=== PATIENT | female | born 1955 | race Caucasian/White ===

== ENCOUNTER → 2017-11-16 | Outpatient (CLI) | payer OTHER ==
[~2017-11-16] MED LIST: BNC/4025 PO; RIZA10TA21 PO; SUMA100T15 PO; TPRSR100 PO
--- NOTE | 2017-11-16 11:10 | DIAGNOSTIC IMAGING REPORT ---
EXAMINATION: RENAL ULTRASOUND CLINICAL HISTORY: N18.9 Chronic renal [id number] COMPARISON STUDY: 06/05/2014 FINDINGS: The right kidney measures 10.7 cm. There is upper pole atrophy/scarring.. The left kidney measures 7.9 cm.. There is minimal fullness of each renal pelvis. Significant obstruction is not felt to be present as bilateral ureteral jets were delineated There are no renal masses. The bladder wall is the upper limits of normal thickness. Bilateral ureteral jets were visualized. IMPRESSION : 1. Diffuse left renal atrophy 2. Upper pole right renal atrophy 3. No evidence of obstruction Electronically signed by: Fernie Burrows M.D. 11/16/2017 11:09 AM Dictated Date/Time: 11/16/2017 11:07 AM
--- NOTE | 2017-11-16 11:11 | DIAGNOSTIC IMAGING REPORT ---
DOPPLER ULTRASOUND OF THE RENAL ARTERIES CLINICAL HISTORY: Chronic renal insufficiency. COMPARISON STUDY: Abdominal CT dated 04/13/2016. TECHNIQUE: Doppler sonography of the renal arteries was performed to assess renal artery stenosis. Images are reviewed in the transverse and longitudinal planes. FINDINGS: On the right, intrarenal arterial resistive indices range from 0.55 to 0.58. Intrarenal arterial waveforms are normal with brisk upstrokes. The right renal arterial waveform is normal, and velocities within the right renal artery measure up to 73 cm/sec. The right renal vein is patent. On the left, intrarenal arterial resistive indices range from 0.54 to 0.57. Intrarenal arterial waveforms are normal with brisk upstrokes. The left renal artery is not well visualized. The arterial waveform is normal, and velocities within the mid to distal left renal artery measure up to 26 cm/sec. The left renal vein was not visualized. The abdominal aorta is normal in caliber and patent. Velocities within the abdominal aorta measure up to 78 cm/s. Upper abdomen: Survey images of the liver show evidence of hepatomegaly and severe hepatic steatosis. IMPRESSION: 1. There is no sonographic evidence of renal artery stenosis. 2. Severe hepatic steatosis. Electronically signed by: Denis Arteaga M.D. 11/16/2017 11:09 AM Dictated Date/Time: 11/16/2017 11:07 AM
== END | disposition home or self-care (01) ==
LOC: C.ULTR 09:04
PROVIDERS: ATTEND Internal Medicine
DX: N18.9 Chronic kidney disease, unspecified (principal); K76.0 Fatty (change of) liver, not elsewhere classified; N26.1 Atrophy of kidney (terminal)

== ENCOUNTER 2020-12-24 08:40 | Observation (INO) ==
--- NOTE | 2020-12-15 10:24 | Anesthesiology Consultation ---
Date of Service December 15, 2020 Assessment & Plan (1) Encounter for pre-operative examination: Chart Review Chart Review: Acceptable Risk for Surgery (pending preop Covid testing ) and Patient NOT seen in Pre Admission Testing - Check BSG AM DOS PCP records show that patient has hx of hypothyroidism- pt's PCP note from 09/2020 showed patient on levothyroxine 12.5mcg but not in current med list. Attempted to call patient but no answer and was unable to leave a message- will need confirmed DOS if patient is taking levothyroxine DOS. 12/10/20 thyroid levels WNL Per nursing assessment 12/01/2020, patient denies any recent travel. No known Covid infection in the past 90 days. No known Covid positive contacts or Covid related symptoms. Preop Covid testing scheduled 12/20/20= will await results. Last seen by PCP 09/24/2020 = patient seen for follow-up. Hypertensionimproved BP on examcontinue current meds. Diabetespatient reports blood sugars under 200encouraged careful diet. Migraine headachesfluctuating in intensitywe will try verapamil. Right knee DJDsurgery is pendingno change in plan of care at this time. Patient seen by cardiology 08/24/2020 = seen for preoperative cardiovascular evaluation prior to right total knee replacement. Patient does have cardiac risk factors and limited functional status secondary to right knee pain. No symptoms of chest discomfort but does report ORTIZ when ambulating up 1 flight of stairs. Patient also admits to heart racing at night when lying in bed. History of A. fib with prior ablation in . DSE and event monitor were ordered. Per addendum 09/14/2020 = "The dobutamine stress echo on 08/31/20 was negative for ischemia at 87% MPHR. Resting echo demonstrated normal LV size and systolic function with no significant valvular abnormality. Patient is therefore at an acceptable risk to proceed with upcoming surgery from a cardiovascular standpoint." History Surgery Operation Date: 12/24/20 07:15 Proposed Procedures p Right Total Knee Arthroplasty - Adrian Sims MD Height/Weight Height: 5 ft 4.5 in Weight: 92.986 kg Allergies Allergy/AdvReac Type Severity Reaction Status Date / Time latex Allergy Mild Hives Verified 12/01/20 15:41 Cipro Allergy Unknown UNKNOWN Verified 06/12/16 15:33 ciprofloxacin Allergy Unknown unknown Verified 12/01/20 15:41 reaction clarithromycin Allergy Unknown hives, Verified 12/01/20 15:41 itching insulin aspart Allergy Unknown Hives,Migra Verified 12/01/20 15:41 [From Novolog U-100 Insulin flakito aspart] Sulfa (Sulfonamide Allergy Unknown unknown Verified 12/01/20 15:41 Antibiotics) reaction codeine AdvReac Mild vomiting Verified 12/01/20 15:41 (with remote use) aspartame AdvReac Unknown severe Verified 12/01/20 15:41 migraines chocolate flavor AdvReac Unknown migraines Verified 12/01/20 15:41 glipizide AdvReac Unknown nausea, Verified 12/01/20 15:41 migraines liraglutide [From Victoza] AdvReac Unknown migraines Verified 12/01/20 15:41 monosodium glutamate AdvReac Unknown migraines Verified 12/01/20 15:41 nickel AdvReac Unknown swelling, Verified 12/01/20 15:41 itching Medications Home Medications Medication Instructions Recorded Confirmed Last Taken amoxicillin 500 mg capsule 2,000 mg PO ONCE PRN #8 cap 06/26/19 12/01/20 Unknown miscellaneous medical supply #1 ea 07/17/19 10/18/20 Unknown rizatriptan 10 mg tablet 10 mg PO .COMPLEX PRN #120 tab 01/28/20 12/01/20 Unknown albuterol sulfate 1 inh INHALATION QID PRN 08/10/20 12/01/20 Unknown BD Arlin 2nd Gen Pen Needle 32 #400 ea NS 09/23/20 10/18/20 Unknown gauge x 5/32" flash glucose sensor #6 ea 09/23/20 10/18/20 Unknown multivitamin 1 tab PO QAM 09/24/20 12/01/20 Unknown Accu-Chek Barbara Plus test strp #800 ea NS 10/18/20 10/18/20 Unknown insulin degludec 100 unit/mL (3 22 unit SUBCUT QAM #15 ml 10/18/20 12/01/20 Unknown mL) subcutaneous pen insulin regular human 100 unit/mL 15 unit SUBCUT .COMPLEX 90 Days 10/20/20 12/01/20 Unknown (3 mL) subcutaneous pen #15 ml sumatriptan succinate 100 mg tablet 100 mg PO Q2H PRN #10 tab 10/22/20 12/01/20 Unknown verapamil 120 mg 24 hr 120 mg PO QAM #30 cap 10/28/20 12/01/20 Unknown capsule,extended release losartan 100 1 tab PO QAM #90 tab 11/09/20 12/01/20 Unknown mg-hydrochlorothiazide 25 mg tablet furosemide 40 mg tablet 40 mg PO DAILY PRN #90 tab 11/11/20 12/01/20 Unknown Past Medical History Medical History (Updated 12/15/20 @ 10:51 by Neda Billy PA-C) Asthma rare use PRN inh Atrial fibrillation remote hx prior to ablation (1997), no known recurrence Chronic renal insufficiency Cyst of pancreas DM type 2 (diabetes mellitus, type 2) IDDM Fatty liver disease, nonalcoholic History of migraine Hypertension Hypothyroidism Per PCP records Kidney stones h/0 Lupus no recent issues, following with PCP Obstructive sleep apnea syndrome CPAP Slow to wake up after anesthesia Transient ischemic attack (TIA) remote hx Past Family History Family History Sister Family history of reaction to anesthesia difficulty waking Father Family history of diabetes mellitus Family hx colonic polyps Mother Family history of diabetes mellitus Past Surgical History Surgical History History of arthroscopy of left knee x2 History of arthroscopy of right knee History of bilateral breast implants History of bilateral cataract extraction History of bilateral tubal ligation History of bladder surgery bladder tac History of cardiac cath 2007 ([facility] no stent (no evidence of coronary artery disease) [place] of cardiac [place]frequency [place] [facility] [place] of colonoscopy History of dilatation and curettage History of esophageal dilatation History of esophagogastroduodenoscopy (EGD) History of hysterectomy History of right breast biopsy x2--benign History of tooth extraction wisdom teeth History of total left knee replacement (TKR) Social History Smoking Status: Never smoker Do You Dip or Chew Tobacco: No Hx Alcohol Use: Yes Alcohol type: wine alcohol intake frequency: holidays/special occasions only Hx Substance Use: No substance use type: does not use Testing Laboratory Results Laboratory Tests 12/10/20 12/10/20 12/10/20 13:25 13:27 13:27 WBC Hgb Hct Plt Count PT 10.2 INR 1.0 APTT 28 Sodium 142 Potassium 4.3 Chloride 105 Carbon Dioxide 26 BUN 28 H Creatinine 1.54 H Glucose 104 H Hemoglobin A1c TSH 1.57 Free T4 1.0 12/10/20 12/10/20 13:27 13:27 WBC 6.8 Hgb 15.5 Hct 45.6 H Plt Count 174 PT INR APTT Sodium Potassium Chloride Carbon Dioxide BUN Creatinine Glucose Hemoglobin A1c 7.3 H TSH Free T4 *Elevated BUN and creat- chronic and stable from previous Electrocardiogram Date: 04/21/20 SR at 76bpm. Possible LAE. Borderline LAD. Chest X-Ray Date: 04/21/20 Mild LVE. Minimal subsegmental atelectasis or scarring in the mid anterior CHAZ. Right lung clear. No acute cardiopulmonary disease. Stress Test Date: 08/31/20 Type: DSE Resting RWMA: + none Valvular Disease: no significant valvular disease Normal dobutamine echocardiogram without evidence of inducible ischemia. Normal baseline EKG. Left ventricle is normal in size and systolic function. Moderate concentric LVH. EF =60% at rest. Other Testing Event monitor 08/31/2022 09/20/2020 = sinus rhythm. Borderline first-degree AV block (WV 210 msec). Occasional PAC, PVC. During complaint of lightheadednessnormal sinus rhythm rate 85 bpm. During complaints of chest painnormal sinus rhythm rate [address] or T abnormalities.
--- NOTE | 2020-12-18 12:06 | History and Physical Report ---
DATE OF ADMISSION: 12/24/2020 CHIEF COMPLAINT: Bilateral knee pain and discomfort. HISTORY OF PRESENT ILLNESS: The patient is a 65-year-old female who presents for treatment of her knees. She has got a long history of knee problems and had her left knee replacement by Dr. Huffman back in 2012. Never really did great from this. She had persistent pain and discomfort. There have been no signs of infection or problems with wound healing. With respect to the right knee, it has been bothering her for a long time. She had a scope in 2010. She has medial and anteromedial pain. It is increased with activities. She feels like she has gained a lot of weight as a result of her limited activity, which is limited by her knee pain. She has been through extensive conservative treatment in past including the knee arthroscopy as well as steroid shots and viscosupplementation, which provided minimal relief anymore. She would like to have her right knee fixed. She has been scheduled for knee replacement in the past, but her hemoglobin A1c was too high and we have worked hard on getting that down. She is now to a reasonable level with A1c of 7.3. PAST MEDICAL HISTORY: Significant for: 1. Diabetes, poorly controlled in the past. 2. Hypertension. 3. History of heart arrhythmia, status post ablation without recurrence. 4. Sleep apnea, CPAP machine. 5. Hypothyroidism. 6. Obesity, BMI of 35. 7. Kidney stones with a single kidney. PAST SURGICAL HISTORY: Include: 1. Bilateral knee scopes. 2. Left knee replacement done in 2012. 3. Hysterectomy. ALLERGIES: NICKEL. ALSO DESCRIBES ALLERGT TO UNSPECIFIED ANTIBIOTIC. CURRENT MEDICINES: Include: 1. Losartan. 2. Imitrex. 3. Maxalt. 4. Albuterol. 5. Tresiba. 6. NovoLog insulin. SOCIAL HISTORY: A 65-year-old female. She lives in [place]. Works at [employer] in [employer]. She is single and . Rare alcohol intake. Does not smoke. FAMILY HISTORY: Significant for heart disease, diabetes, lung cancer, liver cancer. REVIEW OF SYSTEMS: Significant for poorly controlled diabetes. She has made significant improvements and is controlled with the past month. No chest pain or shortness of breath. No history of DVT or PE. PHYSICAL EXAMINATION: GENERAL: Shows a pleasant, middle-aged female. Looks to be in pretty good health. HEENT: Benign. NECK: Supple, no lymphadenopathy. LUNGS: Clear to auscultation. HEART: Has a regular rate and rhythm. ABDOMEN: Soft, nontender, nondistended. EXTREMITIES: Grossly neurovascularly intact except as follows. Examination of both knees reveals the patient ambulates independently. Minimal limp. Examination of the right knee reveals well-healed portal sites from the knee arthroscopy. She has got small to moderate sized effusion. Range of motion is about 5 degrees, show full extension to 125 degrees of flexion. There is no instability. She does have some patellofemoral crepitance. Examination of the left knee reveals well-healed incision. Knee alignment looks good. Range of motion 0-120. Good straight leg raise. No pain with hip motion. X-RAYS: X-rays of the right knee reveal advanced right knee medial compartment DJD. She has got complete loss of medial joint space. She has got osteophytes primarily medially. Some osteophytes laterally. X-rays of the left knee showed the knee replacement in good position. No obvious signs of problems. No poly wear. ASSESSMENT: A 65-year-old female with: 1. Advanced right knee degenerative joint disease. 2. Left knee pain after previous knee replacement without obvious problems. PLAN: We talked about treatment. Certainly we have been slowly considered a knee surgery when she is not super pleased with the other side. Despite this, she is markedly limited by her knee pain and feels she has got no option. She would like to proceed with right knee replacement. We will take her to the operating room and do a right total knee replacement. Due to her NICKEL ALLERGY, we will use a Mckoy and Nephew Journey II Zirconium total knee arthroplasty. The risks and benefits of this procedure were explained to the patient including but not limited to DVT, PE, , infection, neurological injury, vascular injury, bleeding problem, pain, limited range of motion, stiffness, failure to relieve symptoms, incomplete relief of symptoms, need for further surgery in future, fracture, leg length inequality, etc. The patient understands and desires to proceed. Informed consent was obtained. We did work hard on getting her hemoglobin A1c to a reasonable level and it is now down to 7.3 and I think we can proceed. The patient only has a single kidney, so we will have to be careful with NSAIDs use postoperatively. We will follow her creatinine. As far as discharge plans, she is planning to be discharged to home using [facility] home health program. There is a possibility that she may want to go to rehab for a short period.
[~2020-12-24 08:40] MED LIST changes: +ACETAMINOPHEN 500 MG TAB PO SCH; -BNC/4025 PO; +BUPIVACAINE 0.5 % 5 MG/1 ML PF 10ML VIAL ONE; +BUPIVACAINE LIPOSOME/PF 266 MG, BUPIVACAINE/EPINEPHRINE 50 ML, SODIUM CHLORIDE 0.9% 30 ... INFIL SCH; +FAMOTIDINE 20 MG TAB PO SCH; +GABAPENTIN 300 MG CAP PO SCH; +LR 500ML BOLUS, THEN 15ML/HR IV SCH; +LR 60ML/HR IV SCH; +METOCLOPRAMIDE HCL 10 MG TABLET PO SCH; +MIDAZOLAM HCL 1 MG/ML 2ML VIAL ONE; -RIZA10TA21 PO; +ROPIVACAINE 0.5% 5 MG/ML 30 ML VIAL ONE; -SUMA100T15 PO; +Scopolamine 1 MG TDSY TD SCH; -TPRSR100 PO; +TRANEXAMIC ACID 1,000 MG **IV Intra-op IV SCH; +ceFAZolin 2000MG 2,000 MG/15 ML SYR IV SCH; +fentaNYL citrate 100 MCG/2 ML VIAL ONE
--- NOTE | 2020-12-24 08:55 | History & Physical Bridge Note ---
Date of Service December 24, 2020 History & Physical Bridge Note I have examined the patient, reviewed the History & Physical and in the interval since the performance of the History & Physical I have noted the following changes of clinical significance: no changes noted
[2020-12-24] MEDS ORDERED: KETOROLAC 30 MG/ML VIAL IV PRN (10:35)
[2020-12-24] MEDS ORDERED: HYDROmorphone INJ 2 MG/ML SYR/VIAL IV PRN (10:35)
[2020-12-24] MEDS ORDERED: ePHEDrine sulfate 50 MG/ML AMP IV PRN (10:35)
[2020-12-24] MEDS ORDERED: ATROPINE SULFATE 0.1 MG/ML 10ML SYR IV PRN (10:35)
[2020-12-24] MEDS ORDERED: fentaNYL citrate 100 MCG/2 ML VIAL IV PRN (10:35)
[2020-12-24] MEDS ORDERED: BUPIVACAINE LIPOSOME 1.3% 266 MG/20 ML VIAL ONE (10:40)
[2020-12-24] MEDS ORDERED: BACITRACIN INJ 50,000 UNIT VIAL ONE (10:40)
[2020-12-24] MEDS ORDERED: SODIUM CHLORIDE 0.9% PF 50 ML VIAL ONE (10:40)
[2020-12-24] MEDS ORDERED: EPINEPHrine INJ 1 MG/ML AMP ONE (10:41)
[2020-12-24] MEDS ORDERED: BUPIVACAINE 0.25% 30 ML VIAL ONE (10:41)
[2020-12-24] MEDS ORDERED: ePHEDrine sulfate 50 MG/ML SYR ONE (11:53)
[2020-12-24] MEDS ORDERED: ONDANSETRON INJ 2 MG/ML 2 ML VIAL ONE (11:53)
[2020-12-24] MEDS ORDERED: PROPOFOL IV EMULSION 10 MG/ML 20 ML VIAL IV ONE (11:53)
[2020-12-24] MEDS ORDERED: LIDOCAINE HCL 2% 2 ML VIAL/AMP(20MG/ML) INFIL ONE (11:53)
--- NOTE | 2020-12-24 13:17 | Operative Report ---
Post Operative Report Pre & Post Diagnosis Operation Date: 12/24/20 10:40 Pre-Op Diagnosis: Right Knee DJD Post-Op Diagnosis: Right Knee DJD I identified the patient and participated in the time-out.: Yes Procedure Operation Date: 12/24/20 10:40 Actual Procedures p Right Total Knee Arthroplasty(Right) - Adrian Sims MD Surgeon Adrian Sims MD [employer] Learning Consultant FRANK Solares Estimated Blood Loss 50 Findings Consistent with Post-Op Diagnosis Operative findings revealed advanced right knee DJD. She had extensive grade 4 [id number] disease the medial compartment as well as patellofemoral compar tments. Fairly mild the lateral compartment disease. Fluids 1000 cc. Specimens Right knee sent for pathology. Drains None. Anesthesia Type Spinal MAC Complications none Disposition Accompanied Patient To Recovery: No Disposition: Recovery Room Indications Patient is a 65-year-old female is had a long history of bilateral knee pain is discomfort. She been through extensive conservative treatment. She underwent a left knee replacement done elsewhere with equivocal results. She is really try to maximize conservative care but continued be limited by her pain and discomfort. She failed all conservative measures and elected proceed with right total knee arthroplasty. The patient does have an apparent nickel allergy so we used the Mckoy & Nephew journey to zirconium a total knee arthroplasty. Description of Procedure Operative implants consist of: 1 Mckoy & Nephew journey 2 size 4 right posterior stabilized femoral component. 2. Mckoy & Nephew journey 2 size 2 right tibial tray. 3. 9 mm posterior stabilized polyethylene insert. 4. 32 x 9 all polypatella. The patient was taken to the operating identified and placed on the operating table supine position but all contact areas were properly padded. IV antibiotic s tried by anesthesia team. A spinal anesthetic and abductor canal block had provided in the holding area. Piper catheter was placed in sterile fashion. Right thigh turn was then placed in the right lower extremities and prepped and draped in usual sterile fashion. Right leg was elevated exsanguinated with use of an Esmarch and tourniquet placed at 300 mmHg. An anterior approach to the right knee was then performed to longitudinal incision centered over the patella. Sharp dissection was got through subcutaneous tissue down to the level extensor mechanism. A medial parapatellar arthrotomy incision was made. Some subperiosteal dissection was carried out medially. The fat pad was resected beneath patella tendon. Lateral patellofemoral ligament was released. The patella subluxated laterally and the knee was flexed. The osteophytes were taken off distal femur. The ACL and PCL were then released from the distal femur and the tibia subluxated anteriorly. The external tibial alignment jig was then placed in the interface the tibia and adjusted 8 mm medially. Proximal tibial cut was made remove about 2 to 3 mm of bone from the most deficient aspect medial tibial plateau. The tibia sized to a size 2. Attention drawn the femur. The distal femur then with a sharp drill bit intramedullary canal was suction. A right 5 degree valgus cutting guide was placed for the distal femoral cutting block was pinned in place. The distal femoral cut was made to take an additional 2 mm of bone off distal femur. The femur was then sized and sized to a size 4. The AP cutting block was pinned and then pinned in place in parallel to the epicondylar axis which was 3 degrees of external rotation. The anterior cord, anterior chamfer, posterior cut, posterior chamfer, anterior chamfer cuts were made. The trochlear reaming device was placed in the intercondylar notch was created. The trochlea was then placed. Trial femoral component was placed. I did remove the osteophytes from the posterior aspect of femur as well as the medial lateral menisci. The tibia was then subluxated anteriorly. The tibial tray was then pinned and the drill and stem punch for the tibial tray were then used to create the defect for the proximal tibia. We tried to maximize rotation, specifically external rotation of the tibial tray. We then trialed the knee in a 9 mm insert fit most appropriately. Attention drawn the patella. Nipride the patella was cleaned of all soft tissues. Patella thickness measured 21 mm in thickness was cut down 13. Was sized to a size 32 patella. The lug holes were drilled from 30 patella. The lateral osteophyte is moved. Patella button was placed. Knee was taken through range of motion patella tracked nicely with no thumbs test. Attention drawn to placing the permanent components. All trial components removed. A bone plug was placed in the distal femur limit blood loss. A double batch [place]os G cement was mixed. A Mckoy & Nephew size 4 right journey 2 posterior stabilized femoral component, size 2 tibial tray, a 9 mm posterior stabilized polyethylene insert, and a 32 x 9 all polypatella were then cemented in place. All extraneous cement was removed. The knee was brought out in full extension total cement hardened final cement check was then performed. The pericapsular tissues were injected with 100 cc of combination of 20 cc of Exparel, 30 cc normal saline, 50 cc of quarter percent Marcaine with epinephrine. Patient did receive 1 g tranexamic acid. The tourniquet was then let down for final turn time 62 minutes. Hemostasis reduced electrocautery. Extensor mechanism closed with combination 1 PDS suture #1 Vicryl suture in [id number] fashion. Extensor mechanism checked found to be intact with subcutaneous tissue then closed with 2 Dexon suture in a buried interrupted fashion skin was closed skin km. Leg was then cleaned dried a sterile dressing both Xeroform, 4 x 4's, sterile cast padding, Sin bandage were applied. Patient then transferred to the recovery room in stable condition. Patient tolerated procedure well and there were no complications. Will Sloares, my physician instruction assistant principal, was present for the entire procedure. His assistance was essential and required for appropriate patient positioning, prepping and draping, surgical exposure, performing the technical details of the operation, placement the implants, closure of the wound, and placement of the sterile bandage. I attest to the content of the Intraoperative Record and any orders documented therein. Any exceptions are noted below.
--- NOTE | 2020-12-24 13:19 | XRay Report ---
RIGHT KNEE 2 VIEWS History: Right total knee arthroplasty. Degenerative arthritis. Postop. FINDINGS: The patient is status post a right total knee arthroplasty. The hardware is intact. No frac ture or dislocation. Skin km are in place. IMPRESSION: Right total knee arthroplasty. No evidence for hardware complication. ACT 112: Negative or not required by law. Electronically signed by: Paul Burotn M.D. 12/24/2020 1:17 PM
--- NOTE | 2020-12-24 14:54 | Anesthesiology Progress Note ---
Date of Service December 24, 2020 Anesthesia Post Procedure Vital Signs Vital Signs: Temp Pulse Pulse Resp BP Pulse Ox 12/24/20 14:40 36.4 C L 66 16 146/90 H 94 12/24/20 14:30 68 16 151/99 H 93 12/24/20 14:11 36.1 C L 65 16 144/88 H 95 12/24/20 14:00 67 12 129/82 93 12/24/20 13:50 78 18 138/75 93 12/24/20 13:40 71 12 139/66 92 12/24/20 13:30 77 15 125/67 95 12/24/20 13:20 82 73 15 114/60 95 12/24/20 13:10 36.6 C 82 73 15 120/67 95 12/24/20 09:18 36.7 C 73 18 174/117 H 97 Pain Intensity Right Leg: Pain Intensity: 6 Transfer of Care Handoff Completed per policy Notes Mental Status: alert / awake / arousable and participated in evaluation Patient Amnestic to Procedure: Yes Nausea / Vomiting: adequately controlled Pain: adequately controlled Airway Patency, RR, SpO2: stable & adequate BP & HR: stable & adequate Hydration State: stable & adequate Neuraxial Anesthesia: was administered and sensory block is resolving Anesthetic Complications: no major complications apparent
[2020-12-24] MEDS ORDERED: METOCLOPRAMIDE HCL INJ 5 MG/ML 2 ML VIAL IV PRN (15:05)
[2020-12-24] MEDS ORDERED: SUMAtriptan succinate 100 MG TAB PO PRN (15:05)
[2020-12-24] MEDS ORDERED: GLUCOSE 10 TABS/TUBE PO PRN (15:05)
[2020-12-24] MEDS ORDERED: INSULIN SQ SCH (15:05)
[2020-12-24] MEDS ORDERED: RIZATRIPTAN BENZOATE 10 MG TAB PO PRN (15:05)
[2020-12-24] MEDS ORDERED: GLUCOSE 40% GEL 15 GM TUBE PO PRN (15:05)
[2020-12-24] MEDS ORDERED: NO NSAIDS SCH (15:05)
[2020-12-24] MEDS ORDERED: bisacodyL 10 MG SUPP PR PRN (15:05)
[2020-12-24] MEDS ORDERED: ALBUTEROL HFA 8 GM INHALER INH PRN (15:05)
[2020-12-24] MEDS ORDERED: diphenhydrAMINE Capsule 25 MG CAP PO PRN (15:05)
[2020-12-24] MEDS ORDERED: MAGNESIUM HYDROXIDE SUSP 30 ML UDC PO PRN (15:05)
[2020-12-24] MEDS ORDERED: DEXTROSE 50% 50 ML SYRINGE IV PRN (15:05)
[2020-12-24] MEDS ORDERED: FUROSEMIDE 40 MG TAB PO PRN (15:05)
[2020-12-24] MEDS ORDERED: NALOXONE HCL 0.4 MG/1 ML VIAL/CARP IV PRN (15:05)
[2020-12-24] MEDS ORDERED: CARBOHYDRATES FOR HYPOGLYCEMIA PO PRN (15:05)
[2020-12-24] MEDS ORDERED: GLUCAGON FOR INJ 1 MG VIAL SQ PRN (15:05)
[2020-12-24] MEDS ORDERED: INSULIN REGULAR HUMAN 100 UNIT/ML SQ SCH (15:05)
[2020-12-24] MEDS ORDERED: PHARMACY GLYCEMIC MGMT CONSULT PRN (15:29)
[2020-12-24] MEDS ORDERED: INSULIN GLARGINE SOLOSTAR 100 UNITS/ML 3 ML PEN SC SCH (16:00)
--- NOTE | 2020-12-24 16:15 | Pharmacy Report ---
Pharmacy Glycemic Short Note 2 - Date of Service December 24, 2020 - Glycemic Short BSG Results (Last 24 hours): 12/24/20 12/24/20 09:05 13:12 POC Glucose 132 H 116 H OUTPATIENT ANTIDIABETIC REGIMEN: * Tresiba 22 units Daily/Humulin R sliding scale ASSESSMENT: * Right knee DJD post op patient. * Using Humulin R for coverage because of allergy to both Novolog and Humalog. * A1C was 7.3 from 12/10/20 preop labs. * Patient ordered Dexamethasone 8mg x1 dose postop day #1. PLAN FOR INPATIENT GLYCEMIC CONTROL: * Hold outpatient oral diabetes medications * Basal insulin * Lantus 22 units SQ Daily * Bolus insulin * Humulin R per scale ACHS or Q6hrs while NPO * Goal Range: Low 110 mg/dL - High 140 mg/dL * Correction Factor: 25 mg/dL/unit * Nutritional / Prandial insulin per carb ratio of 1 unit per 8 grams CHO consumed PLAN FOR DISCHARGE: *
[2020-12-24] MEDS: ONDANSETRON INJ 2 MG/ML 2 ML VIAL IV PRN ×2 (16:29→22:40)
[2020-12-24] MEDS: SODIUM CHLORIDE 0.9% 1000ML 1,000 ML IV SCH (16:32)
[2020-12-24] MEDS: Scopolamine CHECK PATCH PLACEMENT SCH (16:34)
[2020-12-24] MEDS: ACETAMINOPHEN 500 MG TAB PO SCH ×2 (17:35→22:35)
[2020-12-24] MEDS: ASCORBIC ACID 500 MG TAB PO SCH (17:36)
[2020-12-24] MEDS: FERROUS GLUCONATE 324 MG TAB PO SCH (17:36)
[2020-12-24] MEDS: INSULIN HUMAN REGULAR SC SCH ×2 (17:40→20:49)
[2020-12-24] MEDS: ceFAZolin 2000MG 2,000 MG/15 ML SYR IV SCH (18:29)
[2020-12-24] MEDS: oxyCODONE HCL IR 5 MG TAB (IMMEDIATE RELEASE) PO PRN (18:29)
[2020-12-24] MEDS: INSULIN GLARGINE SOLOSTAR 100 UNITS/ML 3 ML PEN SC SCH (18:34)
[2020-12-24] MEDS ORDERED: TRANEXAMIC ACID / 0.7% NACL 1,000 MG/100 ML BAG IV SCH (19:07)
[2020-12-24] MEDS: HYDROmorphone INJ 0.5 MG/0.5 ML SYR IV PRN (19:21)
[2020-12-24] MEDS: ASPIRIN 81 MG ECTAB PO SCH (20:47)
[2020-12-24] MEDS: DOCUSATE SODIUM 100 MG CAP PO SCH (20:47)
[2020-12-24] MEDS: SENNA 8.6 MG TAB PO SCH (20:49)
[2020-12-24] MEDS: TAPENTADOL HCL ER 50 MG TABCR PO SCH (20:55)
[2020-12-25] MEDS: SODIUM CHLORIDE 0.9% 1000ML 1,000 ML IV SCH (00:19)
[2020-12-25] MEDS: Scopolamine CHECK PATCH PLACEMENT SCH ×4 (00:44→23:31)
[2020-12-25] MEDS: ceFAZolin 2000MG 2,000 MG/15 ML SYR IV SCH (03:26)
[2020-12-25] MEDS: ACETAMINOPHEN 500 MG TAB PO SCH ×3 (05:46→20:56)
[2020-12-25] MEDS: HYDROmorphone INJ 0.5 MG/0.5 ML SYR IV PRN ×3 (05:53→19:12)
[2020-12-25] MEDS: ONDANSETRON INJ 2 MG/ML 2 ML VIAL IV PRN ×2 (06:03→17:16)
[2020-12-25 06:39] LABS: Hematocrit (blood only) 40.9 % (37-47); Hemoglobin 13.5 g/dL (12.0-16.0); Mean Corpuscular Hemoglobin 30.1 pg (25-34); Mean Corpuscular Volume 91.3 fL (80-100); Mean Platelet Volume 11.7 fL (7.4-10.4); Platelet Count 158 K/uL (130-400); RDW Coefficient of Variation 13.4 % (11.5-14.5); RDW Standard Deviation 44.7 fL (36.4-46.3); Red Blood Count 4.48 M/uL (4.2-5.4); White Blood Count 11.36 K/uL (4.8-10.8)
[2020-12-25 07:08] LABS: BUN Creatinine Ratio 12.9 (10-20); Calcium 8.9 mg/dl (8.5-10.1); Creatinine Clr Calc Pharmacy 41.8 ml/min; Est GFR (Non-African American) 34.5
[2020-12-25] MEDS: FERROUS GLUCONATE 324 MG TAB PO SCH ×2 (07:38→17:15)
[2020-12-25] MEDS: ASCORBIC ACID 500 MG TAB PO SCH ×2 (07:38→17:15)
[2020-12-25] MEDS ORDERED: dexAMETHasone 4 MG TAB PO SCH (08:00)
[2020-12-25] MEDS ORDERED: NovoLIN-N (NPH) PER UNIT CHARGE SQ ONE (08:15)
[2020-12-25] MEDS: TAPENTADOL HCL ER 50 MG TABCR PO SCH ×2 (08:43→20:54)
[2020-12-25] MEDS: VERAPAMIL HCL 120 MG TABCR PO SCH (08:43)
[2020-12-25] MEDS: MULTIVITAMIN TAB PO SCH (08:43)
[2020-12-25] MEDS: ASPIRIN 81 MG ECTAB PO SCH ×2 (08:43→20:55)
[2020-12-25] MEDS: LOSARTAN/HCTZ 50/12.5MG TAB PO SCH (08:43)
[2020-12-25] MEDS: DOCUSATE SODIUM 100 MG CAP PO SCH ×2 (08:43→20:56)
[2020-12-25] MEDS: INSULIN HUMAN REGULAR SC SCH ×4 (08:48→21:01)
[2020-12-25] MEDS: INSULIN GLARGINE SOLOSTAR 100 UNITS/ML 3 ML PEN SC SCH (08:48)
[2020-12-25] MEDS ORDERED: NON-FORMULARY MEDICATION (Insulin Degludec [Tresiba Flextouch U-100] 100 unit/mL (3 mL) in SQ SCH (09:00)
[2020-12-25] MEDS ORDERED: MULTIVITAMIN TAB PO SCH (09:00)
--- NOTE | 2020-12-25 09:26 | Pharmacy Report ---
Pharmacy Glycemic Short Note 2 - Date of Service December 25, 2020 - Glycemic Short BSG Results (Last 24 hours): 12/24/20 12/24/20 12/24/20 13:12 17:11 20:41 Glucose POC Glucose 116 H 120 H 200 H 12/25/20 12/25/20 06:17 08:00 Glucose 160 H POC Glucose 150 H OUTPATIENT ANTIDIABETIC REGIMEN: * Tresiba 22 units Daily/Humulin R sliding scale ASSESSMENT: 12/25/20 * POD1, Fasting blood sugar 160mg/dl, continue Lantus * Blood sugar theron from 120 to 200mg/dl from dinner to HS last night, tighten CF/CR * Dexamethasone 8mg PO today, give NPH to cover effects, 0.2mg/kg x 1 day * Patient did not want NPH initially d/t thinking it was generic Humalog, counseled patient and explained it is NPH insulin and is used to help cover hyperglycemic effects of steroid, patient has never had NPH but is willing to try it, will monitor for adverse effects and document appropriately, RN Humble aware. 12/24/20 * Right knee DJD post op patient. * Using Humulin R for coverage because of allergy to both Novolog and Humalog. * A1C was 7.3 from 12/10/20 preop labs. * Patient ordered Dexamethasone 8mg x1 dose postop day #1. PLAN FOR INPATIENT GLYCEMIC CONTROL: * Hold outpatient oral diabetes medications * Basal insulin * NPH 20 units SQ x 1 dose now with PO Dexamethasone * Lantus 22 units SQ Daily * Bolus insulin * Humulin R per scale ACHS or Q6hrs while NPO * Goal Range: Low 110 mg/dL - High 140 mg/dL * tighten: Correction Factor: 20 mg/dL/unit * tighten:Nutritional / Prandial insulin per carb ratio of 1 unit per 7 grams CHO consumed
--- NOTE | 2020-12-25 10:38 | Progress Notes ---
DATE: 12/25/2020 SUBJECTIVE: A 65-year-old white female postop day 1 from right knee replacement. She has had a quite painful night. Complains of her entire right leg pain. Denies any chest pain or shortness of breath. Not feeling dizzy or lightheaded. OBJECTIVE: VITAL SIGNS: Temperature 36.6. Vital signs stable. A bit hypertensive. GENERAL: Shows a pleasant, middle-aged female. She is lying in bed. Does not look particularly uncomfortable. LUNGS: Clear to auscultation. HEART: Has a regular rate and rhythm. ABDOMEN: Soft, nontender, nondistended. EXTREMITIES: Grossly neurovascularly intact except as follows. Examination of the right leg reveals the leg to be well aligned. Dressing is clean, dry and intact. She can dorsiflex and plantarflex her toes appropriately. She is neurologically intact. LABORATORY DATA: Hemoglobin 13.5. Hematocrit is 40.9. Electrolytes are stable. Creatinine is stable at 1.56. ASSESSMENT: A 65-year-old female postop day 1 from a right knee replacement, doing okay. Having quite a bit of pain. Unfortunately, with her kidneys, we cannot really give her much in the way of NSAIDS. PLAN: 1. DVT prophylaxis including thigh-high TEDs, SCDs, and aspirin twice a day. 2. PT/OT. Weight bear as tolerated. Right total knee protocol. 3. Pain control, doing okay with current pain regimen. We may need to adjust things and change her from oxycodone to Dilaudid depending on how she is doing. Unfortunately, with her kidneys, we cannot give her NSAIDs. 4. Disposition: She is planning to be discharged to home. She is not ready for discharge at this point as her pain is not adequately controlled. We will see how therapy goes today as well.
[2020-12-25] MEDS: oxyCODONE HCL IR 5 MG TAB (IMMEDIATE RELEASE) PO PRN (12:14)
[2020-12-25] MEDS ORDERED: Nursing to Pharmacy Communication SCH (15:45)
[2020-12-25] MEDS: HYDROmorphone HCL 2 MG TAB PO PRN ×2 (15:59→22:30)
[2020-12-25] MEDS: SENNA 8.6 MG TAB PO SCH (20:55)
[2020-12-26] MEDS: HYDROmorphone INJ 0.5 MG/0.5 ML SYR IV PRN ×2 (00:29→16:24)
[2020-12-26] MEDS: ACETAMINOPHEN 500 MG TAB PO SCH ×3 (05:14→20:54)
[2020-12-26] MEDS: HYDROmorphone HCL 2 MG TAB PO PRN ×3 (06:25→23:31)
[2020-12-26] MEDS: ASCORBIC ACID 500 MG TAB PO SCH ×2 (07:19→17:48)
[2020-12-26] MEDS: Scopolamine CHECK PATCH PLACEMENT SCH ×3 (07:19→23:32)
[2020-12-26] MEDS: FERROUS GLUCONATE 324 MG TAB PO SCH ×2 (07:19→17:48)
[2020-12-26] MEDS: DOCUSATE SODIUM 100 MG CAP PO SCH ×2 (09:02→20:55)
[2020-12-26] MEDS: LOSARTAN/HCTZ 50/12.5MG TAB PO SCH (09:03)
[2020-12-26] MEDS: VERAPAMIL HCL 120 MG TABCR PO SCH (09:03)
[2020-12-26] MEDS: ASPIRIN 81 MG ECTAB PO SCH ×2 (09:03→20:54)
[2020-12-26] MEDS: MULTIVITAMIN TAB PO SCH (09:04)
[2020-12-26] MEDS: INSULIN GLARGINE SOLOSTAR 100 UNITS/ML 3 ML PEN SC SCH (09:05)
[2020-12-26] MEDS: INSULIN HUMAN REGULAR SC SCH ×4 (09:06→21:14)
[2020-12-26] MEDS: TAPENTADOL HCL ER 50 MG TABCR PO SCH ×2 (09:14→20:54)
--- NOTE | 2020-12-26 10:42 | Progress Notes ---
DATE: 12/26/2020 SUBJECTIVE: A 65-year-old white female postop day 2 from a right knee replacement. Pretty painful yesterday. Doing a little bit better this morning. We changed her pain medicines around. She thinks the Dilaudid works a little bit better than the oxycodone. No chest pain or shortness of breath, just knee pain. OBJECTIVE: VITAL SIGNS: Temperature 36.3. Vital signs stable. GENERAL: Physical examination shows a pleasant, middle-aged female. She is sitting up in bed and eating breakfast. Looks pretty comfortable. EXTREMITIES: Examination of the right leg reveals the leg to be well aligned. Dressing is clean, dry and intact. No significant drainage. She has difficulty doing a straight leg raise. She can dorsiflex and plantarflex her foot appropriately. Calf is soft and supple. ASSESSMENT: A 65-year-old white female, postoperative day 2 from a right knee replacement, doing better. Still pretty painful, but improving and seems to be doing better on the Dilaudid. PLAN: 1. DVT prophylaxis including thigh-high TEDs, SCDs, and aspirin twice a day. 2. PT/OT. Weight bear as tolerated. Right total knee protocol. 3. Pain control, doing okay with current pain regimen. Seems to be doing better on the Dilaudid. 4. Disposition: Plan to discharge to home with some home health if she does okay in therapy today and pain is reasonably well controlled.
[2020-12-26] MEDS: SENNA 8.6 MG TAB PO SCH (20:55)
[2020-12-27] MEDS: HYDROmorphone INJ 0.5 MG/0.5 ML SYR IV PRN (02:29)
[2020-12-27] MEDS: ACETAMINOPHEN 500 MG TAB PO SCH ×2 (05:07→12:34)
[2020-12-27] MEDS: ALUMINUM/MAGNESIUM SUSP 30 ML UDC PO PRN ×2 (07:09→12:20)
[2020-12-27] MEDS: HYDROmorphone HCL 2 MG TAB PO PRN ×2 (07:38→13:40)
[2020-12-27] MEDS: MULTIVITAMIN TAB PO SCH (08:32)
[2020-12-27] MEDS: DOCUSATE SODIUM 100 MG CAP PO SCH (08:32)
[2020-12-27] MEDS: FERROUS GLUCONATE 324 MG TAB PO SCH (08:32)
[2020-12-27] MEDS: TAPENTADOL HCL ER 50 MG TABCR PO SCH (08:32)
[2020-12-27] MEDS: ASPIRIN 81 MG ECTAB PO SCH (08:33)
[2020-12-27] MEDS: LOSARTAN/HCTZ 50/12.5MG TAB PO SCH (08:33)
[2020-12-27] MEDS: ASCORBIC ACID 500 MG TAB PO SCH (08:33)
[2020-12-27] MEDS: VERAPAMIL HCL 120 MG TABCR PO SCH (08:33)
[2020-12-27] MEDS: INSULIN HUMAN REGULAR SC SCH ×2 (08:36→12:34)
[2020-12-27] MEDS: INSULIN GLARGINE SOLOSTAR 100 UNITS/ML 3 ML PEN SC SCH (08:37)
--- NOTE | 2020-12-27 09:15 | Progress Notes ---
DATE: 12/27/2020 SUBJECTIVE: A 65-year-old white female postop day 3 from right knee replacement. She continues to make some gradual improvements pain vargas. Still having trouble lifting her leg, which is not unusual. No new complaints of chest pain or shortness of breath. OBJECTIVE: VITAL SIGNS: Temperature 36.5. Vital signs stable. GENERAL: Shows a pleasant, middle-aged female. She is lying in bed this morning and looks reasonably comfortable. EXTREMITIES: Examination of the right leg reveals the leg to be well aligned. Just a little bit of bloody drainage on the dressing. No active drainage. Calf is soft and supple. Some mild swelling. She can dorsiflex and plantarflex her foot appropriately. ASSESSMENT: A 65-year-old white female postop day 3 from right knee replacement, doing reasonably well. She has had a pretty painful recovery, but seems to be getting a little bit better daily. Blood pressure is a little bit elevated, likely related to pain. Seems to respond to the pain medicines. PLAN: 1. DVT prophylaxis including thigh-high TEDs, SCDs, and aspirin twice a day. 2. PT/OT. She can weightbear as tolerated. Right total knee protocol. 3. Pain control, doing okay with current pain regimen. Unfortunately, we cannot give her NSAIDs due to her kidney disease. We will stick with the Dilaudid and Tylenol. 4. Disposition: Plan to discharge to home with some home health once pain is adequately controlled.
--- NOTE | 2020-12-31 07:48 | Discharge Summary ---
Date of Service December 31, 2020 Discharge Data Procedures Performed Operation Date: 12/24/20 10:40 Actual Procedures p Right Total Knee Arthroplasty(Right) - Adrian Sims MD Hospital Course (1) Status post total right knee replacement: This patient is a 65 year old female admitted on 12/24/20 and underwent total knee arthroplasty. She tolerated the procedure well and there were no complications. Transferred to the PACU post op and later to the orthopedic floor for further care. She was given ancef for antibiotic prophylaxis. She was also given ANDREA stockings, SCDs, and aspirin for DVT prophylaxis. Hemoglobin, hematocrit, and vital signs were monitored during her hospital stay and remained stable. Did not require any blood transfusions. There were no complications during her hospital stay. By post op day #2 the patient was tolerating a diabetic diet, pain was reasonably controlled with oral pain medicine, and she was participating in physical therapy. On post op day #2 the patient was discharged home and set up with home health care. She was given printed discharge instructions including prescriptions for extra strength tylenol, aspirin, and dilaudid. Continue physical therapy, weight bearing as tolerated. Continue ANDREA stockings. Follow up approximately 2 weeks post op or sooner if there are problems or concerns. Coding Level of Care Code None Diagnoses Status post total right knee replacement Z96.651
== END 2020-12-27 14:28 | disposition home health service (06) ==
LOC: ASU 08:40 → 3E 08:40

== ENCOUNTER 2021-03-14 10:20 | Inpatient (IN) ==
[2021-03-14] MEDS ORDERED: ACETAMINOPHEN 1000 MG/100 ML IV IV STA (10:52)
--- NOTE | 2021-03-14 10:56 | Emergency Department Note ---
History of Present Illness General Chief Complaint: Flank Pain Stated Complaint: KIDNEY/BLADDER PAIN, NAUSEA, FEVER, HEADACHE Time Seen by Provider: 03/14/21 10:42 History of Present Illness Provider Complaint: abdominal pain and flank pain Onset (ago): 2 day(s) Location: L flank Radiation: LLQ Severity: moderate Maximum Pain Intensity: 8 Current Pain Intensity: 8 Quality: + stabbing, + aching, + sharp and + dull Relieved By: + nothing Exacerbated By: + other (Urinating) Context: + history of similar episodes (Feels like previous kidney infections); no foreign travel, no possible food poisoning, no sick contacts, no recent antibiotic use and no recent injury Associated Symptoms: + nausea, + fever, + chills, + dysuria and + back pain; no diarrhea, no constipation, no hematemesis, no hematochezia, no melena, no hematuria, no anorexia, no syncope, no headache, no neck pain, no chest pain, no weakness, no breathing difficulty and no numbness Polyuria. Patient states she has not been vaccinated against COVID-19. Home Medications Medication Instructions Recorded Confirmed Type rizatriptan 10 mg tablet 10 mg PO .COMPLEX PRN #120 tab 01/28/20 03/14/21 Rx albuterol sulfate 1 inh INHALATION QID PRN 08/10/20 03/14/21 History multivitamin 1 tab PO QAM 09/24/20 03/14/21 History verapamil 120 mg 24 hr 120 mg PO QAM #30 cap 10/28/20 03/14/21 Rx capsule,extended release losartan 100 1 tab PO QAM #90 tab 11/09/20 03/14/21 Rx mg-hydrochlorothiazide 25 mg tablet insulin regular human 100 unit/mL 30 unit SUBCUT .COMPLEX 90 Days 12/16/20 03/14/21 Rx (3 mL) subcutaneous pen #30 ml colchicine 0.6 mg tablet 0.6 mg PO .COMPLEX #3 tab 01/18/21 03/14/21 Rx furosemide 40 mg tablet 40 mg PO DAILY PRN #90 tab 02/04/21 03/14/21 Rx sumatriptan succinate 100 mg tablet 100 mg PO Q2H PRN #10 tab 03/03/21 03/14/21 Rx indomethacin 75 mg 75 mg PO DAILY #30 cap 03/04/21 03/14/21 Rx capsule,extended release Tresiba FlexTouch U-100 15 unit SUBCUT QAM 03/14/21 03/14/21 History allopurinol 300 mg PO PM 03/14/21 03/14/21 History Allergies Allergy/AdvReac Type Severity Reaction Status Date / Time latex Allergy Mild Hives Verified 03/14/21 13:09 Cipro Allergy Unknown UNKNOWN Verified 06/12/16 15:33 ciprofloxacin Allergy Unknown unknown Verified 03/14/21 13:09 reaction clarithromycin Allergy Unknown hives, Verified 03/14/21 13:09 itching insulin aspart Allergy Unknown Hives,Migra Verified 03/14/21 13:09 [From Novolog U-100 Insulin flakito aspart] Sulfa (Sulfonamide Allergy Unknown unknown Verified 03/14/21 13:09 Antibiotics) reaction codeine AdvReac Mild vomiting Verified 03/14/21 13:09 (with remote use) insulin lispro AdvReac Mild headache Verified 03/14/21 13:09 [From Humalog U-100 Insulin] aspartame AdvReac Unknown severe Verified 03/14/21 13:09 migraines chocolate flavor AdvReac Unknown migraines Verified 03/14/21 13:09 glipizide AdvReac Unknown nausea, Verified 03/14/21 13:09 migraines liraglutide [From Victoza] AdvReac Unknown migraines Verified 03/14/21 13:09 monosodium glutamate AdvReac Unknown migraines Verified 03/14/21 13:09 nickel AdvReac Unknown swelling, Verified 03/14/21 13:09 itching Past Med/Surg History Medical History Asthma rare use PRN inh Atrial fibrillation remote hx prior to ablation (1997), no known recurrence Chronic renal insufficiency Cyst of pancreas DM type 2 (diabetes mellitus, type 2) IDDM Fatty liver disease, nonalcoholic History of migraine Hypertension Hypothyroidism Per PCP records Kidney stones h/0 Lupus no recent issues, following with PCP Obstructive sleep apnea syndrome CPAP Slow to wake up after anesthesia Transient ischemic attack (TIA) remote hx Urinary incontinence Urinary incontinence, urge Surgical History History of arthroscopy of left knee x2 History of arthroscopy of right knee History of bilateral breast implants History of bilateral cataract extraction History of bilateral tubal ligation History of bladder surgery bladder tac History of cardiac cath 2007 ([facility])- no stent (no evidence of coronary artery disease) [place] of cardiac radiofrequency [place] [facility] [place]oscopy History of dilatation and curettage History of esophageal dilatation History of esophagogastroduodenoscopy (EGD) History of hysterectomy History of right breast biopsy x2--benign History of tooth extraction wisdom teeth History of total left knee replacement (TKR) Family History Sister Family history of reaction to anesthesia difficulty waking Father Family history of diabetes mellitus Family hx colonic polyps Mother Family history of diabetes mellitus Social History Smoking Status: Never smoker Second Hand Exposure: Yes (PARENTS SMOKED); Hx Alcohol Use: Yes Alcohol type: wine Hx Substance Use: No Preferred Language: Micronesian Communication Ability: Effective Cylinder Handler Required: No Beliefs That Will Affect Care: None Current Living Situation: Alone Feels Safe at Home: Yes Assistive Devices: Walker Review of Systems A total of 10 systems reviewed and were otherwise negative Physical Exam Vital Signs: Vital Signs - 24 hr 03/14/21 10:32 03/14/21 11:19 03/14/21 11:20 Temperature 38.0 C H Temperature Source Temporal Artery Sc an Pulse Rate 101 H 110 H 110 H Pulse Rate [Apical ] Pulse Rate from Sp O2 Sensor 110 H 110 H Respiratory Rate 24 22 19 Respiratory Effort / Characteristics Non-Labored Respiratory Depth Normal Respiratory Patter n Regular Blood Pressure 148/79 H Blood Pressure [Ri ght Arm] Blood Pressure Tanja n 102 Blood Pressure Tanja n [Right Arm] Blood Pressure Pos ition Sitting Blood Pressure Pos ition [Right Arm] Pulse Oximetry 96 95 95 Oxygen Delivery Me thod Room Air Sepsis Recent Feve r Within 48 Hours Yes Sepsis New/Unexpla ined Change in Men jayleen Status No Sepsis Action Take n by Nursing Physician Notified 03/14/21 11:30 03/14/21 11:40 03/14/21 11:47 Temperature Temperature Source Pulse Rate 110 H 110 H Pulse Rate [Apical ] Pulse Rate from Sp O2 Sensor 104 H 110 H 106 H Respiratory Rate 22 20 Respiratory Effort / Characteristics Respiratory Depth Respiratory Patter n Blood Pressure 160/123 H Blood Pressure [Ri ght Arm] Blood Pressure Tanja n 135 Blood Pressure Tanja n [Right Arm] Blood Pressure Pos ition Blood Pressure Pos ition [Right Arm] Pulse Oximetry 95 95 95 Oxygen Delivery Me thod Sepsis Recent Feve r Within 48 Hours Sepsis New/Unexpla ined Change in Men jayleen Status Sepsis Action Take n by Nursing 03/14/21 11:48 03/14/21 11:50 03/14/21 12:00 Temperature Temperature Source Pulse Rate 102 H 102 H Pulse Rate [Apical ] 102 H Pulse Rate from Sp O2 Sensor 104 H 102 H Respiratory Rate 20 18 Respiratory Effort / Characteristics Non-Labored Respiratory Depth Respiratory Patter n Blood Pressure Blood Pressure [Ri ght Arm] 160/123 H Blood Pressure Tanja n Blood Pressure Tanja n [Right Arm] 135 Blood Pressure Pos ition Blood Pressure Pos ition [Right Arm] Sitting Pulse Oximetry 94 94 94 Oxygen Delivery Me thod Room Air Sepsis Recent Feve r Within 48 Hours Sepsis New/Unexpla ined Change in Men jayleen Status Sepsis Action Take n by Nursing 03/14/21 12:10 03/14/21 12:12 03/14/21 12:20 Temperature Temperature Source Pulse Rate 111 H 103 H Pulse Rate [Apical ] Pulse Rate from Sp O2 Sensor 110 H 103 H Respiratory Rate 20 20 16 Respiratory Effort / Characteristics Non-Labored Respiratory Depth Respiratory Patter n Blood Pressure Blood Pressure [Ri ght Arm] Blood Pressure Tanja n Blood Pressure Tanja n [Right Arm] Blood Pressure Pos ition Blood Pressure Pos ition [Right Arm] Pulse Oximetry 96 94 95 Oxygen Delivery Me thod Room Air Sepsis Recent Feve r Within 48 Hours Sepsis New/Unexpla ined Change in Men jayleen Status Sepsis Action Take n by Nursing 03/14/21 12:33 03/14/21 12:40 03/14/21 12:50 Temperature Temperature Source Pulse Rate 105 H 96 H 94 H Pulse Rate [Apical ] Pulse Rate from Sp O2 Sensor 104 H 97 H 94 H Respiratory Rate 18 15 17 Respiratory Effort / Characteristics Respiratory Depth Respiratory Patter n Blood Pressure Blood Pressure [Ri ght Arm] Blood Pressure Tanja n Blood Pressure Tanja n [Right Arm] Blood Pressure Pos ition Blood Pressure Pos ition [Right Arm] Pulse Oximetry 94 93 94 Oxygen Delivery Me thod Sepsis Recent Feve r Within 48 Hours Sepsis New/Unexpla ined Change in Men jayleen Status Sepsis Action Take n by Nursing 03/14/21 12:53 03/14/21 13:00 03/14/21 13:10 Temperature Temperature Source Pulse Rate 103 H 98 H 101 H Pulse Rate [Apical ] Pulse Rate from Sp O2 Sensor 97 H 99 H 92 H Respiratory Rate 17 12 16 Respiratory Effort / Characteristics Respiratory Depth Respiratory Patter n Blood Pressure 123/103 H Blood Pressure [Ri ght Arm] Blood Pressure Tanja n 109 Blood Pressure Tanja n [Right Arm] Blood Pressure Pos ition Blood Pressure Pos ition [Right Arm] Pulse Oximetry 97 95 95 Oxygen Delivery Me thod Sepsis Recent Feve r Within 48 Hours Sepsis New/Unexpla ined Change in Men jayleen Status Sepsis Action Take n by Nursing 03/14/21 13:20 03/14/21 13:30 03/14/21 13:40 Temperature Temperature Source Pulse Rate 94 H 95 H 96 H Pulse Rate [Apical ] Pulse Rate from Sp O2 Sensor 93 H 86 96 H Respiratory Rate 15 18 13 Respiratory Effort / Characteristics Respiratory Depth Respiratory Patter n Blood Pressure Blood Pressure [Ri ght Arm] Blood Pressure Tanja n Blood Pressure Tanja n [Right Arm] Blood Pressure Pos ition Blood Pressure Pos ition [Right Arm] Pulse Oximetry 96 96 97 Oxygen Delivery Me thod Sepsis Recent Feve r Within 48 Hours Sepsis New/Unexpla ined Change in Men jayleen Status Sepsis Action Take n by Nursing 03/14/21 14:04 Temperature Temperature Source Pulse Rate Pulse Rate [Apical ] Pulse Rate from Sp O2 Sensor Respiratory Rate 20 Respiratory Effort / Characteristics Non-Labored Respiratory Depth Respiratory Patter n Blood Pressure Blood Pressure [Ri ght Arm] Blood Pressure Tanja n Blood Pressure Tanja n [Right Arm] Blood Pressure Pos ition Blood Pressure Pos ition [Right Arm] Pulse Oximetry 94 Oxygen Delivery Me thod Room Air Sepsis Recent Feve r Within 48 Hours Sepsis New/Unexpla ined Change in Men jayleen Status Sepsis Action Take n by Nursing Physical Exam: Physical Exam GENERAL: She is oriented to person, place, and time. She appears well-developed and well-nourished. She does not appear distressed. HENT: Exam performed. -Head: Normocephalic and atraumatic. -Right Ear: External ear normal. No mastoid tenderness. -Left Ear: External ear normal. No mastoid tenderness. -Mouth/Throat: The oropharynx is clear and moist. No trismus in the jaw. No dental abscesses or uvula swelling. No oropharyngeal exudate or tonsillar abscesses. EYES: Conjunctivae and EOM are normal. Pupils are equal, round, and reactive to light. Right eye exhibits no discharge. Left eye exhibits no discharge. No scleral icterus. NECK: Normal range of motion. Neck supple. No JVD present. No spinous process tenderness present. No carotid bruit present. No rigidity. No tracheal deviation and normal range of motion present. No Brudzinski's sign and no Kernig's sign n oted. CV: Tachycardic rate, regular rhythm, normal heart sounds and intact distal pulses. There is no peripheral edema. Palpable radial pulses bue. PULM/CHEST: Effort normal and breath sounds normal. No respiratory distress. No stridor. She has no wheezes. She has no rales. -Chest Wall: She exhibits no tenderness. ABD: The abdomen is soft. Bowel sounds are normal. She has no distension. No ma ss is present. There is tenderness to palpation of the left lower quadrant. There is no rebound, no guarding, no Bhanadri's sign and no tenderness at McBurney's point. Rovsig negative. Left-sided CVA tenderness. MUSC/SKEL: Normal range of motion. There is no peripheral edema, tenderness or deformity. LYMPH: No cervical adenopathy. NEURO: She is alert and oriented to person, place, and time. She has normal strength. No cranial nerve deficit or sensory deficit. Coordination and gait normal. GCS eye subscore is 4. GCS verbal subscore is 5. GCS motor subscore is 6. Cerebellar tests wnl. SKIN: Skin is warm and dry. She is not diaphoretic. PSYCH: She has a normal mood and affect. Behavior is normal. Judgment and thought content normal. Course Course 1042: The patient was evaluated in room A12. A complete history and physical exam was performed Cardiac monitoring: An order was placed for continuous cardiac monitoring. The monitor shows a rate of 100 with sinus rhythm Patient febrile and tachycardic. Sepsis protocols initiated. Patient be treated with Tylenol IV piggyback. 1240: Labs show leukocytosis of 13.26. Creatinine of 1.75, at patient's baseline. Lactate 2.1. Urinalysis appears infected. CT shows pyelonephritis. Patient will be admitted to the [facility] for pyelonephritis. Dr. Bear will be notified. 1340: Repeat lactic acid status post IV fluids is 1.4. Administered Medications Discontinued Medications Acetaminophen (Acetaminophen 1000 Mg/100 Ml Iv) 1,000 mg IV NOW STA Stop: 03/14/21 10:53 Last Admin: 03/14/21 11:47 Dose: 1,000 mg Documented by: [id number] Sodium Chloride (Nss 1000ml) 1,000 mls @ 999 mls/hr IV .Q1H1M JOSE GUADALUPE Stop: 03/14/21 12:00 Last Admin: 03/14/21 11:48 Dose: 999 mls/hr Documented by: [id number] Ceftriaxone Sodium (Rocephin) 1,000 mg in 50 mls @ 100 mls/hr IV NOW STA Stop: 03/14/21 13:08 Last Admin: 03/14/21 13:00 Dose: 100 mls/hr Documented by: [id number] Ketorolac Tromethamine (Ketorolac Tromethamine 15 Mg/Ml Vial) 15 mg IV NOW STA Stop: 03/14/21 12:40 Last Admin: 03/14/21 13:00 Dose: 15 mg Documented by: [id number] Medical Decision Making Laboratory Data Result diagrams: 03/14/21 11:34 03/14/21 11:34 Lab Results 03/14/21 03/14/21 03/14/21 Range/Units 11:34 11:34 11:34 WBC 13.26 H (4.8-10.8) K/uL RBC 4.79 (4.2-5.4) M/uL Hgb 14.0 (12.0-16.0) g/dL Hct 41.0 (37-47) % MCV 85.6 (80-100) fL MCH 29.2 (25-34) pg MCHC 34.1 (32-36) g/dL RDW Std Deviation 47.6 H (36.4-46.3) fL RDW Coeff of Alexis 15.1 H (11.5-14.5) % Plt Count 90 L (130-400) K/uL MPV 11.4 H (7.4-10.4) fL Immature Gran % (Auto) 0.3 % Neut % (Auto) 87.7 % Lymph % (Auto) 6.6 % Nicholas % (Auto) 5.2 % Eos % (Auto) 0.1 % Baso % (Auto) 0.1 % Neut # (Auto) 11.63 H (1.4-6.5) K/uL Lymph # (Auto) 0.88 L (1.2-3.4) K/uL Nicholas # (Auto) 0.69 H (0.11-0.59) K/uL Eos # (Auto) 0.01 (0-0.5) K/uL Baso # (Auto) 0.01 (0-0.2) K/uL Immature Gran # (Auto) 0.04 H (0.00-0.02) K/uL Toxic Granulation 1+ Dohle Bodies 1+ Platelet Estimate Decreased L (Normal) PT 10.0 (9.0-12.0) Seconds INR 1.0 (0.9-1.1) APTT 21.9 (21.0-31.0) Seconds PTT Ratio 0.8 Sodium 136 (136-145) mmol/L Potassium 3.8 (3.5-5.1) mmol/L Chloride 102 (98-107) mmol/L Carbon Dioxide 23 (21-32) mmol/L Anion Gap 11.0 (3-11) BUN 25 H (7-18) mg/dl Creatinine 1.75 H (0.6-1.2) mg/dl Est Cr Clr Drug Dosing 35.8 ml/min Est GFR ( Amer) 34.8 ml/min Est GFR (Non-Af Amer) 30.0 ml/min BUN/Creatinine Ratio 14.1 (10-20) Glucose 176 H (70-99) mg/dl Lactate (0.4-2.0) mmol/L Calcium 8.6 (8.5-10.1) mg/dl Magnesium 2.2 (1.8-2.4) mg/dl Total Bilirubin 1.2 H (0.2-1) mg/dl AST 18 (15-37) U/L ALT 23 (12-78) U/L Alkaline Phosphatase 74 (45-117) U/L Troponin I < 0.015 (0-0.045) ng/ml Total Protein 7.3 (6.4-8.2) gm/dl Albumin 3.3 L (3.4-5.0) gm/dl Globulin 4.0 (2.5-4.0) gm/dl Albumin/Globulin Ratio 0.8 L (0.9-2) Procalcitonin (0-0.5) ng/ml Urine Color Urine Appearance (Clear) Urine pH (4.5-7.5) Ur Specific Mylo (1.000-1.030) Urine Protein (Negative) Urine Glucose (UA) (Negative) Urine Ketones (Negative) Urine Blood (Negative) Urine Nitrite (Negative) Urine Bilirubin (Negative) Urine Urobilinogen (Negative) Ur Leukocyte Esterase (Negative) Urine WBC (Auto) (0-5) /hpf Urine RBC (Auto) (0-4) /hpf U Hyaline Cast (Auto) (0-5) /lpf U Epithel Cells (Auto) (0-5) /lpf Urine Bacteria (Auto) (Negative) COVID-19 Eval Order SARS-CoV-2 (PCR) (Negative) Influ A Molecular Assay (Negative) Influ B Molecular Assay (Negative) 03/14/21 03/14/21 03/14/21 Range/Units 11:34 11:34 11:34 WBC (4.8-10.8) K/uL RBC (4.2-5.4) M/uL Hgb (12.0-16.0) g/dL Hct (37-47) % MCV (80-100) fL MCH (25-34) pg MCHC (32-36) g/dL RDW Std Deviation (36.4-46.3) fL RDW Coeff of Alexis (11.5-14.5) % Plt Count (130-400) K/uL MPV (7.4-10.4) fL Immature Gran % (Auto) % Neut % (Auto) % Lymph % (Auto) % Nicholas % (Auto) % Eos % (Auto) % Baso % (Auto) % Neut # (Auto) (1.4-6.5) K/uL Lymph # (Auto) (1.2-3.4) K/uL Nicholas # (Auto) (0.11-0.59) K/uL Eos # (Auto) (0-0.5) K/uL Baso # (Auto) (0-0.2) K/uL Immature Gran # (Auto) (0.00-0.02) K/uL Toxic Granulation Dohle Bodies Platelet Estimate (Normal) PT (9.0-12.0) Seconds INR (0.9-1.1) APTT (21.0-31.0) Seconds PTT Ratio Sodium (136-145) mmol/L Potassium (3.5-5.1) mmol/L Chloride (98-107) mmol/L Carbon Dioxide (21-32) mmol/L Anion Gap (3-11) BUN (7-18) mg/dl Creatinine (0.6-1.2) mg/dl Est Cr Clr Drug Dosing ml/min Est GFR ( Amer) ml/min Est GFR (Non-Af Amer) ml/min BUN/Creatinine Ratio (10-20) Glucose (70-99) mg/dl Lactate 2.1 H* (0.4-2.0) mmol/L Calcium (8.5-10.1) mg/dl Magnesium (1.8-2.4) mg/dl Total Bilirubin (0.2-1) mg/dl AST (15-37) U/L ALT (12-78) U/L Alkaline Phosphatase (45-117) U/L Troponin I (0-0.045) ng/ml Total Protein (6.4-8.2) gm/dl Albumin (3.4-5.0) gm/dl Globulin (2.5-4.0) gm/dl Albumin/Globulin Ratio (0.9-2) Procalcitonin 21.52 H (0-0.5) ng/ml Urine Color Dark Yellow Urine Appearance Cloudy A (Clear) Urine pH 5.5 (4.5-7.5) Ur Specific Mylo 1.017 (1.000-1.030) Urine Protein 2+ H (Negative) Urine Glucose (UA) Negative (Negative) Urine Ketones 1+ H (Negative) Urine Blood 2+ H (Negative) Urine Nitrite Positive A (Negative) Urine Bilirubin Negative (Negative) Urine Urobilinogen Negative (Negative) Ur Leukocyte Esterase 1+ H (Negative) Urine WBC (Auto) >30 H (0-5) /hpf Urine RBC (Auto) 10-30 H (0-4) /hpf U Hyaline Cast (Auto) 5-10 H (0-5) /lpf U Epithel Cells (Auto) >30 H (0-5) /lpf Urine Bacteria (Auto) 4+ H (Negative) COVID-19 Eval Order SARS-CoV-2 (PCR) (Negative) Influ A Molecular Assay (Negative) Influ B Molecular Assay (Negative) 03/14/21 03/14/21 03/14/21 Range/Units 11:40 11:48 11:48 WBC (4.8-10.8) K/uL RBC (4.2-5.4) M/uL Hgb (12.0-16.0) g/dL Hct (37-47) % MCV (80-100) fL MCH (25-34) pg MCHC (32-36) g/dL RDW Std Deviation (36.4-46.3) fL RDW Coeff of Alexis (11.5-14.5) % Plt Count (130-400) K/uL MPV (7.4-10.4) fL Immature Gran % (Auto) % Neut % (Auto) % Lymph % (Auto) % Nicholas % (Auto) % Eos % (Auto) % Baso % (Auto) % Neut # (Auto) (1.4-6.5) K/uL Lymph # (Auto) (1.2-3.4) K/uL Nicholas # (Auto) (0.11-0.59) K/uL Eos # (Auto) (0-0.5) K/uL Baso # (Auto) (0-0.2) K/uL Immature Gran # (Auto) (0.00-0.02) K/uL Toxic Granulation Dohle Bodies Platelet Estimate (Normal) PT (9.0-12.0) Seconds INR (0.9-1.1) APTT (21.0-31.0) Seconds PTT Ratio Sodium (136-145) mmol/L Potassium (3.5-5.1) mmol/L Chloride (98-107) mmol/L Carbon Dioxide (21-32) mmol/L Anion Gap (3-11) BUN (7-18) mg/dl Creatinine (0.6-1.2) mg/dl Est Cr Clr Drug Dosing ml/min Est GFR ( Amer) ml/min Est GFR (Non-Af Amer) ml/min BUN/Creatinine Ratio (10-20) Glucose (70-99) mg/dl Lactate (0.4-2.0) mmol/L Calcium (8.5-10.1) mg/dl Magnesium (1.8-2.4) mg/dl Total Bilirubin (0.2-1) mg/dl AST (15-37) U/L ALT (12-78) U/L Alkaline Phosphatase (45-117) U/L Troponin I (0-0.045) ng/ml Total Protein (6.4-8.2) gm/dl Albumin (3.4-5.0) gm/dl Globulin (2.5-4.0) gm/dl Albumin/Globulin Ratio (0.9-2) Procalcitonin (0-0.5) ng/ml Urine Color Urine Appearance (Clear) Urine pH (4.5-7.5) Ur Specific Mylo (1.000-1.030) Urine Protein (Negative) Urine Glucose (UA) (Negative) Urine Ketones (Negative) Urine Blood (Negative) Urine Nitrite (Negative) Urine Bilirubin (Negative) Urine Urobilinogen (Negative) Ur Leukocyte Esterase (Negative) Urine WBC (Auto) (0-5) /hpf Urine RBC (Auto) (0-4) /hpf U Hyaline Cast (Auto) (0-5) /lpf U Epithel Cells (Auto) (0-5) /lpf Urine Bacteria (Auto) (Negative) COVID-19 Eval Order Covid19 at [facility] SARS-CoV-2 (PCR) NEGATIVE (Negative) Influ A Molecular Assay Negative (Negative) Influ B Molecular Assay Negative (Negative) 03/14/21 Range/Units 13:26 WBC (4.8-10.8) K/uL RBC (4.2-5.4) M/uL Hgb (12.0-16.0) g/dL Hct (37-47) % MCV (80-100) fL MCH (25-34) pg MCHC (32-36) g/dL RDW Std Deviation (36.4-46.3) fL RDW Coeff of Alexis (11.5-14.5) % Plt Count (130-400) K/uL MPV (7.4-10.4) fL Immature Gran % (Auto) % Neut % (Auto) % Lymph % (Auto) % Nicholas % (Auto) % Eos % (Auto) % Baso % (Auto) % Neut # (Auto) (1.4-6.5) K/uL Lymph # (Auto) (1.2-3.4) K/uL Nicholas # (Auto) (0.11-0.59) K/uL Eos # (Auto) (0-0.5) K/uL Baso # (Auto) (0-0.2) K/uL Immature Gran # (Auto) (0.00-0.02) K/uL Toxic Granulation Dohle Bodies Platelet Estimate (Normal) PT (9.0-12.0) Seconds INR (0.9-1.1) APTT (21.0-31.0) Seconds PTT Ratio Sodium (136-145) mmol/L Potassium (3.5-5.1) mmol/L Chloride (98-107) mmol/L Carbon Dioxide (21-32) mmol/L Anion Gap (3-11) BUN (7-18) mg/dl Creatinine (0.6-1.2) mg/dl Est Cr Clr Drug Dosing ml/min Est GFR ( Amer) ml/min Est GFR (Non-Af Amer) ml/min BUN/Creatinine Ratio (10-20) Glucose (70-99) mg/dl Lactate 1.4 (0.4-2.0) mmol/L Calcium (8.5-10.1) mg/dl Magnesium (1.8-2.4) mg/dl Total Bilirubin (0.2-1) mg/dl AST (15-37) U/L ALT (12-78) U/L Alkaline Phosphatase (45-117) U/L Troponin I (0-0.045) ng/ml Total Protein (6.4-8.2) gm/dl Albumin (3.4-5.0) gm/dl Globulin (2.5-4.0) gm/dl Albumin/Globulin Ratio (0.9-2) Procalcitonin (0-0.5) ng/ml Urine Color Urine Appearance (Clear) Urine pH (4.5-7.5) Ur Specific Mylo (1.000-1.030) Urine Protein (Negative) Urine Glucose (UA) (Negative) Urine Ketones (Negative) Urine Blood (Negative) Urine Nitrite (Negative) Urine Bilirubin (Negative) Urine Urobilinogen (Negative) Ur Leukocyte Esterase (Negative) Urine WBC (Auto) (0-5) /hpf Urine RBC (Auto) (0-4) /hpf U Hyaline Cast (Auto) (0-5) /lpf U Epithel Cells (Auto) (0-5) /lpf Urine Bacteria (Auto) (Negative) COVID-19 Eval Order SARS-CoV-2 (PCR) (Negative) Influ A Molecular Assay (Negative) Influ B Molecular Assay (Negative) Imaging Data Radiologist's Impression: Abdomen/Pelvis CT 03/14/21 10:[address] WITHOUT CONTRAST CT DOSE: 843.53 mGycm HISTORY: Acute left-sided flank pain with fever L Flank pain fever ro pyelo TECHNIQUE: Multiaxial CT images of the abdomen and pelvis were performed without contrast. A dose lowering technique was utilized adhering to the principles of ALARA. COMPARISON STUDY: CT abdomen pelvis 04/13/2016 FINDINGS: Trace pericardial effusion. The imaged inferior cardiac chambers are unremarkable. The lung bases are generally clear. 4 mm solid nodule the basal right lower lobe, image 48 series 3 with equivocal macroscopic fat attenuation. There is no pneumatosis or pneumoperitoneum. The spleen and pancreas are unremarkable. There is suggestion of gallbladder sludge. Thickening of the adrenal glands suggestive of hyperplasia. Hepatomegaly with hepatic steatosis. Renal atrophy with cortical scarring of the superior and posterior interpolar right kidney redemonstrated with a few scattered cortical calcifications. Scarring with mild atrophy of the left kidney redemonstrated. 4 mm cortical calcification of the interpolar left kidney. Mild left-sided perinephric and proximal periureteral inflammatory stranding. No hydronephrosis or obstructing ureteral calculus. Decompressed urinary bladder. Hysterectomy. There is no abdominal aortic aneurysm. No adenopathy. No bowel obstruction or bowel wall thickening. Colonic diverticulosis. Normal appendix. Partially imaged bilateral breast implants. No acute fracture. Degenerative changes of the spine, pelvis and hips. IMPRESSION: 1. Left-sided perinephric and proximal periureteral inflammatory stranding. No h ydronephrosis or obstructing ureteral calculus. Findings may represent ascending infection versus recently passed calculus. Correlate with urinalysis. 2. Unchanged appearance of the kidneys with cortical scarring and atrophy of the left kidney and superior pole right kidney. 3. No bowel obstruction or bowel wall thickening. Normal appendix. 4. Colonic diverticulosis. 5. Hepatic steatosis. ACT 112: Negative or not required by law. The above report was generated using voice recognition software. It may contain grammatical, syntax or spelling errors. Electronically signed by: Cristian Castillo M.D. 03/14/2021 12:07 PM Chest X-Ray 03/14/21 10:52 XR chest 1V portable HISTORY: 65 years-old Female SEPSIS acute sepsis COMPARISON: CT abdomen and pelvis of same day chest radiograph 08/13/2013. TECHNIQUE: Portable AP view of the chest FINDINGS: Cardiac mediastinal and hilar silhouettes are within normal limits. No pneumothorax, pleural effusion, airspace consolidation or overt pulmonary edema. Spondylitic spurring of the spine with mild degenerative changes of the shoulders. Bilateral breast implants. IMPRESSION: No acute process. ACT 112: Negative or not required by law. The above report was generated using voice recognition software. It may contain grammatical, syntax or spelling errors. Electronically signed by: Cristian Castillo M.D. 03/14/2021 11:21 AM ECG Data Indication: abdominal pain Rate (beats per minute): 107 Rhythm: sinus tachycardia Findings: no ST depression, no ST elevation and no prolonged QT Additional Comments: QRS 76 MDM Narrative 1042: The patient was evaluated in room A12. A complete history and physical exam was performed Cardiac monitoring: An order was placed for continuous cardiac monitoring. The monitor shows a rate of 100 with sinus rhythm Patient febrile and tachycardic. Sepsis protocols initiated. Patient be treated with Tylenol IV piggyback. 1240: Labs show leukocytosis of 13.26. Creatinine of 1.75, at patient's baseline. Lactate 2.1. Urinalysis appears infected. CT shows pyelonephritis. Patient will be admitted to the [facility] hospitalist service for pyelonephr itis. Dr. Bear will be notified. 1340: Repeat lactic acid status post IV fluids is 1.4. Impression & Plan Acute pyelonephritis Discharge Plan Visit Data Chief Complaint: Flank Pain Stated Complaint: KIDNEY/BLADDER PAIN, NAUSEA, FEVER, HEADACHE ED Provider: Nguyễn Morton Discharge Problem: Acute pyelonephritis Patient Disposition: Admitted As Inpatient Forms Stand Alone Forms: [facility] Prescriptions Prescriptions: No Action verapamil 120 mg capsule,ext rel. pellets 24 hr 120 mg PO QAM Qty: 30 RF: 5 losartan-hydrochlorothiazide 100-25 mg tablet 1 tab PO QAM Qty: 90 RF: 1 colchicine 0.6 mg tablet 0.6 mg PO .COMPLEX Qty: 3 RF: 0 furosemide 40 mg tablet 40 mg PO DAILY PRN (Reason: edema) Qty: 90 RF: 0 sumatriptan succinate 100 mg tablet 100 mg PO Q2H PRN (Reason: migraine headache) Qty: 10 RF: 3 rizatriptan 10 mg tablet 10 mg PO .COMPLEX PRN (Reason: migraine headache) Qty: 120 RF: 1 indomethacin 75 mg capsule, extended release 75 mg PO DAILY Qty: 30 RF: 1 insulin regular human 100 unit/mL (3 mL) insulin pen 30 unit subcut .COMPLEX 90 Days Qty: 30 RF: 3 albuterol sulfate 90 mcg/actuation Hfa Aerosol Inhaler 1 inh INHALATION QID PRN (Reason: Wheezing) RF: 0 multivitamin Tablet 1 tab PO QAM RF: 0 allopurinol 300 mg tablet 300 mg PO PM RF: 0 Tresiba FlexTouch U-100 100 unit/mL (3 mL) insulin pen 15 unit SUBCUT QAM RF: 0 Referrals Referrals: Jaime Cates MD [Primary Care Provider] -
[2021-03-14] MEDS ORDERED: SODIUM CHLORIDE 0.9% 1000ML 1,000 ML IV SCH (11:00)
--- NOTE | 2021-03-14 11:23 | XRay Report ---
XR chest 1V portable HISTORY: 65 years-old Female SEPSIS acute sepsis COMPARISON: CT abdomen and pelvis of same day chest radiograph 08/13/2013. TECHNIQUE: Portable AP view of the chest FINDINGS: Cardiac mediastinal and hilar silhouettes are within normal limits. No pneumothorax, pleural effusion , airspace consolidation or overt pulmonary edema. Spondylitic spurring of the spine with mild degene rative changes of the shoulders. Bilateral breast implants. IMPRESSION: No acute process. ACT 112: Negative or not required by law. The above report was generated using voice recognition software. It may contain grammatical, syntax o r spelling errors. Electronically signed by: Cristian Castillo M.D. 03/14/2021 11:21 AM
[2021-03-14 11:48] LABS: Mean Corpuscular Hemoglobin 29.2 pg (25-34); Mean Corpuscular Hgb Conc 34.1 g/dL (32-36); Mean Corpuscular Volume 85.6 fL (80-100); RDW Coefficient of Variation 15.1 % (11.5-14.5); RDW Standard Deviation 47.6 fL (36.4-46.3); Red Blood Count 4.79 M/uL (4.2-5.4); White Blood Count 13.26 K/uL (4.8-10.8)
[2021-03-14 12:05] LABS: Partial Thromboplastin Ratio 0.8; Partial Thromboplastin Time 21.9 Seconds (21.0-31.0)
[2021-03-14 12:08] LABS: Appearance Urine Cloudy (Clear); Bacteria Urine Automated 4+ (Negative); Bilirubin Urine Negative (Negative); Blood Urine 2+ (Negative); Color Urine Dark Yellow; Epithelial Cell Urine Auto >30 /lpf (0-5); Glucose Urine UA Negative (Negative); Ketones Urine 1+ (Negative); Leukocyte Esterase Urine 1+ (Negative); Nitrite Urine Positive (Negative); Protein Urine 2+ (Negative); Specific Gravity Urine 1.017 (1.000-1.030); Urobilinogen Urine Negative (Negative); WBC Urine Automated >30 /hpf (0-5); pH Urine 5.5 (4.5-7.5)
--- NOTE | 2021-03-14 12:08 | CT Scan Report ---
ABDOMEN AND PELVIS CT WITHOUT CONTRAST CT DOSE: 843.53 mGycm HISTORY: Acute left-sided flank pain with fever L Flank pain fever ro pyelo TECHNIQUE: Multiaxial CT images of the abdomen and pelvis were performed without contrast. A dose lo wering technique was utilized adhering to the principles of ALARA. COMPARISON STUDY: CT abdomen pelvis 04/13/2016 FINDINGS: Trace pericardial effusion. The imaged inferior cardiac chambers are unremarkable. The lung bases are generally clear. 4 mm solid nodule the basal right lower lobe, image 48 series 3 with equi vocal macroscopic fat attenuation. There is no pneumatosis or pneumoperitoneum. The spleen and pancre as are unremarkable. There is suggestion of gallbladder sludge. Thickening of the adrenal glands sugg estive of hyperplasia. Hepatomegaly with hepatic steatosis. Renal atrophy with cortical scarring of the superior and posterior interpolar right kidney redemonstr ated with a few scattered cortical calcifications. Scarring with mild atrophy of the left kidney rede monstrated. 4 mm cortical calcification of the interpolar left kidney. Mild left-sided perinephric an d proximal periureteral inflammatory stranding. No hydronephrosis or obstructing ureteral calculus. D ecompressed urinary bladder. Hysterectomy. There is no abdominal aortic aneurysm. No adenopathy. No bowel obstruction or bowel wall thickening. Colonic diverticulosis. Normal appendix. Partially marisela ged bilateral breast implants. No acute fracture. Degenerative changes of the spine, pelvis and hips. IMPRESSION: 1. Left-sided perinephric and proximal periureteral inflammatory stranding. No hydronephrosis or obst ructing ureteral calculus. Findings may represent ascending infection versus recently passed calculus . Correlate with urinalysis. 2. Unchanged appearance of the kidneys with cortical scarring and atrophy of the left kidney and supe rior pole right kidney. 3. No bowel obstruction or bowel wall thickening. Normal appendix. 4. Colonic diverticulosis. 5. Hepatic steatosis. ACT 112: Negative or not required by law. The above report was generated using voice recognition software. It may contain grammatical, syntax o r spelling errors. Electronically signed by: Cristian Castillo M.D. 03/14/2021 12:07 PM
[2021-03-14 12:12] LABS: Alanine Aminotransferase 23 U/L (12-78); Albumin Level 3.3 gm/dl (3.4-5.0); Aspartate Aminotransferase 18 U/L (15-37); BUN Creatinine Ratio 14.1 (10-20); Blood Urea Nitrogen 25 mg/dl (7-18); Calcium 8.6 mg/dl (8.5-10.1); Carbon Dioxide 23 mmol/L (21-32); Chloride 102 mmol/L (98-107); Creatinine Clr Calc Pharmacy 35.8 ml/min; Est GFR (African American) 34.8 ml/min; Glucose 176 mg/dl (70-99); Magnesium 2.2 mg/dl (1.8-2.4); Potassium 3.8 mmol/L (3.5-5.1); Sodium 136 mmol/L (136-145)
[2021-03-14 12:15] LABS: Basophils # (auto) 0.01 K/uL (0-0.2); Basophils % (auto) 0.1 %; Dohle Bodies 1+; Eosinophils # (auto) 0.01 K/uL (0-0.5); Eosinophils % (auto) 0.1 %; Immature Granulocytes # (auto) 0.04 K/uL (0.00-0.02); Immature Granulocytes % (auto) 0.3 %; Lymphocytes # (auto) 0.88 K/uL (1.2-3.4); Lymphocytes % (auto) 6.6 %; Mean Platelet Volume 11.4 fL (7.4-10.4); Monocytes # (auto) 0.69 K/uL (0.11-0.59); Monocytes % (auto) 5.2 %; Neutrophils # (auto) 11.63 K/uL (1.4-6.5); Neutrophils % (auto) 87.7 %; Platelet Count 90 K/uL (130-400); Platelet Estimate Decreased (Normal); Toxic Granulation 1+
[2021-03-14 12:17] LABS: Albumin Globulin Ratio 0.8 (0.9-2); Alkaline Phosphatase 74 U/L (45-117); Bilirubin,Total 1.2 mg/dl (0.2-1); Total Protein 7.3 gm/dl (6.4-8.2); Troponin I < 0.015 ng/ml (0-0.045)
[2021-03-14 12:35] LABS: Influenza A virus by PCR Negative (Negative); Influenza B virus by PCR Negative (Negative)
[2021-03-14] MEDS ORDERED: KETOROLAC TROMETHAMINE 15 MG/ML VIAL IV STA (12:39)
[2021-03-14] MEDS ORDERED: cefTRIAXone SODIUM 1,000 MG/50 ML BAG IV STA (12:39)
--- NOTE | 2021-03-14 13:42 | History & Physical Report ---
Date of Service March 14, 2021 Assessment & Plan (1) Urinary tract infection: Likely source of patient's symptoms, urinary tract infection with evidence of mild left Tomas Admit to a nonmonitored bed Patient was given Rocephin empirically, will continue this until cultures available Toradol given in the ER, will change analyst to Dilaudid secondary to history of renal insufficiency Mild IV hydration (2) Head ache: Consistent with patient's ongoing migraine. Patient is on multiple migraine preventative medications, will continue Patient has had sumatriptan in the past, can try as needed (3) Type 2 diabetes mellitus: Check hemoglobin A1c Okay to start diabetic diet if able Patient has had intolerance to lispro before, will give outpatient regular insulin Okay to continue Tresiba or equivalent for basal insulin Consult pharmacy for further recommendations on scale (4) Hypertension: Patient is on Lasix 40 mg daily along with losartan/hydrochlorthiazide 100/25, will continue Patient is on verapamil, suspect this may be for migraine prophylaxis but will continue as well History of Present Illness Chief Complaint: Flank pain Primary Care Provider: Jaime Cates MD This is a 65-year-old female with past medical history of insulin-dependent diabetes mellitus, migraines presents today complaining abdominal and flank pain. Patient is a decent historian. 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 She is having some pain in that area but this is much improved, last antibiotic dose was 6/3. However, over the past 2 days she started to develop polyuria and bladder spasm. This is accompanied by some pain in the suprapubic area with radiation up to the left flank. She was having significant rigors at home and noted a fever although she did not take her temperature. This was accompanied by her typical migraine symptoms which seem to be very frequent. Patient presents to the emergency room was found to be febrile, UA was also positive. Patient is now being mated for treatment of urinary tract infection. Allergies Allergy/AdvReac Type Severity Reaction Status Date / Time latex Allergy Mild Hives Verified 03/14/21 13:09 Cipro Allergy Unknown UNKNOWN Verified 06/12/16 15:33 ciprofloxacin Allergy Unknown unknown Verified 03/14/21 13:09 reaction clarithromycin Allergy Unknown hives, Verified 03/14/21 13:09 itching insulin aspart Allergy Unknown Hives,Migra Verified 03/14/21 13:09 [From Novolog U-100 Insulin flakito aspart] Sulfa (Sulfonamide Allergy Unknown unknown Verified 03/14/21 13:09 Antibiotics) reaction codeine AdvReac Mild vomiting Verified 03/14/21 13:09 (with remote use) insulin lispro AdvReac Mild headache Verified 03/14/21 13:09 [From Humalog U-100 Insulin] aspartame AdvReac Unknown severe Verified 03/14/21 13:09 migraines chocolate flavor AdvReac Unknown migraines Verified 03/14/21 13:09 glipizide AdvReac Unknown nausea, Verified 03/14/21 13:09 migraines liraglutide [From Victoza] AdvReac Unknown migraines Verified 03/14/21 13:09 monosodium glutamate AdvReac Unknown migraines Verified 03/14/21 13:09 nickel AdvReac Unknown swelling, Verified 03/14/21 13:09 itching Home Medications Medication Instructions Recorded Confirmed Type rizatriptan 10 mg tablet 10 mg PO .COMPLEX PRN #120 tab 01/28/20 03/14/21 Rx albuterol sulfate 1 inh INHALATION QID PRN 08/10/20 03/14/21 History multivitamin 1 tab PO QAM 09/24/20 03/14/21 History verapamil 120 mg 24 hr 120 mg PO QAM #30 cap 10/28/20 03/14/21 Rx capsule,extended release losartan 100 1 tab PO QAM #90 tab 11/09/20 03/14/21 Rx mg-hydrochlorothiazide 25 mg tablet insulin regular human 100 unit/mL 30 unit SUBCUT .COMPLEX 90 Days 12/16/20 03/14/21 Rx (3 mL) subcutaneous pen #30 ml colchicine 0.6 mg tablet 0.6 mg PO .COMPLEX #3 tab 01/18/21 03/14/21 Rx furosemide 40 mg tablet 40 mg PO DAILY PRN #90 tab 02/04/21 03/14/21 Rx sumatriptan succinate 100 mg tablet 100 mg PO Q2H PRN #10 tab 03/03/21 03/14/21 Rx indomethacin 75 mg 75 mg PO DAILY #30 cap 03/04/21 03/14/21 Rx capsule,extended release Tresiba FlexTouch U-100 15 unit SUBCUT QAM 03/14/21 03/14/21 History allopurinol 300 mg PO PM 03/14/21 03/14/21 History Past Med/Surg History Medical History Asthma rare use PRN inh Atrial fibrillation remote hx prior to ablation (1997), no known recurrence Chronic renal insufficiency Cyst of pancreas DM type 2 (diabetes mellitus, type 2) IDDM Fatty liver disease, nonalcoholic History of migraine Hypertension Hypothyroidism Per PCP records Kidney stones h/0 Lupus no recent issues, following with PCP Obstructive sleep apnea syndrome CPAP Slow to wake up after anesthesia Transient ischemic attack (TIA) remote hx Urinary incontinence Urinary incontinence, urge Surgical History History of arthroscopy of left knee x2 History of arthroscopy of right knee History of bilateral breast implants History of bilateral cataract extraction History of bilateral tubal ligation History of bladder surgery bladder tac History of cardiac cath 2007 ([facility])- no stent (no evidence of coronary artery disease) History of cardiac radiofrequency ablation 1997 @ [facility] History of colonoscopy History of dilatation and curettage History of esophageal dilatation History of esophagogastroduodenoscopy (EGD) History of hysterectomy History of right breast biopsy x2--benign History of tooth extraction wisdom teeth History of total left knee replacement (TKR) Family History Sister Family history of reaction to anesthesia difficulty waking Father Family history of diabetes mellitus Family hx colonic polyps Mother Family history of diabetes mellitus Social History Smoking Status: Never smoker Second Hand Exposure: Yes (PARENTS SMOKED); Hx Alcohol Use: Yes Alcohol type: wine Hx Substance Use: No Preferred Language: Bengali Communication Ability: Effective 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 Beliefs That Will Affect Care: None Current Living Situation: Alone Feels Safe at Home: Yes Assistive Devices: Walker Review of Systems Constitutional: + fever, + chills and + body aches; no weakness, no weight loss and no weight gain Eyes: as per Subjective / HPI Respiratory: no cough, no chest congestion, no dyspnea and no dyspnea on exertion Cardiovascular: no chest pain, no orthopnea, no palpitations, no lightheadedness and no edema Gastrointestinal: + abdominal pain; no nausea, no vomiting, no constipation and no diarrhea/loose stools Genitourinary: + urinary urgency and + urinary incontinence; no dysuria, no difficulty urinating, no urinary hesitancy, no hematuria and no flank pain Musculoskeletal: + back pain; no neck pain, no joint pain, no stiffness and no myalgia Integumentary: no rash Neurologic: + headache(s); no gait abnormality, no unsteadiness, no falls and no generalized weakness Physical Exam Constitutional: cooperative Sitting in dark room secondary to photophobia Neck: trachea midline, no thyromegaly Respiratory: normal respiratory effort Auscultation: lungs clear to auscultation bilaterally; no crackles, no rales, no rhonchi and no wheezes Cardiovascular: Rate/Rhythm: regular rate and regular rhythm Heart Sounds: normal S1 and normal S2; no murmur Gastrointestinal (Abdomen): Inspection/Auscultation: abdomen normal to inspection Percussion/Palpation: + abdomen tender (Mild suprapubic area); no guarding, abdomen not rigid and no hepatosplenomegaly Skin: no rashes, warm and dry Genitourinary: Left CVA tenderness, no CVA tenderness on right Results & Data Results & Data ([facility]) Vital Signs (Past 12 Hours) Vital Signs Temp Pulse Pulse Resp BP BP Pulse Ox 03/14/21 12:12 20 94 03/14/21 12:10 111 H 20 03/14/21 12:00 102 H 18 03/14/21 11:50 03/14/21 11:48 102 H 102 H 20 160/123 H 03/14/21 11:47 160/123 H 03/14/21 11:40 110 H 20 03/14/21 11:30 110 H 22 03/14/21 11:20 110 H 19 03/14/21 11:19 110 H 22 03/14/21 10:32 38.0 C H 101 H 24 148/79 H 96 PG Care Time/CCT Total # of Minutes Spent Total Time Spent with Patient: Total time spent is greater than 50% in coordination of care (as documented) at patient's floor/unit and/or counseling patient: Coding Level of Care Code 44170 Initial Inpt Care Lvl 3 Diagnoses Urinary tract infection N39.0 Head ache R51.9 Type 2 diabetes mellitus E11.9 Hypertension I10
[2021-03-14] MEDS ORDERED: GLUCOSE 40% GEL 15 GM TUBE PO PRN (15:01)
[2021-03-14] MEDS ORDERED: GLUCOSE 10 TABS/TUBE PO PRN (15:01)
[2021-03-14] MEDS ORDERED: GLUCAGON FOR INJ 1 MG VIAL SQ PRN (15:01)
[2021-03-14] MEDS ORDERED: CARBOHYDRATES FOR HYPOGLYCEMIA PO PRN (15:01)
[2021-03-14] MEDS ORDERED: DEXTROSE 50% 50 ML SYRINGE IV PRN (15:01)
[2021-03-14] MEDS ORDERED: ALBUTEROL HFA 8 GM INHALER INH PRN (15:01)
[2021-03-14] MEDS ORDERED: PHARMACY GLYCEMIC MGMT CONSULT PRN (15:09)
--- NOTE | 2021-03-14 15:18 | Pharmacy Report ---
Pharmacy Glycemic Short Note 2 - Date of Service March 14, 2021 - Glycemic Short BSG Results (Last 24 hours): 03/14/21 11:34 Glucose 176 H OUTPATIENT ANTIDIABETIC REGIMEN: * Tresiba 15 units SC qAM * Regular insulin per sliding scale * HbA1c: 7.3% (12/10/20) - reordered for tomorrow ASSESSMENT: * DE is a 65 year old female presents to ED on 03/14 with flank pain - presumed UTI/pyelonephritis * BSG on admission is 176 mg/dL - Tresiba 15 units SC given this morning prior to admission * Patient is reportedly intolerant to Humalog and Novolog - will use regular insulin while inpatient * Will hold off on further basal today and utilize bolus only (including 0200 overnight check) PLAN FOR INPATIENT GLYCEMIC CONTROL: * Basal insulin * Tresiba 15 units SC this morning (prior to admission) * Reassess in AM * Bolus insulin * NovoLog per scale ACHS or Q6hrs while NPO * Goal Range: Low 110 mg/dL - High 140 mg/dL * Correction Factor: 25 mg/dL/unit * Nutritional / Prandial insulin per carb ratio of 1 unit per 8 grams CHO consumed PLAN FOR DISCHARGE: * A1c reordered for tomorrow morning
[2021-03-14] MEDS: SODIUM CHLORIDE 0.9% 1000ML 1,000 ML IV SCH (15:50)
[2021-03-14] MEDS ORDERED: INSULIN REGULAR HUMAN 100 UNIT/ML SQ SCH (16:30)
[2021-03-14] MEDS ORDERED: INSULIN SQ SCH (16:30)
[2021-03-14] MEDS ORDERED: HumuLIN-R 10 ML VIAL SC SCH (16:30)
[2021-03-14] MEDS: HEPARIN SOD 5,000 UNIT/0.5 ML VIAL SQ SCH ×2 (16:32→21:20)
[2021-03-14] MEDS: cefTRIAXone SODIUM 2,000 MG in DEXTROSE 5% 50 ML IV SCH (16:32)
[2021-03-14] MEDS: SUMAtriptan succinate 100 MG TAB PO PRN (17:08)
[2021-03-14] MEDS: INSULIN HUMAN REGULAR SC SCH ×2 (17:55→21:18)
[2021-03-14] MEDS: ONDANSETRON INJ 2 MG/ML 2 ML VIAL IV PRN (20:36)
[2021-03-14] MEDS: allopurinoL 300 MG TAB PO SCH (21:18)
[2021-03-14] MEDS: HYDROmorphone INJ 0.5 MG/0.5 ML SYR IV PRN (22:02)
--- NOTE | 2021-03-14 22:45 | Electrocardiogram Report ---
Test Reason : Blood Pressure : / mmHG Vent. Rate : 107 BPM Atrial Rate : 107 BPM P-R Int : 166 ms QRS Dur : 076 ms QT Int : 324 ms P-R-T Axes : 011 -37 019 degrees QTc Int : 432 ms Sinus tachycardia Possible Left atrial enlargement Left axis deviation Nonspecific T wave abnormality Abnormal ECG When compared with ECG of 11-JUN-2014 18:31, Vent. rate has increased BY 42 BPM QRS axis Shifted left Questionable change in initial forces of Anterior leads Confirmed by Adama Sandoval ([id number]) on 03/14/2021 10:44:35 PM Referred By: REFERRED SELF Confirmed By:Adama Sandoval
[2021-03-15] MEDS ORDERED: INSULIN HUMAN REGULAR SC SCH (02:00)
[2021-03-15] MEDS ORDERED: HumuLIN-R 10 ML VIAL SC SCH (02:00)
[2021-03-15] MEDS: SUMAtriptan succinate 100 MG TAB PO PRN ×2 (02:12→11:50)
[2021-03-15] MEDS: SODIUM CHLORIDE 0.9% 1000ML 1,000 ML IV SCH ×2 (03:07→15:06)
[2021-03-15] MEDS: ONDANSETRON INJ 2 MG/ML 2 ML VIAL IV PRN ×2 (03:08→23:03)
[2021-03-15] MEDS: HYDROmorphone INJ 0.5 MG/0.5 ML SYR IV PRN (04:06)
[2021-03-15] MEDS: HEPARIN SOD 5,000 UNIT/0.5 ML VIAL SQ SCH ×3 (06:09→20:53)
[2021-03-15] MEDS: ACETAMINOPHEN 325 MG TAB PO PRN ×3 (06:13→23:10)
[2021-03-15 07:04] LABS: Basophils # (auto) 0.02 K/uL (0-0.2); Basophils % (auto) 0.2 %; Eosinophils # (auto) 0.05 K/uL (0-0.5); Eosinophils % (auto) 0.5 %; Hematocrit (blood only) 36.6 % (37-47); Hemoglobin 11.8 g/dL (12.0-16.0); Immature Granulocytes # (auto) 0.02 K/uL (0.00-0.02); Immature Granulocytes % (auto) 0.2 %; Lymphocytes # (auto) 0.64 K/uL (1.2-3.4); Lymphocytes % (auto) 6.4 %; Mean Corpuscular Hemoglobin 28.3 pg (25-34); Mean Corpuscular Hgb Conc 32.2 g/dL (32-36); Mean Corpuscular Volume 87.8 fL (80-100); Mean Platelet Volume 12.3 fL (7.4-10.4); Neutrophils # (auto) 8.34 K/uL (1.4-6.5); Neutrophils % (auto) 83.7 %; Platelet Count 83 K/uL (130-400); Platelet Estimate Decreased (Normal); RDW Coefficient of Variation 15.5 % (11.5-14.5); Red Blood Count 4.17 M/uL (4.2-5.4); White Blood Count 9.97 K/uL (4.8-10.8)
[2021-03-15 07:09] LABS: BUN Creatinine Ratio 13.8 (10-20); Calcium 8.4 mg/dl (8.5-10.1); Creatinine Clr Calc Pharmacy 33.4 ml/min; Est GFR (African American) 31.9 ml/min; Est GFR (Non-African American) 27.5 ml/min; Potassium 3.7 mmol/L (3.5-5.1)
[2021-03-15 08:18] LABS: Estimated Average Glucose 171 mg/dl; Hemoglobin A1C 7.6 % (4.5-5.6)
[2021-03-15] MEDS: LOSARTAN/HCTZ 50/12.5MG TAB PO SCH (08:40)
[2021-03-15] MEDS: INDOMETHACIN EXTENDED REL 75 MG CAPCR PO SCH (08:40)
[2021-03-15] MEDS: FUROSEMIDE 40 MG TAB PO PRN (08:40)
[2021-03-15] MEDS: MULTIVITAMIN TAB PO SCH (08:40)
[2021-03-15] MEDS: VERAPAMIL HCL 120 MG TABCR PO SCH (08:41)
[2021-03-15] MEDS: INSULIN HUMAN REGULAR SC SCH ×4 (08:43→20:52)
[2021-03-15] MEDS ORDERED: INSULIN GLARGINE SOLOSTAR 100 UNITS/ML 3 ML PEN SC SCH ×2 (09:00→21:00)
[2021-03-15] MEDS ORDERED: NON-FORMULARY MEDICATION (Insulin Degludec [Tresiba Flextouch U-100] 100 unit/mL (3 mL) in SQ SCH (09:00)
--- NOTE | 2021-03-15 12:45 | Pharmacy Report ---
Pharmacy Glycemic Short Note 2 - Date of Service March 15, 2021 - Glycemic Short BSG Results (Last 24 hours): 03/14/21 03/14/21 03/15/21 17:02 21:16 01:56 Glucose POC Glucose 167 H 242 H 167 H 03/15/21 03/15/21 03/15/21 05:39 08:04 12:01 Glucose 157 H POC Glucose 152 H 187 H OUTPATIENT ANTIDIABETIC REGIMEN: * Tresiba 15 units SC qAM * Regular insulin per sliding scale - typically 5-8 units with meals per endocrine note in December * Reported intolerance with Novolog and Humalog * HbA1c: 7.6% (03/15/21) ASSESSMENT: 03/15 * BSGs elevated yesterday at 176, 167, and 242 mg/dL * Fasting BSG of 152 mg/dL this morning (received 15 units of Tresiba yesterday prior to admission) * Will utilize Lantus scale this evening to to allow for increased basal dose today * Patient with gram-negative bacteremia - receiving ceftriaxone at this time 03/14 * ID is a 65 year old female presents to ED on 03/14 with flank pain - presumed UTI/pyelonephritis * BSG on admission is 176 mg/dL - Tresiba 15 units SC given this morning prior to admission * Patient is reportedly intolerant to Humalog and Novolog - will use regular insulin while inpatient * Will hold off on further basal today and utilize bolus only (including 0200 overnight check) PLAN FOR INPATIENT GLYCEMIC CONTROL: * Basal insulin * Lantus 15 units SC this morning * Lantus scale this evening to provide up to 10 additional units (see EHR for details) * Bolus insulin * Novolin R per scale ACHS or Q6hrs while NPO * Goal Range: Low 110 mg/dL - High 140 mg/dL * Correction Factor: 20 mg/dL/unit * Nutritional / Prandial insulin per carb ratio of 1 unit per 6 grams CHO consumed PLAN FOR DISCHARGE: * A1c is up slightly from December (7.3 -> 7.6%) * Reasonable A1c goal for most non- adults is less than 7% * Insulin doses could likely be adjusted at time of discharge - will follow insulin needs and suggest changes as appropriate * Patient follows with endocrinology - would ensure timely outpatient follow-up for further management
[2021-03-15] MEDS ORDERED: POLYETHYLENE (MIRALAX) 17 GM PACK PO ONE (13:00)
[2021-03-15] MEDS: PSYLLIUM 58.6% POWDER PACKET PO SCH (13:30)
[2021-03-15] MEDS: cefTRIAXone SODIUM 2,000 MG in DEXTROSE 5% 50 ML IV SCH (15:28)
--- NOTE | 2021-03-15 19:30 | Hospitalist Progress Note ---
Date of Service March 15, 2021 Assessment & Plan (1) Acute pyelonephritis: With gram-negative bacteremia/sepsis present on admissionseems to be stabilizing. Discussed with patient it will likely take several days for her to start to feel better. Continue ceftriaxone pending ID and S for bacteria. Continue supportive care. (2) Head ache: Likely migraine plus tensionOMT did help some. Continue med management as well. (3) Type 2 diabetes mellitus: Continue to titrate insulins. Sugars showing reasonable control. (4) Hypertension: Blood pressure is a bit variable, but she is acutely ill and uncomfortable. Continue to follow. (5) Somatic dysfunction of cervical region: OMT as above (6) Chronic renal insufficiency: CKD 3B (7) DVT prophylaxis: Heparin subcu (8) Discharge planning issues: Acutely ill, but stable on medical, continue current care. Anticipate home as her ultimate disposition when she has improved. Admission and Anticipated Discharge Date Admission Date: March 14, 2021 Subjective Biggest complaint is a headache. Ongoing. More left-sided. Fairly intense. Does not complain that it is the worst headache of her life. Otherwise generally feels lousy and rundown as well. Updated extensively on current working diagnoses. Patient expressed good understanding. Review of Systems Review of Systems: All systems reviewed & are unremarkable except as noted in HPI & below Physical Exam Physical Exam: In general she is awake and alert pleasant but appears uncomfortable. HEENT normocephalic atraumatic mucous membranes moist. Breathing unlabored no accessory muscle use good effort. Skin shows no rashes no pallor or icterus. Neuro shows no focal deficits. Osteopathic/muscul oskeletalleft sided suboccipitals high tone, tender, decreased range of motioninhibitory pressureimproved. Patient tolerated well and noted some improvement in her headache. Extremities show no sinus clubbing or edema. Results & Data Results & Data ([facility]) Vital Signs (Past 12 Hours) Vital Signs Temp Pulse Resp BP Pulse Ox 03/15/21 18:02 99.7 F H 03/15/21 16:33 101.5 F H 03/15/21 15:01 102.7 F H 85 18 167/110 H 95 03/15/21 13:22 100.8 F H 84 18 129/97 95 PG Care Time/CCT Total # of Minutes Spent Total Time Spent with Patient: Total time spent is greater than 50% in coordination of care (as documented) at patient's floor/unit and/or counseling patient: Coding Level of Care Code 84914 Subseq Hosp Care Lvl 3 Diagnoses Acute pyelonephritis N10 Head ache R51.9 Type 2 diabetes mellitus E11.9 Hypertension I10 Somatic dysfunction of cervical region M99.01 Chronic renal insufficiency N18.9 DVT prophylaxis Z29.9 Discharge planning issues Z02.9 CPT Codes Musculoskeletal - Musculoskeletal: [id number] Oste[address] Tr 1-2 Body regions ([id number])
[2021-03-15] MEDS: allopurinoL 300 MG TAB PO SCH (20:53)
[2021-03-15] MEDS: oxyCODONE HCL IR 5 MG TAB (IMMEDIATE RELEASE) PO PRN (23:03)
[2021-03-15] MEDS ORDERED: ACETAMINOPHEN 500 MG TAB PO PRN (23:43)
[2021-03-16] MEDS: SUMAtriptan succinate 100 MG TAB PO PRN (00:06)
[2021-03-16] MEDS: SODIUM CHLORIDE 0.9% 1000ML 1,000 ML IV SCH ×2 (04:06→16:31)
[2021-03-16] MEDS: oxyCODONE HCL IR 5 MG TAB (IMMEDIATE RELEASE) PO PRN ×4 (04:12→22:10)
[2021-03-16] MEDS: HEPARIN SOD 5,000 UNIT/0.5 ML VIAL SQ SCH ×3 (05:39→21:03)
[2021-03-16] MEDS: INDOMETHACIN EXTENDED REL 75 MG CAPCR PO SCH (08:39)
[2021-03-16] MEDS: LOSARTAN/HCTZ 50/12.5MG TAB PO SCH (08:39)
[2021-03-16] MEDS: PSYLLIUM 58.6% POWDER PACKET PO SCH (08:39)
[2021-03-16] MEDS: VERAPAMIL HCL 120 MG TABCR PO SCH (08:40)
[2021-03-16] MEDS: MULTIVITAMIN TAB PO SCH (08:40)
[2021-03-16] MEDS: FUROSEMIDE 40 MG TAB PO PRN (08:40)
[2021-03-16] MEDS: INSULIN HUMAN REGULAR SC SCH ×4 (08:44→21:00)
[2021-03-16] MEDS: POLYETHYLENE (MIRALAX) 17 GM PACK PO SCH (08:49)
[2021-03-16] MEDS: ONDANSETRON INJ 2 MG/ML 2 ML VIAL IV PRN (08:49)
[2021-03-16] MEDS ORDERED: INSULIN GLARGINE SOLOSTAR 100 UNITS/ML 3 ML PEN SC SCH (09:00)
[2021-03-16] MEDS ORDERED: PROCHLORPERAZINE 10 MG in SYRINGE 8 ML IV PRN (09:29)
--- NOTE | 2021-03-16 10:52 | Pharmacy Report ---
Pharmacy Glycemic Short Note 2 - Date of Service March 16, 2021 - Glycemic Short BSG Results (Last 24 hours): 03/15/21 03/15/21 03/15/21 12:01 16:58 20:41 POC Glucose 187 H 159 H 141 H 03/16/21 08:17 POC Glucose 171 H OUTPATIENT ANTIDIABETIC REGIMEN: * Tresiba 15 units SC qAM * Regular insulin per sliding scale - typically 5-8 units with meals per endocrine note in December * Reported intolerance with Novolog and Humalog * HbA1c: 7.6% (03/15/21) ASSESSMENT: 03/16 * 43 units SQ insulin given over last 24 hrs while tolerating a diet * BSGs well controlled over the last 24 hrs, only mild pre-lunch hyperglycemia observed * Fasting BSG elevated again this AM, will increase AM basal insulin dose 10-20% and continue a scaled dose at bedtime * Novolog CF/CR performed well yesterday - will the same 03/15 * BSGs elevated yesterday at 176, 167, and 242 mg/dL * Fasting BSG of 152 mg/dL this morning (received 15 units of Tresiba yesterday prior to admission) * Will utilize Lantus scale this evening to to allow for increased basal dose today * Patient with gram-negative bacteremia - receiving ceftriaxone at this time 03/14 * HI is a 65 year old female presents to ED on 03/14 with flank pain - presumed UTI/pyelonephritis * BSG on admission is 176 mg/dL - Tresiba 15 units SC given this morning prior to admission * Patient is reportedly intolerant to Humalog and Novolog - will use regular insulin while inpatient * Will hold off on further basal today and utilize bolus only (including 0200 overnight check) PLAN FOR INPATIENT GLYCEMIC CONTROL: * Basal insulin * Lantus 18 units SC Q AM * Lantus scale this evening to provide up to 4-6 additional units (see EHR for details) * Bolus insulin * Novolin R per scale ACHS or Q6hrs while NPO * Goal Range: Low 110 mg/dL - High 140 mg/dL * Correction Factor: 20 mg/dL/unit * Nutritional / Prandial insulin per carb ratio of 1 unit per 6 grams CHO consumed PLAN FOR DISCHARGE: * A1c is up slightly from December (7.3 -> 7.6%) * Reasonable A1c goal for most non- adults is less than 7% * May consider a small increase in basal insulin dose on discharge, i.e. increase Tresiba to 18 units daily. * ACHS BSGs recommended following insulin adjustment, with particular attention paid to fasting BSG w/ basal increase. * Patient follows with endocrinology - would ensure timely outpatient follow-up for further management
[2021-03-16] MEDS: ONDANSETRON INJ 2 MG/ML 2 ML VIAL IV SCH ×2 (11:57→17:52)
[2021-03-16] MEDS: cefTRIAXone SODIUM 2,000 MG in DEXTROSE 5% 50 ML IV SCH (15:29)
--- NOTE | 2021-03-16 17:41 | Hospitalist Progress Note ---
Date of Service March 16, 2021 Assessment & Plan (1) Acute pyelonephritis: With gram-negative bacteremia/sepsis present on admissionstable but will be slow to improve. Discussed with patient again it will likely take several days for her to start to feel better. Continue ceftriaxone -- garcia sensitive E Coli -- will need 14 days on abx total, can transition to PO cefdinir when able to change to PO. Continue supportive care. (2) Head ache: Likely migraine plus tensionOMT again did help some. Continue med management as well. (3) Type 2 diabetes mellitus: Continue to titrate insulins. Sugars overall adequate (4) Hypertension: Blood pressure is a bit variable, but she is acutely ill and uncomfortable. Continue to follow. (5) Somatic dysfunction of cervical region: OMT as above again today (6) Chronic renal insufficiency: CKD 3B (7) DVT prophylaxis: Heparin subcu (8) Discharge planning issues: Acutely ill, but stable on medical, continue current care. Anticipate home as her ultimate disposition when she has improved. Admission and Anticipated Discharge Date Admission Date: March 14, 2021 Subjective nausea fairly bad, not really able to eat much. headache doing a bit better but still fairly bad as well. generally feels better than yesterday but lousy overall. flank pain improved Review of Systems Review of Systems: All systems reviewed & are unremarkable except as noted in HPI & below Physical Exam Physical Exam: gen aaox3 pleasant but quite fatigued nad heent nc at mmm ost/msk L sided upper cervical/suboccipitals high tone/tender/decreased ROM - myofascial release/inhibitory pressure - improved Results & Data Results & Data ([facility]) Vital Signs (Past 12 Hours) Vital Signs Temp Pulse Resp BP Pulse Ox 03/16/21 15:55 99.0 F 71 18 139/83 93 03/16/21 07:10 98.8 F 75 16 155/90 H 94 PG Care Time/CCT Total # of Minutes Spent Total Time Spent with Patient: Total time spent is greater than 50% in coordination of care (as documented) at patient's floor/unit and/or counseling patient: Coding Level of Care Code 10922 Subseq Hosp Care Lvl 3 Diagnoses Acute pyelonephritis N10 Head ache R51.9 Type 2 diabetes mellitus E11.9 Hypertension I10 Somatic dysfunction of cervical region M99.01 Chronic renal insufficiency N18.9 DVT prophylaxis Z29.9 Discharge planning issues Z02.9 CPT Codes Musculoskeletal - Musculoskeletal: 02629 Osteo Ludwig Tr 1-2 Body regions ([id number])
[2021-03-16] MEDS: INSULIN GLARGINE SOLOSTAR 100 UNITS/ML 3 ML PEN SC SCH (21:02)
[2021-03-16] MEDS: allopurinoL 300 MG TAB PO SCH (21:04)
[2021-03-17] MEDS: ONDANSETRON INJ 2 MG/ML 2 ML VIAL IV SCH ×4 (00:30→17:23)
[2021-03-17] MEDS: oxyCODONE HCL IR 5 MG TAB (IMMEDIATE RELEASE) PO PRN ×4 (03:02→20:52)
[2021-03-17] MEDS: SODIUM CHLORIDE 0.9% 1000ML 1,000 ML IV SCH ×2 (04:29→17:23)
[2021-03-17] MEDS: HEPARIN SOD 5,000 UNIT/0.5 ML VIAL SQ SCH ×3 (06:01→20:55)
[2021-03-17 06:16] LABS: Hematocrit (blood only) 32.2 % (37-47); Hemoglobin 10.7 g/dL (12.0-16.0); Mean Corpuscular Hemoglobin 28.6 pg (25-34); Mean Corpuscular Hgb Conc 33.2 g/dL (32-36); Mean Corpuscular Volume 86.1 fL (80-100); RDW Coefficient of Variation 15.2 % (11.5-14.5); RDW Standard Deviation 48.6 fL (36.4-46.3); Red Blood Count 3.74 M/uL (4.2-5.4); White Blood Count 5.49 K/uL (4.8-10.8)
[2021-03-17 06:41] LABS: Mean Platelet Volume 11.7 fL (7.4-10.4); Platelet Count 94 K/uL (130-400)
[2021-03-17 06:42] LABS: Basophils # (auto) 0.03 K/uL (0-0.2); Basophils % (auto) 0.5 %; Eosinophils # (auto) 0.37 K/uL (0-0.5); Eosinophils % (auto) 6.7 %; Immature Granulocytes # (auto) 0.06 K/uL (0.00-0.02); Immature Granulocytes % (auto) 1.1 %; Lymphocytes # (auto) 1.01 K/uL (1.2-3.4); Lymphocytes % (auto) 18.4 %; Monocytes # (auto) 1.03 K/uL (0.11-0.59); Monocytes % (auto) 18.8 %; Neutrophils # (auto) 2.99 K/uL (1.4-6.5); Neutrophils % (auto) 54.5 %; RBC Morphology Unremarkable
[2021-03-17 06:53] LABS: BUN Creatinine Ratio 13.9 (10-20); Calcium 8.5 mg/dl (8.5-10.1); Creatinine Clr Calc Pharmacy 34.7 ml/min; Est GFR (African American) 33.4 ml/min; Est GFR (Non-African American) 28.8 ml/min; Potassium 3.2 mmol/L (3.5-5.1)
[2021-03-17] MEDS: INDOMETHACIN EXTENDED REL 75 MG CAPCR PO SCH (08:02)
[2021-03-17] MEDS: MULTIVITAMIN TAB PO SCH (08:02)
[2021-03-17] MEDS: VERAPAMIL HCL 120 MG TABCR PO SCH (08:02)
[2021-03-17] MEDS: PSYLLIUM 58.6% POWDER PACKET PO SCH (08:03)
[2021-03-17] MEDS: LOSARTAN/HCTZ 50/12.5MG TAB PO SCH (08:03)
[2021-03-17] MEDS: POLYETHYLENE (MIRALAX) 17 GM PACK PO SCH (08:03)
[2021-03-17] MEDS: INSULIN HUMAN REGULAR SC SCH ×4 (08:51→20:59)
[2021-03-17] MEDS ORDERED: INSULIN GLARGINE SOLOSTAR 100 UNITS/ML 3 ML PEN SC SCH (09:00)
[2021-03-17] MEDS ORDERED: POTASSIUM CHLORIDE CRTAB 20 MEQ TABCR PO STA (09:14)
--- NOTE | 2021-03-17 09:30 | Pharmacy Report ---
Pharmacy Glycemic Short Note 2 - Date of Service March 17, 2021 - Glycemic Short BSG Results (Last 24 hours): 03/16/21 03/16/21 03/16/21 12:25 17:08 20:58 Glucose POC Glucose 139 H 182 H 175 H 03/17/21 03/17/21 05:44 08:17 Glucose 147 H POC Glucose 155 H OUTPATIENT ANTIDIABETIC REGIMEN: * Tresiba 15 units SC qAM * Regular insulin per sliding scale - typically 5-8 units with meals per endocrine note in December * Reported intolerance with Novolog and Humalog * HbA1c: 7.6% (03/15/21) ASSESSMENT: 03/17 * Received 46 units of insulin yesterday (22 units of basal and 24 units of prandial/correctional bolus) * BSGs yesterday ranging 139-182 mg/dL * Fasting BSG of 155 mg/dL - will give 22 units of Lantus this morning and allow for low-dose scale this evening 03/16 * 43 units SQ insulin given over last 24 hrs while tolerating a diet * BSGs well controlled over the last 24 hrs, only mild pre-lunch hyperglycemia observed * Fasting BSG elevated again this AM, will increase AM basal insulin dose 10-20% and continue a scaled dose at bedtime * Novolog CF/CR performed well yesterday - will the same 03/15 * BSGs elevated yesterday at 176, 167, and 242 mg/dL * Fasting BSG of 152 mg/dL this morning (received 15 units of Tresiba yesterday prior to admission) * Will utilize Lantus scale this evening to to allow for increased basal dose today * Patient with gram-negative bacteremia - receiving ceftriaxone at this time 03/14 * CA is a 65 year old female presents to ED on 03/14 with flank pain - presumed UTI/pyelonephritis * BSG on admission is 176 mg/dL - Tresiba 15 units SC given this morning prior to admission * Patient is reportedly intolerant to Humalog and Novolog - will use regular insulin while inpatient * Will hold off on further basal today and utilize bolus only (including 0200 overnight check) PLAN FOR INPATIENT GLYCEMIC CONTROL: * Basal insulin * Lantus 22 units SC Q AM * Lantus scale this evening to provide up to 3 additional units of basal (see EHR for details) * Bolus insulin - tighten correction factor * Novolin R per scale ACHS or Q6hrs while NPO * Goal Range: Low 110 mg/dL - High 140 mg/dL * Correction Factor: 15 mg/dL/unit * Nutritional / Prandial insulin per carb ratio of 1 unit per 6 grams CHO consumed PLAN FOR DISCHARGE: * A1c is up slightly from December (7.3 -> 7.6%) * Reasonable A1c goal for most non- adults is less than 7% * May consider a small increase in basal insulin dose on discharge, i.e. increase Tresiba to 18 units daily. * ACHS BSGs recommended following insulin adjustment, with particular attention paid to fasting BSG w/ basal increase. * Patient follows with endocrinology - would ensure timely outpatient follow-up for further management
[2021-03-17] MEDS: cefTRIAXone SODIUM 2,000 MG in DEXTROSE 5% 50 ML IV SCH (15:23)
--- NOTE | 2021-03-17 17:11 | Hospitalist Progress Note ---
Date of Service March 17, 2021 Assessment & Plan (1) Acute pyelonephritis: With gram-negative bacteremia/sepsis present on admissionimproving, albeit slowly. Reiterated to patient yet again that slow improvement is the norm with this kind of situation. Fortunately pansensitive E. colicontinue ceftriaxone for now, anticipate transition to cefdinir to round out 14 days of therapy once she is stable for home. (2) Head ache: Seems to be doing better in this regard (3) Type 2 diabetes mellitus: Sugar showing reasonable overall control (4) Hypertension: Blood pressure is a bit variable, but she is acutely ill and uncomfortable, and overall things remain in acceptable range for the inpatient setting. Continue to follow. (5) Somatic dysfunction of cervical region: OMT done prior in her hospital stay (6) Chronic renal insufficiency: CKD 3B (7) DVT prophylaxis: Heparin subcu (8) Discharge planning issues: Acutely ill, but stable on medical, continue current care. Anticipate home as her ultimate disposition when she has improved. Admission and Anticipated Discharge Date Admission Date: March 14, 2021 Subjective Her main complaint today is that someone took the hairbrush from her bathroom. Her nausea is still there, but it is better and is much as she was able to eat all of her food. She still has some dizziness, but is more off and on and really just with standing rather than persistent and all the time. Review of Systems Review of Systems: All systems reviewed & are unremarkable except as noted in HPI & below Physical Exam Physical Exam: In general she is awake and alert pleasant no distress. HEENT normocephalic atraumatic mucous membranes moist. She is walking around the room having recently showered with a towel on her head. Generally looking far better, and less fatigued and ill than she did on previous days. Breathing unlabored no accessory muscle use good effort. Gait is stable and steady. Neuro shows no focal deficits. Skin without rashes, pallor, icterus. Results & Data Results & Data ([facility]) Vital Signs (Past 12 Hours) Vital Signs Temp Pulse Resp BP Pulse Ox 03/17/21 14:46 98.8 F 74 20 166/94 H 95 03/17/21 07:42 98.1 F 65 18 127/80 96 PG Care Time/CCT Total # of Minutes Spent Total Time Spent with Patient: Total time spent is greater than 50% in coordination of care (as documented) at patient's floor/unit and/or counseling patient: Coding Level of Care Code 64527 Subseq Hosp Care Lvl 3 Diagnoses Acute pyelonephritis N10 Head ache R51.9 Type 2 diabetes mellitus E11.9 Hypertension I10 Somatic dysfunction of cervical region M99.01 Chronic renal insufficiency N18.9 DVT prophylaxis Z29.9 Discharge planning issues Z02.9
[2021-03-17] MEDS: allopurinoL 300 MG TAB PO SCH (20:52)
[2021-03-17] MEDS: INSULIN GLARGINE SOLOSTAR 100 UNITS/ML 3 ML PEN SC SCH (20:58)
[2021-03-18] MEDS: ONDANSETRON INJ 2 MG/ML 2 ML VIAL IV SCH ×6 (00:41→23:21)
[2021-03-18] MEDS: oxyCODONE HCL IR 5 MG TAB (IMMEDIATE RELEASE) PO PRN ×4 (01:00→20:29)
[2021-03-18] MEDS: SODIUM CHLORIDE 0.9% 1000ML 1,000 ML IV SCH ×2 (06:13→19:48)
[2021-03-18] MEDS: HEPARIN SOD 5,000 UNIT/0.5 ML VIAL SQ SCH ×3 (06:25→22:14)
[2021-03-18] MEDS: INSULIN HUMAN REGULAR SC SCH ×4 (08:54→20:34)
[2021-03-18] MEDS: INSULIN GLARGINE SOLOSTAR 100 UNITS/ML 3 ML PEN SC SCH (08:54)
[2021-03-18] MEDS: LOSARTAN/HCTZ 50/12.5MG TAB PO SCH (08:55)
[2021-03-18] MEDS: INDOMETHACIN EXTENDED REL 75 MG CAPCR PO SCH (08:55)
[2021-03-18] MEDS: PSYLLIUM 58.6% POWDER PACKET PO SCH (08:55)
[2021-03-18] MEDS: VERAPAMIL HCL 120 MG TABCR PO SCH (08:55)
[2021-03-18] MEDS: MULTIVITAMIN TAB PO SCH (08:55)
[2021-03-18] MEDS: POLYETHYLENE (MIRALAX) 17 GM PACK PO SCH (08:58)
--- NOTE | 2021-03-18 09:16 | Pharmacy Report ---
Pharmacy Glycemic Short Note 2 - Date of Service March 18, 2021 - Glycemic Short BSG Results (Last 24 hours): 03/17/21 03/17/21 03/17/21 11:47 16:50 20:49 POC Glucose 177 H 119 H 169 H 03/18/21 07:25 POC Glucose 146 H OUTPATIENT ANTIDIABETIC REGIMEN: * Tresiba 15 units SC qAM * Regular insulin per sliding scale - typically 5-8 units with meals per endocrine note in December * Reported intolerance with Novolog and Humalog * HbA1c: 7.6% (03/15/21) ASSESSMENT: 03/18 * BSGs yesterday of 155, 177, 119, and 169 mg/dL * Received 61 units of insulin (25 units of Lantus and 36 units of prandial/correctional bolus) * Will increase AM Lantus to 25 units this morning * Continues on ceftriaxone daily for E.coli bacteremia 03/17 * Received 46 units of insulin yesterday (22 units of basal and 24 units of prandial/correctional bolus) * BSGs yesterday ranging 139-182 mg/dL * Fasting BSG of 155 mg/dL - will give 22 units of Lantus this morning and allow for low-dose scale this evening 03/14 * MO is a 65 year old female presents to ED on 03/14 with flank pain - presumed UTI/pyelonephritis * BSG on admission is 176 mg/dL - Tresiba 15 units SC given this morning prior to admission * Patient is reportedly intolerant to Humalog and Novolog - will use regular insulin while inpatient * Will hold off on further basal today and utilize bolus only (including 0200 overnight check) PLAN FOR INPATIENT GLYCEMIC CONTROL: * Basal insulin * Lantus 25 units SC daily * Bolus insulin * Novolin R per scale ACHS or Q6hrs while NPO * Goal Range: Low 110 mg/dL - High 140 mg/dL * Correction Factor: 15 mg/dL/unit * Nutritional / Prandial insulin per carb ratio of 1 unit per 6 grams CHO consumed PLAN FOR DISCHARGE: * A1c is up slightly from December (7.3 -> 7.6%) * Reasonable A1c goal for most non- adults is less than 7% * May consider an increase in basal insulin dose on discharge, i.e. increase Tresiba to 22 units daily. * ACHS BSGs recommended following insulin adjustment, with particular attention paid to fasting BSG w/ basal increase. * Patient follows with endocrinology - would ensure timely outpatient follow-up for further management
[2021-03-18] MEDS: cefTRIAXone SODIUM 2,000 MG in DEXTROSE 5% 50 ML IV SCH (15:36)
--- NOTE | 2021-03-18 19:18 | Hospitalist Progress Note ---
Date of Service March 18, 2021 Assessment & Plan (1) Acute pyelonephritis: With gram-negative bacteremia/sepsis present on admissionimproving, albeit slowly. showing improvement. continue ceftriaxone for now, anticipate home on PO cefdinir soon. total 14 days abx (2) Head ache: no complaints now (3) Type 2 diabetes mellitus: good inpatient control (4) Hypertension: Blood pressure overall reasonable (5) Somatic dysfunction of cervical region: OMT done prior in her hospital stay (6) Chronic renal insufficiency: CKD 3B (7) DVT prophylaxis: Heparin subcu (8) Discharge planning issues: Anticipate home soon Admission and Anticipated Discharge Date Admission Date: March 14, 2021 Subjective feeling a good deal better, overall improving. notes that dr hardy told her she should be here through sunday on IV abx. Review of Systems Review of Systems: All systems reviewed & are unremarkable except as noted in HPI & below Physical Exam Physical Exam: gen aaox3 pleasant nad heent nc at mmm breathing unlabored no accessory muscles good effort skin no rashes no pallor or icterus Results & Data Results & Data ([facility]) Vital Signs (Past 12 Hours) Vital Signs Temp Pulse Resp BP Pulse Ox 03/18/21 15:23 98.4 F 70 20 125/78 96 03/18/21 07:27 98.2 F 70 18 171/96 H 97 PG Care Time/CCT Total # of Minutes Spent Total Time Spent with Patient: Total time spent is greater than 50% in coordination of care (as documented) at patient's floor/unit and/or counseling patient: Coding Level of Care Code 92124 Subseq Hosp Care Lvl 2 Diagnoses Acute pyelonephritis N10 Head ache R51.9 Type 2 diabetes mellitus E11.9 Hypertension I10 Somatic dysfunction of cervical region M99.01 Chronic renal insufficiency N18.9 DVT prophylaxis Z29.9 Discharge planning issues Z02.9
[2021-03-18] MEDS: allopurinoL 300 MG TAB PO SCH (20:33)
[2021-03-19] MEDS: oxyCODONE HCL IR 5 MG TAB (IMMEDIATE RELEASE) PO PRN ×5 (01:53→22:32)
[2021-03-19] MEDS: HEPARIN SOD 5,000 UNIT/0.5 ML VIAL SQ SCH ×3 (05:55→21:50)
[2021-03-19] MEDS: ONDANSETRON INJ 2 MG/ML 2 ML VIAL IV SCH ×4 (07:16→23:52)
[2021-03-19] MEDS: SODIUM CHLORIDE 0.9% 1000ML 1,000 ML IV SCH ×2 (09:06→21:48)
[2021-03-19] MEDS: PSYLLIUM 58.6% POWDER PACKET PO SCH (09:09)
[2021-03-19] MEDS: INDOMETHACIN EXTENDED REL 75 MG CAPCR PO SCH (09:09)
[2021-03-19] MEDS: LOSARTAN/HCTZ 50/12.5MG TAB PO SCH (09:09)
[2021-03-19] MEDS: MULTIVITAMIN TAB PO SCH (09:09)
[2021-03-19] MEDS: VERAPAMIL HCL 120 MG TABCR PO SCH (09:09)
[2021-03-19] MEDS: INSULIN HUMAN REGULAR SC SCH ×4 (09:11→21:50)
[2021-03-19] MEDS: INSULIN GLARGINE SOLOSTAR 100 UNITS/ML 3 ML PEN SC SCH (09:12)
[2021-03-19] MEDS ORDERED: POLYETHYLENE (MIRALAX) 17 GM PACK ONE ×3 (09:17→09:36)
[2021-03-19] MEDS: POLYETHYLENE (MIRALAX) 17 GM PACK PO SCH (09:19)
[2021-03-19] MEDS ORDERED: CEFDINIR 300 MG CAP PO STA (13:44)
[2021-03-19] MEDS: SUMAtriptan succinate 100 MG TAB PO PRN (15:49)
--- NOTE | 2021-03-19 17:04 | Hospitalist Progress Note ---
Date of Service March 19, 2021 Assessment & Plan (1) Acute pyelonephritis: With gram-negative bacteremia/sepsis present on admissionimprovingdiscussed transition to cefdinir and going home. She openly doubts her ability to comply with the treatment regimen, in spite of how sick she was, and in spite of the fact that she knows she would need to follow through with treatment to avoid bad outcomes. 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 I discussed with her to start to try to come up with plans for that, given that she would need a course of outpatient antibiotics to finish out her course of treatmentand that it is a common usually very cheap antibiotic that would be able to be found at nearly any pharmacy. In the meantime, we will continue her ceftriaxone daily (but as a late addendum, nursing informed me that her IV site went bad and she refused a new starttherefore we changed her to cefdinir here) (2) Head ache: no complaints now (3) Type 2 diabetes mellitus: Sugars showing good control inpatient. Continue current care (4) Hypertension: Blood pressure overall reasonable given the situation (5) Somatic dysfunction of cervical region: OMT done prior in her hospital stay (6) Chronic renal insufficiency: CKD 3B (7) DVT prophylaxis: Heparin subcu (8) Discharge planning issues: Anticipate home soonhaving to navigate several barriers to care she is putting up (9) Knee pain: I do not see anything overtly concerning, it seems like she may have just regular pain of recovery from the surgery that was not that long ago, as well as a degree of chronic knee pain anyway. Certainly nothing appears septic about her joint. I did openly discuss with her that I would not be able to truly discern subtleties of knee dysfunction/prosthesis alignment/etc.and for that she should follow up with orthopedicsshe notes she has an appointment in about 2 weeks, and given the lack of any apparent catastrophe urgency, that seems quite reasonable. Admission and Anticipated Discharge Date Admission Date: March 14, 2021 Subjective Wonders if she is allergic to the plastic in her knee. Notes that it hurts and it is swollen. Otherwise seems to be feeling better. And discussion of discharge planning, she notes that she will have difficulty getting to the pharmacy. Review of Systems Review of Systems: All systems reviewed & are unremarkable except as noted in HPI & below Physical Exam Physical Exam: General she is awake and alert pleasant no distress. HEENT normocephalic atraumatic mucous membranes moist. Breathing unlabored no accessory muscle use good effort. Skin shows no rashes no pallor or icterus. Extremities show no sinus clubbing or edema. Right knee with a healing scar from midline incision, joint space seems to be mildly tender medially with a very mild effusionit is not erythematous warm or markedly swollen, only mildly more so compared to the left side, which also seems to be somewhat tender particularly medially. No rashes, pallor or icterus otherwise, no focal neuro deficits. Results & Data Results & Data ([facility]) Vital Signs (Past 12 Hours) Vital Signs Temp Pulse Resp BP Pulse Ox 03/19/21 15:34 97.9 F 71 16 151/85 H 94 03/19/21 07:21 98.4 F 66 18 147/91 H 96 PG Care Time/CCT Total # of Minutes Spent Total Time Spent with Patient: Total time spent is greater than 50% in coordination of care (as documented) at patient's floor/unit and/or counseling patient: Coding Level of Care Code 69267 Subseq Hosp Care Lvl 2 Diagnoses Acute pyelonephritis N10 Head ache R51.9 Type 2 diabetes mellitus E11.9 Hypertension I10 Somatic dysfunction of cervical region M99.01 Chronic renal insufficiency N18.9 DVT prophylaxis Z29.9 Discharge planning issues Z02.9 Knee pain M25.569
[2021-03-19] MEDS: CEFDINIR 300 MG CAP PO SCH (19:26)
[2021-03-19] MEDS: allopurinoL 300 MG TAB PO SCH (19:27)
[2021-03-20] MEDS: oxyCODONE HCL IR 5 MG TAB (IMMEDIATE RELEASE) PO PRN ×3 (02:37→16:38)
[2021-03-20] MEDS: HEPARIN SOD 5,000 UNIT/0.5 ML VIAL SQ SCH ×2 (06:13→13:42)
[2021-03-20] MEDS: ONDANSETRON INJ 2 MG/ML 2 ML VIAL IV SCH ×3 (06:13→16:27)
[2021-03-20] MEDS: SODIUM CHLORIDE 0.9% 1000ML 1,000 ML IV SCH (08:47)
[2021-03-20] MEDS: CEFDINIR 300 MG CAP PO SCH ×2 (08:49→18:31)
[2021-03-20] MEDS: INDOMETHACIN EXTENDED REL 75 MG CAPCR PO SCH (08:49)
[2021-03-20] MEDS: LOSARTAN/HCTZ 50/12.5MG TAB PO SCH (08:49)
[2021-03-20] MEDS: PSYLLIUM 58.6% POWDER PACKET PO SCH (08:50)
[2021-03-20] MEDS: MULTIVITAMIN TAB PO SCH (08:50)
[2021-03-20] MEDS: VERAPAMIL HCL 120 MG TABCR PO SCH (08:50)
[2021-03-20] MEDS: INSULIN HUMAN REGULAR SC SCH ×3 (08:51→18:11)
[2021-03-20] MEDS: INSULIN GLARGINE SOLOSTAR 100 UNITS/ML 3 ML PEN SC SCH (08:51)
[2021-03-20] MEDS ORDERED: POLYETHYLENE (MIRALAX) 17 GM PACK PO SCH (09:00)
--- NOTE | 2021-03-20 10:07 | Pharmacy Report ---
Pharmacy Glycemic Short Note 2 - Date of Service March 20, 2021 - Glycemic Short BSG Results (Last 24 hours): 03/19/21 03/19/21 03/19/21 12:04 17:21 21:27 POC Glucose 172 H 119 H 204 H 03/20/21 08:19 POC Glucose 129 H OUTPATIENT ANTIDIABETIC REGIMEN: * Tresiba 15 units SC qAM * Regular insulin per sliding scale - typically 5-8 units with meals per endocrine note in December * Reported intolerance with Novolog and Humalog * HbA1c: 7.6% (03/15/21) ASSESSMENT: 03/20 * Pt has received 64 units of insulin over the past 24hrs * 25 units of basal with Lantus * 39 units of bolus with NovoLog * BSGs [phone] mg/dl * AM fasting BSG is near goal range at 129 mg/dl. No changes needed to basal insulin * Post-prandial BSGs fluctuate; next BSG is high when pt only receives CHO coverage indicating that CR needs tightened. Next BSG is in goal range when both CF+CR are given because of an above goal BSG. Since CR will be tightened, will loosen CF to prevent low BSG when both CF and {tightened} CR given 03/18 * BSGs yesterday of 155, 177, 119, and 169 mg/dL * Received 61 units of insulin (25 units of Lantus and 36 units of prandial/correctional bolus) * Will increase AM Lantus to 25 units this morning * Continues on ceftriaxone daily for E.coli bacteremia 03/17 * Received 46 units of insulin yesterday (22 units of basal and 24 units of prandial/correctional bolus) * BSGs yesterday ranging 139-182 mg/dL * Fasting BSG of 155 mg/dL - will give 22 units of Lantus this morning and allow for low-dose scale this evening 03/14 * CA is a 65 year old female presents to ED on 03/14 with flank pain - presumed UTI/pyelonephritis * BSG on admission is 176 mg/dL - Tresiba 15 units SC given this morning prior to admission * Patient is reportedly intolerant to Humalog and Novolog - will use regular insulin while inpatient * Will hold off on further basal today and utilize bolus only (including 0200 overnight check) PLAN FOR INPATIENT GLYCEMIC CONTROL: * Basal insulin * Lantus 25 units SC daily * Bolus insulin * Novolin R per scale ACHS or Q6hrs while NPO * Goal Range: Low 110 mg/dL - High 140 mg/dL * Correction Factor: 20 mg/dL/unit (loosen) * Nutritional / Prandial insulin per carb ratio of 1 unit per 5 grams CHO consumed (tighten) PLAN FOR DISCHARGE: * A1c is up slightly from December (7.3 -> 7.6%) * Reasonable A1c goal for most non- adults is less than 7% * May consider an increase in basal insulin dose on discharge, i.e. increase Tresiba to 22 units daily. * ACHS BSGs recommended following insulin adjustment, with particular attention paid to fasting BSG w/ basal increase. * Patient follows with endocrinology - would ensure timely outpatient follow-up for further management
[2021-03-20] MEDS: SUMAtriptan succinate 100 MG TAB PO PRN (14:17)
--- NOTE | 2021-03-20 20:19 | Discharge Summary ---
Date of Service March 20, 2021 Admission HPI Per Admitting Provider This is a 65-year-old female with past medical history of insulin-dependent diabetes mellitus, migraines presents today complaining abdominal and flank pain. Patient is a decent historian. 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 She is having some pain in that area but this is much improved, last antibiotic dose was 6/3. However, over the past 2 days she started to develop polyuria and bladder spasm. This is accompanied by some pain in the suprapubic area with radiation up to the left flank. She was having significant rigors at home and noted a fever although she did not take her temperature. This was accompanied by her typical migraine symptoms which seem to be very frequent. Patient presents to the emergency room was found to be febrile, UA was also positive. Patient is now being mated for treatment of urinary tract infection. Principal Diagnosis Pyelonephritis with sepsis and bacteremia present on admissionimproved Discharge Exam In general she is awake and alert pleasant no distress. HEENT normocephalic atraumatic mucous membranes moist. Breathing unlabored no accessory muscle use good effort. Skin shows no rashes no pallor or icterus. Neuro without any focal deficits. Discharge Data Allergies Allergy/AdvReac Type Severity Reaction Status Date / Time latex Allergy Mild Hives Verified 03/14/21 13:09 Cipro Allergy Unknown UNKNOWN Verified 06/12/16 15:33 ciprofloxacin Allergy Unknown unknown Verified 03/14/21 13:09 reaction clarithromycin Allergy Unknown hives, Verified 03/14/21 13:09 itching insulin aspart Allergy Unknown Hives,Migra Verified 03/14/21 13:09 [From Novolog U-100 Insulin flakito aspart] Sulfa (Sulfonamide Allergy Unknown unknown Verified 03/14/21 13:09 Antibiotics) reaction codeine AdvReac Mild vomiting Verified 03/14/21 13:09 (with remote use) insulin lispro AdvReac Mild headache Verified 03/14/21 13:09 [From Humalog U-100 Insulin] aspartame AdvReac Unknown severe Verified 03/14/21 13:09 migraines chocolate flavor AdvReac Unknown migraines Verified 03/14/21 13:09 glipizide AdvReac Unknown nausea, Verified 03/14/21 13:09 migraines liraglutide [From Victoza] AdvReac Unknown migraines Verified 03/14/21 13:09 monosodium glutamate AdvReac Unknown migraines Verified 03/14/21 13:09 nickel AdvReac Unknown swelling, Verified 03/14/21 13:09 itching Consultations 03/14/21 12:40 ED Decision to Admit Stat Ordered Studies 03/14/21 10:52 CT abd pelvis wo con Stat Hospital Course (1) Acute pyelonephritis: With gram-negative bacteremia/sepsis present on admissionimprovingstable for homebecause of her IV going bad and her refusing a new IV started, she has now been on cefdinir for greater than 24 hours and doing well. We will finish out 14 days of total antibiotic treatment with cefdinir 300 mg twice daily. (2) Head ache: Resolved (3) Type 2 diabetes mellitus: Sugars showed good control inpatient. (4) Hypertension: Blood pressure overall was reasonable given the situation (5) Somatic dysfunction of cervical region: OMT done prior in her hospital stay with improvement in her headache (6) Chronic renal insufficiency: CKD 3B (7) DVT prophylaxis: Heparin subcu (8) Discharge planning issues: Stable for home (9) Knee pain: I do not see anything overtly concerning, it seems like she may have just regular pain of recovery from the surgery that was not that long ago, as well as a degree of chronic knee pain anyway. Certainly nothing appears septic about her joint. I did openly discuss with her that I would not be able to truly discern subtleties of knee dysfunction/prosthesis alignment/etc.and for that she should follow up with orthopedicsshe notes she has an appointment in about 2 weeks, and given the lack of any apparent catastrophe urgency, that seems quite reasonable. Total Time Total Time Spent Total Time Spent (In Minutes): <30 Discharge Plan Discharge Items Patient Disposition: Home - Self-Care Reason For Visit: PYELO Discharge Diagnosis: pyelonephritis (kidney infection) with secondary spread to the bloodstream Activity: Resume your previous activity Non-emergency contact: Primary Care Provider Call non-emergency contact if: you have any medication questions and your symptoms worsen Follow-up/Referrals: Jaime Cates MD [Primary Care Provider] - (You will be scheduled for a follow up appt with your Primary Care Provider. Expect a call from [facility]. When this appt is scheduled, if you are unable to attend the appt, please phone the office to reschedule.) Diet: Carb Consistent or DM2 Addtl Attending Provider Instructions: pyelonephritis with secondary bacteremia (bloodstream infection) -you had a kidney infection (pyelonephritis) from E Coli (the most common UTI bacteria we see) -- and as frequently happens with kidney infections, the infection spread to your bloodstream - this is why you were so sick when you were first admitted -fortunately, while these kinds of illnesses make people really sick at first, once you start to turn the corner people almost never worsen -at this point, we'll need to finish out 2 weeks with oral antibiotics (cefdinir) 300mg in the morning and at night - next dose tonight. it is critically important to take this course of antibiotics -- these infections are generally easy to eradicate but not if the pill is in the bottle. when/if you forget a dose, take it as soon as you realize that you did. it'll be better to take a few doses too close together than to forget a dose at all -for most people cefdinir sits really well, if it does upset your stomach, take it with food knee pain -as we discussed, E Coli almost never spreads into joints/bones from a bloodstream infection, and the way your knee examined was not at all what we see with an infected joint. that said, since you were noticing more pain/etc, we would definitely recommend ongoing follow up with Dr Sims, as he will be able to notice subtleties that would be out of my range of practice stay well hydrated - try to drink at least 60 ounces (better to go for more like 80) a day follow up with your PCP next week to ensure you're still on the road to recovery, but as we've been discussing, these sort of infections often take a good month or so until you really get back to feeling "good as new" Pending Studies at Discharge: No Stand-Alone Forms: My [facility], Smoking Cessation Medications and DC Order Prescriptions: New cefdinir 300 mg Capsule 300 mg PO BID Qty: 15 RF: 0 Continued verapamil 120 mg capsule,ext rel. pellets 24 hr 120 mg PO QAM Qty: 30 RF: 5 losartan-hydrochlorothiazide 100-25 mg tablet 1 tab PO QAM Qty: 90 RF: 1 colchicine 0.6 mg tablet 0.6 mg PO .COMPLEX Qty: 3 RF: 0 furosemide 40 mg tablet 40 mg PO DAILY PRN (Reason: edema) Qty: 90 RF: 0 sumatriptan succinate 100 mg tablet 100 mg PO Q2H PRN (Reason: migraine headache) Qty: 10 RF: 3 rizatriptan 10 mg tablet 10 mg PO .COMPLEX PRN (Reason: migraine headache) Qty: 120 RF: 1 indomethacin 75 mg capsule, extended release 75 mg PO DAILY Qty: 30 RF: 1 insulin regular human 100 unit/mL (3 mL) insulin pen 30 unit subcut .COMPLEX 90 Days Qty: 30 RF: 3 albuterol sulfate 90 mcg/actuation Hfa Aerosol Inhaler 1 inh INHALATION QID PRN (Reason: Wheezing) RF: 0 multivitamin Tablet 1 tab PO QAM RF: 0 allopurinol 300 mg tablet 300 mg PO PM RF: 0 Tresiba FlexTouch U-100 100 unit/mL (3 mL) insulin pen 15 unit SUBCUT QAM RF: 0 Discharge Orders: Discharge Order (Routine); Ordered 03/20/21 Ordered By: Armando Weems/Other Patient Handouts: Managing Type 2 Diabetes, A1C Admission Data Admit Date/Time: 03/14/21 13:49 Attending Provider: Armando Posada Admit Provider: Eduardo Norwood Primary Care Provider: Jaime Cates Other Providers: Eduardo Norwood Other Interventions: Discharge Summary Assessment (RN) Last Done: 03/20/21 18:25 Coding Level of Care Code D/C Day Management <30 mins Diagnoses Acute pyelonephritis N10 Head ache R51.9 Type 2 diabetes mellitus E11.9 Hypertension I10 Somatic dysfunction of cervical region M99.01 Chronic renal insufficiency N18.9 DVT prophylaxis Z29.9 Discharge planning issues Z02.9 Knee pain M25.569
== END 2021-03-20 19:16 | disposition home or self-care (01) | DRG 872 ==
LOC: ED 10:20 → 3W 13:49 → SUATTDRO 13:49 → 3W 14:14

== ENCOUNTER 2021-08-06 17:30 | Inpatient (IN) ==
[2021-08-06 17:58] LABS: Basophils # (auto) 0.02 K/uL (0-0.2); Basophils % (auto) 0.3 %; Eosinophils # (auto) 0.01 K/uL (0-0.5); Eosinophils % (auto) 0.2 %; Hematocrit (blood only) 44.8 % (37-47); Hemoglobin 15.2 g/dL (12.0-16.0); Immature Granulocytes # (auto) 0.02 K/uL (0.00-0.02); Immature Granulocytes % (auto) 0.3 %; Lymphocytes # (auto) 0.84 K/uL (1.2-3.4); Lymphocytes % (auto) 14.5 %; Mean Corpuscular Hemoglobin 29.7 pg (25-34); Mean Corpuscular Hgb Conc 33.9 g/dL (32-36); Mean Corpuscular Volume 87.5 fL (80-100); Mean Platelet Volume 11.3 fL (7.4-10.4); Monocytes # (auto) 0.63 K/uL (0.11-0.59); Monocytes % (auto) 10.8 %; Neutrophils # (auto) 4.29 K/uL (1.4-6.5); Neutrophils % (auto) 73.9 %; Platelet Count 107 K/uL (130-400); RDW Coefficient of Variation 14.3 % (11.5-14.5); RDW Standard Deviation 46.4 fL (36.4-46.3); Red Blood Count 5.12 M/uL (4.2-5.4); White Blood Count 5.81 K/uL (4.8-10.8)
[2021-08-06 18:08] LABS: Partial Thromboplastin Time 26.9 Seconds (21.0-31.0); Prothrombin Time 10.1 Seconds (9.0-12.0)
[2021-08-06 18:15] LABS: Alanine Aminotransferase 32 U/L (12-78); Albumin Level 3.6 gm/dl (3.4-5.0); Aspartate Aminotransferase 23 U/L (15-37); BUN Creatinine Ratio 12.5 (10-20); Blood Urea Nitrogen 23 mg/dl (7-18); Calcium 9.4 mg/dl (8.5-10.1); Carbon Dioxide 24 mmol/L (21-32); Chloride 101 mmol/L (98-107); Creatinine Clr Calc Pharmacy 34.1 ml/min; Est GFR (African American) 33.4 ml/min; Est GFR (Non-African American) 28.8 ml/min; Glucose 204 mg/dl (70-99); Magnesium 2.1 mg/dl (1.8-2.4); Potassium 4.2 mmol/L (3.5-5.1); Sodium 132 mmol/L (136-145)
[2021-08-06 18:17] LABS: Appearance Urine Clear (Clear); Bacteria Urine Automated 1+ (Negative); Bilirubin Urine Negative (Negative); Blood Urine Trace (Negative); Color Urine Dark Yellow; Epithelial Cell Urine Auto >30 /lpf (0-5); Glucose Urine UA Trace (Negative); Ketones Urine 1+ (Negative); Leukocyte Esterase Urine Negative (Negative); Nitrite Urine Negative (Negative); Protein Urine 3+ (Negative); RBC Urine Automated 0-4 /hpf (0-4); Specific Gravity Urine 1.022 (1.000-1.030); Urobilinogen Urine Negative (Negative)
[2021-08-06 18:20] LABS: Albumin Globulin Ratio 0.9 (0.9-2); Alkaline Phosphatase 64 U/L (45-117); Bilirubin,Total 1.1 mg/dl (0.2-1); Globulin 3.9 gm/dl (2.5-4.0); Total Protein 7.5 gm/dl (6.4-8.2); Troponin I < 0.015 ng/ml (0-0.045)
--- NOTE | 2021-08-06 18:25 | XRay Report ---
XR chest 1V portable HISTORY: Sepsis COMPARISON: Chest 03/14/2021. FINDINGS: No pneumothorax. No pleural effusions. No focal lung consolidations to suggest pneumonia. N o evidence for pulmonary edema. The heart is normal in size. IMPRESSION: No acute process. ACT 112: Negative or not required by law. Electronically signed by: Paul Burton M.D. 08/06/2021 6:24 PM
[2021-08-06] MEDS ORDERED: SODIUM CHLORIDE 0.9% 1000ML 1,000 ML IV ONE (19:48)
[2021-08-06] MEDS ORDERED: ONDANSETRON INJ 2 MG/ML 2 ML VIAL IV STA (19:48)
[2021-08-06] MEDS ORDERED: KETOROLAC TROMETHAMINE 15 MG/ML VIAL IV ONE (19:48)
[2021-08-06] MEDS ORDERED: ERTAPENEM SODIUM 10 ML IV STA (20:57)
--- NOTE | 2021-08-06 20:58 | Emergency Department Note ---
Impression & Plan Nausea, Headache, Urinary frequency, Fever ED Provider Note Provider: Daniel Hamilton MD DATE OF SERVICE: 08/06/2021 CHIEF COMPLAINT: Nausea, weakness, urinary symptoms HISTORY OF PRESENT ILLNESS: Patient is a 66-year-old female past medical history including UTI, pyelonephritis, type 2 diabetes, hypothyroidism, hyperlipidemia, and CKD presenting here today complaining over the past 3 days of developed worsening symptoms of nausea without associated vomiting. No diarrhea reported. Some mild back pain more on the left side with pain of the left lower quadrant but not to the same severe extent as prior kidney stones. States she is had fevers at home and using Tylenol and Motrin regularly. Last took some Tylenol on the way here to the hospital. Patient states this feels like when she was septic with a urine infection in the summer. Patient states she is not been able to eat or drink and she had significant nausea over the past day or 2. Reports a bit of a mild left-sided headache. Has a history of migraines (this headache distribution is similar and states that she is been taking Imitrex which helps briefly but then the headache returns. States he felt a bit near syncopal no falls reported or actual syncope. Denies significant shortness of breath or URI symptoms at this point. Patient is not vaccinated for Covid. Patient states on the way over here she was quite fatigued and swerving a bit on the road. She states she feels dehydrated. Patient does report she has had some ongoing pain issues with her right knee and was scheduled for joint aspiration with orthopedics this coming week. This pain is not significantly worsened per her report. REVIEW OF SYSTEMS: A total of 10 review of systems was obtained and negative except as stated above in the HPI. PAST MEDICAL HISTORY: As noted above MEDICATIONS: Reviewed home medication list and the patient states she has been able to take these. SOCIAL HISTORY: Non-smoker PHYSICAL EXAM: GENERAL: alert and oriented in no acute distress on stretcher but fatigued in appearance Head: normocephalic and atraumatic EYES: No injection, discharge or icterus. NECK: Trachea midline. Able to move her head freely side to side. ENT: Mucous membranes pink and moist. LUNGS: Airway patent. No retractions. Breath sounds clear with good air entry bilaterally. HEART: Regular tachycardic rate and rhythm. No chest wall tenderness ABDOMEN: Soft and non-tender, without guarding or rebound. SKIN: Acyanotic, warm, dry, without rashes EXTREMITIES: Without swelling, tenderness or deformity with minimal tenderness in minimal to no swelling of the right knee appreciated on exam. NEUROLOGICAL: No focal deficits. No aphasia. No facial droop or slurred speech. Normal strength and tone in the extremities. Sensation to gross touch normal. EK bpm sinus tachycardia. No PVC or PAC. No acute ST segment elevation with a left axis. QTC 438. CONTINUOUS CARDIAC MONITORING: was ordered and showed a heart rate of 70s to 100s bpm in normal sinus rhythm to sinus tachycardia Patient's laboratory studies and imaging reviewed. Differential includes Infection, dehydration, metabolic abnormality, hypo/hyperglycemia, electrolyte disturbance, anemia, hypoxia, cardiac sources, intracerebral event, toxicologic, neurologic, as well as other pathologies. IMPRESSION/MEDICAL DECISION MAKING: Patient does not appear meningitic and states her headache is similar to prior migraines; believe likely related to her lack of intake. No significant trauma and I doubt acute intracranial bleed. Borderline temperature here and some mild tachycardia time. No significant leukocytosis. Urine sample not convincing for infection although she has significant symptoms. Complains of some left-sided flank left lower quadrant tenderness. Question possible urine infection versus stone versus diverticulitis. No significant shortness of breath or chest discomfort and EKG, troponin, and chest x-ray are reassuring. I doubt an acute septic joint of the right knee given her clinical exam at this time. Patient given some fluid hydration here as well as some Zofran to help with symptoms initially. Cultures and lactate were ordered. Procalcitonin sent. Covid testing negative. Reviewed patient's prior microbiology with a history of ESBL E. coli. Renal function today asked appears somewhat improved compared to previ ous. Procalcitonin is elevated. Given some IV fluids here for a small dose of Toradol cautiously with her known history of CKD. CT report per radiology shows some scarring of the left kidney but no other acute process. Do question of her urinary symptoms at this could be an occult source and there are some bacteria in the UA however could be contamination Patient states that she feels too weak and lethargic to go home at this time is still nauseous Will cover empirically with ertapenem pending culture results. Still with some headache and the nausea is mildly improved but given some Reglan to see if this would help with the situation. Discussed the patient that I doubt this represents meningitis or intracranial bleed and don't feel that a lumbar puncture additional head imaging is indicated at this time. She states he was feeling somewhat better after some hydration here but again felt quite fatigued and preferred further observation given her weakness and nausea The hospitalist was contacted. DIAGNOSIS: Nausea, urinary frequency, fevers, headache DISPOSITION: Hospitalist will evaluate Patient was agreeable with this plan. Past Med/Surg History Medical History Asthma Atrial fibrillation Chronic renal insufficiency Cyst of pancreas DM type 2 (diabetes mellitus, type 2) Fatty liver disease, nonalcoholic History of migraine Hypertension Hypothyroidism Kidney stones Lupus Obstructive sleep apnea syndrome Slow to wake up after anesthesia Transient ischemic attack (TIA) Urinary incontinence Urinary incontinence, urge Surgical History History of arthroscopy of left knee History of arthroscopy of right knee History of bilateral breast implants History of bilateral cataract extraction History of bilateral tubal ligation History of bladder surgery History of cardiac cath History of cardiac radiofrequency ablation History of colonoscopy History of dilatation and curettage History of esophageal dilatation History of esophagogastroduodenoscopy (EGD) History of hysterectomy History of right breast biopsy History of tooth extraction History of total left knee replacement (TKR) Family History Sister Family history of reaction to anesthesia difficulty waking Father Family history of diabetes mellitus Family hx colonic polyps Mother Family history of diabetes mellitus Social History Smoking Status: Never smoker Second Hand Exposure: Yes; Hx Alcohol Use: No Hx Substance Use: No Preferred Language: Faroese Communication Ability: Effective Metal Stamper Required: No Beliefs That Will Affect Care: None Current Living Situation: Alone Feels Safe at Home: Yes Assistive Devices: Glasses Allergies Allergies Allergy/AdvReac Type Severity Reaction Status Date / Time latex Allergy Mild Hives Verified 08/06/21 22:18 Cipro Allergy Unknown UNKNOWN Verified 06/12/16 15:33 ciprofloxacin Allergy Unknown unknown Verified 08/06/21 22:18 reaction clarithromycin Allergy Unknown hives, Verified 08/06/21 22:18 itching insulin aspart Allergy Unknown Hives,Migra Verified 08/06/21 22:18 [From Novolog U-100 Insulin flakito aspart] Sulfa (Sulfonamide Allergy Unknown unknown Verified 08/06/21 22:18 Antibiotics) reaction codeine AdvReac Mild vomiting Verified 08/06/21 22:18 (with remote use) insulin lispro AdvReac Mild headache Verified 08/06/21 22:18 [From Humalog U-100 Insulin] aspartame AdvReac Unknown severe Verified 08/06/21 22:18 migraines chocolate flavor AdvReac Unknown migraines Verified 08/06/21 22:18 glipizide AdvReac Unknown nausea, Verified 08/06/21 22:25 migraines liraglutide [From Victoza] AdvReac Unknown migraines Verified 08/06/21 22:25 monosodium glutamate AdvReac Unknown migraines Verified 08/06/21 22:25 nickel AdvReac Unknown swelling, Verified 08/06/21 22:25 itching Home Meds Home Medications Medication Instructions Recorded Confirmed albuterol sulfate 90 mcg/actuation 1 inh INHALATION QID PRN 08/10/20 08/06/21 aerosol inhaler allopurinol 300 mg tablet 300 mg PO DAILY PRN 03/14/21 08/06/21 insulin degludec 100 unit/mL (3 15 - 16 unit SUBCUT QAM 06/21/21 08/06/21 mL) subcutaneous pen (Tresiba FlexTouch U-100 insulin) insulin regular human 100 unit/mL 0 - 2 unit SUBCUT TIDM 08/06/21 08/06/21 (3 mL) subcutaneous pen (Novolin R Flexpen) Previous Rx's Medication Instructions Recorded verapamil 120 mg 24 hr 120 mg PO QAM #30 cap 04/25/21 capsule,extended release losartan 100 1 tab PO QAM #90 tab 07/26/21 mg-hydrochlorothiazide 25 mg tablet sumatriptan succinate 100 mg tablet 100 mg PO Q2H PRN #10 tab 07/26/21 furosemide 40 mg tablet 40 mg PO DAILY PRN #90 tab 07/27/21 rizatriptan 10 mg tablet See Rx Instructions .ROUTE 08/05/21 .COMPLEX #18 tab Results & Data (ED) Vital Signs Vital Signs - 24 hr 08/06/21 17:34 08/06/21 19:15 08/06/21 21:40 Temperature 37.8 C H Temperature Source Temporal Artery Scan Pulse Rate 125 H Pulse Rate [Finger] 84 80 Respiratory Rate 19 Respiratory Effort / Characteristics Non-Labored Respiratory Depth Normal Respiratory Pattern Regular Blood Pressure 136/82 Blood Pressure [Left Arm] 121/85 Blood Pressure Mean 100 Blood Pressure Mean [Left Arm] 97 Pulse Oximetry 94 93 93 Oxygen Delivery Method Room Air Room Air Room Air Sepsis Recent Fever Within 48 Hours Yes Sepsis New/Unexplained Change in Mental Status N/A Sepsis Action Taken by Nursing No Action Required 08/06/21 22:48 Temperature Temperature Source Pulse Rate Pulse Rate [Finger] 76 Respiratory Rate Respiratory Effort / Characteristics Respiratory Depth Respiratory Pattern Blood Pressure Blood Pressure [Left Arm] 130/88 Blood Pressure Mean Blood Pressure Mean [Left Arm] 102 Pulse Oximetry 95 Oxygen Delivery Method Room Air Sepsis Recent Fever Within 48 Hours Sepsis New/Unexplained Change in Mental Status Sepsis Action Taken by Nursing Laboratory Data Result diagrams: 08/06/21 17:52 08/06/21 17:52 Lab Results 08/06/21 08/06/21 08/06/21 Range/Units 17:52 17:52 17:52 WBC 5.81 (4.8-10.8) K/uL RBC 5.12 (4.2-5.4) M/uL Hgb 15.2 (12.0-16.0) g/dL Hct 44.8 (37-47) % MCV 87.5 (80-100) fL MCH 29.7 (25-34) pg MCHC 33.9 (32-36) g/dL RDW Std Deviation 46.4 H (36.4-46.3) fL RDW Coeff of Alexis 14.3 (11.5-14.5) % Plt Count 107 L (130-400) K/uL MPV 11.3 H (7.4-10.4) fL Immature Gran % (Auto) 0.3 % Neut % (Auto) 73.9 % Lymph % (Auto) 14.5 % [place] % (Auto) 10.8 % Eos % (Auto) 0.2 % Baso % (Auto) 0.3 % Neut # (Auto) 4.29 (1.4-6.5) K/uL Lymph # (Auto) 0.84 L (1.2-3.4) K/uL [place] # (Auto) 0.63 H (0.11-0.59) K/uL Eos # (Auto) 0.01 (0-0.5) K/uL Baso # (Auto) 0.02 (0-0.2) K/uL Immature Gran # (Auto) 0.02 (0.00-0.02) K/uL PT 10.1 (9.0-12.0) Seconds INR 1.0 (0.9-1.1) APTT 26.9 (21.0-31.0) Seconds PTT Ratio 1.0 Sodium 132 L (136-145) mmol/L Potassium 4.2 (3.5-5.1) mmol/L Chloride 101 (98-107) mmol/L Carbon Dioxide 24 (21-32) mmol/L Anion Gap 7.0 (3-11) BUN 23 H (7-18) mg/dl Creatinine 1.80 H (0.6-1.2) mg/dl Est Cr Clr Drug Dosing 34.1 ml/min Est GFR ( Amer) 33.4 ml/min Est GFR (Non-Af Amer) 28.8 ml/min BUN/Creatinine Ratio 12.5 (10-20) Glucose 204 H (70-99) mg/dl Calcium 9.4 (8.5-10.1) mg/dl Magnesium 2.1 (1.8-2.4) mg/dl Total Bilirubin 1.1 H (0.2-1) mg/dl AST 23 (15-37) U/L ALT 32 (12-78) U/L Alkaline Phosphatase 64 (45-117) U/L Troponin I < 0.015 (0-0.045) ng/ml Total Protein 7.5 (6.4-8.2) gm/dl Albumin 3.6 (3.4-5.0) gm/dl Globulin 3.9 (2.5-4.0) gm/dl Albumin/Globulin Ratio 0.9 (0.9-2) Lipase (73-393) U/L Procalcitonin (0-0.5) ng/ml Urine Color Urine Appearance (Clear) Urine pH (4.5-7.5) Ur Specific [place] (1.000-1.030) Urine Protein (Negative) Urine Glucose (UA) (Negative) Urine Ketones (Negative) Urine Blood (Negative) Urine Nitrite (Negative) Urine Bilirubin (Negative) Urine Urobilinogen (Negative) Ur Leukocyte Esterase (Negative) Urine WBC (Auto) (0-5) /hpf Urine RBC (Auto) (0-4) /hpf U Hyaline Cast (Auto) (0-5) /lpf U Epithel Cells (Auto) (0-5) /lpf Urine Bacteria (Auto) (Negative) COVID-19 Eval Order SARS-CoV-2 (PCR) (Negative) 08/06/21 08/06/21 08/06/21 Range/Units 17:52 18:01 19:47 WBC (4.8-10.8) K/uL RBC (4.2-5.4) M/uL Hgb (12.0-16.0) g/dL Hct (37-47) % MCV (80-100) fL MCH (25-34) pg MCHC (32-36) g/dL RDW Std Deviation (36.4-46.3) fL RDW Coeff of Alexis (11.5-14.5) % Plt Count (130-400) K/uL MPV (7.4-10.4) fL Immature Gran % (Auto) % Neut % (Auto) % Lymph % (Auto) % [place] % (Auto) % Eos % (Auto) % Baso % (Auto) % Neut # (Auto) (1.4-6.5) K/uL Lymph # (Auto) (1.2-3.4) K/uL [place] # (Auto) (0.11-0.59) K/uL Eos # (Auto) (0-0.5) K/uL Baso # (Auto) (0-0.2) K/uL Immature Gran # (Auto) (0.00-0.02) K/uL PT (9.0-12.0) Seconds INR (0.9-1.1) APTT (21.0-31.0) Seconds PTT Ratio Sodium (136-145) mmol/L Potassium (3.5-5.1) mmol/L Chloride (98-107) mmol/L Carbon Dioxide (21-32) mmol/L Anion Gap (3-11) BUN (7-18) mg/dl Creatinine (0.6-1.2) mg/dl Est Cr Clr Drug Dosing ml/min Est GFR ( Amer) ml/min Est GFR (Non-Af Amer) ml/min BUN/Creatinine Ratio (10-20) Glucose (70-99) mg/dl Calcium (8.5-10.1) mg/dl Magnesium (1.8-2.4) mg/dl Total Bilirubin (0.2-1) mg/dl AST (15-37) U/L ALT (12-78) U/L Alkaline Phosphatase (45-117) U/L Troponin I (0-0.045) ng/ml Total Protein (6.4-8.2) gm/dl Albumin (3.4-5.0) gm/dl Globulin (2.5-4.0) gm/dl Albumin/Globulin Ratio (0.9-2) Lipase 104 (73-393) U/L Procalcitonin (0-0.5) ng/ml Urine Color Dark Yellow Urine Appearance Clear (Clear) Urine pH 7.0 (4.5-7.5) Ur Specific [place] 1.022 (1.000-1.030) Urine Protein 3+ H (Negative) Urine Glucose (UA) Trace H (Negative) Urine Ketones 1+ H (Negative) Urine Blood Trace H (Negative) Urine Nitrite Negative (Negative) Urine Bilirubin Negative (Negative) Urine Urobilinogen Negative (Negative) Ur Leukocyte Esterase Negative (Negative) Urine WBC (Auto) 1-5 (0-5) /hpf Urine RBC (Auto) 0-4 (0-4) /hpf U Hyaline Cast (Auto) 1-5 (0-5) /lpf U Epithel Cells (Auto) >30 H (0-5) /lpf Urine Bacteria (Auto) 1+ H (Negative) COVID-19 Eval Order Covid19 at [facility] SARS-CoV-2 (PCR) (Negative) 08/06/21 08/06/21 Range/Units 19:47 20:31 WBC (4.8-10.8) K/uL RBC (4.2-5.4) M/uL Hgb (12.0-16.0) g/dL Hct (37-47) % MCV (80-100) fL MCH (25-34) pg MCHC (32-36) g/dL RDW Std Deviation (36.4-46.3) fL RDW Coeff of Alexis (11.5-14.5) % Plt Count (130-400) K/uL MPV (7.4-10.4) fL Immature Gran % (Auto) % Neut % (Auto) % Lymph % (Auto) % [place] % (Auto) % Eos % (Auto) % Baso % (Auto) % Neut # (Auto) (1.4-6.5) K/uL Lymph # (Auto) (1.2-3.4) K/uL [place] # (Auto) (0.11-0.59) K/uL Eos # (Auto) (0-0.5) K/uL Baso # (Auto) (0-0.2) K/uL Immature Gran # (Auto) (0.00-0.02) K/uL PT (9.0-12.0) Seconds INR (0.9-1.1) APTT (21.0-31.0) Seconds PTT Ratio Sodium (136-145) mmol/L Potassium (3.5-5.1) mmol/L Chloride (98-107) mmol/L Carbon Dioxide (21-32) mmol/L Anion Gap (3-11) BUN (7-18) mg/dl Creatinine (0.6-1.2) mg/dl Est Cr Clr Drug Dosing ml/min Est GFR ( Amer) ml/min Est GFR (Non-Af Amer) ml/min BUN/Creatinine Ratio (10-20) Glucose (70-99) mg/dl Calcium (8.5-10.1) mg/dl Magnesium (1.8-2.4) mg/dl Total Bilirubin (0.2-1) mg/dl AST (15-37) U/L ALT (12-78) U/L Alkaline Phosphatase (45-117) U/L Troponin I (0-0.045) ng/ml Total Protein (6.4-8.2) gm/dl Albumin (3.4-5.0) gm/dl Globulin (2.5-4.0) gm/dl Albumin/Globulin Ratio (0.9-2) Lipase (73-393) U/L Procalcitonin 2.78 H (0-0.5) ng/ml Urine Color Urine Appearance (Clear) Urine pH (4.5-7.5) Ur Specific [place] (1.000-1.030) Urine Protein (Negative) Urine Glucose (UA) (Negative) Urine Ketones (Negative) Urine Blood (Negative) Urine Nitrite (Negative) Urine Bilirubin (Negative) Urine Urobilinogen (Negative) Ur Leukocyte Esterase (Negative) Urine WBC (Auto) (0-5) /hpf Urine RBC (Auto) (0-4) /hpf U Hyaline Cast (Auto) (0-5) /lpf U Epithel Cells (Auto) (0-5) /lpf Urine Bacteria (Auto) (Negative) COVID-19 Eval Order SARS-CoV-2 (PCR) NEGATIVE (Negative) Administered Medications Discontinued Medications Sodium Chloride (Nss 1000ml) 1,000 mls @ 999 mls/hr IV .Q1H1M ONE Stop: 08/06/21 20:48 Last Infusion: 08/06/21 22:49 Dose: 0 mls/hr Documented by: [id number] Admin: 08/06/21 19:58 Dose: 999 mls/hr Documented by: [id number] Ertapenem (Invanz) 10 mls @ 2 mls/min IV NOW STA Stop: 08/06/21 21:01 Last Admin: 08/06/21 21:06 Dose: 2 mls/min Documented by: [id number] Ketorolac Tromethamine (Ketorolac Tromethamine 15 Mg/Ml Vial) 10 mg IV NOW ONE Stop: 08/06/21 19:49 Last Admin: 08/06/21 19:57 Dose: 10 mg Documented by: [id number] Metoclopramide HCl (Metoclopramide Hcl Inj 5 Mg/Ml 2 Ml Vial) 10 mg IV NOW STA Stop: 08/06/21 21:41 Last Admin: 08/06/21 21:55 Dose: 10 mg Documented by: [id number] Ondansetron HCl (Ondansetron Inj 2 Mg/Ml 2 Ml Vial) 4 mg IV NOW STA Stop: 08/06/21 19:49 Last Admin: 08/06/21 19:58 Dose: 4 mg Documented by: [id number] Sumatriptan Succinate (Sumatriptan Succinate 6 Mg/0.5 Ml Vial) 6 mg SQ NOW STA Stop: 08/06/21 22:53 Last Admin: 08/06/21 22:56 Dose: 6 mg Documented by: [id number] Imaging Data Radiologist's Impression: Chest X-Ray 08/06/21 17:38 XR chest 1V portable HISTORY: Sepsis COMPARISON: Chest 03/14/2021. FINDINGS: No pneumothorax. No pleural effusions. No focal lung consolidations to suggest pneumonia. No evidence for pulmonary edema. The heart is normal in size. IMPRESSION: No acute process. ACT 112: Negative or not required by law. Electronically signed by: Paul Burton M.D. 08/06/2021 6:24 PM Abdomen/Pelvis CT 08/06/21 20:55 CT abd pelvis wo con CLINICAL HISTORY: nausea, L flank/LLQ pain, urinary symptoms, ?infec TECHNIQUE: Helical axial images of the abdomen and pelvis were obtained. Automated dose lowering techniques and/or adjustment according to patient size were utilized for this exam. This exam was performed without intravenous contrast. COMPARISON: Comparison is made to CT abdomen pelvis 03/14/2021 FINDINGS: Lower chest: Bilateral silicone breast implants are seen. Liver: Hepatic steatosis is noted. Gallbladder and biliary tree: No calcified gallstones. Normal caliber wall. No intra- or extrahepatic biliary ductal dilation. Pancreas: Unremarkable, no focal lesions. Spleen: Unremarkable. Adrenals: Thickening of the bilateral adrenal glands seen. Kidneys and ureters: There is interval atrophy of the left kidney. It previously measured 77 mm in length, now measures 59 mm. Multifocal scarring is seen in the bilateral kidneys and there are punctate calcifications seen without evidence of hydronephrosis. Bladder: Unremarkable. Reproductive organs: Patient is status post hysterectomy. Bowel: Unremarkable appearance of the bowel. The appendix is normal. Lymph nodes Retroperitoneal: Unremarkable. Mesenteric: Unremarkable. Pelvic: Unremarkable. Peritoneum: Normal Vessels: Atherosclerotic calcifications are seen. Abdominal wall: Unremarkable. Bones: Degenerative changes in the visualized spine. IMPRESSION: 1. In the interval, there is significant atrophy of the left kidney which may be due to infectious scarring, chronic obstruction, or vascular abnormality. No acute abnormality is seen, however. 2. Hepatic steatosis. ACT 112: Negative or not required by law. Electronically signed by: Pineda Rodgers M.D. 08/06/2021 9:30 PM Discharge Plan Visit Data Chief Complaint: Fever Stated Complaint: FEVER, FRANCISCO, SICK IN STOMACH ED Provider: Daniel Hamilton Discharge Problem: Nausea, Headache, Urinary frequency, Fever Patient Disposition: Being Evaluated by Hospitalist Forms Stand Alone Forms: My [facility] Prescriptions Prescriptions: No Action verapamil 120 mg capsule,ext rel. pellets 24 hr 120 mg PO QAM Qty: 30 RF: 5 losartan-hydrochlorothiazide 100-25 mg tablet 1 tab PO QAM Qty: 90 RF: 1 sumatriptan succinate 100 mg tablet 100 mg PO Q2H PRN (Reason: migraine headache) Qty: 10 RF: 3 furosemide 40 mg tablet 40 mg PO DAILY PRN (Reason: edema) Qty: 90 RF: 0 rizatriptan 10 mg tablet See Rx Instructions .ROUTE .COMPLEX Qty: 18 RF: 3 albuterol sulfate 90 mcg/actuation Hfa Aerosol Inhaler 1 inh INHALATION QID PRN (Reason: Wheezing) RF: 0 allopurinol 300 mg tablet 300 mg PO DAILY PRN (Reason: gout) RF: 0 Tresiba FlexTouch U-100 100 unit/mL (3 mL) insulin pen 15 - 16 unit SUBCUT QAM RF: 0 Novolin R Flexpen 100 unit/mL (3 mL) insulin pen 0 - 2 unit SUBCUT TIDM RF: 0 Referrals Referrals: PCP,NO [Primary Care Provider] -
--- NOTE | 2021-08-06 21:32 | CT Scan Report ---
CT abd pelvis wo con CLINICAL HISTORY: nausea, L flank/LLQ pain, urinary symptoms, ?infec TECHNIQUE: Helical axial images of the abdomen and pelvis were obtained. Automated dose lowering tech niques and/or adjustment according to patient size were utilized for this exam. This exam was perfor med without intravenous contrast. COMPARISON: Comparison is made to CT abdomen pelvis 03/14/2021 FINDINGS: Lower chest: Bilateral silicone breast implants are seen. Liver: Hepatic steatosis is noted. Gallbladder and biliary tree: No calcified gallstones. Normal caliber wall. No intra- or extrahepatic biliary ductal dilation. Pancreas: Unremarkable, no focal lesions. Spleen: Unremarkable. Adrenals: Thickening of the bilateral adrenal glands seen. Kidneys and ureters: There is interval atrophy of the left kidney. It previously measured 77 mm in [facility], now measures 59 mm. Multifocal scarring is seen in the bilateral kidneys and there are punctate calcifications seen without evidence of hydronephrosis. Bladder: Unremarkable. Reproductive organs: Patient is status post hysterectomy. Bowel: Unremarkable appearance of the bowel. The appendix is normal. Lymph nodes Retroperitoneal: Unremarkable. Mesenteric: Unremarkable. Pelvic: Unremarkable. Peritoneum: Normal Vessels: Atherosclerotic calcifications are seen. Abdominal wall: Unremarkable. Bones: Degenerative changes in the visualized spine. IMPRESSION: 1. In the interval, there is significant atrophy of the left kidney which may be due to infectious s carring, chronic obstruction, or vascular abnormality. No acute abnormality is seen, however. 2. Hepatic steatosis. ACT 112: Negative or not required by law. Electronically signed by: Pineda Rodgers M.D. 08/06/2021 9:30 PM
[2021-08-06] MEDS ORDERED: METOCLOPRAMIDE HCL INJ 5 MG/ML 2 ML VIAL IV STA (21:40)
[2021-08-06] MEDS ORDERED: SUMAtriptan succinate 6 MG/0.5 ML VIAL SQ STA (22:52)
--- NOTE | 2021-08-06 22:58 | History & Physical Report ---
Date of Service August 06, 2021 Assessment & Plan (1) Fever: Plan: Ms. Mcnally is a 66 yo woman here today for evaluation of fever. - SIRS criteria not met, patient not septic - etiology uncertain: viral vs. bacterial source vs. inflammatory. - procal is elevated, which would favor bacterial process - patient reports urinary symptoms, however UA appears contaminated (1+ bacteria with > 30 epithelial cells). Urine culture pending. CT a/p showing no evidence of cystitis or kidney stones - CXR without active disease, PNA unlikely; COVID 19 neg. - no evidence of cellulitis on exam, no diarrhea - tick borne labs ordered given fever and low platelets - 1 dose of ertapenem was given in ED (given hx of ESBL ecoli in urine); hold on further antibiotics at this time (dose of ertapenem will last 24 hours) - trend CBC, follow blood cultures (2) Thrombocytopenia: Plan: - platelets 107 k/UL - etiology uncertain: may be due to infection; will check tick borne labs as above - trend CBC (3) Chronic renal insufficiency: Plan: - baseline Cr ~1.8-1.8 - Cr 1.8 on admission; BUN mildly elevated at 23 - 1 liter NSS ordered - repeat BMP in am - follows with [facility] nephrology (4) Hypertension: Plan: - continue home dose HCTZ- losartan combo and verpaamil (5) Migraine: Plan: - patient reported FRANCISCO with nausea that feels similar to previous migraine attacks - sumatriptan SQ ordered on admission; may repeat once in 24 hour period (6) Type 2 diabetes mellitus: Plan: - most recent A1c 7.6 in 07/27/21 - continue home dose basal insulin - SSI ordered - carb consistent diet - not on high intensity statin - unclear reason, not listed as allergy, consider starting (7) Obstructive sleep apnea syndrome: Plan: - may wear home CPAP (8) Hepatic steatosis: Plan: - noted on CT of abdomen - LFTs wnl - likely secondary to non-alcoholic fatty liver disease - recommend weight loss be addressed as an outpatient (9) Gout: Plan: - continue home allopurinol Dvt ppx: Heparin 5,000 units SQ q12 Diet: Carb consistent 2 Dispo: Med/Surg Code: Full History of Present Illness Primary Care Provider: NO PCP Ms. Mcnally is a 66 yo woman with a PMHx of type II diabetes and chronic renal insufficiency who came in to the ED due to concerns for a urinary tract infection. She began experiencing dysuria, increased frequency and urgency on 08/04/21. Subsequently, she developed a fever. She came in because this is exactly the same way she felt in the past when she was septic from a UTI. ROS + for low appetite, generalized weakness, headache, nausea. She does have a history of episodic migraine. Social Hx: Non smoker In the ED, she was febrile to 37.8, with a normal HR, BP and O2 sat. Her WBC and Hgb were WNL. Platelets were mildly low at 107 K/ul. Coags WNL. Cr was 1.80, BUN at 23. CMP otherwise normal. Procal 2.78. Trop undetectable. Lipase not elevated. COVID 19 neg. UA showing neg nitrite, neg LE, +1 bacteria. Urine and Blood cultures drawn. CXR showing no active disease. A/P cat scan showing evidence of hepatic steatosis, but no acute findings. She was given a dose of Ertapenem, reglan 10mg, zofran 4mg, Toradol 10mg, and 1 liter of NSS. Allergies Allergy/AdvReac Type Severity Reaction Status Date / Time latex Allergy Mild Hives Verified 08/06/21 22:18 Cipro Allergy Unknown UNKNOWN Verified 06/12/16 15:33 ciprofloxacin Allergy Unknown unknown Verified 08/06/21 22:18 reaction clarithromycin Allergy Unknown hives, Verified 08/06/21 22:18 itching insulin aspart Allergy Unknown Hives,Migra Verified 08/06/21 22:18 [From Novolog U-100 Insulin flakito aspart] Sulfa (Sulfonamide Allergy Unknown unknown Verified 08/06/21 22:18 Antibiotics) reaction codeine AdvReac Mild vomiting Verified 08/06/21 22:18 (with remote use) insulin lispro AdvReac Mild headache Verified 08/06/21 22:18 [From Humalog U-100 Insulin] aspartame AdvReac Unknown severe Verified 08/06/21 22:18 migraines chocolate flavor AdvReac Unknown migraines Verified 08/06/21 22:18 glipizide AdvReac Unknown nausea, Verified 08/06/21 22:25 migraines liraglutide [From Victoza] AdvReac Unknown migraines Verified 08/06/21 22:25 monosodium glutamate AdvReac Unknown migraines Verified 08/06/21 22:25 nickel AdvReac Unknown swelling, Verified 08/06/21 22:25 itching Home Medications Medication Instructions Recorded Confirmed Type albuterol sulfate 90 mcg/actuation 1 inh INHALATION QID PRN 08/10/20 08/06/21 History aerosol inhaler allopurinol 300 mg tablet 300 mg PO DAILY PRN 03/14/21 08/06/21 History verapamil 120 mg 24 hr 120 mg PO QAM #30 cap 04/25/21 08/06/21 Rx capsule,extended release insulin degludec 100 unit/mL (3 15 - 16 unit SUBCUT QAM 06/21/21 08/06/21 History mL) subcutaneous pen (Tresiba FlexTouch U-100 insulin) losartan 100 1 tab PO QAM #90 tab 07/26/21 08/06/21 Rx mg-hydrochlorothiazide 25 mg tablet sumatriptan succinate 100 mg tablet 100 mg PO Q2H PRN #10 tab 07/26/21 08/06/21 Rx furosemide 40 mg tablet 40 mg PO DAILY PRN #90 tab 07/27/21 08/06/21 Rx rizatriptan 10 mg tablet See Rx Instructions .ROUTE 08/05/21 08/06/21 Rx .COMPLEX #18 tab insulin regular human 100 unit/mL 0 - 2 unit SUBCUT TIDM 08/06/21 08/06/21 History (3 mL) subcutaneous pen (Novolin R Flexpen) Past Med/Surg History Medical History (Updated 08/07/21 @ 15:24 by Ayan Patel MD) Asthma rare use PRN inh Atrial fibrillation remote hx prior to ablation (1997), no known recurrence Chronic renal insufficiency CKD (chronic kidney disease) stage 4, GFR 15-29 ml/min Cyst of pancreas DM type 2 (diabetes mellitus, type 2) IDDM Fatty liver disease, nonalcoholic History of migraine Hypertension Kidney stones h/0 Lupus no recent issues, following with PCP Obstructive sleep apnea syndrome CPAP Slow to wake up after anesthesia Transient ischemic attack (TIA) remote hx Urinary incontinence Urinary incontinence, urge Surgical History History of arthroscopy of left knee x2 History of arthroscopy of right knee History of bilateral breast implants History of bilateral cataract extraction History of bilateral tubal ligation History of bladder surgery bladder tac History of cardiac cath 2007 ([facility])- no stent (no evidence of coronary artery disease) History of cardiac [place]frequency [place] [facility] [place] of colonoscopy History of dilatation and curettage History of esophageal dilatation History of esophagogastroduodenoscopy (EGD) History of hysterectomy History of right breast biopsy x2--benign History of tooth extraction wisdom teeth History of total left knee replacement (TKR) Family History Sister Family history of reaction to anesthesia difficulty waking Father Family history of diabetes mellitus Family hx colonic polyps Mother Family history of diabetes mellitus Social History Smoking Status: Never smoker Second Hand Exposure: Yes; Hx Alcohol Use: No Hx Substance Use: No Preferred Language: Martiniquais Communication Ability: Effective Credit Assessment Analyst Required: No Beliefs That Will Affect Care: None Current Living Situation: Alone Other Information That Helps Us Care for You: No Feels Safe at Home: Yes Safety Concerns: Feels Safe At This Time Assistive Devices: Glasses Review of Systems Constitutional: + fever and + weakness Gastrointestinal: + nausea Physical Exam Constitutional: WD/WN, vitals as above cooperative; no acute distress Eyes: + anicteric sclerae ENMT: external ear and nose normal, oropharynx normal Neck: trachea midline Respiratory: normal respiratory effort, lungs clear to auscultation no cough Auscultation: no crackles and no wheezes Cardiovascular: Rate/Rhythm: regular rate and regular rhythm Heart Sounds: normal S1 and normal S2 Extremities: no pedal edema Gastrointestinal (Abdomen): normal bowel sounds, soft, nontender, no hepatosplenomegaly + R CVA tenderness Musculoskeletal: Head/Neck/Chest: normocephalic and head atraumatic Skin: no rashes, warm and dry Psychiatric: A+Ox3, euthymic affect Results & Data Results & Data ([facility]) Vital Signs (Past 12 Hours) Vital Signs Temp Pulse Pulse Resp BP BP Pulse Ox 08/06/21 22:48 76 130/88 95 08/06/21 21:40 80 121/85 93 08/06/21 19:15 84 93 08/06/21 17:34 37.8 C H 125 H 19 136/82 94 Supervising Physician Co-Signing Physician Notes Attending addendum: I have physically seen this patient, have supervised the medical residents activities, and agree with the H&P unless as otherwise noted. Assessment and Plan: Fever/urinary symptoms- History of ESBL E. coli, was given ertapenem empirically IV by the ED Follow urine culture sensitivity, hold on additional biotics at this time Thrombocytopenia- Platelets 107 upon admission Assess for tickborne illnesses as noted Follow serially CKD stage III- Baseline creatinine and today around 1.8, with range up to 2.15 Give 1 L of NSS and repeat labs in a.m. Remaining orders and notations as noted Resident Activity Tracking Resident Involvement: Resident Care Provided Care Provided: Adult Hospital Medicine (1) Fever Fever type: unspecified Qualified Code(s): R50.9 - Fever, unspecified
[2021-08-07] MEDS ORDERED: ONDANSETRON INJ 2 MG/ML 2 ML VIAL IV PRN (00:38)
[2021-08-07] MEDS ORDERED: CARBOHYDRATES FOR HYPOGLYCEMIA PO PRN (00:38)
[2021-08-07] MEDS ORDERED: GLUCOSE 10 TABS/TUBE PO PRN (00:38)
[2021-08-07] MEDS ORDERED: SUMAtriptan succinate 100 MG TAB PO PRN (00:38)
[2021-08-07] MEDS ORDERED: allopurinoL 300 MG TAB PO PRN (00:38)
[2021-08-07] MEDS ORDERED: ACETAMINOPHEN 325 MG TAB PO PRN (00:38)
[2021-08-07] MEDS ORDERED: GLUCAGON FOR INJ 1 MG VIAL SQ PRN (00:38)
[2021-08-07] MEDS ORDERED: GLUCOSE 40% GEL 15 GM TUBE PO PRN (00:38)
[2021-08-07] MEDS ORDERED: DEXTROSE 50% 50 ML SYRINGE IV PRN (00:38)
[2021-08-07] MEDS ORDERED: SODIUM CHLORIDE 0.9% 1000ML 1,000 ML IV SCH (00:38)
[2021-08-07] MEDS ORDERED: INSULIN ASPART 100 UNITS/ML 3 ML PEN SC SCH (01:00)
[2021-08-07 01:27] LABS: Lyme Ab IgG w/WB Rflx Negative (Negative); Lyme Ab IgM w/WB Rflx Negative (Negative)
[2021-08-07] MEDS: INSULIN HUMAN REGULAR SC SCH ×5 (01:30→21:59)
--- NOTE | 2021-08-07 07:52 | Electrocardiogram Report ---
Test Reason : Blood Pressure : / mmHG Vent. Rate : 117 BPM Atrial Rate : 117 BPM P-R Int : 156 ms QRS Dur : 070 ms QT Int : 314 ms P-R-T Axes : 018 -41 039 degrees QTc Int : 438 ms Sinus tachycardia Possible Left atrial enlargement Left axis deviation Poor R wave progression, consider anterior LA vs. lead placement vs. LVH Abnormal ECG When compared with ECG of 14-MAR-2021 11:13, No significant change was found Confirmed by Hector Coronado ([id number]) on 08/07/2021 7:52:14 AM Referred By: REFERRED SELF Confirmed By:Andrae Coronado
[2021-08-07] MEDS: HEPARIN SOD 5,000 UNIT/0.5 ML VIAL SQ SCH ×2 (07:59→21:59)
[2021-08-07 08:04] LABS: Basophils # (auto) 0.03 K/uL (0-0.2); Basophils % (auto) 0.7 %; Eosinophils # (auto) 0.15 K/uL (0-0.5); Eosinophils % (auto) 3.6 %; Hematocrit (blood only) 39.8 % (37-47); Hemoglobin 13.4 g/dL (12.0-16.0); Immature Granulocytes # (auto) 0.01 K/uL (0.00-0.02); Immature Granulocytes % (auto) 0.2 %; Lymphocytes # (auto) 1.59 K/uL (1.2-3.4); Lymphocytes % (auto) 38.2 %; Mean Corpuscular Hemoglobin 29.9 pg (25-34); Mean Corpuscular Hgb Conc 33.7 g/dL (32-36); Mean Corpuscular Volume 88.8 fL (80-100); Mean Platelet Volume 11.5 fL (7.4-10.4); Monocytes # (auto) 0.68 K/uL (0.11-0.59); Monocytes % (auto) 16.3 %; Platelet Count 102 K/uL (130-400); RDW Coefficient of Variation 14.4 % (11.5-14.5); RDW Standard Deviation 47.3 fL (36.4-46.3); Red Blood Count 4.48 M/uL (4.2-5.4); White Blood Count 4.16 K/uL (4.8-10.8)
[2021-08-07] MEDS: LOSARTAN/HCTZ 50/12.5MG TAB PO SCH (08:05)
[2021-08-07] MEDS: INSULIN GLARGINE SOLOSTAR 100 UNITS/ML 3 ML PEN SQ SCH (08:05)
[2021-08-07] MEDS: VERAPAMIL HCL 120 MG TABCR PO SCH (08:05)
[2021-08-07 08:42] LABS: BUN Creatinine Ratio 14.7 (10-20); Calcium 8.9 mg/dl (8.5-10.1); Creatinine Clr Calc Pharmacy 35.2 ml/min; Est GFR (African American) 34.6 ml/min; Est GFR (Non-African American) 29.8 ml/min; Potassium 4.1 mmol/L (3.5-5.1)
[2021-08-07] MEDS: POLYETHYLENE (MIRALAX) 17 GM PACK PO PRN (09:38)
--- NOTE | 2021-08-07 15:27 | Hospitalist Progress Note ---
Date of Service August 07, 2021 Assessment & Plan (1) UTI (urinary tract infection): Plan: By symptoms. Urine cx pending. - Admitted for ertapenem empiric therapy since prior cx was E. coli ESBL. - Continue ertapenem - If this does axle turner to be ESBL, the patient is interested in MTU visits in order to be discharged sooner. Will need to cost-check the visits though per patient request. (2) Thrombocytopenia: Plan: Platelets generally run borderline low. Have dropped to 80 in the past. Likely from sepsis. - Monitor (3) CKD (chronic kidney disease) stage 4, GFR 15-29 ml/min: Plan: Baseline Cr ~1.4 - 1.8, CKD Stage III/IV. - Presently at baseline - Monitor (4) Type 2 diabetes mellitus: Plan: A1c was 7.6% this month. - Continue Lantus 15 units QAM - Sliding scale insulin - Sugars 130 - 210 in last 24 hours. Sugars do come down overnight though, so will not increase long-acting. Will increase meal-time slightly. (5) Hypertension: Plan: BP today is 127/84. - Continue home HCTZ/losartan & verapamil (6) Asthma: Plan: No wheezing on exam. - DuoNebs PRN (7) Obstructive sleep apnea syndrome: Plan: - CPAP HS as desired (8) DVT prophylaxis: Plan: Heparin 5,000 units SQ Q12h Admission and Anticipated Discharge Date Admission Date: August 06, 2021 Subjective Doing well today. Reports her dysuria is improving. No fevers/chills. Reports no chest pain, shortness of breath, abdominal pain, nausea, or vomiting. Physical Exam Constitutional: WD/WN, vitals as above Eyes: EOM intact bilaterally; no conjunctival abnormality ENMT: external ear and nose normal, oropharynx normal Neck: trachea midline, no thyromegaly normal visual inspection Respiratory: normal respiratory effort, lungs clear to auscultation no respiratory distress Cardiovascular: RRR, no murmur, no edema Gastrointestinal (Abdomen): Inspection/Auscultation: abdomen normal to inspection; abdomen not distended Musculoskeletal: no cyanosis or clubbing, extremities motor strength 5/5 Skin: no rashes, warm and dry Neurologic: moves all extremities and awake Psychiatric: Orientation: alert, oriented to person and cooperative Results & Data Results & Data ([facility]) Vital Signs (Past 12 Hours) Vital Signs Temp Pulse Resp BP Pulse Ox 08/07/21 07:27 36.6 C 71 18 127/84 95 PG Care Time/CCT Total # of Minutes Spent Total Time Spent with Patient: Total time spent is greater than 50% in coordination of care (as documented) at patient's floor/unit and/or counseling patient: Coding Level of Care Code 13298 Subseq Hosp Care Lvl 3 Diagnoses UTI (urinary tract infection) N39.0 Thrombocytopenia D69.6 CKD (chronic kidney disease) stage 4, GFR 15-29 ml/min N18.4 Type 2 diabetes mellitus E11.9 Hypertension I10 Asthma J45.909 Obstructive sleep apnea syndrome G47.33 DVT prophylaxis Z29.9
--- NOTE | 2021-08-07 20:37 | Billing Data ---
Date of Service August 07, 2021 Coding Level of Care Code INT OBSERVATION CARE 70M LVL 3
[2021-08-07] MEDS ORDERED: ERTAPENEM SODIUM 1,000 MG in SODIUM CHLORIDE 0.9% 50 ML IV SCH (21:00)
[2021-08-08 07:47] LABS: Hematocrit (blood only) 40.5 % (37-47); Hemoglobin 13.5 g/dL (12.0-16.0); Mean Corpuscular Hemoglobin 29.5 pg (25-34); Mean Corpuscular Hgb Conc 33.3 g/dL (32-36); Mean Corpuscular Volume 88.4 fL (80-100); Mean Platelet Volume 11.7 fL (7.4-10.4); Platelet Count 124 K/uL (130-400); RDW Coefficient of Variation 14.5 % (11.5-14.5); RDW Standard Deviation 47.2 fL (36.4-46.3); Red Blood Count 4.58 M/uL (4.2-5.4); White Blood Count 4.28 K/uL (4.8-10.8)
[2021-08-08] MEDS: INSULIN HUMAN REGULAR SC SCH ×4 (08:02→22:12)
[2021-08-08] MEDS: VERAPAMIL HCL 120 MG TABCR PO SCH (08:02)
[2021-08-08] MEDS: LOSARTAN/HCTZ 50/12.5MG TAB PO SCH (08:02)
[2021-08-08 08:03] LABS: BUN Creatinine Ratio 18.8 (10-20); Calcium 8.8 mg/dl (8.5-10.1); Creatinine Clr Calc Pharmacy 33.5 ml/min; Est GFR (African American) 32.5 ml/min; Est GFR (Non-African American) 28.1 ml/min; Potassium 4.4 mmol/L (3.5-5.1)
[2021-08-08] MEDS: INSULIN GLARGINE SOLOSTAR 100 UNITS/ML 3 ML PEN SQ SCH (08:03)
[2021-08-08] MEDS: POLYETHYLENE (MIRALAX) 17 GM PACK PO PRN (08:16)
[2021-08-08] MEDS: HEPARIN SOD 5,000 UNIT/0.5 ML VIAL SQ SCH ×2 (08:16→22:09)
[2021-08-08] MEDS: AMOXICILLIN/CLAVULANATE 875 MG TAB PO SCH (22:00)
--- NOTE | 2021-08-08 22:21 | Hospitalist Progress Note ---
Date of Service August 08, 2021 Assessment & Plan (1) Fever: Plan: Ms. Mcnally is a 66 yo woman here today for evaluation of fever. - SIRS criteria not met, patient not septic - etiology uncertain: viral vs. bacterial source vs. inflammatory. - procal is elevated, which would favor bacterial process - patient reports urinary symptoms, however UA appears contaminated (1+ bacteria with > 30 epithelial cells). Urine culture pending. CT a/p showing no evidence of cystitis or kidney stones - CXR without active disease, PNA unlikely; COVID 19 neg. - no evidence of cellulitis on exam, no diarrhea - tick borne labs ordered given fever and low platelets - 1 dose of ertapenem was given in ED (given hx of ESBL ecoli in urine); hold on further antibiotics at this time (dose of ertapenem will last 24 hours) Cultures were not helpful. Due to allergies and previous urine culture from previous infections, will use augmentin. will monitor overnight, if patient has no worsening of her symptoms, will discharge on this medication. D/C likely in AM (2) Thrombocytopenia: Plan: - platelets 107 k/UL - etiology uncertain: may be due to infection; will check tick borne labs as above - trend CBC (3) Chronic renal insufficiency: Plan: - baseline Cr ~1.8-1.8 - Cr 1.8 on admission; BUN mildly elevated at 23 - 1 liter NSS ordered - repeat BMP in am - [facility] (4) Hypertension: Plan: - continue home dose HCTZ- losartan combo and verpaamil (5) Migraine: Plan: - patient reported FRANCISCO with nausea that feels similar to previous migraine attacks - sumatriptan SQ ordered on admission; may repeat once in 24 hour period (6) Type 2 diabetes mellitus: Plan: - most recent A1c 7.6 in 07/27/21 - continue home dose basal insulin - SSI ordered - carb consistent diet - not on high intensity statin - unclear reason, not listed as allergy, consider starting (7) Obstructive sleep apnea syndrome: Plan: - may wear home CPAP (8) Hepatic steatosis: Plan: - noted on CT of abdomen - LFTs wnl - likely secondary to non-alcoholic fatty liver disease - recommend weight loss be addressed as an outpatient (9) Gout: Plan: - continue home allopurinol Dvt ppx: Heparin 5,000 units SQ q12 Diet: Carb consistent 2 Dispo: Med/Surg Code: Full Admission and Anticipated Discharge Date Admission Date: August 08, 2021 Subjective 66 yo female reports feeling well. She has no new complaints. Review of Systems Review of Systems: All systems reviewed & are unremarkable except as noted in HPI & below Physical Exam Physical Exam: Constitutional:L WD/WN, vitals as a jaun cooperative; no acute distress Eyes: + anicteric scler ae ENMT: external ear and n ose normal, oropha rynx normal Neck: trachea midline Respiratory: normal respiratory effort, lungs therese ar to auscultation no cough Auscul tation: no crackle s and no wheezes Cardiovascular:L Rate/Rhythm: regul ar rate and regula r rhythm Heart So unds: normal S1 an d normal S2 Extre mities: no pedal e valentino Gastrointestinal ( Abdomen): normal bowel sound s, soft, nontender , no hepatosplenom egaly + R CVA ten derness Musculoskeletal: Head/Neck/Chest: n ormocephalic and h ead atraumatic Skin: no rashes, warm an d dry Psychiatric: A+Ox3, euthymic af fect Results & Data Results & Data ([facility]) Vital Signs (Past 12 Hours) Vital Signs Temp Pulse Resp BP Pulse Ox 08/08/21 21:41 36.7 C 08/08/21 16:07 36.6 C 77 18 151/83 H 96 PG Care Time/CCT Total # of Minutes Spent Total Time Spent with Patient: Total time spent is greater than 50% in coordination of care (as documented) at patient's floor/unit and/or counseling patient: Coding Level of Care Code 93270 Subseq Hosp Care Lvl 2 Diagnoses Fever R50.9 Fever type: unspecified Thrombocytopenia D69.6 Chronic renal insufficiency N18.9 Hypertension I10 Migraine G43.909 Type 2 diabetes mellitus E11.9 Obstructive sleep apnea syndrome G47.33 Hepatic steatosis K76.0 Gout M10.9 (1) Fever Fever type: unspecified Qualified Code(s): R50.9 - Fever, unspecified
[2021-08-09] MEDS ORDERED: AMOXICILLIN/CLAVULANATE 875 MG TAB PO SCH (08:00)
[2021-08-09] MEDS: INSULIN GLARGINE SOLOSTAR 100 UNITS/ML 3 ML PEN SQ SCH (08:34)
[2021-08-09] MEDS: HEPARIN SOD 5,000 UNIT/0.5 ML VIAL SQ SCH (08:35)
[2021-08-09] MEDS: VERAPAMIL HCL 120 MG TABCR PO SCH (08:35)
[2021-08-09] MEDS: INSULIN HUMAN REGULAR SC SCH ×2 (08:35→12:31)
[2021-08-09] MEDS: AMOXICILLIN/CLAVULANATE 875 MG TAB PO SCH (08:35)
[2021-08-09] MEDS: LOSARTAN/HCTZ 50/12.5MG TAB PO SCH (08:35)
--- NOTE | 2021-08-09 15:52 | Discharge Summary ---
Date of Service August 09, 2021 Admission HPI Per Admitting Provider Ms. Mcnally is a 66 yo woman with a PMHx of type II diabetes and chronic renal insufficiency who came in to the ED due to concerns for a urinary tract infection. She began experiencing dysuria, increased frequency and urgency on 08/04/21. Subsequently, she developed a fever. She came in because this is exactly the same way she felt in the past when she was septic from a UTI. ROS + for low appetite, generalized weakness, headache, nausea. She does have a history of episodic migraine. Social Hx: Non smoker In the ED, she was febrile to 37.8, with a normal HR, BP and O2 sat. Her WBC and Hgb were WNL. Platelets were mildly low at 107 K/ul. Coags WNL. Cr was 1.80, BUN at 23. CMP otherwise normal. Procal 2.78. Trop undetectable. Lipase not elevated. COVID 19 neg. UA showing neg nitrite, neg LE, +1 bacteria. Urine and Blood cultures drawn. CXR showing no active disease. A/P cat scan showing evidence of hepatic steatosis, but no acute findings. She was given a dose of Ertapenem, reglan 10mg, zofran 4mg, Toradol 10mg, and 1 liter of NSS. Principal Diagnosis FEVER LIKELY FROM UTI Discharge Exam Constitutional:WD/WN, vitals as above cooperative; no acute distress Eyes: + anicteric sclerae ENMT: external ear and nose normal, oropharynx normal Neck: trachea midline Respiratory:normal respiratory effort, lungs clear to auscultation no cough Auscultation: no crackles and no wheezes Cardiovascular:Rate/Rhythm: regular rate and regular rhythm Heart Sounds: normal S1 and normal S2 Extremities: no pedal edema Gastrointestinal (Abdomen):normal bowel sounds, soft, nontender, no hepatosplenomegaly + R CVA tenderness Musculoskeletal:Head/Neck/Chest: normocephalic and head atraumatic Skin: no rashes, warm and dry Psychiatric:A+Ox3, euthymic affect Discharge Data Allergies Allergy/AdvReac Type Severity Reaction Status Date / Time latex Allergy Mild Hives Verified 08/06/21 22:18 Cipro Allergy Unknown UNKNOWN Verified 06/12/16 15:33 ciprofloxacin Allergy Unknown unknown Verified 08/06/21 22:18 reaction clarithromycin Allergy Unknown hives, Verified 08/06/21 22:18 itching insulin aspart Allergy Unknown Hives,Migra Verified 08/06/21 22:18 [From Novolog U-100 Insulin flakito aspart] Sulfa (Sulfonamide Allergy Unknown unknown Verified 08/06/21 22:18 Antibiotics) reaction codeine AdvReac Mild vomiting Verified 08/06/21 22:18 (with remote use) insulin lispro AdvReac Mild headache Verified 08/06/21 22:18 [From Humalog U-100 Insulin] aspartame AdvReac Unknown severe Verified 08/06/21 22:18 migraines chocolate flavor AdvReac Unknown migraines Verified 08/06/21 22:18 glipizide AdvReac Unknown nausea, Verified 08/06/21 22:25 migraines liraglutide [From Victoza] AdvReac Unknown migraines Verified 08/06/21 22:25 monosodium glutamate AdvReac Unknown migraines Verified 08/06/21 22:25 nickel AdvReac Unknown swelling, Verified 08/06/21 22:25 itching Consultations 08/06/21 22:04 ED Decision to Admit Stat Ordered Studies 08/06/21 20:55 CT abd pelvis wo con Stat Hospital Course (1) Fever: Ms. Mcnally is a 66 yo woman here today for evaluation of fever. UTI is likely source - SIRS criteria not met, patient not septic - etiology uncertain: viral vs. bacterial source vs. inflammatory. - procal is elevated, which would favor bacterial process - patient reports urinary symptoms, however UA appears contaminated (1+ bacteria with > 30 epithelial cells). Urine culture pending. CT a/p showing no evidence of cystitis or kidney stones - CXR without active disease, PNA unlikely; COVID 19 neg. - no evidence of cellulitis on exam, no diarrhea - tick borne labs ordered given fever and low platelets - 1 dose of ertapenem was given in ED (given hx of ESBL ecoli in urine); this was continued. On day prior to discharge, antibiotics were changed. Cultures were not helpful. Due to allergies and previous urine culture from previous infections, will use augmentin. As previous culture showed sensitivity to augmentin. Patient tolerated medication and remained fever free. Patient is agreeable to Discharge (2) Thrombocytopenia: - platelets 107 k/UL - etiology uncertain: may be due to infection; will check tick borne labs as above - trend CBC (3) Chronic renal insufficiency: CKD stage IV - baseline Cr ~1.8-1.8 - Cr 1.8 on admission; BUN mildly elevated at 23 - 1 liter NSS ordered - repeat BMP in am - follows with [facility] (4) Hypertension: - continue home dose HCTZ- losartan combo and verpaamil (5) Migraine: - patient reported FRANCISCO with nausea that feels similar to previous migraine attacks - sumatriptan SQ ordered on admission; may repeat once in 24 hour period (6) Type 2 diabetes mellitus: - most recent A1c 7.6 in 07/27/21 - continue home dose basal insulin - SSI ordered - carb consistent diet - not on high intensity statin - unclear reason, not listed as allergy, consider starting (7) Obstructive sleep apnea syndrome: - may wear home CPAP (8) Hepatic steatosis: - noted on CT of abdomen - LFTs wnl - likely secondary to non-alcoholic fatty liver disease - recommend weight loss be addressed as an outpatient (9) Gout: - continue home allopurinol Dvt ppx: Heparin 5,000 units SQ q12 Diet: Carb consistent 2 Dispo: Med/Surg Code: Full Total Time Total Time Spent Total Time Spent (In Minutes): 32 Discharge Plan Discharge Items Patient Disposition: Home - Self-Care Reason For Visit: FEVER OF UNKNOWN ORIGIN Discharge Diagnosis: fever of unknown origin Activity: Resume your previous activity Non-emergency contact: Primary Care Provider Call non-emergency contact if: you have any medication questions Follow-up/Referrals: PCP,NO [Physician] - Diet: Regular Addtl Attending Provider Instructions: You have been hospitalized for an acute medical problem. During your stay at [facility], we have made an effort to correct the problem that brought you to the hospital while keeping you as comfortable as possible. Medications were used to bring your condition under control and your discharge instructions will include directions for any medications you should take after leaving the hospital. Please make sure you see your Primary Care Provider as part of your follow up plan. Pending Studies at Discharge: No Stand-Alone Forms: [facility], Smoking Cessation Medications and DC Order Prescriptions: New acetaminophen 325 mg Tablet 650 mg PO Q4H PRNQty: 0 RF: 0 amoxicillin-pot clavulanate [Augmentin] 875-125 mg Tablet 1 tab PO BIDM Qty: 10 RF: 0 Continued verapamil 120 mg capsule,ext rel. pellets 24 hr 120 mg PO QAM Qty: 30 RF: 5 losartan-hydrochlorothiazide 100-25 mg tablet 1 tab PO QAM Qty: 90 RF: 1 sumatriptan succinate 100 mg tablet 100 mg PO Q2H PRN (Reason: migraine headache) Qty: 10 RF: 3 furosemide 40 mg tablet 40 mg PO DAILY PRN (Reason: edema) Qty: 90 RF: 0 albuterol sulfate 90 mcg/actuation Hfa Aerosol Inhaler 1 inh INHALATION QID PRN (Reason: Wheezing) RF: 0 allopurinol 300 mg tablet 300 mg PO DAILY PRN (Reason: gout) RF: 0 Tresiba FlexTouch U-100 100 unit/mL (3 mL) insulin pen 15 - 16 unit SUBCUT QAM RF: 0 Novolin R Flexpen 100 unit/mL (3 mL) insulin pen 0 - 2 unit SUBCUT TIDM RF: 0 Discontinued rizatriptan 10 mg tablet See Rx Instructions .ROUTE .COMPLEX Qty: 18 RF: 3 Discharge Orders: Discharge Order (Routine); Ordered 08/09/21 Ordered By: Yayo Foss Admission Data Admit Date/Time: 08/08/21 17:04 Attending Provider: Yayo Foss Admit Provider: Jeannette Armando Primary Care Provider: Jeannette Armando Other Providers: Ayan Patel Other Interventions: Discharge Summary Assessment (RN) Last Done: 08/09/21 11:15 Coding Level of Care Code D/C DAY MANAGEMENT >30 MINS Diagnoses Fever R50.9 Fever type: unspecified Thrombocytopenia D69.6 Chronic renal insufficiency N18.9 Hypertension I10 Migraine G43.909 Type 2 diabetes mellitus E11.9 Obstructive sleep apnea syndrome G47.33 Hepatic steatosis K76.0 Gout M10.9
[2021-08-10 15:25] LABS: Babesia microti DNA Not Detected (Not Detected)
== END 2021-08-09 15:11 | disposition home or self-care (01) | DRG 690 ==
LOC: 2W 17:30 → ED 17:30 → SUATTDRO 22:45 → 2W 08-07 00:09

== ENCOUNTER 2024-07-06 13:33 | Inpatient (IN) ==
[2024-07-06 14:31] LABS: Appearance Urine Turbid (Clear); Bacteria Urine Automated 1+ (None Seen); Bilirubin Urine Negative (Negative); Blood Urine 2+ (Negative); Color Urine Dark Yellow; Epithelial Cell Urine Auto 0-2 /hpf (0-2); Glucose Urine UA Negative (Negative); Ketones Urine Negative (Negative); Leukocyte Esterase Urine 3+ (Negative); Nitrite Urine Positive (Negative); Protein Urine 2+ (Negative); RBC Urine Automated >20 /hpf (0-2); Specific Gravity Urine 1.011 (1.000-1.030); Urobilinogen Urine Negative (Negative); WBC Urine Automated >50 /hpf (0-5)
[2024-07-06 14:32] LABS: Albumin Globulin Ratio 1.4 (0.9-2); Albumin Level 4.1 gm/dl (3.4-5.0); BUN Creatinine Ratio 14.4 (10-20); Bilirubin,Total 0.8 mg/dl (0.2-1.0); Calcium 9.9 mg/dl (8.6-10.3); Est GFR (African American) 29.9 ml/min; Est GFR (Non-African American) 25.8 ml/min; Globulin 2.9 gm/dl (2.5-4.0); Potassium 4.5 mmol/L (3.5-5.1)
[2024-07-06 14:35] LABS: Basophils # (auto) 0.03 K/uL (0.00-0.20); Basophils % (auto) 0.4 %; Eosinophils # (auto) 0.18 K/uL (0.00-0.50); Eosinophils % (auto) 2.6 %; Hematocrit (blood only) 42.3 % (37.0-47.0); Hemoglobin 14.5 g/dl (12.0-16.0); Immature Granulocytes # (auto) 0.03 K/uL (0.01-0.20); Immature Granulocytes % (auto) 0.4 %; Lymphocytes # (auto) 1.35 K/uL (1.20-3.40); Lymphocytes % (auto) 19.5 %; Mean Corpuscular Hemoglobin 29.7 pg (25.0-34.0); Mean Corpuscular Hgb Conc 34.3 g/dL (32.0-36.0); Mean Corpuscular Volume 86.7 fL (80.0-100.0); Mean Platelet Volume 11.3 fL (9.4-12.4); Monocytes # (auto) 0.77 K/uL (0.11-0.59); Monocytes % (auto) 11.1 %; Neutrophils # (auto) 4.56 K/uL (1.40-6.50); Platelet Count 172 K/uL (130-400); RDW Coefficient of Variation 13.5 % (11.5-14.5); RDW Standard Deviation 43.3 fL (36.4-46.3); Red Blood Count 4.88 M/uL (4.20-5.40); White Blood Count 6.92 K/ul (4.8-10.8)
--- NOTE | 2024-07-06 14:55 | Emergency Department Note ---
Impression & Plan Hydronephrosis, Acute UTI (urinary tract infection), Intractable pain, Acute kidney injury superimposed on chronic kidney disease ED Provider Note NAME: TRINI LOUIE AGE: 69 SEX: F : 1955 ARRIVES VIA: Walk-In INFORMANT: Patient, ED PROVIDER(S): Ronak Pardo MD CHIEF COMPLAINT: Right flank pain HPI: This is a 59-year-old female sent for right flank pain. Patient states that she had renal colic and had lithotripsy and stent placement on the right. This was done a few days ago and the pain is significantly worsened since then. She notes that she is nauseous, not tolerating pain medicine including oxycodone at home. She notes no fevers or chills. She also notes dysuria continuing. She notes hematuria. ROS: See above HPI for pertinent positives & negatives. A total of 10 systems reviewed and were otherwise negative. PAST MEDICAL HISTORY: See Below PAST SURGICAL HISTORY: See Below FAMILY HISTORY: See Below SOCIAL HISTORY: See Below HOME MEDICATIONS: See Below ALLERGIES: See Below VITALS: See Below PHYSICAL EXAMINATION: General: resting comfortably in no acute distress Head: Normocephalic and atraumatic Eyes: Normal inspection, extraocular muscles intact Ear, nose, throat: Normal external exam Neck: Normal range of motion Respiratory: lungs clear to auscultation bilaterally Cardiovascular: Regular rate/rhythm, no murmur GI: soft, nontender, no guarding or rebound, CVA tenderness Extremities: nontender, moves all extremities Neuro: The patient awake and alert, appropriately conversive, no focal deficits, symmetric faces Skin: Warm, dry, and intact MEDICAL DECISION MAKING: This is a 59-year-old female presenting for right flank pain. Will do CT of the ab/pelvis to assess for stent migration, perforation. Will get urinalysis and repeat blood work. -Blood was reviewed showing a creatinine elevation 1.94. Will limit contrast use as well as defer Toradol. Patient does request Toradol but due to creatinine will not give at this time. -Otherwise she has no leukocytosis or anemia on blood work. Electrolytes within normal limits. -Urinalysis frankly positive for suspected UTI with nitrates that are positive, leuk esterase that is positive and significant WBC -Will treat with ceftriaxone empirically -Discussed with case with Dr. Cullen, urology who has reviewed the CT and was told about patient's clinical history. Will admit patient for pain control and further workup at this time -CT imaging reveals stent that is in place with moderate to severe right hydronephrosis as well as urothelial thickening seen in the ureter bladder thickening. -Patient has no current tachycardia, hypotension or fever. Low consideration of of sepsis at this time. -Will admit the patient for further antibiotic coverage, urology consultation and pain control -Discussed with Dr. Ricardo and Herberth Mace PA-C Differential diagnosis: Stent migration, pyelonephritis, sepsis, infected stent, perforation, renal colic ER treatment provided: See below Independent History obtained from: Diagnostics interpreted by me: ECG: None Cardiac Monitoring: An order was placed for continuous cardiac monitoring. The monitor shows a rate of 64 with sinus rhythm. Laboratory studies: As stated above and show below. Imaging studies: See below. Past Med/Surg History Problem List (Updated 07/06/24 @ 17:18 by Herberth Mace PA-C) Hydronephrosis, right Right flank pain Encounter for preoperative assessment (Acute) Nephrolithiasis (Chronic) Recurrent UTI (urinary tract infection) (Chronic) Type 2 diabetes mellitus with chronic kidney disease Low back pain Type 2 diabetes mellitus with obesity Lower extremity edema 03/01/23 Insomnia Mild intermittent asthma NAFLD (nonalcoholic fatty liver disease) Chronic migraine with aura Hypothyroidism Vitamin D deficiency CKD (chronic kidney disease) stage 4, GFR 15-29 ml/min Gout Knee pain Urinary urgency (Chronic) Urinary incontinence, urge Status post total right knee replacement Urinary incontinence Type 2 diabetes mellitus (Chronic) Hyperlipidemia (Chronic) Right knee DJD (Chronic) Obstructive sleep apnea syndrome GERD (gastroesophageal reflux disease) (Chronic) Hypertension (Chronic) Medical History (Updated 07/06/24 @ 17:18 by Herberth Mace PA-C) Hx of sepsis post right knee replacement, required admission with iv abx- told it was e- coli History of atrial fibrillation remote hx prior to ablation (1997), no known recurrence Hypertension Stage [address] edwards on 06/26/24 Hyperlipidemia GERD (gastroesophageal reflux disease) Hypothyroidism Mild intermittent asthma rare use of inhaler Insomnia Low back pain Hx of gout Recurrent UTI per culture, starting abx today Nephrolithiasis History of obstructive sleep apnea no longer uses cpap - told no longer needs to use Type 2 diabetes mellitus with chronic kidney disease Hx of migraines 1-2 times per month Tubular adenoma of colon 2015 Ptosis of eyelid, bilateral was to have surgery 06/27 but cancelled due to hypertension by surgeon until bp is controlled better Anemia History of kidney stones Somatic dysfunction of cervical region Slow to wake up after anesthesia Cyst of pancreas no follow up Fatty liver disease, nonalcoholic Transient ischemic attack (TIA) remote hx, no deficits Surgical History History of arthroscopy of both knees Hx of hand surgery b/l trigger finger History of bilateral knee replacement History of carpal tunnel surgery History of esophageal dilatation History of bilateral breast implants History of right breast biopsy x2--benign History of hysterectomy History of bilateral tubal ligation History of dilatation and curettage History of bladder surgery bladder tac History of colonoscopy History of esophagogastroduodenoscopy (EGD) History of tooth extraction wisdom teeth History of bilateral cataract extraction History of cardiac cath (2007) 2007 ([facility] [place])- no stent (no evidence of coronary artery disease) History of cardiac radiofrequency ablation (1997) 1997 [place] [facility] [place] History Sister Family history of reaction to anesthesia difficulty waking Father Family history of diabetes mellitus Family hx colonic polyps Myocardial infarction Prostate cancer Kidney disease Mother Family history of diabetes mellitus Aunt Breast cancer Kidney disease Family/Other Breast cancer Grandfather (Paternal) Myocardial infarction Denies family history of Ovarian cancer Colorectal cancer Social History Smoking Status: Never smoker Second Hand Exposure: No; Do You Dip or Chew Tobacco: No; Hx Alcohol Use: No Hx Substance Use: No Preferred Language: Macedonian Communication Ability: Effective Visual Impairment: No Limitations Hearing Ability: Normal Sales Performance Manager Required: No Beliefs That Will Affect Care: None marital status: Current Living Situation: Spouse current occupational status: retired Feels Safe at Home: Yes Childhood Exposure to Second-Hand Smoke: Yes Dental Care, Regularly: Yes Physical Activity Frequency: Does not Exercise Seatbelt Use: always Sunscreen Use: No Assistive Devices: Glasses Allergies Allergies Allergy/AdvReac Type Severity Reaction Status Date / Time ciprofloxacin Allergy Severe kidney Verified 07/01/24 06:18 failure clarithromycin Allergy Intermediate hives, Verified 07/01/24 06:18 itching insulin aspart Allergy Intermediate Hives,Migra Verified 07/01/24 06:18 [From Novolog U-100 Insulin flakito aspart] latex Allergy Intermediate Hives Verified 07/01/24 06:18 Sulfa (Sulfonamide Allergy Unknown unknown Verified 07/01/24 06:18 Antibiotics) reaction aspartame AdvReac Intermediate severe Verified 07/01/24 06:18 migraines codeine AdvReac Mild vomiting Verified 07/01/24 06:18 (with remote use) glipizide AdvReac Mild nausea, Verified 07/01/24 06:18 migraines insulin lispro AdvReac Mild headache Verified 07/01/24 06:18 [From Humalog U-100 Insulin] liraglutide [From Victoza] AdvReac Mild migraines Verified 07/01/24 06:18 monosodium glutamate AdvReac Mild migraines Verified 07/01/24 06:18 nickel AdvReac Mild swelling, Verified 07/01/24 06:18 itching Home Meds Home Medications Medication Instructions Recorded Confirmed allopurinol 100 mg tablet 200 mg PO DAILY PRN gout 06/25/24 07/06/24 amlodipine 10 mg tablet 10 mg PO QAM 06/25/24 07/06/24 cholecalciferol (vitamin D3) 25 25 mcg PO DAILY 06/25/24 07/06/24 mcg (1,000 unit) chewable tablet (Vitamin D3) colchicine 0.6 mg tablet 0.6 mg PO DAILY PRN gout 06/25/24 07/06/24 divalproex 250 mg tablet,delayed 250 mg PO QPM 06/25/24 07/06/24 release furosemide 20 mg tablet 10 mg PO QPM edema 06/25/24 07/06/24 galcanezumab-gnlm 120 mg/mL 240 mg subcut MONTHLY 06/25/24 07/06/24 subcutaneous pen injector (Emgality Pen) olmesartan 40 mg tablet 40 mg PO QAM 06/25/24 07/06/24 prednisone 20 mg tablet 40 mg PO DAILY PRN gout 06/25/24 07/06/24 Previous Rx's Medication Instructions Recorded blood-glucose meter (OneTouch #1 ea 05/04/22 Ultra2 Meter kit) lancets (Accu-Chek Softclix #100 ea 05/22/22 Lancets) albuterol sulfate 90 mcg/actuation 2 puff inhalation Q6H PRN 07/14/22 aerosol inhaler (Ventolin HFA) shortness of breath or wheezing #8.5 grams pen needle, diabetic 31 gauge x #400 ea 05/22/2302/20" (Easy Comfort Pen Roy) semaglutide 0.25 mg or 0.5 mg (2 0.5 mg (0.736 mL) subcut Q7D 12/05/23 mg/3 mL) subcutaneous pen injector days #15 mL (Ozempic) rizatriptan 10 mg tablet (Maxalt) See Rx Instructions PO .COMPLEX 90 03/12/24 days #27 tabs sumatriptan succinate 50 mg tablet See Rx Instructions PO .COMPLEX 90 03/12/24 (Imitrex) days #27 tabs insulin aspart U-100 100 unit/mL 3 unit (0.03 mL) subcut .COMPLEX 03/18/24 (3 mL) subcutaneous pen (Novolog 90 days #15 mL FlexPen U-100 Insulin aspart) insulin degludec 100 unit/mL (3 10 unit (0.1 mL) subcut QAM 90 03/18/24 mL) subcutaneous pen (Tresiba days #15 mL FlexTouch U-100 insulin) atorvastatin 20 mg tablet 20 mg PO DAILY #90 tabs 05/06/24 ondansetron 8 mg disintegrating 8 mg PO Q8H PRN nausea and 06/23/24 tablet vomiting #30 tabs oxycodone-acetaminophen 5 mg-325 1 tab PO Q8H PRN pain #10 tabs 06/23/24 mg tablet (Percocet) levothyroxine 50 mcg tablet 50 mcg PO QAM #90 tabs 06/27/24 tramadol 50 mg tablet 50 mg PO Q6H PRN pain #20 tabs 07/01/24 cefdinir 300 mg capsule 300 mg PO BID #14 caps 07/03/24 oxybutynin chloride 5 mg tablet 5 mg PO BID PRN bladder spasms #20 07/03/24 tabs Results & Data (ED) Vital Signs Vital Signs - 24 hr 07/06/24 13:48 07/06/24 15:17 07/06/24 15:42 Temperature 36.3 C L Temperature Source Temporal Artery Scan Pulse Rate 76 65 Pulse Rate [Apical] 85 Pulse Rhythm Regular Pulse Strength Normal Respiratory Rate 18 18 Respiratory Effort / Characteristics Non-Labored Spontaneous Respiratory Depth Normal Respiratory Pattern Regular Blood Pressure 142/95 H Blood Pressure [Left Arm] 133/85 Blood Pressure Mean 110 Blood Pressure Mean [Left Arm] 101 Blood Pressure Position Sitting Pulse Oximetry 94 98 Oxygen Delivery Method Room Air Sepsis Recent Fever Within 48 Hours No Sepsis New/Unexplained Change in Mental Status No Sepsis Action Taken by Nursing No Action Required 07/06/24 16:13 07/06/24 18:36 Temperature Temperature Source Pulse Rate Pulse Rate [Apical] 64 64 Pulse Rhythm Pulse Strength Respiratory Rate 18 16 Respiratory Effort / Characteristics Respiratory Depth Respiratory Pattern Blood Pressure Blood Pressure [Left Arm] 133/87 146/86 H Blood Pressure Mean Blood Pressure Mean [Left Arm] 102 106 Blood Pressure Position Pulse Oximetry 95 95 Oxygen Delivery Method Sepsis Recent Fever Within 48 Hours Sepsis New/Unexplained Change in Mental Status Sepsis Action Taken by Nursing Laboratory Data 07/06/24 13:55 07/06/24 13:55 Lab Results 07/06/24 07/06/24 Range/Units 13:55 14:05 WBC 6.92 (4.8-10.8) K/ul RBC 4.88 (4.20-5.40) M/uL Hgb 14.5 (12.0-16.0) g/dl Hct 42.3 (37.0-47.0) % MCV 86.7 (80.0-100.0) fL MCH 29.7 (25.0-34.0) pg MCHC 34.3 (32.0-36.0) g/dL RDW Std Deviation 43.3 (36.4-46.3) fL RDW Coeff of Alexis 13.5 (11.5-14.5) % Plt Count 172 (130-400) K/uL MPV 11.3 (9.4-12.4) fL Immature Gran % (Auto) 0.4 % Neut % (Auto) 66.0 % Lymph % (Auto) 19.5 % Bryan % (Auto) 11.1 % Eos % (Auto) 2.6 % Baso % (Auto) 0.4 % Neut # (Auto) 4.56 (1.40-6.50) K/uL Lymph # (Auto) 1.35 (1.20-3.40) K/uL Bryan # (Auto) 0.77 H (0.11-0.59) K/uL Eos # (Auto) 0.18 (0.00-0.50) K/uL Baso # (Auto) 0.03 (0.00-0.20) K/uL Immature Gran # (Auto) 0.03 (0.01-0.20) K/uL Sodium 136 (136-145) mmol/L Potassium 4.5 (3.5-5.1) mmol/L Chloride 99 (98-107) mmol/L Carbon Dioxide 27 (21-32) mmol/L Anion Gap 10 (3-11) BUN 28 H (6-23) mg/dl Creatinine 1.94 H (0.6-1.2) mg/dl Est Cr Clr Drug Dosing 30.0 ml/min Est GFR ( Amer) 29.9 ml/min Est GFR (Non-Af Amer) 25.8 ml/min BUN/Creatinine Ratio 14.4 (10-20) Glucose 117 H (70-99(Fasting)) mg/dl Calcium 9.9 (8.6-10.3) mg/dl Total Bilirubin 0.8 (0.2-1.0) mg/dl AST 16 (13-39) U/L ALT 10 (7-52) U/L Alkaline Phosphatase 69 (34-104) U/L Total Protein 7.0 (6.0-8.3) gm/dl Albumin 4.1 (3.4-5.0) gm/dl Globulin 2.9 (2.5-4.0) gm/dl Albumin/Globulin Ratio 1.4 (0.9-2) Lipase 17 (11-82) U/L Urine Color Dark Yellow Urine Appearance Turbid A (Clear) Urine pH 8.0 H (4.5-7.5) Ur Specific [place] 1.011 (1.000-1.030) Urine Protein 2+ H (Negative) Urine Glucose (UA) Negative (Negative) Urine Ketones Negative (Negative) Urine Blood 2+ H (Negative) Urine Nitrite Positive A (Negative) Urine Bilirubin Negative (Negative) Urine Urobilinogen Negative (Negative) Ur Leukocyte Esterase 3+ H (Negative) Urine WBC (Auto) >50 H (0-5) /hpf Urine RBC (Auto) >20 H (0-2) /hpf U Hyaline Cast (Auto) 3-5 H (0-2) /lpf U Epithel Cells (Auto) 0-2 (0-2) /hpf Urine Bacteria (Auto) 1+ H (None Seen) Administered Medications Discontinued Medications Hydromorphone HCl (Hydromorphone Inj 0.5 Mg/0.5 Ml Syr) 0.5 mg IV NOW STA Stop: 07/06/24 15:20 Last Admin: 07/06/24 15:23 Dose: 0.5 mg Documented By: CLAUDIA Sodium Chloride (Nss) 1,000 mls @ 999 mls/hr IV .Q1H1M ONE Stop: 07/06/24 15:37 Last Infusion: 07/06/24 16:11 Dose: Infused Documented By: Admin: 07/06/24 14:56 Dose: 999 mls/hr Documented By: CLAUDIA Acetaminophen (Ofirmev) 1,000 mg in 100 mls @ 400 mls/hr IV NOW STA Stop: 07/06/24 16:18 Last Infusion: 07/06/24 16:23 Dose: Infused Documented By: Admin: 07/06/24 16:09 Dose: 400 mls/hr Documented By: CLAUDIA Ceftriaxone Sodium (Rocephin) 2,000 mg in 50 mls @ 100 mls/hr IV NOW STA Stop: 07/06/24 17:10 Last Infusion: 07/06/24 17:31 Dose: Infused Documented By: Admin: 07/06/24 16:46 Dose: 100 mls/hr Documented By: CLAUDIA Imaging Data Radiologist's Impression: Abdomen/Pelvis CT 07/06/24 14:50 CT SCAN OF THE ABDOMEN AND PELVIS WITHOUT IV CONTRAST CLINICAL HISTORY: Flank pain. Recent lithotripsy with ureteral stent placement. COMPARISON STUDY: Abdominal CT dated 01/10/2024. Abdominal radiograph dated 07/03/2024. TECHNIQUE: CT scan of the abdomen and pelvis is performed from the lung bases to the proximal femora. Images are reviewed in the axial, sagittal, and coronal planes. IV contrast was not administered for this examination. A dose lowering technique was utilized adhering to the principles of ALARA. CT DOSE: 1133.01 mGy.cm FINDINGS: Lung bases: The heart is normal in size and without pericardial effusion. The lung bases are clear noting bibasilar atelectasis. Bilateral breast implants are partially imaged. There is a tiny hiatal hernia. Liver: The unenhanced liver is normal in size size and contour. Attenuation is diffusely diminished indicating steatosis. Fatty sparing is seen adjacent to the gallbladder fossa. There is no intrahepatic biliary ductal dilatation. Gallbladder: Unremarkable. Spleen: Normal in size and attenuation. Pancreas: The unenhanced pancreas is grossly unremarkable. Adrenal glands: Unremarkable. Kidneys: There is markedly asymmetric cortical atrophy of the left kidney as compared to the right. Cortical scarring is seen posteriorly in the right kidney. A right ureteral stent is in appropriate position. No calcifications are identified in the right ureteral course of the stent. Mild urothelial thickening seen in the right ureter with surrounding infiltration. There is moderate to severe right-sided hydronephrosis. A 5 mm nonobstructing calculus is noted in the right lower pole. Additional punctate stones/fragments are seen in the right renal collecting system. There are 2 left renal calcifications which measure up to 4 mm. There is no left ureteral stone or left-sided hydronephrosis. There is no evidence of contour deforming renal mass lesion. Abdominal vasculature: The abdominal aorta is normal in course and caliber noting mild atherosclerotic calcification. Bowel: There is mild colonic diverticulosis without CT evidence of acute diverticulitis. Moderate fecal retention is seen throughout the colon. No bowel obstruction is seen. The appendix is well-visualized and normal. Peritoneum: There is no intraperitoneal free air or abdominal ascites. There is a small fat-containing umbilical hernia. Lymphadenopathy: None. Pelvic viscera: The bladder is decompressed and appears thick-walled with mild surrounding inflammation. The bladder contains the distal end of a right ureteral stent. The uterus is surgically absent. No adnexal lesion is seen. Skeletal structures: The skeletal structures are osteopenic. No lytic or blastic lesions are seen. There is sclerosis of the pubic symphysis. Mild lumbosacral spondylosis is observed. IMPRESSION: 1. A right ureteral stent is in place as above. No calcifications are seen in the right ureter along the course of the stent. 2. There is moderate to severe right-sided hydronephrosis. 3. Urothelial thickening is seen in the right ureter with surrounding infiltration. There is also wall thickening of the bladder with surrounding infiltration. These findings may be related to the presence of an indwelling stent. Correlate with clinical findings and urinalysis for evidence of superimposed urinary tract infection. 4. Right-sided nephrolithiasis/stone fragments as above. 5. Two calcifications again seen within the asymmetrically atrophic left kidney. 6. Hepatic steatosis. 7. Colonic diverticulosis without CT evidence of acute diverticulitis. 8. Moderate constipation. 9. Additional findings as above. ACT 112: Negative or not required by law. Electronically signed by: Denis Arteaga M.D. 07/06/2024 4:35 PM Discharge Plan Visit Data Chief Complaint: Urinary Symptoms Stated Complaint: KIDNEY PAIN, HAD STENT PUT IN WEDS, VOMITING ED Provider: Ronak Pardo Discharge Problem: Hydronephrosis, Acute UTI (urinary tract infection), Intractable pain, Acute kidney injury superimposed on chronic kidney disease Forms Stand Alone Forms: [facility] [employer] Prescriptions Prescriptions: No Action (DME) blood-glucose meter [OneTouch Ultra2 Meter] Kit See Rx Instructions .Route Qty: 1 0RF Rx Instructions: use to test BS 5 times a day (DME) lancets [Accu-Chek Softclix Lancets] Misc See Rx Instructions miscellaneous .MEDSUPPLY Qty: 100 5RF Rx Instructions: As directed to check blood sugars BID albuterol sulfate [Ventolin HFA] 90 mcg/actuation HFA aerosol inhaler 2 puff inhalation Q6H PRN (Reason: shortness of breath or wheezing) Qty: 8.5 3RF Ozempic 0.25 mg or 0.5 mg (2 mg/3 mL) pen injector 0.5 mg subcut Q7D 90 Days Qty: 15 2RF Hold Instructions: NOT TAKING 03/01/23 - Too expensive atorvastatin 20 mg tablet 20 mg PO DAILY Qty: 90 3RF levothyroxine 50 mcg tablet 50 mcg PO QAM Qty: 90 3RF oxybutynin chloride 5 mg tablet 5 mg PO BID PRN (Reason: bladder spasms) Qty: 20 1RF Rx Instructions: filled 07/03 cefdinir 300 mg capsule 300 mg PO BID Qty: 14 0RF Rx Instructions: filled 07/03 (DME) pen needle, diabetic [Easy Comfort Pen Roy] 31 gauge x 5/16" needle See Rx Instructions .Route Qty: 400 3RF Rx Instructions: use 4 times per day for insulin insulin degludec [Tresiba FlexTouch U-100] 100 unit/mL (3 mL) insulin pen 10 unit SUBCUT QAM 90 Days Qty: 15 2RF insulin aspart U-100 [Novolog FlexPen U-100 Insulin] 100 unit/mL (3 mL) insulin pen 3 unit subcut .COMPLEX 90 Days Qty: 15 2RF Rx Instructions: 3 units subcutaneously with high carbohydrate meals; max 9 u daily; oxycodone-acetaminophen [Percocet] 5-325 mg tablet 1 tab PO Q8H PRN (Reason: pain) Qty: 10 0RF ondansetron 8 mg tablet,disintegrating 8 mg PO Q8H PRN (Reason: nausea and vomiting) Qty: 30 0RF sumatriptan succinate [Imitrex] 50 mg tablet See Rx Instructions PO .COMPLEX 90 Days Qty: 27 4RF Rx Instructions: take 1 tab at onset of headache; if no relief may repeat 1 tab after at least 2 hrs; max = 4 tabs/24 hr PO rizatriptan [Maxalt] 10 mg tablet See Rx Instructions PO .COMPLEX 90 Days Qty: 27 4RF Rx Instructions: take 1 tab at onset of headache; if no relief may repeat 1 tab after at least 2 hrs; max = 3 tabs/24 hr PO cholecalciferol (vitamin D3) [Vitamin D3] 25 mcg (1,000 unit) Tablet,Chewable 25 mcg PO DAILY divalproex 250 mg tablet,delayed release (DR/EC) 250 mg PO QPM prednisone 20 mg tablet 40 mg PO DAILY PRN (Reason: gout) Rx Instructions: For gout flare allopurinol 100 mg tablet 200 mg PO DAILY PRN (Reason: gout) amlodipine 10 mg tablet 10 mg PO QAM furosemide 20 mg tablet 10 mg PO QPM Rx Instructions: Take 1/2 tablet daily colchicine 0.6 mg tablet 0.6 mg PO DAILY PRN (Reason: gout) Rx Instructions: Take 1.2 mg initially. 1 hr later take 0.6 mg. Day 2 and beyond take 1-2 tabs daily until flare resolves. olmesartan 40 mg tablet 40 mg PO QAM Emgality Pen 120 mg/mL pen injector 240 mg subcut MONTHLY tramadol 50 mg tablet 50 mg PO Q6H PRN (Reason: pain) Qty: 20 0RF Referrals Referrals: Angie Thayer MD [Primary Care Provider] -
[2024-07-06] MEDS: SODIUM CHLORIDE 0.9% 1,000 ML IV ONE (14:56)
[2024-07-06] MEDS: HYDROmorphone INJ 0.5 MG/0.5 ML SYR IV STA (15:23)
[2024-07-06] MEDS: ACETAMINOPHEN 1,000 MG/100 ML VIAL IV STA (16:09)
--- NOTE | 2024-07-06 16:37 | CT Scan Report ---
CT SCAN OF THE ABDOMEN AND PELVIS WITHOUT IV CONTRAST CLINICAL HISTORY: Flank pain. Recent lithotripsy with ureteral stent placement. COMPARISON STUDY: Abdominal CT dated 01/10/2024. Abdominal radiograph dated 07/03/2024. TECHNIQUE: CT scan of the abdomen and pelvis is performed from the lung bases to the proximal femora. Images are reviewed in the axial, sagittal, and coronal planes. IV contrast was not administered for this examination. A dose lowering technique was utilized adhering to the principles of ALARA. CT DOSE: 1133.01 mGy.cm FINDINGS: Lung bases: The heart is normal in size and without pericardial effusion. The lung bases are clear no ting bibasilar atelectasis. Bilateral breast implants are partially imaged. There is a tiny hiatal he rnia. Liver: The unenhanced liver is normal in size size and contour. Attenuation is diffusely diminished i ndicating steatosis. Fatty sparing is seen adjacent to the gallbladder fossa. There is no intrahepati c biliary ductal dilatation. Gallbladder: Unremarkable. Spleen: Normal in size and attenuation. Pancreas: The unenhanced pancreas is grossly unremarkable. Adrenal glands: Unremarkable. Kidneys: There is markedly asymmetric cortical atrophy of the left kidney as compared to the right. C ortical scarring is seen posteriorly in the right kidney. A right ureteral stent is in appropriate po sition. No calcifications are identified in the right ureteral course of the stent. Mild urothelial t hickening seen in the right ureter with surrounding infiltration. There is moderate to severe right-s ided hydronephrosis. A 5 mm nonobstructing calculus is noted in the right lower pole. Additional punc moran stones/fragments are seen in the right renal collecting system. There are 2 left renal calcifica tions which measure up to 4 mm. There is no left ureteral stone or left-sided hydronephrosis. There i s no evidence of contour deforming renal mass lesion. Abdominal vasculature: The abdominal aorta is normal in course and caliber noting mild atheroscleroti c calcification. Bowel: There is mild colonic diverticulosis without CT evidence of acute diverticulitis. Moderate fec al retention is seen throughout the colon. No bowel obstruction is seen. The appendix is well-visual ized and normal. Peritoneum: There is no intraperitoneal free air or abdominal ascites. There is a small fat-containin g umbilical hernia. Lymphadenopathy: None. Pelvic viscera: The bladder is decompressed and appears thick-walled with mild surrounding inflammati on. The bladder contains the distal end of a right ureteral stent. The uterus is surgically absent. N o adnexal lesion is seen. Skeletal structures: The skeletal structures are osteopenic. No lytic or blastic lesions are seen. Th ere is sclerosis of the pubic symphysis. Mild lumbosacral spondylosis is observed. IMPRESSION: 1. A right ureteral stent is in place as above. No calcifications are seen in the right ureter along the course of the stent. 2. There is moderate to severe right-sided hydronephrosis. 3. Urothelial thickening is seen in the right ureter with surrounding infiltration. There is also wal l thickening of the bladder with surrounding infiltration. These findings may be related to the prese nce of an indwelling stent. Correlate with clinical findings and urinalysis for evidence of superimpo sed urinary tract infection. 4. Right-sided nephrolithiasis/stone fragments as above. 5. Two calcifications again seen within the asymmetrically atrophic left kidney. 6. Hepatic steatosis. 7. Colonic diverticulosis without CT evidence of acute diverticulitis. 8. Moderate constipation. 9. Additional findings as above. ACT 112: Negative or not required by law. Electronically signed by: Denis Arteaga M.D. 07/06/2024 4:35 PM
[2024-07-06] MEDS: cefTRIAXone SODIUM 2,000 MG/50 ML BAG IV STA (16:46)
--- NOTE | 2024-07-06 16:53 | History & Physical Report ---
Date of Service July 06, 2024 Assessment & Plan (1) Right flank pain: Plan: Admit to [facility] Currently stable and nontoxic-appearing Presented to the ED due to uncontrolled right flank pain since her cystoscopy, bilateral uretero-nephroscopy, and right ureteral stent placement CT of the abdomen pelvis without contrast shows her right ureteral stent in place but with moderate to severe right-sided hydronephrosis Kidney function is currently stable, UA does appear consistent with UTI with the patient's increased urinary frequency and hematuria Status post 1 L normal saline, 1 g IV Tylenol, 0.5 mg IV Dilaudid, and 4 mg IV Zofran Also received a dose of ceftriaxone prior to admission Urology has been consulted and will continue to follow, no urgent need for OR today Continue with pain control with scheduled Tylenol and as needed Dilaudid for now Bilateral SCDs for DVT prophylaxis Heart healthy/DM type II diet until midnight then n.p.o. with chips/sips AM CBC, CMP, mag, PT/INR (2) Hydronephrosis, right: Plan: See right flank pain (3) Type 2 diabetes mellitus with chronic kidney disease: Plan: Monitor BSG ACHS, goal is [id number] Normally takes approximately 10 units basal insulin in the morning, did not have her dose today Will continue 10 units Lantus every morning but will hold first dose until tomorrow as she has had very little to eat today and will be n.p.o. at midnight Start CF of 50 and CR of 15 ACHS for now Adjust regimen as needed (4) CKD (chronic kidney disease) stage 4, GFR 15-29 ml/min: Plan: Renal functions currently stable Baseline appears to be 1.72.0 Monitor daily renal function, intake/output every shift (5) Hypertension: Plan: Currently stable Hold olmesartan for now to prevent ELZA Will continue amlodipine for now Plan The patient was discussed with Dr. Gusman at time of the admission History of Present Illness Chief Complaint: Right flank pain Primary Care Provider: Angie Thayer MD Wendy is a 69-year-old female with a past medical history significant for CKD, nephrolithiasis status post cystoscopy, bilateral uretero-nephroscopy, insertion of right stent catheter with Dr. Covarrubias on 07/01/2024, DM type II, hypothyroidism, hypertension, BRYAN who presented to [facility] ED on 07/06/2024 with complaints of progressive right flank pain since her procedure and right ureteral stent placement on 07/01/2024. She remained stable in the ED. Labs were significant for creatinine 1.94 (baseline is near 1.72.0) and UA with turbid appearance, 2+ protein, 2+ blood, nitrate positive, 3+ leukocyte esterase, greater than 50 WBC, greater than 20 RBC, 35 hyaline cast, 1+ bacteria, and epithelial cells within normal limits. CT of the abdomen pelvis without contrast noted a right ureteral stent in place without calcifications in the right ureteral along the course of the stent. Moderate to severe right- sided hydronephrosis. Ureteral thickening is seen in the right ureter with surrounding infiltration. There is also wall thickening of the bladder wall with surrounding infiltration. These findings may be related to the presence of indwelling stent. Correlate with clinical findings and urinalysis for evidence of superimposed urinary tract infection. The ED spoke with urology who evaluated the images and did not believe that urgent procedure was necessary. They recommended medicine admission with pain control and IV antibiotics, they will evaluate her in person tomorrow and continue to follow in case recurrent OR is needed. Prior to admission the patient was given 1 g IV Tylenol, 2 mg IV ceftriaxone, 0.5 mg IV Dilaudid, and 1 L NSS. Patient was sitting in bed in no acute distress at time of exam with her sitting bedside, history obtained from both. They confirm the patient underwent her procedure with Dr. Covarrubias on 07/01/2024. Shortly after her procedure the patient started to experience flank pain which has progressed over the past week. Pain is constant at about a 6/10 At with waves of severe flank pain up to 10/10. States that she had episodes of feeling feverish/chills with nausea on 07/02/2024. Began taking prescription of cefdinir which seemed to improve her fever/chills but her pain continued. Was using as needed tramadol at home without significant improvement in her symptoms which is why she came to the ED today. Pain is currently under control after the recent dose of Dilaudid in the ED. Denies chest pain, shortness of breath, vomiting, abdominal pain, dysuria, diarrhea, melena, lower extremity swelling, and recent trauma. She has been experiencing increased urinary frequency and hematuria over the past week. Patient she is a full code and want her /daughter to make medical decisions for if she cannot make them herself. Please refer to Dr. Ricardo's attestation for any changes to the treatment plan Allergies Allergy/AdvReac Type Severity Reaction Status Date / Time ciprofloxacin Allergy Severe kidney Verified 07/01/24 06:18 failure clarithromycin Allergy Intermediate hives, Verified 07/01/24 06:18 itching insulin aspart Allergy Intermediate Hives,Migra Verified 07/01/24 06:18 [From Novolog U-100 Insulin flakito aspart] latex Allergy Intermediate Hives Verified 07/01/24 06:18 Sulfa (Sulfonamide Allergy Unknown unknown Verified 07/01/24 06:18 Antibiotics) reaction aspartame AdvReac Intermediate severe Verified 07/01/24 06:18 migraines codeine AdvReac Mild vomiting Verified 07/01/24 06:18 (with remote use) glipizide AdvReac Mild nausea, Verified 07/01/24 06:18 migraines insulin lispro AdvReac Mild headache Verified 07/01/24 06:18 [From Humalog U-100 Insulin] liraglutide [From Victoza] AdvReac Mild migraines Verified 07/01/24 06:18 monosodium glutamate AdvReac Mild migraines Verified 07/01/24 06:18 nickel AdvReac Mild swelling, Verified 07/01/24 06:18 itching Home Medications Medication Instructions Recorded Confirmed Type blood-glucose meter (OneTouch #1 ea 05/04/22 06/26/24 Rx Ultra2 Meter kit) lancets (Accu-Chek Softclix #100 ea 05/22/22 06/26/24 Rx Lancets) albuterol sulfate 90 mcg/actuation 2 puff inhalation Q6H PRN 07/14/22 07/06/24 Rx aerosol inhaler (Ventolin HFA) shortness of breath or wheezing #8.5 grams pen needle, diabetic 31 gauge x #400 ea 05/22/23 06/26/24 Rx 5/16" (Easy Comfort Pen Milo) semaglutide 0.25 mg or 0.5 mg (2 0.5 mg (0.736 mL) subcut Q7D 90 12/05/23 07/06/24 Rx mg/3 mL) subcutaneous pen injector days #15 mL (Ozempic) rizatriptan 10 mg tablet (Maxalt) See Rx Instructions PO .COMPLEX 90 03/12/24 07/06/24 Rx days #27 tabs sumatriptan succinate 50 mg tablet See Rx Instructions PO .COMPLEX 03/12/24 07/06/24 Rx (Imitrex) days #27 tabs insulin aspart U-100 100 unit/mL 3 unit (0.03 mL) subcut .COMPLEX 03/18/24 07/06/24 Rx (3 mL) subcutaneous pen (Novolog 90 days #15 mL FlexPen U-100 Insulin aspart) insulin degludec 100 unit/mL (3 10 unit (0.1 mL) subcut QAM 90 03/18/24 07/06/24 Rx mL) subcutaneous pen (Tresiba days #15 mL FlexTouch U-100 insulin) atorvastatin 20 mg tablet 20 mg PO DAILY #90 tabs 05/06/24 07/06/24 Rx ondansetron 8 mg disintegrating 8 mg PO Q8H PRN nausea and 06/23/24 07/06/24 Rx tablet vomiting #30 tabs oxycodone-acetaminophen 5 mg-325 1 tab PO Q8H PRN pain #10 tabs 06/23/24 07/06/24 Rx mg tablet (Percocet) allopurinol 100 mg tablet 200 mg PO DAILY PRN gout 06/25/24 07/06/24 History amlodipine 10 mg tablet 10 mg PO QAM 06/25/24 07/06/24 History cholecalciferol (vitamin D3) 25 25 mcg PO DAILY 06/25/24 07/06/24 History mcg (1,000 unit) chewable tablet (Vitamin D3) colchicine 0.6 mg tablet 0.6 mg PO DAILY PRN gout 06/25/24 07/06/24 History divalproex 250 mg tablet,delayed 250 mg PO QPM 06/25/24 07/06/24 History release furosemide 20 mg tablet 10 mg PO QPM edema 06/25/24 07/06/24 History galcanezumab-gnlm 120 mg/mL 240 mg subcut MONTHLY 06/25/24 07/06/24 History subcutaneous pen injector (Emgality Pen) olmesartan 40 mg tablet 40 mg PO QAM 06/25/24 07/06/24 History prednisone 20 mg tablet 40 mg PO DAILY PRN gout 06/25/24 07/06/24 History levothyroxine 50 mcg tablet 50 mcg PO QAM #90 tabs 06/27/24 07/06/24 Rx tramadol 50 mg tablet 50 mg PO Q6H PRN pain #20 tabs 07/01/24 07/06/24 Rx cefdinir 300 mg capsule 300 mg PO BID #14 caps 07/03/24 07/06/24 Rx oxybutynin chloride 5 mg tablet 5 mg PO BID PRN bladder spasms #20 07/03/24 07/06/24 Rx tabs Past Med/Surg History Problem List Hydronephrosis, right Right flank pain Encounter for preoperative assessment (Acute) Nephrolithiasis (Chronic) Recurrent UTI (urinary tract infection) (Chronic) Type 2 diabetes mellitus with chronic kidney disease Low back pain Type 2 diabetes mellitus with obesity Lower extremity edema 03/01/23 Insomnia Mild intermittent asthma NAFLD (nonalcoholic fatty liver disease) Chronic migraine with aura Hypothyroidism Vitamin D deficiency CKD (chronic kidney disease) stage 4, GFR 15-29 ml/min Gout Knee pain Urinary urgency (Chronic) Urinary incontinence, urge Status post total right knee replacement Urinary incontinence Type 2 diabetes mellitus (Chronic) Hyperlipidemia (Chronic) Right knee DJD (Chronic) Obstructive sleep apnea syndrome GERD (gastroesophageal reflux disease) (Chronic) Hypertension (Chronic) Medical History Hx of sepsis post right knee replacement, required admission with iv abx- told it was e- coli History of atrial fibrillation remote hx prior to ablation (1997), no known recurrence Hypertension Stage [address] chronic kidney disease sees dr. marrero on 06/26/24 Hyperlipidemia GERD (gastroesophageal reflux disease) Hypothyroidism Mild intermittent asthma rare use of inhaler Insomnia Low back pain Hx of gout Recurrent UTI per culture, starting abx today Nephrolithiasis History of obstructive sleep apnea no longer uses cpap - told no longer needs to use Type 2 diabetes mellitus with chronic kidney disease Hx of migraines 1-2 times per month Tubular adenoma of colon 2015 Ptosis of eyelid, bilateral was to have surgery 06/27 but cancelled due to hypertension by surgeon until bp is controlled better Anemia History of kidney stones Somatic dysfunction of cervical region Slow to wake up after anesthesia Cyst of pancreas no follow up Fatty liver disease, nonalcoholic Transient ischemic attack (TIA) remote hx, no deficits Surgical History History of arthroscopy of both knees Hx of hand surgery b/l trigger finger History of bilateral knee replacement History of carpal tunnel surgery History of esophageal dilatation History of bilateral breast implants History of right breast biopsy x2--benign History of hysterectomy History of bilateral tubal ligation History of dilatation and curettage History of bladder surgery bladder tac History of colonoscopy History of esophagogastroduodenoscopy (EGD) History of tooth extraction wisdom teeth History of bilateral cataract extraction History of cardiac cath (2007) 2007 ([facility])- no stent (no evidence of coronary artery disease) History of cardiac radiofrequency ablation (1997) 1997 @ [facility] [place] Family History Sister Family history of reaction to anesthesia difficulty waking Father Family history of diabetes mellitus Family hx colonic polyps Myocardial infarction Prostate cancer Kidney disease Mother Family history of diabetes mellitus Aunt Breast cancer Kidney disease Family/Other Breast cancer Grandfather (Paternal) Myocardial infarction Denies family history of Ovarian cancer Colorectal cancer Social History Smoking Status: Never smoker Second Hand Exposure: No; Do You Dip or Chew Tobacco: No; Hx Alcohol Use: No Hx Substance Use: No Preferred Language: Setswana Communication Ability: Effective Visual Impairment: No Limitations Hearing Ability: Normal Disposition Clerk Required: No Beliefs That Will Affect Care: None marital status: Current Living Situation: Spouse current occupational status: retired Other Information That Helps Us Care for You: No Feels Safe at Home: Yes Safety Concerns: Feels Safe At This Time Childhood Exposure to Second-Hand Smoke: Yes Dental Care, Regularly: Yes Physical Activity Frequency: Does not Exercise Seatbelt Use: always Sunscreen Use: No Assistive Devices: Cane and Glasses Physical Exam Physical Exam: Physical Exam: General: In no acute distress, stated age, well-nourished, Nontoxic-appearing HEENT: Normocephalic, atraumatic, no scleral icterus, pupils around round, symmetrical, and reactive to light, moist mucus membranes, trachea midline, no thyromegaly Chest/Pulm: No respiratory distress, symmetrical chest expansion, clear breath sounds throughout Cardiac: RRR, no murmurs noted Abdomen: Negative for ascites and bruising, normoactive bowel sounds, soft, non-tender to palpation throughout : Negative left-sided CVA tenderness, positive right CVA tenderness Musculoskeletal: Symmetrical and without signs of acute trauma, upper and lower extremities with full ROM, no atrophy, spasticity, or flaccidity Extremities: Radial, dorsalis pedis, and posterior tibial pulses are intact and symmetrical, no edema noted in the BL LE's Skin: Warm, dry, no rashes , lesions, or scars noted Neuro: Alert and oriented to person, place, month, year, and president, no focal defects, no tremors noted Psych: No acute distress, calm and cooperative during the exam Results & Data Results & Data Vital Signs (Past 12 Hours) Vital Signs Temp Pulse Pulse Resp BP BP Pulse Ox 07/06/24 16:13 64 18 133/87 95 07/06/24 15:42 65 07/06/24 15:17 85 18 133/85 98 07/06/24 13:48 36.3 C L 76 18 142/95 H 94 O2 Del Method 07/06/24 16:13 07/06/24 15:42 07/06/24 15:17 07/06/24 13:48 Room Air Laboratory Results Abnormal lab results 07/06/24 07/06/24 Range/Units 13:55 14:05 [place] # (Auto) 0.77 H (0.11-0.59) K/uL BUN 28 H (6-23) mg/dl Creatinine 1.94 H (0.6-1.2) mg/dl Glucose 117 H (70-99(Fasting)) mg/dl Urine Appearance Turbid A (Clear) Urine pH 8.0 H (4.5-7.5) Urine Protein 2+ H (Negative) Urine Blood 2+ H (Negative) Urine Nitrite Positive A (Negative) Ur Leukocyte Esterase 3+ H (Negative) Urine WBC (Auto) >50 H (0-5) /hpf Urine RBC (Auto) >20 H (0-2) /hpf U Hyaline Cast (Auto) 3-5 H (0-2) /lpf Urine Bacteria (Auto) 1+ H (None Seen) Diagnostic Findings Abdomen/Pelvis CT 07/06/24 14:50 CT SCAN OF THE ABDOMEN AND PELVIS WITHOUT IV CONTRAST CLINICAL HISTORY: Flank pain. Recent lithotripsy with ureteral stent placement. COMPARISON STUDY: Abdominal CT dated 01/10/2024. Abdominal radiograph dated 07/03/2024. TECHNIQUE: CT scan of the abdomen and pelvis is performed from the lung bases to the proximal femora. Images are reviewed in the axial, sagittal, and coronal planes. IV contrast was not administered for this examination. A dose lowering technique was utilized adhering to the principles of ALARA. CT DOSE: 1133.01 mGy.cm FINDINGS: Lung bases: The heart is normal in size and without pericardial effusion. The lung bases are clear noting bibasilar atelectasis. Bilateral breast implants are partially imaged. There is a tiny hiatal hernia. Liver: The unenhanced liver is normal in size size and contour. Attenuation is diffusely diminished indicating steatosis. Fatty sparing is seen adjacent to the gallbladder fossa. There is no intrahepatic biliary ductal dilatation. Gallbladder: Unremarkable. Spleen: Normal in size and attenuation. Pancreas: The unenhanced pancreas is grossly unremarkable. Adrenal glands: Unremarkable. Kidneys: There is markedly asymmetric cortical atrophy of the left kidney as compared to the right. Cortical scarring is seen posteriorly in the right kidney. A right ureteral stent is in appropriate position. No calcifications are identified in the right ureteral course of the stent. Mild urothelial thickening seen in the right ureter with surrounding infiltration. There is moderate to severe right-sided hydronephrosis. A 5 mm nonobstructing calculus is noted in the right lower pole. Additional punctate stones/fragments are seen in the right renal collecting system. There are 2 left renal calcifications which measure up to 4 mm. There is no left ureteral stone or left-sided hydronephrosis. There is no evidence of contour deforming renal mass lesion. Abdominal vasculature: The abdominal aorta is normal in course and caliber noting mild atherosclerotic calcification. Bowel: There is mild colonic diverticulosis without CT evidence of acute diverticulitis. Moderate fecal retention is seen throughout the colon. No bowel obstruction is seen. The appendix is well-visualized and normal. Peritoneum: There is no intraperitoneal free air or abdominal ascites. There is a small fat-containing umbilical hernia. Lymphadenopathy: None. Pelvic viscera: The bladder is decompressed and appears thick-walled with mild surrounding inflammation. The bladder contains the distal end of a right ureteral stent. The uterus is surgically absent. No adnexal lesion is seen. Skeletal structures: The skeletal structures are osteopenic. No lytic or blastic lesions are seen. There is sclerosis of the pubic symphysis. Mild lumbosacral spondylosis is observed. IMPRESSION: 1. A right ureteral stent is in place as above. No calcifications are seen in the right ureter along the course of the stent. 2. There is moderate to severe right-sided hydronephrosis. 3. Urothelial thickening is seen in the right ureter with surrounding infiltration. There is also wall thickening of the bladder with surrounding infiltration. These findings may be related to the presence of an indwelling stent. Correlate with clinical findings and urinalysis for evidence of superimposed urinary tract infection. 4. Right-sided nephrolithiasis/stone fragments as above. 5. Two calcifications again seen within the asymmetrically atrophic left kidney. 6. Hepatic steatosis. 7. Colonic diverticulosis without CT evidence of acute diverticulitis. 8. Moderate constipation. 9. Additional findings as above. ACT 112: Negative or not required by law. Electronically signed by: Denis Arteaga M.D. 07/06/2024 4:35 PM Code Status & VTE Plan Code Status Full code VTE Prophylaxis Plan VTE Prophylaxis will be ordered: Yes Supervising Physician Co-Signing Physician Notes Patient seen and examined, chart reviewed, case discussed with Herberth Mace PA-C and I agree with the assessment and plan as above except as otherwise noted Labs and images reviewed At the bedside on evening reevaluation. Pain is greatly improved following admission. Has 12/10 right flank pain, otherwise feels improved from prior. Denies fever/chills. Denies nausea at time of assessment. Does have some CVA tenderness. Lungs are clear. May be having some pain from her stent placement, and also from superimposed UTI. Rocephin discontinued. Urology is consulted for stent evaluation, a creatinine is 1.94 with a baseline around 1.62 she is without obstructive ELZA on admission. Agree with above. PG Care Time/CCT Total # of Minutes Spent Total Time Spent with Patient: Total time spent is greater than 50% in coordination of care (as documented) at patient's floor/unit and/or counseling patient: Coding [place] [address] INT INP/OBS CARE 3/75MIN Patient Type Established Medical Decision Making High Complexity Diagnoses Right flank pain R10.9 Hydronephrosis, right N13.30 Type 2 diabetes mellitus with chronic kidney disease E11.22 CKD (chronic kidney disease) stage 4, GFR 15-29 ml/min N18.4 Hypertension I10
[2024-07-06] MEDS ORDERED: DEXTROSE 50% 50 ML SYRINGE IV PRN (16:55)
[2024-07-06] MEDS ORDERED: GLUCOSE 40% GEL 15 GM TUBE PO PRN (16:55)
[2024-07-06] MEDS ORDERED: CARBOHYDRATES FOR HYPOGLYCEMIA PO PRN (16:55)
[2024-07-06] MEDS ORDERED: GLUCOSE 10 TAB/TUBE PO PRN (16:55)
[2024-07-06] MEDS ORDERED: GLUCAGON FOR INJ 1 MG VIAL SQ PRN (16:55)
[2024-07-06] MEDS ORDERED: ONDANSETRON INJ 2 MG/ML 2 ML VIAL IV PRN (16:58)
[2024-07-06] MEDS ORDERED: NALOXONE HCL 0.4 MG/1 ML VIAL/CARP IV PRN (17:22)
--- NOTE | 2024-07-06 19:28 | Urology Consultation ---
Date of Consultation July 06, 2024 Assessment & Plan (1) Right flank pain: Patient has been admitted on the hospitalist service. She respectively the following: It appears that the patient may have a urinary tract infection. She has been initiated on antibiotics in form of Rocephin which should continue. Appropriate cultures have been sent in last week tailored as culture results come available Concerning the patient's pain is likely pain from her right ureteral stent analgesics to be provided. On CT scan her stent appears to be in good position send no acute urologic intervention is required at this time At the time my visit with the patient she was nontoxic-appearingshe is norm otensive without tachycardia or fever. She does not exhibit leukocytosis. Additional recommendations with forthcoming based on her clinical course as it unfolds History of Present Illness Reason for Consultation: History of right ureteral stent History of Present Illness This is a 69-year-old female well-known to [facility] physician group urology. The patient underwent a urologic procedure on 07/01/[address] Antonio performed a cystoscopy with bilateral ureteral nephroscopy and insertion of a right ureteral stent. The patient notes that since her procedure she has had significant difficulty with pain. She notes that she has had right flank pain along with dysuria and some intermittent hematuria. She also reports a low-grade fever at home. She denies any shakes or chills. Because the pain was unremitting she presented to the emergency department. Since arrival to the hospital patient has had labs and imaging which independent reviewed. Patient did have a CT scan of the abdomen pelvis that showed a right ureteral stent was not placed. There is moderate to severe right-sided hydronephrosis and some urothelial thickening the right ureters filtration. There is also some thickening of the bladder wall with surrounding infiltrateinterpreting radiologist noted that this could be merrily due to the presence of the stent or could be from an underlying infectious process. Right- sided kidney stone fragments were noted. Labs included CBC with a white blood cell count, hemoglobin, hematocrit, platelet count were normal. Chemistry profile showed sodium and potassium are normal. The patient's BUN and creatinine were elevated at 28 and 1.9 (review of records show the patient's baseline creatinine typically runs from 1.6-2.0). Urinalysis showed turbid urine which was positive for nitrites. She also had pyuria with greater than 50 white blood cells per high-power field as well as 3+ leukocyte esterase and 1+ bacteria. At the time of my interview she was resting comfortably in bed and she was no distress. Allergies Allergy/AdvReac Type Severity Reaction Status Date / Time ciprofloxacin Allergy Severe kidney Verified 07/01/24 06:18 failure clarithromycin Allergy Intermediate hives, Verified 07/01/24 06:18 itching insulin aspart Allergy Intermediate Hives,Migra Verified 07/01/24 06:18 [From Novolog U-100 Insulin flakito aspart] latex Allergy Intermediate Hives Verified 07/01/24 06:18 Sulfa (Sulfonamide Allergy Unknown unknown Verified 07/01/24 06:18 Antibiotics) reaction aspartame AdvReac Intermediate severe Verified 07/01/24 06:18 migraines codeine AdvReac Mild vomiting Verified 07/01/24 06:18 (with remote use) glipizide AdvReac Mild nausea, Verified 07/01/24 06:18 migraines insulin lispro AdvReac Mild headache Verified 07/01/24 06:18 [From Humalog U-100 Insulin] liraglutide [From Victoza] AdvReac Mild migraines Verified 07/01/24 06:18 monosodium glutamate AdvReac Mild migraines Verified 07/01/24 06:18 nickel AdvReac Mild swelling, Verified 07/01/24 06:18 itching Home Medications Medication Instructions Recorded Confirmed Type blood-glucose meter (OneTouch #1 ea 05/04/22 06/26/24 Rx Ultra2 Meter kit) lancets (Accu-Chek Softclix #100 ea 05/22/22 06/26/24 Rx Lancets) albuterol sulfate 90 mcg/actuation 2 puff inhalation Q6H PRN 07/14/22 07/06/24 Rx aerosol inhaler (Ventolin HFA) shortness of breath or wheezing #8.5 grams pen needle, diabetic 31 gauge x #400 ea 05/22/23 06/26/24 Rx 5/16" (Easy Comfort Pen Cornell) semaglutide 0.25 mg or 0.5 mg (2 0.5 mg (0.736 mL) subcut Q7D 90 12/05/23 07/06/24 Rx mg/3 mL) subcutaneous pen injector days #15 mL (Ozempic) rizatriptan 10 mg tablet (Maxalt) See Rx Instructions PO .COMPLEX 90 03/12/24 07/06/24 Rx days #27 tabs sumatriptan succinate 50 mg tablet See Rx Instructions PO .COMPLEX 90 03/12/24 07/06/24 Rx (Imitrex) days #27 tabs insulin aspart U-100 100 unit/mL 3 unit (0.03 mL) subcut .COMPLEX 03/18/24 07/06/24 Rx (3 mL) subcutaneous pen (Novolog 90 days #15 mL FlexPen U-100 Insulin aspart) insulin degludec 100 unit/mL (3 10 unit (0.1 mL) subcut QAM 90 03/18/24 07/06/24 Rx mL) subcutaneous pen (Tresiba days #15 mL FlexTouch U-100 insulin) atorvastatin 20 mg tablet 20 mg PO DAILY #90 tabs 05/06/24 07/06/24 Rx ondansetron 8 mg disintegrating 8 mg PO Q8H PRN nausea and 06/23/24 07/06/24 Rx tablet vomiting #30 tabs oxycodone-acetaminophen 5 mg-325 1 tab PO Q8H PRN pain #10 tabs 06/23/24 07/06/24 Rx mg tablet (Percocet) allopurinol 100 mg tablet 200 mg PO DAILY PRN gout 06/25/24 07/06/24 History amlodipine 10 mg tablet 10 mg PO QAM 06/25/24 07/06/24 History cholecalciferol (vitamin D3) 25 25 mcg PO DAILY 06/25/24 07/06/24 History mcg (1,000 unit) chewable tablet (Vitamin D3) colchicine 0.6 mg tablet 0.6 mg PO DAILY PRN gout 06/25/24 07/06/24 History divalproex 250 mg tablet,delayed 250 mg PO QPM 06/25/24 07/06/24 History release furosemide 20 mg tablet 10 mg PO QPM edema 06/25/24 07/06/24 History galcanezumab-gnlm 120 mg/mL 240 mg subcut MONTHLY 06/25/24 07/06/24 History subcutaneous pen injector (Emgality Pen) olmesartan 40 mg tablet 40 mg PO QAM 06/25/24 07/06/24 History prednisone 20 mg tablet 40 mg PO DAILY PRN gout 06/25/24 07/06/24 History levothyroxine 50 mcg tablet 50 mcg PO QAM #90 tabs 06/27/24 07/06/24 Rx tramadol 50 mg tablet 50 mg PO Q6H PRN pain #20 tabs 07/01/24 07/06/24 Rx cefdinir 300 mg capsule 300 mg PO BID #14 caps 07/03/24 07/06/24 Rx oxybutynin chloride 5 mg tablet 5 mg PO BID PRN bladder spasms #20 07/03/24 07/06/24 Rx tabs Patient History Medical History Hx of sepsis post right knee replacement, required admission with iv abx- told it was e- coli History of atrial fibrillation remote hx prior to ablation (1997), no known recurrence Hypertension Stage [address] kidney disease sees dr[address] marrero on 06/26/24 Hyperlipidemia GERD (gastroesophageal reflux disease) Hypothyroidism Mild intermittent asthma rare use of inhaler Insomnia Low back pain Hx of gout Recurrent UTI per culture, starting abx today Nephrolithiasis History of obstructive sleep apnea no longer uses cpap - told no longer needs to use Type 2 diabetes mellitus with chronic kidney disease Hx of migraines 1-2 times per month Tubular adenoma of colon 2016 Ptosis of eyelid, bilateral was to have surgery 06/27 but cancelled due to hypertension by surgeon until bp is controlled better Anemia History of kidney stones Somatic dysfunction of cervical region Slow to wake up after anesthesia Cyst of pancreas no follow up Fatty liver disease, nonalcoholic Transient ischemic attack (TIA) remote hx, no deficits Surgical History History of arthroscopy of both knees Hx of hand surgery b/l trigger finger History of bilateral knee replacement History of carpal tunnel surgery History of esophageal dilatation History of bilateral breast implants History of right breast biopsy x2--benign History of hysterectomy History of bilateral tubal ligation History of dilatation and curettage History of bladder surgery bladder tac History of colonoscopy History of esophagogastroduodenoscopy (EGD) History of tooth extraction wisdom teeth History of bilateral cataract extraction History of cardiac cath (2007) 2007 ([facility])- no stent (no evidence of coronary artery disease) History of cardiac radiofrequency ablation (1997) 1997 @ [facility] Family History Sister Family history of reaction to anesthesia difficulty waking Father Family history of diabetes mellitus Family hx colonic polyps Myocardial infarction Prostate cancer Kidney disease Mother Family history of diabetes mellitus Aunt Breast cancer Kidney disease Family/Other Breast cancer Grandfather (Paternal) Myocardial infarction Denies family history of Ovarian cancer Colorectal cancer Social History Smoking Status: Never smoker Second Hand Exposure: No; Do You Dip or Chew Tobacco: No; Hx Alcohol Use: No Hx Substance Use: No Preferred Language: Kyrgyz Communication Ability: Effective Visual Impairment: No Limitations Hearing Ability: Normal Supply Chain Tech Required: No Beliefs That Will Affect Care: None marital status: Current Living Situation: Spouse current occupational status: retired Feels Safe at Home: Yes Childhood Exposure to Second-Hand Smoke: Yes Dental Care, Regularly: Yes Physical Activity Frequency: Does not Exercise Seatbelt Use: always Sunscreen Use: No Assistive Devices: Glasses Review of Systems Review of Systems: All systems reviewed & are unremarkable except as noted in HPI & below Physical Exam Constitutional: WD/WN, vitals as above Eyes: no conjunctival abnormality ENMT: Ears: no hearing impairment and no external ear abnormality Mouth: no oropharynx abnormality Neck: trachea midline Respiratory: normal respiratory effort; no respiratory distress and no labored breathing Cardiovascular: Rate/Rhythm: regular rate and regular rhythm Gastrointestinal (Abdomen): Abdomen is soft and nondistended. There is no pain with palpation. There is no rebound tenderness or guarding Musculoskeletal: No calf tenderness Skin: no rashes Neurologic: moves all extremities Psychiatric: A+Ox3, euthymic affect Genitourinary: Right CVA tenderness with percussion. No CVA tenderness on the left Results & Data Vital Signs (Past 12 Hours) Vital Signs Temp Pulse Pulse Resp BP BP Pulse Ox 07/06/24 18:36 64 16 146/86 H 95 07/06/24 16:13 64 18 133/87 95 07/06/24 15:42 65 07/06/24 15:17 85 18 133/85 98 07/06/24 13:48 36.3 C L 76 18 142/95 H 94 O2 Del Method 07/06/24 18:36 07/06/24 16:13 07/06/24 15:42 07/06/24 15:17 07/06/24 13:48 Room Air PG Care Time/CCT Total # of Minutes Spent Total Time Spent with Patient: Total time spent is greater than 50% in coordination of care (as documented) at patient's floor/unit and/or counseling patient: Coding Level of Care Code 41475 INT INP/OBS CARE 3/75MIN Diagnoses Right flank pain R10.9
[2024-07-06] MEDS: ACETAMINOPHEN 325 MG TAB PO SCH (20:22)
[2024-07-06] MEDS: TAMSULOSIN HCL 0.4 MG CAP PO SCH (20:22)
[2024-07-06] MEDS: LANTUS PER UNIT CHARGE SQ SCH (20:23)
[2024-07-06] MEDS: INSULIN ASPART PER UNIT CHARGE SC SCH (20:23)
[2024-07-06] MEDS ORDERED: ALBUTEROL HFA 8 GM INHALER INH PRN (21:03)
[2024-07-06] MEDS: DIVALPROEX DELAY RELEASE 250 MG TABEC PO SCH (21:45)
[2024-07-07] MEDS: LACTATED RINGER'S 1,000 ML IV SCH (00:21)
[2024-07-07] MEDS ORDERED: Nursing to Pharmacy Communication SCH ×2 (04:30→14:15)
[2024-07-07] MEDS: LEVOTHYROXINE SODIUM 50 MCG TABLET PO SCH (05:49)
[2024-07-07] MEDS: INSULIN ASPART PER UNIT CHARGE SC SCH ×2 (05:52→17:43)
[2024-07-07] MEDS: ATORVASTATIN 20 MG TAB PO SCH (07:46)
[2024-07-07] MEDS: amLODIPine BESYLATE 5 MG TAB PO SCH (07:46)
[2024-07-07 08:16] LABS: Basophils # (auto) 0.03 K/uL (0.00-0.20); Basophils % (auto) 0.5 %; Eosinophils # (auto) 0.38 K/uL (0.00-0.50); Hematocrit (blood only) 36.8 % (37.0-47.0); Hemoglobin 12.6 g/dl (12.0-16.0); Immature Granulocytes # (auto) 0.03 K/uL (0.01-0.20); Immature Granulocytes % (auto) 0.5 %; Lymphocytes # (auto) 1.22 K/uL (1.20-3.40); Lymphocytes % (auto) 19.1 %; Mean Corpuscular Hgb Conc 34.2 g/dL (32.0-36.0); Mean Corpuscular Volume 87.6 fL (80.0-100.0); Mean Platelet Volume 11.5 fL (9.4-12.4); Monocytes # (auto) 0.95 K/uL (0.11-0.59); Monocytes % (auto) 14.9 %; Neutrophils # (auto) 3.77 K/uL (1.40-6.50); Platelet Count 152 K/uL (130-400); RDW Coefficient of Variation 13.6 % (11.5-14.5); RDW Standard Deviation 43.8 fL (36.4-46.3); White Blood Count 6.38 K/ul (4.8-10.8)
[2024-07-07 08:23] LABS: Albumin Globulin Ratio 1.5 (0.9-2); Albumin Level 3.5 gm/dl (3.4-5.0); BUN Creatinine Ratio 13.6 (10-20); Bilirubin,Total 0.4 mg/dl (0.2-1.0); Calcium 9.1 mg/dl (8.6-10.3); Creatinine Clr Calc Pharmacy 34.4 ml/min; Est GFR (African American) 35.3 ml/min; Est GFR (Non-African American) 30.5 ml/min; Globulin 2.3 gm/dl (2.5-4.0); Magnesium 2.1 mg/dl (1.7-2.4); Potassium 4.4 mmol/L (3.5-5.1); Total Protein 5.8 gm/dl (6.0-8.3)
--- NOTE | 2024-07-07 10:05 | Urology Progress Note ---
Date of Service July 07, 2024 Assessment & Plan (1) Acute UTI (urinary tract infection): (2) Right flank pain: (3) Hydronephrosis, right: (4) Ureteral stent present: Plan 69yo female s/p bilateral ureteroscopy w/right stent placement on 07/01/24 who presented with right flank pain and is admitted with suspected UTI and hydronephrosis - Subjectively feeling better today. Right flank pain is improving. - Remains afebrile with stable vitals. - Labs today show no leukocytosis and creatinine 1.69 (baseline appears to be 1.7-2.0). - Urine culture pending. - Voiding spontaneously, continue to monitor. Bladder scan PRN. - CTAP reviewed. Right ureteral stent appears in appropriate position. - Mod-severe hydronephrosis and urothelial thickening in the right ureter with surrounding infiltration also noted, likely secondary to infection and recent procedure. - Continue supportive care. - Continue antibiotics and tailor as culture data becomes available. - No plan for surgical intervention - OK for diet from standpoint. - Urology will follow along. Plan reviewed with Dr. Cullen. Admission and Anticipated Discharge Date Admission Date: July 06, 2024 Subjective Pt seen at bedside this AM Awake, resting in bed on arrival No acute distress Feeling better overall Still with some right flank pain, but has improved Voiding spontaneously w/dysuria Denies f/c/n/v Has been NPO Review of Systems Constitutional: as per Subjective / HPI Gastrointestinal: as per Subjective / HPI Genitourinary: as per Subjective / HPI Physical Exam Constitutional: no acute distress Respiratory: no respiratory distress and no labored breathing Neurologic: moves all extremities and awake Psychiatric: A+Ox3, euthymic affect Results & Data Vital Signs (Past 12 Hours) Vital Signs Temp Pulse Pulse Resp BP BP Pulse Ox 07/07/24 07:24 36.5 C 70 16 122/84 96 07/06/24 21:08 36.5 C 66 16 163/93 H 94 07/06/24 21:00 O2 Del Method 07/07/24 07:24 Room Air 07/06/24 21:08 Room Air 07/06/24 21:00 Room Air PG Care Time/CCT Total # of Minutes Spent Total Time Spent with Patient: Total time spent is greater than 50% in coordination of care (as documented) at patient's floor/unit and/or counseling patient: Coding Level of Care Code 74821 SUB INP/OBS CARE 235MIN Diagnoses Acute UTI (urinary tract infection) N39.0 Right flank pain R10.9 Hydronephrosis, right N13.30 Ureteral stent present Z96.0
--- NOTE | 2024-07-07 12:52 | Hospitalist Progress Note ---
Date of Service July 07, 2024 Assessment & Plan (1) Right flank pain: Plan: Patient presented to the ED on 07/06 with progressive right flank pain following her right stent placement with Dr. Covarrubias on 07/01. -Reviewed CTAP 07/06: right ureteral stent in place. no calcifications seen in right ureter along course of stent. Moderate to severe right sided hydronephrosis. Urothelial thickening seen in right ureter w/ surrounding infiltration. Also wall thickening of bladder w/ surrounding infiltration. findings may be related to presence of indwelling stent. right sided nephrolithiasis/stone fragments. two calcifications seen within asymmetrically atrophic left kidney. -Reviewed KUB 07/06: right ureteral stent in place. no renal calculi clearly identified. -Reviewed CBC 07/07: WBC WNL -Reviewed BMP 07/07: creatinine improved to 1.69, BUN 23, electrolytes stable -reviewed urine culture prelim results 07/06: gram negative bacilli -reviewed urology progress note 07/07: supportive care. no plan for surgical intervention. -continue Rocephin -Continue Flomax -s/p 1L NS -Tylenol and Diluadid prn for pain -Zofran prn N/V -Oxybutynin prn for bladder spasms AM CBC, BMP (2) Hydronephrosis, right: Plan: See plan above (3) Type 2 diabetes mellitus with chronic kidney disease: Plan: Monitor BSG ACHS, goal is [id number] Will continue 10 units Lantus AM Start CF of 50 and CR of 15 ACHS for now Adjust regimen as needed (4) CKD (chronic kidney disease) stage 4, GFR 15-29 ml/min: Plan: Renal functions currently stable Baseline appears to be 1.72.0 Monitor daily renal function, intake/output every shift -BMP reviewed 07/07: creatinine near baseline w/ 1.69 Plan Chronic conditions: HLD: statin HTN: continue amlodipine. hold olmesartan to prevent ELZA Diet: heart healthy, carb consistent Code status: full Disposition: medical DVT prophylaxis: SCD's Admission and Anticipated Discharge Date Admission Date: July 06, 2024 Supervising Physician Co-Signing Physician Notes ZBIGNIEW Supervision Note: I did not personally see or examine the patient today, but I verified all veliz points of ZBIGNIEW Jennings's assessment and plan with the following exceptions/additions: None Subjective Patient seen and examined this morning. Patient states that her pain has improved today. She states she is experiencing urinary frequency, urgency, and hematuria. Also experiencing burning w/ urination. Denies chest pain, shortness of breath, nausea, or vomiting. No fevers have been documented but patient states she feels febrile. Patient states that her temperature is usually 96F and once it reaches 98F she feels it is a fever for her. Physical Exam 2 Constitutional: WD/WN, vitals as above Eyes: PERRL, conjunctivae normal, anicteric sclerae Respiratory: normal respiratory effort, lungs clear to auscultation Cardiovascular: RRR, no murmur, no edema Gastrointestinal (Abdomen): normal bowel sounds, soft, nontender, no hepatosplenomegaly Psychiatric: A+Ox3, euthymic affect Results & Data Results & Data Vital Signs (Past 12 Hours) Vital Signs Temp Pulse Resp BP Pulse Ox O2 Del Method 07/07/24 07:24 36.5 C 70 16 122/84 96 Room Air Laboratory Results 07/07/24 06:51 07/07/24 06:51 PG Care Time/CCT Total # of Minutes Spent Total Time Spent with Patient: Total time spent is greater than 50% in coordination of care (as documented) at patient's floor/unit and/or counseling patient: Coding Level of Care Code 03492 SUB INP/OBS CARE 2/35MIN Diagnoses Right flank pain R10.9 Hydronephrosis, right N13.30 Type 2 diabetes mellitus with chronic kidney disease E11.22 CKD (chronic kidney disease) stage 4, GFR 15-29 ml/min N18.4
[2024-07-07] MEDS: cefTRIAXone SODIUM 2,000 MG/50 ML BAG IV SCH (15:57)
[2024-07-07] MEDS: oxyBUTYnin chloride 5 MG TAB PO PRN (20:33)
[2024-07-08] MEDS: HYDROmorphone INJ 0.5 MG/0.5 ML SYR IV PRN (01:15)
[2024-07-08 06:04] LABS: Basophils # (auto) 0.03 K/uL (0.00-0.20); Basophils % (auto) 0.5 %; Eosinophils # (auto) 0.35 K/uL (0.00-0.50); Eosinophils % (auto) 5.6 %; Hematocrit (blood only) 39.3 % (37.0-47.0); Hemoglobin 12.9 g/dl (12.0-16.0); Immature Granulocytes # (auto) 0.02 K/uL (0.01-0.20); Immature Granulocytes % (auto) 0.3 %; Lymphocytes # (auto) 2.01 K/uL (1.20-3.40); Lymphocytes % (auto) 32.1 %; Mean Corpuscular Hemoglobin 29.4 pg (25.0-34.0); Mean Corpuscular Hgb Conc 32.8 g/dL (32.0-36.0); Mean Corpuscular Volume 89.5 fL (80.0-100.0); Mean Platelet Volume 10.9 fL (9.4-12.4); Monocytes # (auto) 0.92 K/uL (0.11-0.59); Monocytes % (auto) 14.7 %; Neutrophils # (auto) 2.93 K/uL (1.40-6.50); Neutrophils % (auto) 46.8 %; Platelet Count 161 K/uL (130-400); RDW Coefficient of Variation 13.4 % (11.5-14.5); RDW Standard Deviation 44.3 fL (36.4-46.3); Red Blood Count 4.39 M/uL (4.20-5.40); White Blood Count 6.26 K/ul (4.8-10.8)
[2024-07-08 06:26] LABS: Albumin Globulin Ratio 1.4 (0.9-2); Albumin Level 3.5 gm/dl (3.4-5.0); Bilirubin,Total 0.4 mg/dl (0.2-1.0); Calcium 9.5 mg/dl (8.6-10.3); Creatinine Clr Calc Pharmacy 30.1 ml/min; Est GFR (African American) 30.1 ml/min; Est GFR (Non-African American) 25.9 ml/min; Globulin 2.5 gm/dl (2.5-4.0); Magnesium 2.2 mg/dl (1.7-2.4); Potassium 4.3 mmol/L (3.5-5.1)
--- NOTE | 2024-07-08 07:46 | Urology Progress Note ---
Date of Service July 08, 2024 Assessment & Plan (1) Right flank pain: (2) Hydronephrosis, right: (3) Ureteral stent present: Plan 69yo female s/p bilateral ureteroscopy w/right stent placement on 07/01/24 who presented with right flank pain and is admitted with suspected UTI and hydronephrosis - Afebrile, hypertensive this morning. - Labs today show no leukocytosis and creatinine 1.93 (baseline appears to be 1.7-2.0). - Urine culture preliminary pseudomonas. Antibiotics changed from Ceftriaxone to Cefepime. - Voiding spontaneously, continue to monitor. Bladder scan PRN. - CT reviewed - Right ureteral stent appears in appropriate position. Mod- severe hydronephrosis and urothelial thickening in the right ureter with surrounding infiltration also noted, likely secondary to infection and recent procedure. - Continue supportive care and pain management as needed. - Continue antibiotics per culture sensitivities. - Will plan for outpatient stent removal as scheduled 07/09/24. If she remains inpatient, we can reschedule stent removal as needed. - Urology will follow along. Admission and Anticipated Discharge Date Admission Date: July 06, 2024 Subjective Pt seen at bedside this AM Awake, resting in bed on arrival No acute distress She is still having episodes of right flank pain, has been managing with medication Voiding spontaneously w/dysuria Denies f/c/n/v Review of Systems Constitutional: as per Subjective / HPI Genitourinary: as per Subjective / HPI Physical Exam Constitutional: no acute distress Respiratory: no respiratory distress and no labored breathing Neurologic: awake Psychiatric: A+Ox3, euthymic affect Results & Data Vital Signs (Past 12 Hours) Vital Signs Temp Pulse Resp BP Pulse Ox O2 Del Method 07/08/24 07:36 36.5 C 64 15 159/104 H 94 Room Air PG Care Time/CCT Total # of Minutes Spent Total Time Spent with Patient: Total time spent is greater than 50% in coordination of care (as documented) at patient's floor/unit and/or counseling patient: Coding Level of Care Code 82627 SUB INP/OBS CARE 2/35MIN Diagnoses Right flank pain R10.9 Hydronephrosis, right N13.30 Ureteral stent present Z96.0
[2024-07-08] MEDS: CEFEPIME 2,000 MG in SYRINGE 0 ML IV SCH (10:45)
--- NOTE | 2024-07-08 11:19 | Hospitalist Progress Note ---
Date of Service July 08, 2024 Assessment & Plan (1) Right flank pain: Plan: Patient presented to the ED on 07/06 with progressive right flank pain following her right stent placement with Dr. Covarrubias on 07/01. *Possible infection and inflammatory reaction due stent placement -Reviewed CTAP 07/06: right ureteral stent in place. no calcifications seen in right ureter along course of stent. Moderate to severe right sided hydronephrosis. Urothelial thickening seen in right ureter w/ surrounding infiltration. Also wall thickening of bladder w/ surrounding infiltration. findings may be related to presence of indwelling stent. right sided nephrolithiasis/stone fragments. two calcifications seen within asymmetrically atrophic left kidney. -Reviewed KUB 07/06: right ureteral stent in place. no renal calculi clearly identified. -Reviewed CBC 07/08: WBC WNL -Reviewed BMP 07/08: creatinine 1.93, BUN 27, electrolytes stable -reviewed urine culture results 07/08: Pseudomonas -reviewed urology progress note 07/08: supportive care. no plan for surgical intervention. -Rocephin discontinued 07/08 following findings of Pseudomonas. Switched to IV Cefepime BID. Patient has had adverse reactions to fluoroquinolones in past, will have to likely discharge with PICC line and IV antibiotics Hopeful for symptom improvement after starting Cefepime. -Continue Flomax -s/p 1L NS -Tylenol and Dilaudid prn for pain -Zofran prn N/V -Oxybutynin prn for bladder spasms AM CBC, BMP (2) Hydronephrosis, right: Plan: See plan above (3) Type 2 diabetes mellitus with chronic kidney disease: Plan: Monitor BSG ACHS, goal is [id number] Will continue 10 units Lantus AM Start CF of 50 and CR of 15 ACHS for now Adjust regimen as needed (4) CKD (chronic kidney disease) stage 4, GFR 15-29 ml/min: Plan: Renal functions currently stable Baseline appears to be 1.72.0 Monitor daily renal function, intake/output every shift -BMP reviewed 07/08: creatinine 1.93 Plan Chronic conditions: HLD: statin HTN: continue amlodipine. hold olmesartan to prevent ELZA Diet: heart healthy, carb consistent Code status: full Disposition: medical DVT prophylaxis: SCD's Admission and Anticipated Discharge Date Admission Date: July 06, 2024 Subjective Patient seen and examined this morning. Patient still with urinary complaints including urgency and frequency. patient also notes right flank pain returned in severity. Denied chest pain or SOB. Physical Exam 2 Constitutional: WD/WN, vitals as above Eyes: PERRL, conjunctivae normal, anicteric sclerae Respiratory: normal respiratory effort, lungs clear to auscultation Cardiovascular: RRR, no murmur, no edema Gastrointestinal (Abdomen): normal bowel sounds, soft, nontender, no hepatosplenomegaly Psychiatric: A+Ox3, euthymic affect Results & Data Results & Data Vital Signs (Past 12 Hours) Vital Signs Temp Pulse Resp BP Pulse Ox O2 Del Method 07/08/24 07:36 36.5 C 64 15 159/104 H 94 Room Air Laboratory Results 07/08/24 05:32 07/08/24 05:32 PG Care Time/CCT Total # of Minutes Spent Total Time Spent with Patient: Total time spent is greater than 50% in coordination of care (as documented) at patient's floor/unit and/or counseling patient: Coding Level of Care Code 70702 SUB INP/OBS CARE 2/35MIN Diagnoses Right flank pain R10.9 Hydronephrosis, right N13.30 Type 2 diabetes mellitus with chronic kidney disease E11.22 CKD (chronic kidney disease) stage 4, GFR 15-29 ml/min N18.4
[2024-07-09 06:12] LABS: Basophils # (auto) 0.03 K/uL (0.00-0.20); Basophils % (auto) 0.5 %; Eosinophils # (auto) 0.36 K/uL (0.00-0.50); Eosinophils % (auto) 6.1 %; Hematocrit (blood only) 38.7 % (37.0-47.0); Hemoglobin 13.3 g/dl (12.0-16.0); Immature Granulocytes # (auto) 0.03 K/uL (0.01-0.20); Immature Granulocytes % (auto) 0.5 %; Lymphocytes # (auto) 1.52 K/uL (1.20-3.40); Lymphocytes % (auto) 25.9 %; Mean Corpuscular Hgb Conc 34.4 g/dL (32.0-36.0); Mean Corpuscular Volume 87.2 fL (80.0-100.0); Mean Platelet Volume 10.8 fL (9.4-12.4); Monocytes # (auto) 0.74 K/uL (0.11-0.59); Monocytes % (auto) 12.6 %; Neutrophils % (auto) 54.4 %; Platelet Count 163 K/uL (130-400); RDW Coefficient of Variation 13.3 % (11.5-14.5); RDW Standard Deviation 42.6 fL (36.4-46.3); Red Blood Count 4.44 M/uL (4.20-5.40); White Blood Count 5.88 K/ul (4.8-10.8)
[2024-07-09 06:23] LABS: Albumin Globulin Ratio 1.4 (0.9-2); Albumin Level 3.7 gm/dl (3.4-5.0); BUN Creatinine Ratio 14.5 (10-20); Bilirubin,Total 0.5 mg/dl (0.2-1.0); Calcium 9.6 mg/dl (8.6-10.3); Creatinine Clr Calc Pharmacy 30.1 ml/min; Est GFR (African American) 30.1 ml/min; Est GFR (Non-African American) 25.9 ml/min; Globulin 2.7 gm/dl (2.5-4.0); Magnesium 2.2 mg/dl (1.7-2.4); Potassium 4.7 mmol/L (3.5-5.1); Total Protein 6.4 gm/dl (6.0-8.3)
--- NOTE | 2024-07-09 08:23 | Urology Progress Note ---
Date of Service July 09, 2024 Assessment & Plan (1) Right flank pain: (2) Hydronephrosis, right: (3) Ureteral stent present: Plan 69yo female s/p bilateral ureteroscopy w/right stent placement on 07/01/24 who presented with right flank pain and is admitted with suspected UTI and hydronephrosis - Afebrile with stable vitals - Labs today show no leukocytosis and creatinine 1.93 (baseline appears to be 1.7-2.0). - Urine culture grew pseudomonas. Antibiotics changed from Ceftriaxone to Cefepime 07/08. - Voiding spontaneously, continue to monitor. Bladder scan PRN. - Right ureteral stent appears in appropriate position. Mod-severe hydronephrosis and urothelial thickening in the right ureter with surrounding infiltration also noted, likely secondary to infection and recent procedure. - We discussed that since she remains inpatient on IV antibiotics, we could remove her stent tomorrow in the operating room. She would like to proceed. - Plan for cystoscopy and stent removal in the operating room on 07/10/2024. - Will make NPO at midnight. - Continue supportive care and pain management as needed. - Continue antibiotic therapy. - Discussed with hospital team. - Urology to follow. Admission and Anticipated Discharge Date Admission Date: July 06, 2024 Subjective Pt seen at bedside today Awake, resting in bed on arrival No acute distress Feeling somewhat better today Still with episodes of right flank pain Voiding without issue Still some dysuria Denies f/c/n/v Review of Systems Constitutional: as per Subjective / HPI Genitourinary: as per Subjective / HPI Physical Exam 2 Constitutional: no acute distress Respiratory: no respiratory distress and no labored breathing Neurologic: awake Psychiatric: A+Ox3, euthymic affect Results & Data Vital Signs (Past 12 Hours) Vital Signs Temp Pulse Resp BP Pulse Ox O2 Del Method 07/09/24 08:00 36.7 C 78 16 130/86 95 Room Air 07/08/24 23:38 36.6 C 74 16 147/84 H 97 Room Air PG Care Time/CCT Total # of Minutes Spent Total Time Spent with Patient: Total time spent is greater than 50% in coordination of care (as documented) at patient's floor/unit and/or counseling patient: Coding Level of Care Code 20409 SUB INP/OBS CARE 2/35MIN Diagnoses Right flank pain R10.9 Hydronephrosis, right N13.30 Ureteral stent present Z96.0
--- NOTE | 2024-07-09 10:31 | Hospitalist Progress Note ---
Date of Service July 09, 2024 Assessment & Plan (1) Right flank pain: Plan: Patient presented to the ED on 07/06 with progressive right flank pain following her right stent placement with Dr. Covarrubias on 07/01. *Possible infection and inflammatory reaction due stent placement -Reviewed CTAP 07/06: right ureteral stent in place. no calcifications seen in right ureter along course of stent. Moderate to severe right sided hydronephrosis. Urothelial thickening seen in right ureter w/ surrounding infiltration. Also wall thickening of bladder w/ surrounding infiltration. findings may be related to presence of indwelling stent. right sided nephrolithiasis/stone fragments. two calcifications seen within asymmetrically atrophic left kidney. -Reviewed KUB 07/06: right ureteral stent in place. no renal calculi clearly identified. -Reviewed CBC 07/09: WBC WNL -Reviewed BMP 07/09: creatinine 1.93, BUN 28, electrolytes stable -reviewed urine culture results 07/08: Pseudomonas -reviewed urology progress note 07/09: plan for cystoscopy 07/10. NPO after midnight. -Rocephin discontinued 07/08 following findings of Pseudomonas. Switched to IV Cefepime BID. Patient has had adverse reactions to fluoroquinolones in past, will have to likely discharge with PICC line and IV antibiotics -Continue Flomax -s/p 1L NS -Tylenol and Dilaudid prn for pain -Zofran prn N/V -Oxybutynin prn for bladder spasms AM CBC, BMP (2) Hydronephrosis, right: Plan: See plan above (3) Type 2 diabetes mellitus with chronic kidney disease: Plan: Monitor BSG ACHS, goal is [id number] Will continue 10 units Lantus AM Start CF of 50 and CR of 15 ACHS for now Adjust regimen as needed (4) CKD (chronic kidney disease) stage 4, GFR 15-29 ml/min: Plan: Renal functions currently stable Baseline appears to be 1.72.0 Monitor daily renal function, intake/output every shift -BMP reviewed 07/09: creatinine 1.93 Plan Chronic conditions: HLD: statin HTN: continue amlodipine. hold olmesartan to prevent ELZA Diet: heart healthy, carb consistent, NPO after midnight Code status: full Disposition: medical DVT prophylaxis: SCD's Admission and Anticipated Discharge Date Admission Date: July 06, 2024 Subjective Patient seen and examined this morning. Patient still experiencing right flank pain, urinary urgency and frequency. She was about to receive her antibiotic at time of encounter. Physical Exam 2 Constitutional: WD/WN, vitals as above Eyes: PERRL, conjunctivae normal, anicteric sclerae Respiratory: normal respiratory effort, lungs clear to auscultation Cardiovascular: RRR, no murmur, no edema Gastrointestinal (Abdomen): normal bowel sounds, soft, nontender, no hepatosplenomegaly Psychiatric: A+Ox3, euthymic affect Results & Data Results & Data Vital Signs (Past 12 Hours) Vital Signs Temp Pulse Resp BP Pulse Ox O2 Del Method 07/09/24 08:00 36.7 C 78 16 130/86 95 Room Air 07/08/24 23:38 36.6 C 74 16 147/84 H 97 Room Air Laboratory Results 07/09/24 05:49 07/09/24 05:49 PG Care Time/CCT Total # of Minutes Spent Total Time Spent with Patient: Total time spent is greater than 50% in coordination of care (as documented) at patient's floor/unit and/or counseling patient: Coding Level of Care Code 17371 SUB INP/OBS CARE 2/35MIN Diagnoses Right flank pain R10.9 Hydronephrosis, right N13.30 Type 2 diabetes mellitus with chronic kidney disease E11.22 CKD (chronic kidney disease) stage 4, GFR 15-29 ml/min N18.4
--- NOTE | 2024-07-10 07:41 | Urology Progress Note ---
Date of Service July 10, 2024 Assessment & Plan (1) Right flank pain: (2) Hydronephrosis, right: (3) Ureteral stent present: Plan 69yo female s/p bilateral ureteroscopy w/right stent placement on 07/01/24 who presented with right flank pain and is admitted with suspected UTI and hydronephrosis - Afebrile with stable vitals - Labs show no leukocytosis and creatinine 1.87 (baseline appears to be 1.7- 2.0). - Urine culture grew pseudomonas. Antibiotics changed from Ceftriaxone to Cefepime 07/08. - Voiding spontaneously, continue to monitor. Bladder scan PRN. - We discussed stent removal in the operating room - she would like to proceed. - Plan for OR today for cystoscopy and right ureteral stent removal. - Risks/benefits discussed, all questions were answered. - Keep NPO. - Urology to follow. Admission and Anticipated Discharge Date Admission Date: July 06, 2024 Subjective Pt seen at bedside today. NAD. Has been NPO. Denies f/c/n/v. Still with some right flank discomfort. Review of Systems Constitutional: as per Subjective / HPI Genitourinary: as per Subjective / HPI Physical Exam Constitutional: no acute distress Respiratory: no respiratory distress and no labored breathing Musculoskeletal: Head/Neck/Chest: normocephalic Skin: No visible rashes or lesions to exposed skin areas Neurologic: moves all extremities and awake Psychiatric: A+Ox3, euthymic affect Results & Data Vital Signs (Past 12 Hours) Vital Signs Temp Pulse Resp BP Pulse Ox O2 Del Method 07/09/24 22:00 36.3 C L 83 18 121/84 93 Room Air PG Care Time/CCT Total # of Minutes Spent Total Time Spent with Patient: Total time spent is greater than 50% in coordination of care (as documented) at patient's floor/unit and/or counseling patient: Coding Level of Care Code 57911 SUB INP/OBS CARE 2/35MIN Diagnoses Right flank pain R10.9 Hydronephrosis, right N13.30 Ureteral stent present Z96.0
[2024-07-10 08:07] LABS: Hemoglobin 13.2 g/dl (12.0-16.0); Mean Corpuscular Hemoglobin 29.4 pg (25.0-34.0); Mean Corpuscular Volume 89.1 fL (80.0-100.0); Mean Platelet Volume 10.8 fL (9.4-12.4); Platelet Count 170 K/uL (130-400); RDW Coefficient of Variation 13.2 % (11.5-14.5); RDW Standard Deviation 43.5 fL (36.4-46.3); Red Blood Count 4.49 M/uL (4.20-5.40); White Blood Count 6.42 K/ul (4.8-10.8)
[2024-07-10 08:10] LABS: BUN Creatinine Ratio 18.2 (10-20); Calcium 9.4 mg/dl (8.6-10.3); Creatinine Clr Calc Pharmacy 31.1 ml/min; Potassium 4.3 mmol/L (3.5-5.1)
--- NOTE | 2024-07-10 09:47 | Anesthesiology Consultation ---
Date of Service July 10, 2024 Assessment & Plan (1) Encounter for preoperative assessment: Chart Review Chart Review: Acceptable Risk for Surgery History Surgery Operation Date: 07/10/24 10:30 Proposed Procedures p Cystoscopy Right Stent Removal - Hector Covarrubias MD Height/Weight Height: 5 ft 4 in Weight: 91.5 kg Allergies Allergy/AdvReac Type Severity Reaction Status Date / Time ciprofloxacin Allergy Severe kidney Verified 07/01/24 06:18 failure clarithromycin Allergy Intermediate hives, Verified 07/01/24 06:18 itching insulin aspart Allergy Intermediate Hives,Migra Verified 07/01/24 06:18 [From Novolog U-100 Insulin flakito aspart] latex Allergy Intermediate Hives Verified 07/01/24 06:18 Sulfa (Sulfonamide Allergy Unknown unknown Verified 07/01/24 06:18 Antibiotics) reaction aspartame AdvReac Intermediate severe Verified 07/01/24 06:18 migraines codeine AdvReac Mild vomiting Verified 07/01/24 06:18 (with remote use) glipizide AdvReac Mild nausea, Verified 07/01/24 06:18 migraines insulin lispro AdvReac Mild headache Verified 07/01/24 06:18 [From Humalog U-100 Insulin] liraglutide [From Victoza] AdvReac Mild migraines Verified 07/01/24 06:18 monosodium glutamate AdvReac Mild migraines Verified 07/01/24 06:18 nickel AdvReac Mild swelling, Verified 07/01/24 06:18 itching Medications Home Medications Medication Instructions Recorded Confirmed Last Taken blood-glucose meter (OneTouch #1 ea 05/04/22 06/26/24 Unknown Ultra2 Meter kit) lancets (Accu-Chek Softclix #100 ea 05/22/22 06/26/24 Unknown Lancets) albuterol sulfate 90 mcg/actuation 2 puff inhalation Q6H PRN 07/14/22 07/06/24 06/24/24 aerosol inhaler (Ventolin HFA) shortness of breath or wheezing #8.5 grams pen needle, diabetic 31 gauge x #400 ea 05/22/23 06/26/24 Unknown 5/16" (Easy Comfort Pen [place]) semaglutide 0.25 mg or 0.5 mg (2 0.5 mg (0.736 mL) subcut Q7D 90 12/05/23 07/06/24 06/20/24 mg/3 mL) subcutaneous pen injector days #15 mL (Ozempic) rizatriptan 10 mg tablet (Maxalt) See Rx Instructions PO .COMPLEX 90 03/12/24 07/06/24 06/24/24 days #27 tabs sumatriptan succinate 50 mg tablet See Rx Instructions PO .COMPLEX 90 03/12/24 07/06/24 06/24/24 (Imitrex) days #27 tabs insulin aspart U-100 100 unit/mL 3 unit (0.03 mL) subcut .COMPLEX 03/18/24 07/06/24 06/24/24 (3 mL) subcutaneous pen (Novolog 90 days #15 mL FlexPen U-100 Insulin aspart) insulin degludec 100 unit/mL (3 10 unit (0.1 mL) subcut QAM 90 03/18/24 07/06/24 06/30/24 10:00 mL) subcutaneous pen (Tresiba days #15 mL FlexTouch U-100 insulin) atorvastatin 20 mg tablet 20 mg PO DAILY #90 tabs 05/06/24 07/06/24 06/02/24 ondansetron 8 mg disintegrating 8 mg PO Q8H PRN nausea and 06/23/24 07/06/24 06/17/24 tablet vomiting #30 tabs oxycodone-acetaminophen 5 mg-325 1 tab PO Q8H PRN pain #10 tabs 06/23/24 07/06/24 Unknown mg tablet (Percocet) allopurinol 100 mg tablet 200 mg PO DAILY PRN gout 06/25/24 07/06/24 05/31/24 amlodipine 10 mg tablet 10 mg PO QAM 06/25/24 07/06/24 06/30/24 04:00 cholecalciferol (vitamin D3) 25 25 mcg PO DAILY 06/25/24 07/06/24 06/30/24 10:00 mcg (1,000 unit) chewable tablet (Vitamin D3) colchicine 0.6 mg tablet 0.6 mg PO DAILY PRN gout 06/25/24 07/06/24 04/30/24 divalproex 250 mg tablet,delayed 250 mg PO QPM 06/25/24 07/06/24 06/14/24 release furosemide 20 mg tablet 10 mg PO QPM edema 06/25/24 07/06/24 04/22/24 galcanezumab-gnlm 120 mg/mL 240 mg subcut MONTHLY 06/25/24 07/06/24 06/14/24 subcutaneous pen injector (Emgality Pen) olmesartan 40 mg tablet 40 mg PO QAM 06/25/24 07/06/24 Unknown prednisone 20 mg tablet 40 mg PO DAILY PRN gout 06/25/24 07/06/24 04/15/24 levothyroxine 50 mcg tablet 50 mcg PO QAM #90 tabs 06/27/24 07/06/24 07/01/24 04:00 tramadol 50 mg tablet 50 mg PO Q6H PRN pain #20 tabs 07/01/24 07/06/24 Unknown cefdinir 300 mg capsule 300 mg PO BID #14 caps 07/03/24 07/06/24 Unknown oxybutynin chloride 5 mg tablet 5 mg PO BID PRN bladder spasms #20 07/03/24 07/06/24 Unknown tabs Active Medications Generic Name Dose Route Start Last Admin Trade Name Freq PRN Reason Stop Dose Admin Acetaminophen 650 mg 07/06/24 21:00 07/10/24 08:57 Acetaminophen 325 Mg Tab PO 08/05/24 20:59 650 mg Q6H JOSE GUADALUPE Administration Amlodipine Besylate 10 mg 07/07/24 09:00 07/10/24 08:55 Amlodipine Besylate 5 Mg Tab PO 08/06/24 08:59 10 mg QAM JOSE GUADALUPE Administration Atorvastatin Calcium 20 mg 07/07/24 09:00 07/08/24 10:55 Atorvastatin 20 Mg Tab PO 08/06/24 08:59 Not Given DAILY JOSE GUADALUPE Divalproex Sodium 250 mg 07/06/24 21:03 07/09/24 20:36 Divalproex Delay Release 250 Mg Tabec PO 08/05/24 21:02 250 mg QPM JOSE GUADALUPE Administration Hydromorphone HCl 0.5 mg 07/06/24 16:57 07/09/24 21:41 Hydromorphone Inj 0.5 Mg/0.5 Ml Syr IV 07/20/24 16:56 0.5 mg Q4H PRN Administration Pain(5+) Insulin Aspart 0 units 07/07/24 16:30 07/10/24 08:53 Insulin Aspart Per Unit Charge SC 08/06/24 05:59 Not Given ACHS JOSE GUADALUPE Insulin Glargine 10 units 07/06/24 21:00 07/09/24 21:46 Lantus Per Unit Charge SQ 08/05/24 20:59 Not Given BID JOSE GUADALUPE Levothyroxine Sodium 50 mcg 07/07/24 06:30 07/10/24 06:27 Levothyroxine Sodium 50 Mcg Tablet PO 08/06/24 06:29 50 mcg DAILYBB JOSE GUADALUPE Administration Oxybutynin Chloride 5 mg 07/06/24 21:03 07/07/24 20:33 Oxybutynin Chloride 5 Mg Tab PO 08/05/24 21:02 5 mg BID PRN Administration bladder spasms Tamsulosin HCl 0.4 mg 07/06/24 21:00 07/09/24 20:36 Tamsulosin Hcl 0.4 Mg Cap PO 08/05/24 20:59 0.4 mg HS JOSE GUADALUPE Administration Past Medical History Medical History Hx of sepsis post right knee replacement, required admission with iv abx- told it was e- coli History of atrial fibrillation remote hx prior to ablation (1997), no known recurrence Hypertension Stage [address] kidney disease sees dr[address] marrero on 06/26/24 Hyperlipidemia GERD (gastroesophageal reflux disease) Hypothyroidism Mild intermittent asthma rare use of inhaler Insomnia Low back pain Hx of gout Recurrent UTI per culture, starting abx today Nephrolithiasis History of obstructive sleep apnea no longer uses cpap - told no longer needs to use Type 2 diabetes mellitus with chronic kidney disease Hx of migraines 1-2 times per month Tubular adenoma of colon 2015 Ptosis of eyelid, bilateral was to have surgery 06/27 but cancelled due to hypertension by surgeon until bp is controlled better Anemia History of kidney stones Somatic dysfunction of cervical region Slow to wake up after anesthesia Cyst of pancreas no follow up Fatty liver disease, nonalcoholic Transient ischemic attack (TIA) remote hx, no deficits Past Family History Family History Sister Family history of reaction to anesthesia difficulty waking Father Family history of diabetes mellitus Family hx colonic polyps Myocardial infarction Prostate cancer Kidney disease Mother Family history of diabetes mellitus Aunt Breast cancer Kidney disease Family/Other Breast cancer Grandfather (Paternal) Myocardial infarction Denies family history of Ovarian cancer Colorectal cancer Past Surgical History Surgical History History of arthroscopy of both knees Hx of hand surgery b/l trigger finger History of bilateral knee replacement History of carpal tunnel surgery History of esophageal dilatation History of bilateral breast implants History of right breast biopsy x2--benign History of hysterectomy History of bilateral tubal ligation History of dilatation and curettage History of bladder surgery bladder tac History of colonoscopy History of esophagogastroduodenoscopy (EGD) History of tooth extraction wisdom teeth History of bilateral cataract extraction History of cardiac cath (2007) 2007 ([facility] no stent (no evidence of coronary artery disease) History of cardiac radiofrequency ablation (1997) 1997 @ [facility] Social History Smoking Status: Never smoker Do You Dip or Chew Tobacco: No Hx Alcohol Use: No Alcohol type: wine alcohol intake frequency: holidays/special occasions only Hx Substance Use: No substance use type: does not use Physical Exam Vital Signs Last Vital Signs Temp 36.3 C L 07/09/24 22:00 Pulse 83 07/09/24 22:00 Resp 18 07/09/24 22:00 BP 121/84 07/09/24 22:00 Pulse Ox 93 07/09/24 22:00 O2 Del Method Room Air 07/09/24 22:00 Testing Laboratory Results 07/10/24 07:41 07/10/24 07:41 Urine Color Dark Yellow 07/06/24 14:05 Urine Appearance Turbid (Clear) A 07/06/24 14:05 Urine pH 8.0 (4.5-7.5) H 07/06/24 14:05 Ur Specific [place] 1.011 (1.000-1.030) 07/06/24 14:05 Urine Protein 2+ (Negative) H 07/06/24 14:05 Urine Glucose (UA) Negative (Negative) 07/06/24 14:05 Urine Ketones Negative (Negative) 07/06/24 14:05 Urine Nitrite Positive (Negative) A 07/06/24 14:05 Ur Leukocyte Esterase 3+ (Negative) H 07/06/24 14:05 Urine WBC (Auto) >50 /hpf (0-5) H 07/06/24 14:05 Urine RBC (Auto) >20 /hpf (0-2) H 07/06/24 14:05 U Hyaline Cast (Auto) 3-5 /lpf (0-2) H 07/06/24 14:05 U Epithel Cells (Auto) 0-2 /hpf (0-2) 07/06/24 14:05 Urine Bacteria (Auto) 1+ (None Seen) H 07/06/24 14:05 07/06/24 14:05 Urine Culture - Final Urine,Clean Catch Pseudomonas aeruginosa 07/10/24 07:46 POC Glucose 93 Electrocardiogram Date: 01/10/24 Findings: + NSR @ (79) and + poor R wave progression
[2024-07-10] MEDS ORDERED: MIDAZOLAM HCL 1 MG/ML 2ML VIAL ONE (10:19)
[2024-07-10] MEDS ORDERED: fentaNYL citrate PF 100 MCG/2 ML VIAL ONE (10:19)
--- NOTE | 2024-07-10 10:25 | History & Physical Bridge Note ---
Date of Service July 10, 2024 History & Physical Bridge Note I have examined the patient, reviewed the History & Physical and in the interval since the performance of the History & Physical I have noted the following changes of clinical significance: no changes noted
[2024-07-10] MEDS ORDERED: ATROPINE SULFATE 0.1 MG/ML 10ML SYR IV PRN (10:26)
[2024-07-10] MEDS ORDERED: fentaNYL citrate PF 100 MCG/2 ML VIAL IV PRN (10:26)
[2024-07-10] MEDS ORDERED: ONDANSETRON INJ 2 MG/ML 2 ML VIAL IV PRN (10:26)
[2024-07-10] MEDS: LACTATED RINGER'S 1,000 ML IV SCH (10:29)
[2024-07-10] MEDS ORDERED: ONDANSETRON INJ 2 MG/ML 2 ML VIAL ONE (10:34)
[2024-07-10] MEDS ORDERED: LIDOCAINE 2% 2 ML VIAL/AMP(20MG/ML) INFIL ONE (10:52)
[2024-07-10] MEDS ORDERED: PROPOFOL IV EMULSION 10 MG/ML 20 ML VIAL IV ONE (10:52)
--- NOTE | 2024-07-10 10:56 | Operative Report ---
PG Post Operative Report Pre & Post Diagnosis Operation Date: 07/10/24 10:30 Pre-Op Diagnosis: Retained Right Ureteral Stent Post-Op Diagnosis: Retained Right Ureteral Stent I identified the patient and participated in the time-out.: Yes Procedure Operation Date: 07/10/24 10:30 Actual Procedures p Cystoscopy Right Stent Removal(Right) - Hector Covarrubias MD Surgeon Hector Covarrubias MD Garage Door Installer none Estimated Blood Loss 0 Findings Consistent with Post-Op Diagnosis Specimens none Description of Procedure The patient was identified in the preoperative holding area, appropriate informed consents were reviewed and completed and the patient was transferred to the operative suite. Upon arrival, appropriate antibiotics and anesthesia were administered and the patient was placed in dorsal lithotomy position and prepped and draped in sterile fashion. To begin the case I passed a 21 [place] cystoscope with 30 degree lens per inspection revealed a healthy appearing bladder and the stent was easily identified protruding from the right ureteral orifice. The distal aspect of the stent was grasped and withdrawn to the meatus. I then removed the remainder of the stent without difficulty. She was reversed of anesthesia and taken the recovery room in stable condition. There were no complications. I attest to the content of the Intraoperative Record and any orders documented therein. Any exceptions are noted below.
--- NOTE | 2024-07-10 12:21 | Anesthesiology Progress Note ---
Date of Service July 10, 2024 Anesthesia Post Procedure Vital Signs Vital Signs: Temp Pulse Pulse Pulse Resp BP BP 07/10/24 11:40 37.1 C 72 14 136/93 07/10/24 11:25 73 16 138/91 07/10/24 11:15 88 16 115/84 07/10/24 11:05 82 16 127/84 07/10/24 10:56 36.8 C 77 15 130/79 07/10/24 10:09 36.8 C 78 16 164/111 H 07/09/24 22:00 36.3 C L 83 18 121/84 07/09/24 15:20 36.6 C 89 18 153/84 H Pulse Ox O2 Del Method O2 Flow Rate 07/10/24 11:40 94 Room Air 07/10/24 11:25 94 Room Air 07/10/24 11:15 97 Room Air 07/10/24 11:05 93 Room Air 07/10/24 10:56 97 Oxymask 6 07/10/24 10:09 95 Room Air 07/09/24 22:00 93 Room Air 07/09/24 15:20 95 Room Air Pain Intensity Right Flank: Pain Intensity: 4 Transfer of Care Handoff Completed per policy Notes Mental Status: alert / awake / arousable Patient Amnestic to Procedure: Yes Nausea / Vomiting: adequately controlled Pain: adequately controlled Airway Patency, RR, SpO2: stable & adequate BP & HR: stable & adequate Hydration State: stable & adequate Anesthetic Complications: no major complications apparent
--- NOTE | 2024-07-10 12:40 | Hospitalist Progress Note ---
Date of Service July 10, 2024 Assessment & Plan (1) Right flank pain: Plan: Patient presented to the ED on 07/06 with progressive right flank pain following her right stent placement with Dr. Covarrubias on 07/01. *Possible infection and inflammatory reaction due stent placement - CT A/P on admission showed right ureteral stent in place. No calcifications seen in right ureter along course of stent. Moderate to severe right sided hydronephrosis. Urothelial thickening seen in right ureter w/ surrounding infiltration. Also wall thickening of bladder w/ surrounding infiltration. findings may be related to presence of indwelling stent. right sided nephrolithiasis/stone fragments. two calcifications seen within asymmetrically atrophic left kidney. - Urine culture revealed pansensitive Pseudomonas > However, patient has listed allergy to fluoroquinolones causing kidney failure > Discussed with pharmacy, recommending US guided peripheral IV > Continue Cefepime BID until 07/18/24 - Had cystoscopy with right stent removal on 07/10/[address] Covarrubias - Continue Flomax - Tylenol and Dilaudid prn for pain - Zofran prn N/V - Oxybutynin prn for bladder spasms (2) Hydronephrosis, right: Plan: See plan above (3) Type 2 diabetes mellitus with chronic kidney disease: Plan: Monitor BSG ACHS, goal is [id number] Will continue 10 units Lantus AM Start CF of 50 and CR of 15 ACHS for now Adjust regimen as needed (4) CKD (chronic kidney disease) stage 4, GFR 15-29 ml/min: Plan: Renal functions currently stable Baseline Cr appears to be 1.72.0 Monitor daily renal function, intake/output every shift Plan Discussed case with pharmacy Discussed discharge planning with case management Ordered ultrasound-guided peripheral IV Chronic conditions: HLD: statin HTN: continue amlodipine. hold olmesartan to prevent ELZA. BPs stable. CODE STATUS: Full code DVT prophylaxis: SCD's Admission and Anticipated Discharge Date Admission Date: July 06, 2024 Subjective Patient seen and evaluated at bedside her cystoscopy with removal earlier today. She reports that she is feeling well overall after procedure. She notes that she urinated, which was bright red blood, with some discomfort but not pain. We discussed that this is normal and to be expected after stent removal. Reports still having some CVA tenderness, R>L. Discussed antibiotic options on discharge, and patient reports she has taken fluoroquinolones in the past wi thout issues. However, Cipro is listed as an allergy in her chart causing kidney failure. Will check with pharmacy, but stated if fluoroquinolones are not an option then she will require equipment [employer] IV for IV antibiotics on discharge. No additional complaints or concerns at this time. Physical Exam Physical Exam: General: No acute distress, nondiaphoretic, well-developed, well-nourished. Skin: The skin was without rashes, erythema, edema, or bruising. Cardiac: Regular rate and rhythm without murmurs gallops or rubs. Pulm: Clear to auscultation bilaterally without wheezes, rales or rhonchi. No respiratory distress. 95% on room air. Abdominal: Soft, nontender, nondistended. Bowel sounds present. : Positive right-sided CVA tenderness. Neuro: A&O x3. No focal neurological deficits. Results & Data Results & Data Vital Signs (Past 12 Hours) Vital Signs Temp Pulse Pulse Resp BP Pulse Ox O2 Del Method 07/10/24 11:40 98.8 F 72 14 136/93 94 Room Air 07/10/24 11:25 73 16 138/91 94 Room Air 07/10/24 11:15 88 16 115/84 97 Room Air 07/10/24 11:05 82 16 127/84 93 Room Air 07/10/24 10:56 98.2 F 77 15 130/79 97 Oxymask 07/10/24 10:09 98.2 F 78 16 164/111 H 95 Room Air O2 Flow Rate 07/10/24 11:40 07/10/24 11:25 07/10/24 11:15 07/10/24 11:05 07/10/24 10:56 6 07/10/24 10:09 Laboratory Results Reviewed CBC Reviewed BMP PG Care Time/CCT Total # of Minutes Spent Total Time Spent with Patient: Total time spent is greater than 50% in coordination of care (as documented) at patient's floor/unit and/or counseling patient: Coding Level of Care Code 78594 SUB INP/OBS CARE 3/50MIN Diagnoses Right flank pain R10.9 Hydronephrosis, right N13.30 Type 2 diabetes mellitus with chronic kidney disease E11.22 CKD (chronic kidney disease) stage 4, GFR 15-29 ml/min N18.4
[2024-07-10] MEDS: CEFEPIME 2000MG 2,000 MG/20 ML SYR IV SCH (21:33)
[2024-07-11 03:57] VITALS: TEMP 97.7
[2024-07-11 06:34] LABS: BUN Creatinine Ratio 18.4 (10-20); Calcium 9.5 mg/dl (8.6-10.3); Creatinine Clr Calc Pharmacy 33.4 ml/min; Potassium 4.3 mmol/L (3.5-5.1)
[2024-07-11 07:21] VITALS: BP 123/80; PULSE 70; RESP 16; O2SAT 95
--- NOTE | 2024-07-11 12:20 | Urology Progress Note ---
Date of Service July 11, 2024 Assessment & Plan (1) Acute UTI (urinary tract infection): (2) Right flank pain: (3) Hydronephrosis, right: (4) Ureteral stent present: Plan 69yo female s/p bilateral ureteroscopy w/right stent placement on 07/01/24 who presented with right flank pain and is admitted with UTI and hydronephrosis. Urine culture grew Pseudomonas. Since she remained inpatient on appropriate IV antibiotics, she underwent stent removal in the operating room. - She is now POD #1 s/p cystoscopy and right stent removal - Feeling well, right flank pain and dysuria have improved - Afebrile with stable vitals - Labs reviewed- Creatinine 1.74 - Urine culture grew pseudomonas- She continues on Cefepime - Voiding spontaneously, continue to monitor. Bladder scan PRN. - No further urological intervention warranted - OK to d/c from perspective medically stable per primary team - Per notes, pt to be discharged on Cefepime BID until 07/18/24 - Will arrange outpatient follow-up with our office - Urology will sign-off. Please call with any questions/concerns. Admission and Anticipated Discharge Date Admission Date: July 06, 2024 Subjective Patient seen at bedside today Awake and resting in bed on arrival No acute distress She reports improvement in right flank pain and dysuria following stent removal Denies fever, chills, nausea, vomiting Review of Systems Constitutional: as per Subjective / HPI Genitourinary: as per Subjective / HPI Physical Exam Constitutional: no acute distress Respiratory: no respiratory distress and no labored breathing Neurologic: moves all extremities and awake Psychiatric: A+Ox3, euthymic affect Results & Data Vital Signs (Past 12 Hours) Vital Signs Temp Pulse Resp BP Pulse Ox O2 Del Method 07/11/24 07:19 36.5 C 70 16 123/80 95 Room Air 07/11/24 03:56 36.5 C 71 18 127/82 94 Room Air PG Care Time/CCT Total # of Minutes Spent Total Time Spent with Patient: Total time spent is greater than 50% in coordination of care (as documented) at patient's floor/unit and/or counseling patient: Coding Level of Care Code 59332 SUB INP/OBS CARE 2/35MIN Diagnoses Acute UTI (urinary tract infection) N39.0 Right flank pain R10.9 Hydronephrosis, right N13.30 Ureteral stent present Z96.0
--- NOTE | 2024-07-11 18:58 | Discharge Summary ---
Discharge Summary Date of Service July 11, 2024 Principal Dx & Hospital Course #1 = Principal Diagnosis (1) Right flank pain: Patient presented to the ED on 07/06 with progressive right flank pain following her right stent placement with Dr. Covarrubias on 07/01. *Possible infection and inflammatory reaction due stent placement - CT A/P on admission showed right ureteral stent in place. No calcifications seen in right ureter along course of stent. Moderate to severe right sided hydronephrosis. Urothelial thickening seen in right ureter w/ surrounding infiltration. Also wall thickening of bladder w/ surrounding infiltration. findings may be related to presence of indwelling stent. right sided nephrolithiasis/stone fragments. two calcifications seen within asymmetrically atrophic left kidney. - Urine culture revealed pansensitive Pseudomonas > However, patient has listed allergy to fluoroquinolones causing kidney failure > Discussed with pharmacy, recommended US guided peripheral IV which was placed 07/11 > Continue Cefepime BID until 07/18/24 - Had cystoscopy with right stent removal on 07/10/[address] Covarrubias - Continue Flomax - Oxybutynin prn for bladder spasms - Lab slip given to patient for lab work in 1 week (2) Hydronephrosis, right: See plan above (3) Type 2 diabetes mellitus with chronic kidney disease: Monitor BSG ACHS, goal is [id number] Will continue 10 units Lantus AM Start CF of 50 and CR of 15 ACHS for now Adjust regimen as needed (4) CKD (chronic kidney disease) stage 4, GFR 15-29 ml/min: Renal functions currently stable Baseline Cr appears to be 1.72.0 Plan Chronic conditions: HLD: statin HTN: continue amlodipine. hold olmesartan to prevent ELZA. BPs stable. CODE STATUS: Full code DVT prophylaxis: SCD's Admission HPI Per Admitting Provider Wendy is a 69-year-old female with a past medical history significant for CKD, nephrolithiasis status post cystoscopy, bilateral uretero-nephroscopy, insertion of right stent catheter with Dr. Covarrubias on 07/01/2024, DM type II, hypothyroidism, hypertension, BRYAN who presented to [facility] ED on 07/06/2024 with complaints of progressive right flank pain since her procedure and right ureteral stent placement on 07/01/2024. She remained stable in the ED. Labs were significant for creatinine 1.94 (baseline is near 1.72.0) and UA with turbid appearance, 2+ protein, 2+ blood, nitrate positive, 3+ leukocyte esterase, greater than 50 WBC, greater than 20 RBC, 35 hyaline cast, 1+ bacteria, and epithelial cells within normal limits. CT of the abdomen pelvis without contrast noted a right ureteral stent in place without calcifications in the right ureteral along the course of the stent. Moderate to severe right- sided hydronephrosis. Ureteral thickening is seen in the right ureter with surrounding infiltration. There is also wall thickening of the bladder wall with surrounding infiltration. These findings may be related to the presence of indwelling stent. Correlate with clinical findings and urinalysis for evidence of superimposed urinary tract infection. The ED spoke with urology who evaluated the images and did not believe that urgent procedure was necessary. They recommended medicine admission with pain control and IV antibiotics, they will evaluate her in person tomorrow and continue to follow in case recurrent OR is needed. Prior to admission the patient was given 1 g IV Tylenol, 2 mg IV ceftriaxone, 0.5 mg IV Dilaudid, and 1 L NSS. Patient was sitting in bed in no acute distress at time of exam with her sitting bedside, history obtained from both. They confirm the patient underwent her procedure with Dr. Covarrubias on 07/01/2024. Shortly after her procedure the patient started to experience flank pain which has progressed over the past week. Pain is constant at about a 6/10 At with waves of severe flank pain up to 10/10. States that she had episodes of feeling feverish/chills with nausea on 07/02/2024. Began taking prescription of cefdinir which seemed to improve her fever/chills but her pain continued. Was using as needed tramadol at home without significant improvement in her symptoms which is why she came to the ED today. Pain is currently under control after the recent dose of Dilaudid in the ED. Denies chest pain, shortness of breath, vomiting, abdominal pain, dysuria, diarrhea, melena, lower extremity swelling, and recent trauma. She has been experiencing increased urinary frequency and hematuria over the past week. Patient she is a full code and want her /daughter to make medical decisions for if she cannot make them herself. Please refer to Dr. Ricardo's attestation for any changes to the treatment plan Discharge Exam General: No acute distress, nondiaphoretic, well-developed, well-nourished. Skin: The skin was without rashes, erythema, edema, or bruising. Cardiac: Regular rate and rhythm without murmurs gallops or rubs. Pulm: Clear to auscultation bilaterally without wheezes, rales or rhonchi. No respiratory distress. 95% on room air. Abdominal: Soft, nontender, nondistended. Bowel sounds present. : Positive right-sided CVA tenderness. Neuro: A&O x3. No focal neurological deficits. Discharge Plan Discharge Items Patient Disposition: Home - Self-Care Reason For Visit: RIGHT FLANK PAIN, RIGHT HYDROURETERONEPHROSIS Discharge Diagnosis: Acute UTI, hydronephrosis Activity: Per Instructions section Non-emergency contact: Primary Care Provider and Urologist Call non-emergency contact if: you have any medication questions, your symptoms worsen and you have a fever Follow-up/Referrals: Hector Covarrubias MD [Physician] - 07/09/24 2:30 pm Angie Thayer MD [Primary Care Provider] - 07/28/24 2:40 pm (Follow-up in 1 week) Diet: Carb Consistent or DM2 and Heart Healthy Addtl Attending Provider Instructions: Wendy, You were admitted to the hospital due to progressive right flank pain after your right stent placement with Dr. Covarrubias on 07/01/2024. You had a cystoscopy and your right stent removed on 08/06/[address] Covarrubias, and there were no complications from this procedure. Your urine culture did reveal a Pseudomonas UTI. Unfortunately, since you cannot take fluoroquinolones, you will continue on IV antibiotics on discharge from the hospital. You had an ultrasound-guided peripheral IV placed on 07/11/2024, and case management has coordinated the care for your IV antibiotics at home. Please follow the virtual teaching from the [facility] nurse. Upon discharge from the hospital: * Continue cefepime IV (antibiotic) twice daily, last day of antibiotics on 07/17/24. * Take tamsulosin 0.4 mg (1 capsule) at bedtime. This is an alpha-zach that will help you urinate easier. * Please get your labs checked in 1 week. A lab slip will be given to you on discharge. * Follow-up with urology. Their office will contact you with an appointment date and time. * Follow-up with your PCP in 1 week. * Continue your other home medications as prescribed. Please return to the hospital if you experience any of the following: Fever of 100.5 F or higher, swelling or redness or drainage near the IV site, rash or hives, worsening flank pain, shortness of breath, difficulty breathing, chest pain, lightheadedness, dizziness, confusion, or passing out. It was a pleasure taking care of you while you were in the hospital, Pippa Ricci PA-C Pending Studies at Discharge: No Stand-Alone Forms: My [facility], Smoking Cessation Medications and DC Order Prescriptions: New tamsulosin 0.4 mg Capsule 0.4 mg PO HS Qty: 15 0RF Continued (DME) blood-glucose meter [OneTouch Ultra2 Meter] Kit See Rx Instructions .Route Qty: 1 0RF Rx Instructions: use to test BS 5 times a day (DME) lancets [Accu-Chek Softclix Lancets] Misc See Rx Instructions miscellaneous .MEDSUPPLY Qty: 100 5RF Rx Instructions: As directed to check blood sugars BID albuterol sulfate [Ventolin HFA] 90 mcg/actuation HFA aerosol inhaler 2 puff inhalation Q6H PRN (Reason: shortness of breath or wheezing) Qty: 8.5 3RF Ozempic 0.25 mg or 0.5 mg (2 mg/3 mL) pen injector 0.5 mg subcut Q7D 90 Days Qty: 15 2RF Hold Instructions: NOT TAKING 03/01/23 - Too expensive atorvastatin 20 mg tablet 20 mg PO DAILY Qty: 90 3RF levothyroxine 50 mcg tablet 50 mcg PO QAM Qty: 90 3RF oxybutynin chloride 5 mg tablet 5 mg PO BID PRN (Reason: bladder spasms) Qty: 20 1RF Rx Instructions: filled 07/03 (DME) pen needle, diabetic [Easy Comfort Pen [place]] 31 gauge x 5/16" needle See Rx Instructions .Route Qty: 400 3RF Rx Instructions: use 4 times per day for insulin insulin degludec [Tresiba FlexTouch U-100] 100 unit/mL (3 mL) insulin pen 10 unit SUBCUT QAM 90 Days Qty: 15 2RF insulin aspart U-100 [Novolog FlexPen U-100 Insulin] 100 unit/mL (3 mL) insulin pen 3 unit subcut .COMPLEX 90 Days Qty: 15 2RF Rx Instructions: 3 units subcutaneously with high carbohydrate meals; max 9 u daily; oxycodone-acetaminophen [Percocet] 5-325 mg tablet 1 tab PO Q8H PRN (Reason: pain) Qty: 10 0RF ondansetron 8 mg tablet,disintegrating 8 mg PO Q8H PRN (Reason: nausea and vomiting) Qty: 30 0RF sumatriptan succinate [Imitrex] 50 mg tablet See Rx Instructions PO .COMPLEX 90 Days Qty: 27 4RF Rx Instructions: take 1 tab at onset of headache; if no relief may repeat 1 tab after at least 2 hrs; max = 4 tabs/24 hr PO rizatriptan [Maxalt] 10 mg tablet See Rx Instructions PO .COMPLEX 90 Days Qty: 27 4RF Rx Instructions: take 1 tab at onset of headache; if no relief may repeat 1 tab after at least 2 hrs; max = 3 tabs/24 hr PO cholecalciferol (vitamin D3) [Vitamin D3] 25 mcg (1,000 unit) Tablet,Chewable 25 mcg PO DAILY divalproex 250 mg tablet,delayed release (DR/EC) 250 mg PO QPM prednisone 20 mg tablet 40 mg PO DAILY PRN (Reason: gout) Rx Instructions: For gout flare allopurinol 100 mg tablet 200 mg PO DAILY PRN (Reason: gout) amlodipine 10 mg tablet 10 mg PO QAM furosemide 20 mg tablet 10 mg PO QPM Rx Instructions: Take 1/2 tablet daily colchicine 0.6 mg tablet 0.6 mg PO DAILY PRN (Reason: gout) Rx Instructions: Take 1.2 mg initially. 1 hr later take 0.6 mg. Day 2 and beyond take 1-2 tabs daily until flare resolves. olmesartan 40 mg tablet 40 mg PO QAM Emgality Pen 120 mg/mL pen injector 240 mg subcut MONTHLY tramadol 50 mg tablet 50 mg PO Q6H PRN (Reason: pain) Qty: 20 0RF Discontinued cefdinir 300 mg capsule 300 mg PO BID Qty: 14 0RF Rx Instructions: filled 07/03 Discharge Orders: Discharge Order (Routine); Ordered 07/11/24 Ordered By: Pippa Weems/Other Patient Handouts: Giving IV Antibiotics Dc Admission Data Admit Date/Time: 07/06/24 16:55 Attending Provider: Pippa Shultz Admit Provider: Vidal Ricardo Primary Care Provider: Angie Thayer Other Providers: [facility],Fax; Vidal Ricardo; Jonathan Cullen Other Interventions: Discharge Summary Assessment (RN) Last Done: 07/11/24 14:18 Hospital Stay Data Consultations 07/06/24 16:54 ED Decision to Admit Stat 07/06/24 17:21 Consult Urology Routine Procedures Performed Operation Date: 07/10/24 10:30 Actual Procedures p Cystoscopy Right Stent Removal(Right) - Hector Covarrubias MD Diagnostic Imagining Performed 07/06/24 14:50 CT abd pelvis wo con Stat Pending Results Patient Have Any Pending Studies at Discharge: No Discharge Instructions Given to Patient (Per Discharging Provider) Wendy, You were admitted to the hospital due to progressive right flank pain after your right stent placement with Dr. Covarrubias on 07/01/2024. You had a cystoscopy and your right stent removed on 08/06/[address] Covarrubias, and there were no complications from this procedure. Your urine culture did reveal a Pseudomonas UTI. Unfortunately, since you cannot take fluoroquinolones, you will continue on IV antibiotics on discharge from the hospital. You had an ultrasound-guided peripheral IV placed on 07/11/2024, and case management has coordinated the care for your IV antibiotics at home. Please follow the virtual teaching from the [facility] nurse. Upon discharge from the hospital: * Continue cefepime IV (antibiotic) twice daily, last day of antibiotics on 07/17/24. * Take tamsulosin 0.4 mg (1 capsule) at bedtime. This is an alpha-zach that will help you urinate easier. * Please get your labs checked in 1 week. A lab slip will be given to you on discharge. * Follow-up with urology. Their office will contact you with an appointment date and time. * Follow-up with your PCP in 1 week. * Continue your other home medications as prescribed. Please return to the hospital if you experience any of the following: Fever of 100.5 F or higher, swelling or redness or drainage near the IV site, rash or hives, worsening flank pain, shortness of breath, difficulty breathing, chest pain, lightheadedness, dizziness, confusion, or passing out. It was a pleasure taking care of you while you were in the hospital, Pippa Ricci PA-C Total Time Total Time Spent Total Time Spent (In Minutes): Greater than 30 minutes spent completing this discharge process including direct patient care, medication reconciliation, documentation, review of labs and images, and coordination of care. Coding Level of Care Code 47653 INP/OBS DISCH >30 MIN Diagnoses Right flank pain R10.9 Hydronephrosis, right N13.30 Type 2 diabetes mellitus with chronic kidney disease E11.22 CKD (chronic kidney disease) stage 4, GFR 15-29 ml/min N18.4
== END 2024-07-11 15:22 | disposition home or self-care (01) | DRG 699 ==
LOC: SUATTDRO → ED 13:33 → SUATTDRO 16:55 → 3E 16:55

== ENCOUNTER 2025-09-26 14:36 | Inpatient (IN) ==
--- NOTE | 2025-09-26 15:15 | Emergency Department Note ---
Impression & Plan Acute right flank pain, Sepsis, Leukocytosis, Acute UTI (urinary tract infection), Headache ED Provider Note HISTORY OF PRESENT ILLNESS: Patient is a 70-year-old female presenting with right flank pain and dysuria. Patient is concerned she has sepsis. Reports that starting a week ago she had pain in her right mid back. States this feels similar to when she has had kidney infections in the past. She went to her primary care provider's office yesterday and had a [id number] urinalysis that was positive and she was started on Macrobid. She reports she had 2 doses of Macrobid yesterday and a dose today. However, overnight she was having such intense chills that "I thought I was going to convulse." She reports subjective fevers. Reports nausea but denies any vomiting or diarrhea. Denies any anterior abdominal pain. Denies any chest pain but does report feeling slightly winded today. Currently complaining of pain in the right kidney and a headache. She is feeling nauseous currently. ROS: as above PHYSICAL EXAM: Constitutional: Patient appears in no acute distress. HENT: Head: Normocephalic and atraumatic. Eyes: EOMI, PERRL Mouth/Throat: Mucous membranes moist. Neck: Trachea midline. Neck supple. Cardiovascular: Tachycardic with regular rhythm. No murmurs, rubs or gallops. Intact distal pulses. Pulmonary/Chest: No respiratory distress. Breath sounds clear and equal bilaterally. No wheezes or rales. Abdominal: Abdomen soft, no tenderness, rebound or guarding. Back: No midline spinal tenderness, no paraspinal tenderness. Right CVA tenderness Musculoskeletal: No edema, tenderness or deformity noted. Skin: Warm and dry. No rash, erythema, pallor or cyanosis Psychiatric: Appropriate mood and affect for situation. Neurological: Alert and keenly responsive. CN II-XII grossly intact, moving all extremities equally and fully. MDM: - Vitals signs showed fever, tachycardia and hypertension - History obtained via patient. History as above. - Chronic conditions affecting care: recurrent UTIs; non-alcoholic fatty liver disease; DM-2; hypothyroidism; CKD; HLD; HTN - Differential diagnoses include, but are not limited to: UTI; pyelonephritis; ureteral stone; viral syndrome; colitis - Order placed for continuous cardiac monitoring. At this time, monitor showed rate of 94 bpm with normal sinus rhythm, per my interpretation. - External medical records reviewed. Wellness visit note dated 09/23/2025 was reviewed. Patient was seen for routine follow-up and annual wellness exam. - EKG image interpreted by myself showed normal sinus rhythm. Rate 100 bpm. QT 340. No acute ischemic changes. - Laboratory workup interpreted by myself showed leukocytosis (WBC 20.51) with neutrophil predominance; normal PT/INR; normal lactic acid; stable electrolytes; baseline CKD; elevated total bilirubin (1.2) with normal AST/ALT; normal procalcitonin - CXR image reviewed interpreted by myself is negative for pneumonia, per my interpretation. - Blood cultures obtained - Patient has previously grown E. coli and Pseudomonas on urine cultures. As such, given 2 g IV cefepime for broad antibiotic empiric coverage. - UA shows WBCs and leukocyte esterase positive. Patient has been on 2 days of macrobid, so urine not definitive at this time. However, patient having significant urinary symptoms. Urine culture sent. - Given 1g IV tylenol for headache and elevated temperature. Given 4 mg IV zofran for nausea. - Given 2L NS in ER. Sepsis fluid volume calculation based on ideal body weight is 1636.20 mL - CT abdomen/pelvis wo contrast obtained to rule out potential ureteral stone in the setting of patient's sepsis. - CT abdomen/pelvis wo contrast negative for acute abnormality. Noted have prominence of the right renal pelvis which has been seen on previous imaging. - Patient still complaining of headache on reassessment. Given 50 mcg IV fentanyl. However, still complaining of headache on reassessment and she did have a transient episode of desaturation with the opioid and was started on 2 L supplemental oxygen. Given 5 mg IV compazine and 25 mg IV benadryl for further headache management. - Discussion was had with textile conversion manager about patient's case and need for admission - Hospitalist consulted for admission - Patient admitted to [facility]ist service for further evaluation and management. ASSESSMENT AND PLAN: Diagnosis: Sepsis; acute right flank pain; acute UTI; leukocytosis; headache Plan: Admit Past Med/Surg History Problem List (Updated 09/26/25 @ 18:02 by Delores Harkins MD) Headache (Acute) Acute UTI (urinary tract infection) (Acute) Leukocytosis (Acute) Sepsis (Acute) Acute right flank pain (Acute) Abdominal pannus Dysphagia Constipation Abnormal CT scan Solitary kidney, acquired (Chronic) Chronic pelvic pain in female (Chronic) Chalazion left upper eyelid Epidermal inclusion cyst of left eyelid Abscess of left upper eyelid History of adenomatous polyp Metabolic dysfunction-associated steatotic liver disease (MASLD) Abscess of left upper eyelid Migraine with aura Nephrolithiasis (Chronic) Recurrent UTI (urinary tract infection) (Chronic) Type 2 diabetes mellitus with chronic kidney disease Low back pain Type 2 diabetes mellitus with obesity Lower extremity edema 03/01/23 Insomnia Mild intermittent asthma NAFLD (nonalcoholic fatty liver disease) Hypothyroidism Vitamin D deficiency CKD (chronic kidney disease) stage 4, GFR 15-29 ml/min Gout Knee pain Status post total right knee replacement Urinary incontinence Type 2 diabetes mellitus (Chronic) Hyperlipidemia (Chronic) Right knee DJD (Chronic) Obstructive sleep apnea syndrome GERD (gastroesophageal reflux disease) (Chronic) Hypertension (Chronic) Flank pain (Acute) Medical History Anemia Chronic pelvic pain in female Cyst of pancreas Fatty liver disease, nonalcoholic GERD (gastroesophageal reflux disease) History of atrial fibrillation History of kidney stones History of obstructive sleep apnea History of TIA (transient ischemic attack) Hx of gout Hx of migraines Hx of sepsis Hydronephrosis, right Hyperlipidemia Hypertension Hypothyroidism Insomnia Low back pain Lower extremity edema Mild intermittent asthma PONV (postoperative nausea and vomiting) Solitary kidney, acquired Somatic dysfunction of cervical region Stage 4 chronic kidney disease Tubular adenoma of colon Type 2 diabetes mellitus with chronic kidney disease UTI (urinary tract infection) Surgical History History of arthroscopy of both knees History of bilateral breast implants History of bilateral cataract extraction History of bilateral knee replacement History of bilateral tubal ligation History of bladder surgery History of cardiac cath (2007) History of cardiac radiofrequency ablation (1997) History of carpal tunnel surgery History of colonoscopy History of cystoscopy (04/27/25) History of dilatation and curettage History of esophageal dilatation History of esophagogastroduodenoscopy (EGD) History of hysterectomy History of right breast biopsy History of tooth extraction Hx of blepharoplasty Hx of hand surgery Slow to wake up after anesthesia Family History Sister Family history of reaction to anesthesia Father Family history of diabetes mellitus Family hx colonic polyps Myocardial infarction Prostate cancer Kidney disease Mother Family history of diabetes mellitus Aunt Breast cancer Kidney disease Family/Other Breast cancer Grandfather (Paternal) Myocardial infarction Denies family history of Ovarian cancer Colorectal cancer Social History Smoking Status: Never smoker Second Hand Exposure: Yes (childhood); Do You Dip or Chew Tobacco: No; Hx Alcohol Use: Yes Alcohol type: wine Preferred Language: Tajik Communication Ability: Effective Visual Impairment: No Limitations Hearing Ability: Normal Quality Assurance Engineer Required: No Beliefs That Will Affect Care: None marital status: Current Living Situation: Spouse current occupational status: retired Feels Safe at Home: Yes Childhood Exposure to Second-Hand Smoke: Yes Dental Care, Regularly: Yes Physical Activity Frequency: 3-4 Times per Week Seatbelt Use: always Sunscreen Use: No Assistive Devices: Glasses Allergies Allergies Allergy/AdvReac Type Severity Reaction Status Date / Time clarithromycin Allergy Intermediate hives, Verified 09/24/25 09:11 itching insulin aspart Allergy Intermediate Hives,Migra Verified 09/24/25 09:11 [From Novolog U-100 Insulin flakito aspart] latex Allergy Intermediate Hives Verified 09/24/25 09:11 Sulfa (Sulfonamide Allergy Unknown unknown Verified 09/24/25 09:11 Antibiotics) reaction aspartame AdvReac Intermediate severe Verified 09/24/25 09:11 migraines codeine AdvReac Mild vomiting Verified 09/24/25 09:11 (with remote use) glipizide AdvReac Mild nausea, Verified 09/24/25 09:11 migraines insulin lispro AdvReac Mild headache Verified 09/24/25 09:11 [From Humalog U-100 Insulin] liraglutide [From Victoza] AdvReac Mild migraines Verified 09/24/25 09:11 monosodium glutamate AdvReac Mild migraines Verified 09/24/25 09:11 nickel AdvReac Mild swelling, Verified 09/24/25 09:11 itching methenamine AdvReac Severe Afib Uncoded 09/24/25 09:11 complications, vertigo, syncope Home Meds Home Medications Medication Instructions Recorded Confirmed insulin degludec 100 unit/mL (3 8 unit subcut QAM 01/27/25 09/26/25 mL) subcutaneous pen (Tresiba FlexTouch U-100 insulin) galcanezumab-gnlm 120 mg/mL 120 mg subcut MONTHLY 04/27/25 09/26/25 subcutaneous pen injector (Emgality Pen) multivitamin 1 tab PO QAM 07/16/25 09/26/25 estradiol 0.01% (0.1 mg/gram) 1 g vaginal 2XWK 09/24/25 09/26/25 vaginal cream Previous Rx's Medication Instructions Recorded insulin aspart U-100 100 unit/mL 3 unit (0.03 mL) subcut .COMPLEX 03/18/24 (3 mL) subcutaneous pen (Novolog 90 days #15 mL FlexPen U-100 Insulin aspart) allopurinol 300 mg tablet 300 mg PO QAM #90 tabs 06/04/25 atorvastatin 40 mg tablet 40 mg PO QAM #90 tabs 06/04/25 tamsulosin 0.4 mg capsule 0.4 mg PO DAILY #90 caps 08/03/25 rizatriptan 10 mg disintegrating See Rx Instructions PO .COMPLEX 08/06/25 tablet PRN migraines 90 days #27 tabs sumatriptan succinate 50 mg tablet 50 mg PO Q2H PRN Migraine Headache 08/10/25 (Imitrex) 90 days #27 tabs spironolactone 25 mg tablet 25 mg PO DAILY #30 tabs 08/20/25 furosemide 20 mg tablet 20 mg PO DAILY #90 tabs 09/02/25 pantoprazole 40 mg tablet,delayed 40 mg PO BID #60 tabs 09/22/25 release albuterol sulfate 90 mcg/actuation 2 puff inhalation Q6H PRN 09/24/25 aerosol inhaler (Ventolin HFA) shortness of breath or wheezing #8.5 grams amlodipine 10 mg tablet 10 mg PO QAM #90 tabs 09/24/25 levothyroxine 50 mcg tablet 50 mcg PO QAM #90 tabs 09/24/25 olmesartan 40 mg tablet 40 mg PO QAM #90 tabs 09/24/25 semaglutide 0.25 mg or 0.5 mg (2 0.25 mg (0.368 mL) subcut Q7D #3 mL 09/24/25 mg/3 mL) subcutaneous pen injector (Ozempic) Results & Data (ED) Vital Signs Vital Signs - 24 hr 09/26/25 14:37 09/26/25 15:26 09/26/25 15:27 Temperature 37.6 C H Temperature Source Temporal Artery Scan Pulse Rate 101 H 100 H Respiratory Rate 17 21 Respiratory Effort / Characteristics Non-Labored Spontaneous Respiratory Depth Normal Blood Pressure 180/134 H 190/133 H Blood Pressure Mean 149 170 Pulse Oximetry 93 94 93 Oxygen Delivery Method Room Air Room Air Room Air Oxygen Flow Rate Sepsis Recent Fever Within 48 Hours No Sepsis New/Unexplained Change in Mental Status N/A Sepsis Action Taken by Nursing No Action Required 09/26/25 15:32 09/26/25 15:55 09/26/25 16:00 Temperature Temperature Source Pulse Rate 101 H 94 H Respiratory Rate 22 Respiratory Effort / Characteristics Respiratory Depth Blood Pressure 171/119 H 174/103 H Blood Pressure Mean 133 164 Pulse Oximetry 92 Oxygen Delivery Method Room Air Oxygen Flow Rate Sepsis Recent Fever Within 48 Hours Sepsis New/Unexplained Change in Mental Status Sepsis Action Taken by Nursing 09/26/25 16:33 09/26/25 17:00 09/26/25 17:30 Temperature Temperature Source Pulse Rate 91 H 82 79 Respiratory Rate 20 17 24 Respiratory Effort / Characteristics Respiratory Depth Blood Pressure 170/94 H 158/99 H 159/98 H Blood Pressure Mean 127 115 115 Pulse Oximetry 92 94 96 Oxygen Delivery Method Room Air Room Air Nasal Cannula Oxygen Flow Rate 2 Sepsis Recent Fever Within 48 Hours Sepsis New/Unexplained Change in Mental Status Sepsis Action Taken by Nursing Laboratory Data 09/26/25 14:55 09/26/25 14:55 Lab Results 09/26/25 09/26/25 09/26/25 Range/Units 14:55 15:12 15:30 WBC 20.51 H (4.8-10.8) K/ul RBC 5.02 (4.20-5.40) M/uL Hgb 15.2 (12.0-16.0) g/dL Hct 43.6 (37.0-47.0) % MCV 86.9 (80.0-100.0) fL MCH 30.3 (25.0-34.0) pg MCHC 34.9 (32.0-36.0) g/dL RDW Std Deviation 42.3 (36.4-46.3) fL RDW Coeff of Alexis 13.3 (11.5-14.5) % Plt Count 152 (130-400) K/uL MPV 11.3 (9.4-12.4) fL Immature Gran % (Auto) 0.8 % Neut % (Auto) 86.9 % Lymph % (Auto) 5.7 % [place] % (Auto) 6.2 % Eos % (Auto) 0.1 % Baso % (Auto) 0.3 % Neut # (Auto) 17.82 H (1.40-6.50) K/uL Lymph # (Auto) 1.16 L (1.20-3.40) K/uL [place] # (Auto) 1.28 H (0.11-0.59) K/uL Eos # (Auto) 0.02 (0.00-0.50) K/uL Baso # (Auto) 0.06 (0.00-0.20) K/uL Immature Gran # (Auto) 0.17 (0.01-0.20) K/uL PT 10.6 (9.0-12.0) Seconds INR 1.0 (0.9-1.1) APTT 30 (21-31) Seconds PTT Ratio 1.1 Sodium 137 (136-145) mmol/L Potassium 3.9 (3.5-5.1) mmol/L Chloride 104 (98-107) mmol/L Carbon Dioxide 24 (21-32) mmol/L Anion Gap 9 (3-11) BUN 22 (6-23) mg/dl Creatinine 1.67 H (0.6-1.2) mg/dl Est Cr Clr Drug Dosing 34.8 ml/min eGFR 32.75 BUN/Creatinine Ratio 13.2 (10-20) Glucose 161 H (70-99(Fasting)) mg/dl Lactate 1.6 (0.4-2.0) mmol/L Calcium 10.0 (8.6-10.3) mg/dl Magnesium 1.7 (1.7-2.4) mg/dl Total Bilirubin 1.2 H (0.2-1.0) mg/dl AST 15 (13-39) U/L ALT 11 (7-52) U/L Alkaline Phosphatase 67 (34-104) U/L Troponin I High Sens 8.5 (0-14) pg/ml Total Protein 7.4 (6.0-8.3) gm/dl Albumin 4.2 (3.4-5.0) gm/dl Globulin 3.2 (2.5-4.0) gm/dl Albumin/Globulin Ratio 1.3 (0.9-2) Procalcitonin 0.42 (0-0.5) ng/ml Urine Color Yellow Urine Appearance Clear (Clear) Urine pH 6.0 (4.5-7.5) Ur Specific Atkins 1.016 (1.000-1.030) Urine Protein 3+ H (Negative) Urine Glucose (UA) Negative (Negative) Urine Ketones 1+ H (Negative) Urine Blood Negative (Negative) Urine Nitrite Negative (Negative) Urine Bilirubin Negative (Negative) Urine Urobilinogen Negative (Negative) Ur Leukocyte Esterase Trace H (Negative) Urine WBC (Auto) 6-10 H (0-5) /hpf Urine RBC (Auto) 0-2 (0-2) /hpf U Hyaline Cast (Auto) 0-2 (0-2) /lpf U Epithel Cells (Auto) 3-5 H (0-2) /hpf Urine Bacteria (Auto) None Seen (None Seen) Urine Comment Administered Medications Discontinued Medications Diphenhydramine HCl (Diphenhydramine 50 Mg/Ml Vial) 25 mg IV NOW STA Stop: 09/26/25 17:46 Last Admin: 09/26/25 18:03 Dose: 25 mg Documented By: MEEK Fentanyl Citrate (Fentanyl Citrate Pf 100 Mcg/2 Ml Vial) 50 mcg IV NOW STA Stop: 09/26/25 16:40 Last Admin: 09/26/25 16:57 Dose: 50 mcg Documented By: MEEK Cefepime HCl (Maxipime 2000mg) 2,000 mg in 20 mls @ 5 mls/min IV NOW STA; Protocol Stop: 09/26/25 15:20 Last Admin: 09/26/25 15:24 Dose: 5 mls/min Documented By: ANTOINE Sodium Chloride (Nss) 2,000 mls @ 999 mls/hr IV .Q2H1M ONE Stop: 09/26/25 17:17 Last Infusion: 09/26/25 17:53 Dose: Infused Documented By: Admin: 09/26/25 15:25 Dose: 999 mls/hr Documented By: ANTOINE Acetaminophen (Ofirmev) 1,000 mg in 100 mls @ 400 mls/hr IV NOW STA Stop: 09/26/25 15:31 Last Infusion: 09/26/25 17:09 Dose: Infused Documented By: Infusion: 09/26/25 16:36 Dose: Infused Documented By: Admin: 09/26/25 15:24 Dose: 400 mls/hr Documented By: BS Prochlorperazine (Compazine) 1 mls @ 1 mls/min IV ONE ONE Stop: 09/26/25 17:46 Last Admin: 09/26/25 18:02 Dose: 1 mls/min Documented By: ECS Ondansetron HCl (Ondansetron Inj 2 Mg/Ml 2 Ml Vial) 4 mg IV NOW STA Stop: 09/26/25 15:18 Last Admin: 09/26/25 15:24 Dose: 4 mg Documented By: BS Imaging Data Radiologist's Impression: Chest X-Ray 09/26/25 14:43 Chest radiograph, one view History: Sepsis Comparison: None Findings: Single AP view of the chest performed. No focal consolidation or pleural effusion. No pneumothorax. The cardiomediastinal silhouette is within normal limits. Normal pulmonary vascularity. No evidence for lymphadenopathy. No visualized bony or soft tissue abnormality. Impression: Normal chest radiograph Electronically signed by Hector Mckoy 09-26-2025 5:34 PM Abdomen/Pelvis CT 09/26/25 15:54 INDICATION: Right-sided flank pain COMPARISON: 09/17/2024 TECHNIQUE: Contiguous axial CT images were obtained through the abdomen and pelvis. Dose reduction according to patient size and/or automated exposure control techniques have been utilized for this exam. FINDINGS: CT ABDOMEN: LUNG BASES: Minor bilateral lower lobe atelectasis or scarring. Bilateral breast implants. LIVER: No worrisome hepatic lesions. Hepatic steatosis. SPLEEN: Unremarkable. GALLBLADDER: Unremarkable. KIDNEYS: There is some prominence of the right renal pelvis but no obstructing calculi are appreciated. The left kidney is smaller than the right. Bilateral renal cortical scarring changes. Bilateral renal cortical calcifications. PANCREAS: Unremarkable. ADRENAL GLANDS: Unremarkable. PROXIMAL BOWEL: No small bowel obstruction. RETROPERITONEUM: No AAA. No significant lymphadenopathy. OTHER: No abscess. Small fat-containing umbilical hernia. CT PELVIS: URINARY BLADDER: Unremarkable. PELVIC ORGANS: Uterus not visualized. DISTAL BOWEL: [id number] stool in the colon. Normal appendix. OTHER: No significant lymphadenopathy. There is no free pelvic fluid. IMPRESSION: There is some prominence of the right renal pelvis, similar to prior. Lobular contour of the kidneys. Renal cortical scarring changes with parenchymal calcifications. Hepatic steatosis. Electronically signed by Suki Collins 09-26-2025 5:55 PM Discharge Plan Visit Data Chief Complaint: Illness Stated Complaint: BACK PAIN AROUND KIDNEYS, FEVER, NAUSEA, HEADACHE ED Provider: Delores Harkins Discharge Problem: Acute right flank pain, Sepsis, Leukocytosis, Acute UTI (urinary tract infection), Headache Patient Disposition: Admitted As Inpatient Condition: Fair Forms Stand Alone Forms: Beamr Prescriptions Prescriptions: No Action rizatriptan 10 mg tablet,disintegrating See Rx Instructions PO .COMPLEX PRN (Reason: migraines) 90 Days Qty: 27 3RF Rx Instructions: take 1 tab at onset of headache; if no relief may repeat 1 tab after at least 2 hrs; max = 3 tabs/24 hr orally PRN; sumatriptan succinate [Imitrex] 50 mg tablet 50 mg PO Q2H PRN (Reason: Migraine Headache) 90 Days Qty: 27 3RF insulin aspart U-100 [Novolog FlexPen U-100 Insulin] 100 unit/mL (3 mL) insulin pen 3 unit subcut .COMPLEX 90 Days Qty: 15 2RF Patient Comments: 3 units Rx Instructions: 3 units subcutaneously with high carbohydrate meals; max 9 u daily; amlodipine 10 mg tablet 10 mg PO QAM Qty: 90 3RF albuterol sulfate [Ventolin HFA] 90 mcg/actuation HFA aerosol inhaler 2 puff inhalation Q6H PRN (Reason: shortness of breath or wheezing) Qty: 8.5 5RF levothyroxine 50 mcg tablet 50 mcg PO QAM Qty: 90 3RF olmesartan 40 mg tablet 40 mg PO QAM Qty: 90 3RF Ozempic 0.25 mg or 0.5 mg (2 mg/3 mL) pen injector 0.25 mg subcut Q7D Qty: 3 0RF Rx Instructions: Patient gets medication from [facility]. estradiol 0.01 % (0.1 mg/gram) cream 1 g vaginal 2XWK pantoprazole 40 mg tablet,delayed release (DR/EC) 40 mg PO BID Qty: 60 5RF atorvastatin 40 mg tablet 40 mg PO QAM Qty: 90 3RF allopurinol 300 mg tablet 300 mg PO QAM Qty: 90 3RF tamsulosin 0.4 mg capsule 0.4 mg PO DAILY Qty: 90 2RF spironolactone 25 mg tablet 25 mg PO DAILY Qty: 30 2RF furosemide 20 mg tablet 20 mg PO DAILY Qty: 90 3RF insulin degludec [Tresiba FlexTouch U-100] 100 unit/mL (3 mL) insulin pen 8 unit SUBCUT QAM Patient Comments: 8 units- 12 units Emgality Pen 120 mg/mL pen injector 120 mg subcut MONTHLY Patient Comments: not currently taking 01/27/25 multivitamin Tablet 1 tab PO QAM Referrals Referrals: Angie Julien MD [Primary Care Provider] -
[2025-09-26 15:20] LABS: Hematocrit (blood only) 43.6 % (37.0-47.0); Hemoglobin 15.2 g/dL (12.0-16.0); Immature Granulocytes # (auto) 0.17 K/uL (0.01-0.20); Immature Granulocytes % (auto) 0.8 %; Mean Corpuscular Hemoglobin 30.3 pg (25.0-34.0); Mean Corpuscular Volume 86.9 fL (80.0-100.0); Platelet Count 152 K/uL (130-400); RDW Standard Deviation 42.3 fL (36.4-46.3); Red Blood Count 5.02 M/uL (4.20-5.40); White Blood Count 20.51 K/ul (4.8-10.8)
[2025-09-26] MEDS: CEFEPIME 2000MG 2,000 MG/20 ML SYR IV STA (15:24)
[2025-09-26] MEDS: ONDANSETRON INJ 2 MG/ML 2 ML VIAL IV STA (15:24)
[2025-09-26] MEDS: ACETAMINOPHEN 1,000 MG/100 ML VIAL IV STA (15:24)
[2025-09-26] MEDS: SODIUM CHLORIDE 0.9% 2,000 ML IV ONE (15:25)
[2025-09-26 15:39] LABS: Alanine Aminotransferase 11.0 U/L (7-52); Albumin Globulin Ratio 1.3 (0.9-2); Albumin Level 4.2 gm/dl (3.4-5.0); Alkaline Phosphatase 67.0 U/L (34-104); Anion Gap 9.0 (3-11); Bilirubin,Total 1.2 mg/dl (0.2-1.0); Blood Urea Nitrogen 22.0 mg/dl (6-23); Calcium 10.0 mg/dl (8.6-10.3); Carbon Dioxide 24.0 mmol/L (21-32); Chloride 104.0 mmol/L (98-107); Creatinine Clr Calc Pharmacy 34.8 ml/min; Globulin 3.2 gm/dl (2.5-4.0); Glucose 161.0 mg/dl (70-99(Fasting)); Magnesium 1.7 mg/dl (1.7-2.4); Potassium 3.9 mmol/L (3.5-5.1); Sodium 137.0 mmol/L (136-145); Total Protein 7.4 gm/dl (6.0-8.3)
[2025-09-26 15:47] LABS: INR 1.0 (0.9-1.1); Partial Thromboplastin Time 30 Seconds (21-31); Prothrombin Time 10.6 Seconds (9.0-12.0)
[2025-09-26 16:56] LABS: Appearance Urine Clear (Clear); Bacteria Urine Automated None Seen (None Seen); Cast Urine Automated 0-2 /lpf (0-2); Glucose Urine UA Negative (Negative); RBC Urine Automated 0-2 /hpf (0-2)
--- NOTE | 2025-09-26 17:35 | XRay Report ---
Chest radiograph, one view History: Sepsis Comparison: None Findings: Single AP view of the chest performed. No focal consolidation or pleural effusion. No pneumothorax. The cardiomediastinal silhouette is within normal limits. Normal pulmonary vascularity. No evidence for lymphadenopathy. No visualized bony or soft tissue abnormality. Impression: Normal chest radiograph Electronically signed by Hector Mckoy 09-26-2025 5:34 PM
--- NOTE | 2025-09-26 17:50 | History & Physical Report ---
Date of Service September 26, 2025 Assessment & Plan (1) Sepsis secondary to UTI: (2) Acute UTI (urinary tract infection): (3) Acute right flank pain: Plan Renata is a pleasant 70-year-old woman with past medical history of hypertension, hyperlipidemia, type II DM, BRYAN, hypothyroidism, CKD stage IV, asthma, GERD, gout, recurrent UTIs, nephrolithiasis, migraines with aura, OA s/p bilateral TKA, MASLD, obesity. She presented from home with right flank pain and dysuria x 1 week and was concerned for sepsis, as she has become septic from UTIs previously. She was admitted for further management of urosepsis. #Urosepsis | UTI - with tachycardia, fever, leukocytosis, and source UTI. 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 She reports fever and chills at home overnight prior to admission. - UA could represent partially treated infection with 3+ protein, 1+ ketone, trace leukocyte esterase, 610 WBC, 35 epithelial cells - Significant leukocytosis of 20.51 with neutrophil predominance. Lactate WNL at 1.6. Procalcitonin WNL at 0.42. - CT A/P with some prominence of the right renal pelvis, similar to prior, no obstructing calculi appreciated. No signs of pyelonephritis noted - Received Cefepime IV in ED - continue while awaiting urine culture sensitivities - Urine and blood cultures pending - Pain regimen: Tylenol PRN, oxycodone 5-10 mg Q4H PRN mod-severe pain #Hypertensioncontinue amlodipine 10 mg daily, olmesartan 40 mg daily, spironolactone 20 mg daily, furosemide 20 mg daily #Hyperlipidemiacontinue atorvastatin 40 mg daily #[id number] 6.7%. Home regimen includes insulin degludec qAM + insulin aspart TIDAC SSI and Ozempic 0.25 mg SQ weekly - Hold home regimen - Lantus + SSI while admitted #CKD stage IVfollows with Dr. Edwards in nephrology. Baseline creatinine 1.82.0. Avoid nephrotoxins #Hypothyroidismcontinue levothyroxine 50 mcg daily #GERDcontinue pantoprazole, Carafate #Goutcontinue allopurinol 300 mg daily #Mild intermittent asthmacontinue home inhalers #Chronic edemahigh dose amlodipine likely contributing. Apply ANDREA stockings b ilaterally, elevate legs, heart healthy diet for sodium restriction VTE PPx: Low risk. Encourage ambulation. Add chemoprophylaxis if prolonged stay. Dispo: Admit to med/tele Updated at bedside on admission. Reviewed prior medical records. History of Present Illness Chief Complaint: Right flank pain and dysuria Primary Care Provider: Angie Julien MD Renata is a pleasant 70-year-old woman with past medical history of hypertension, hyperlipidemia, type II DM, BRYAN, hypothyroidism, CKD stage IV, asthma, GERD, gout, recurrent UTIs, nephrolithiasis, migraines with aura, OA s/p bilateral TKA, MASLD, obesity. She presented from home with right flank pain and dysuria. At the time of my exam, the patient was lying in bed in no acute distress with her present at bedside. She states she has had dysuria and right-sided flank pain that is progressed x 1 week. She saw her PCP yesterday who checked a UA which was positive for UTI. She was started on Macrobid and had 2 doses yesterday and 1 dose this morning prior to coming to the ED. She had rigors overnight and subjectively felt febrile. She also had some nausea earlier, which has since resolved after receiving Zofran. Currently, she reports her biggest complaint is a migraine headache. She reports this headache is similar to her previous migraines. She denies chest pain, shortness of breath, abdominal pain. Patient reports that she took all of her regular morning medications today; no recent change in home medications (aside from recent Macrobid prescription). She does not use supplemental oxygen at baseline. No CPAP at night. Vitals on admission significant for elevated BP at 159/98 and elevated temp at 99.7 F; vitals otherwise stable. Labs on admission are significant for leukocytosis with WBC 20.51 with neutrophil predominance. H&H and platelets WNL. Electrolytes WNL. Renal function at baseline. Liver enzymes WNL. Lactate WNL at 1.6. Procalcitonin WNL at 0.42. Troponin negative at 8.5. UA with 3+ protein, 1+ ketones, trace leukocyte esterase, 610 WBC, 35 epithelial cells. CXR on admission reveals a normal chest radiograph. CT A/P notes some prominence of the right renal pelvis, similar to prior, lobar contour of the kidneys with renal cortical scarring changes with parenchymal calcifications. No pyelonephritis noted. We discussed code status, patient wishes to be a full code. Allergies Allergy/AdvReac Type Severity Reaction Status Date / Time clarithromycin Allergy Intermediate hives, Verified 09/24/25 09:11 itching insulin aspart Allergy Intermediate Hives,Migra Verified 09/24/25 09:11 [From Novolog U-100 Insulin flakito aspart] latex Allergy Intermediate Hives Verified 09/24/25 09:11 Sulfa (Sulfonamide Allergy Unknown unknown Verified 09/24/25 09:11 Antibiotics) reaction aspartame AdvReac Intermediate severe Verified 09/24/25 09:11 migraines codeine AdvReac Mild vomiting Verified 09/24/25 09:11 (with remote use) glipizide AdvReac Mild nausea, Verified 09/24/25 09:11 migraines insulin lispro AdvReac Mild headache Verified 09/24/25 09:11 [From Humalog U-100 Insulin] liraglutide [From Victoza] AdvReac Mild migraines Verified 09/24/25 09:11 monosodium glutamate AdvReac Mild migraines Verified 09/24/25 09:11 nickel AdvReac Mild swelling, Verified 09/24/25 09:11 itching methenamine AdvReac Severe Afib Uncoded 09/24/25 09:11 complications, vertigo, syncope Home Medications Medication Instructions Recorded Confirmed Type insulin aspart U-100 100 unit/mL 3 unit (0.03 mL) subcut .COMPLEX 03/18/24 09/26/25 Rx (3 mL) subcutaneous pen (Novolog 90 days #15 mL FlexPen U-100 Insulin aspart) insulin degludec 100 unit/mL (3 8 unit subcut QAM 01/27/25 09/26/25 History mL) subcutaneous pen (Tresiba FlexTouch U-100 insulin) galcanezumab-gnlm 120 mg/mL 120 mg subcut MONTHLY 04/27/25 09/26/25 History subcutaneous pen injector (Emgality Pen) allopurinol 300 mg tablet 300 mg PO QAM #90 tabs 06/04/25 09/26/25 Rx atorvastatin 40 mg tablet 40 mg PO QAM #90 tabs 06/04/25 09/26/25 Rx multivitamin 1 tab PO QAM 07/16/25 09/26/25 History tamsulosin 0.4 mg capsule 0.4 mg PO DAILY #90 caps 08/03/25 09/26/25 Rx rizatriptan 10 mg disintegrating See Rx Instructions PO .COMPLEX 08/06/25 09/26/25 Rx tablet PRN migraines 90 days #27 tabs sumatriptan succinate 50 mg tablet 50 mg PO Q2H PRN Migraine Headache 08/10/25 09/26/25 Rx (Imitrex) 90 days #27 tabs spironolactone 25 mg tablet 25 mg PO DAILY #30 tabs 08/20/25 09/26/25 Rx furosemide 20 mg tablet 20 mg PO DAILY #90 tabs 09/02/25 09/26/25 Rx pantoprazole 40 mg tablet,delayed 40 mg PO BID #60 tabs 09/22/25 09/26/25 Rx release albuterol sulfate 90 mcg/actuation 2 puff inhalation Q6H PRN 09/24/25 09/26/25 Rx aerosol inhaler (Ventolin HFA) shortness of breath or wheezing #8.5 grams amlodipine 10 mg tablet 10 mg PO QAM #90 tabs 09/24/25 09/26/25 Rx estradiol 0.01% (0.1 mg/gram) 1 g vaginal 2XWK 09/24/25 09/26/25 History vaginal cream levothyroxine 50 mcg tablet 50 mcg PO QAM #90 tabs 09/24/25 09/26/25 Rx olmesartan 40 mg tablet 40 mg PO QAM #90 tabs 09/24/25 09/26/25 Rx semaglutide 0.25 mg or 0.5 mg (2 0.25 mg (0.368 mL) subcut Q7D #3 mL 09/24/25 09/26/25 Rx mg/3 mL) subcutaneous pen injector (Ozempic) Past Med/Surg History Problem List (Updated 09/26/25 @ 20:08 by Background Daemon) Sepsis secondary to UTI Headache (Acute) Acute UTI (urinary tract infection) (Acute) Leukocytosis (Acute) Sepsis (Acute) Acute right flank pain (Acute) Abdominal pannus Dysphagia Constipation Abnormal CT scan Solitary kidney, acquired (Chronic) Chronic pelvic pain in female (Chronic) Chalazion left upper eyelid Epidermal inclusion cyst of left eyelid Abscess of left upper eyelid History of adenomatous polyp Metabolic dysfunction-associated steatotic liver disease (MASLD) Abscess of left upper eyelid Migraine with aura Nephrolithiasis (Chronic) Recurrent UTI (urinary tract infection) (Chronic) Type 2 diabetes mellitus with chronic kidney disease Low back pain Type 2 diabetes mellitus with obesity Lower extremity edema 03/01/23 Insomnia Mild intermittent asthma NAFLD (nonalcoholic fatty liver disease) Hypothyroidism Vitamin D deficiency CKD (chronic kidney disease) stage 4, GFR 15-29 ml/min Gout Knee pain Status post total right knee replacement Urinary incontinence Type 2 diabetes mellitus (Chronic) Hyperlipidemia (Chronic) Right knee DJD (Chronic) Obstructive sleep apnea syndrome GERD (gastroesophageal reflux disease) (Chronic) Hypertension (Chronic) Flank pain (Acute) Medical History Anemia Chronic pelvic pain in female Cyst of pancreas Fatty liver disease, nonalcoholic GERD (gastroesophageal reflux disease) History of atrial fibrillation History of kidney stones History of obstructive sleep apnea History of TIA (transient ischemic attack) Hx of gout Hx of migraines Hx of sepsis Hydronephrosis, right Hyperlipidemia Hypertension Hypothyroidism Insomnia Low back pain Lower extremity edema Mild intermittent asthma PONV (postoperative nausea and vomiting) Solitary kidney, acquired Somatic dysfunction of cervical region Stage 4 chronic kidney disease Tubular adenoma of colon Type 2 diabetes mellitus with chronic kidney disease UTI (urinary tract infection) Surgical History History of arthroscopy of both knees History of bilateral breast implants History of bilateral cataract extraction History of bilateral knee replacement History of bilateral tubal ligation History of bladder surgery History of cardiac cath (2007) History of cardiac radiofrequency ablation (1997) History of carpal tunnel surgery History of colonoscopy History of cystoscopy (04/27/25) History of dilatation and curettage History of esophageal dilatation History of esophagogastroduodenoscopy (EGD) History of hysterectomy History of right breast biopsy History of tooth extraction Hx of blepharoplasty Hx of hand surgery Slow to wake up after anesthesia Family History Sister Family history of reaction to anesthesia Father Family history of diabetes mellitus Family hx colonic polyps Myocardial infarction Prostate cancer Kidney disease Mother Family history of diabetes mellitus Aunt Breast cancer Kidney disease Family/Other Breast cancer Grandfather (Paternal) Myocardial infarction Denies family history of Ovarian cancer Colorectal cancer Social History Smoking Status: Never smoker Second Hand Exposure: Yes (childhood); Do You Dip or Chew Tobacco: No; Hx Alcohol Use: No Hx Substance Use: No Preferred Language: Gibraltarian Communication Ability: Effective Visual Impairment: No Limitations Hearing Ability: Normal Park Guide Required: No Beliefs That Will Affect Care: None marital status: Current Living Situation: Spouse current occupational status: retired Feels Safe at Home: Yes Safety Concerns: Feels Safe At This Time Childhood Exposure to Second-Hand Smoke: Yes Dental Care, Regularly: Yes Physical Activity Frequency: 3-4 Times per Week Seatbelt Use: always Sunscreen Use: No Assistive Devices: Glasses Review of Systems Review of Systems: All systems reviewed & are unremarkable except as noted in HPI & below Physical Exam Physical Exam: General: No acute distress, nondiaphoretic, well-developed, well-nourished. A ppears ill. Skin: Warm, dry. No rashes or pitting peripheral edema noted. Cardiac: Regular rate and rhythm without murmurs gallops or rubs. Pulm: Clear to auscultation bilaterally without wheezes, rales or rhonchi. Normal respiratory effort. 91% on room air. Abdominal: Soft, nontender, nondistended. Bowel sounds present. : No flank pain with palpation noted. Neuro: A&O x3. No focal neurological deficits. Results & Data Results & Data Vital Signs (Past 12 Hours) Vital Signs Temp Pulse Resp BP Pulse Ox O2 Del Method O2 Flow Rate 09/26/25 17:30 79 24 159/98 H 96 Nasal Cannula 2 09/26/25 17:00 82 17 158/99 H 94 Room Air 09/26/25 16:33 91 H 20 170/94 H 92 Room Air 09/26/25 16:00 174/103 H 09/26/25 15:55 94 H 09/26/25 15:32 101 H 22 171/119 H 92 Room Air 09/26/25 15:27 93 Room Air 09/26/25 15:26 100 H 21 190/133 H 94 Room Air 09/26/25 14:37 99.7 F H 101 H 17 180/134 H 93 Room Air Laboratory Results Reviewed CBC with differential, coagulation studies, CMP/chemistries, UA Diagnostic Findings Reviewed CXR, CT A/P, EKG Supervising Physician Co-Signing Physician Notes Attending Attestation & Admit Note: Pt seen/examined, chart reviewed, admit care plan d/w ZBIGNIEW Ricci. I agree w/ the veliz components of her admission documentation. 70yo female with hypertension, hyperlipidemia, type II DM, BRYAN, hypothyroidism, CKD stage 3b/IV, asthma, GERD, gout, recurrent UTIs, nephrolithiasis, migraine headaches, MASLD, obesity, and solitary kidney status/atrophic left kidney who presents with 1 week of dysuria and right flank tenderness. In the outpatient setting she provided a urine specimen to [facility] this week and her urine was sent for PCR testing. This returned showing enterococcus, proteus, and citrobacter. I do not have the lab report, but by written communication reviewed from the urology office it appears the provider advised macrobid as the testing suggested macrobid would cover all 3 pathogens. She took at least 3 doses of such at home. Despite the above she has continued to feel poorly. In addition to the above she mentions difficulty with dyspnea and also singing/speaking since she had esophageal dilatation earlier this fall at [facility]. Finally, she c/o migraine headache today and states she takes imitrex prn at home for such. Has been taking imitrex "for years." PMH/PSH/allergies/meds/sochx - reviewed VSS, afebrile (although Tm was 37.6) gen - laying on stretcher, looks ill and tired but nontoxic, NAD mouth - MMM, no lesions, no obvious thrush neck - no JVD heart - RRR, s1 s2, no murmur lungs - faint dry rales - scattered bases; no wheeze; no increased work of breathing back - no right flank tenderness to palpation abd - soft NT ND BS+ ext - 1+ edema, pulses b/l feet 2+ labs reviewed - WBC count 20 u/a reviewed - microscropy w/o bacteria, nitrites negative, only trace LE CT a/p reviewed A/P: 1. concern for sepsis 2nd to UTI 2. recurrent UTIs 3. atrophic left kidney 4. CKD stage 3b/4 5. migraine headache 6. c/o voice changes & dyspnea since esophageal dilatation earlier in 2024 -given presence of citrobacter/proteus/enterococcus on PCR based urine testing done earlier this week I agree with cefepime for gram negatives & will add daptomycin IV for enterococcus -follow blood/urine cx's -pain relief for migraine -IV fluids -labs in am -recommended ENT eval as outpatient for #6 -cxr today noted to be wnl despite her c/o dyspnea Jaime Corey MD PG Care Time/CCT Total # of Minutes Spent Total Time Spent with Patient: Total time spent is greater than 50% in coordination of care (as documented) at patient's floor/unit and/or counseling patient: Coding Level of Care Code 51046 INT INP/OBS CARE 3/75MIN Diagnoses Sepsis secondary to UTI A41.9; N39.0 Acute UTI (urinary tract infection) N39.0 Acute right flank pain R10.A1
--- NOTE | 2025-09-26 17:55 | CT Scan Report ---
INDICATION: Right-sided flank pain COMPARISON: 09/17/2024 TECHNIQUE: Contiguous axial CT images were obtained through the abdomen and pelvis. Dose reduction according to patient size and/or automated exposure control techniques have been utilized for this exam. FINDINGS: CT ABDOMEN: LUNG BASES: Minor bilateral lower lobe atelectasis or scarring. Bilateral breast implants. LIVER: No worrisome hepatic lesions. Hepatic steatosis. SPLEEN: Unremarkable. GALLBLADDER: Unremarkable. KIDNEYS: There is some prominence of the right renal pelvis but no obstructing calculi are appreciated. The left kidney is smaller than the right. Bilateral renal cortical scarring changes. Bilateral renal cortical calcifications. PANCREAS: Unremarkable. ADRENAL GLANDS: Unremarkable. PROXIMAL BOWEL: No small bowel obstruction. RETROPERITONEUM: No AAA. No significant lymphadenopathy. OTHER: No abscess. Small fat-containing umbilical hernia. CT PELVIS: URINARY BLADDER: Unremarkable. PELVIC ORGANS: Uterus not visualized. DISTAL BOWEL: [id number] stool in the colon. Normal appendix. OTHER: No significant lymphadenopathy. There is no free pelvic fluid. IMPRESSION: There is some prominence of the right renal pelvis, similar to prior. Lobular contour of the kidneys. Renal cortical scarring changes with parenchymal calcifications. Hepatic steatosis. Electronically signed by Suki Collins 09-26-2025 5:55 PM
[2025-09-26] MEDS: PROCHLORPERAZINE 1 ML IV ONE (18:02)
[2025-09-26] MEDS: diphenhydrAMINE 50 MG/ML VIAL IV STA (18:03)
[2025-09-26] MEDS ORDERED: GLUCOSE 40% GEL 15 GM TUBE PO PRN (20:14)
[2025-09-26] MEDS ORDERED: GLUCAGON FOR INJ 1 MG VIAL SQ PRN (20:14)
[2025-09-26] MEDS ORDERED: CARBOHYDRATES FOR HYPOGLYCEMIA PO PRN (20:14)
[2025-09-26] MEDS ORDERED: ONDANSETRON INJ 2 MG/ML 2 ML VIAL IV PRN (20:14)
[2025-09-26] MEDS ORDERED: ALUMINUM/MAGNESIUM SUSP 30 ML UDC PO PRN (20:14)
[2025-09-26] MEDS ORDERED: GLUCOSE 10 TAB/TUBE PO PRN (20:14)
[2025-09-26] MEDS ORDERED: ALBUTEROL HFA 8 GM INHALER INH PRN (20:14)
[2025-09-26] MEDS ORDERED: DEXTROSE 50% 50 ML SYRINGE IV PRN (20:14)
[2025-09-26] MEDS ORDERED: LANTUS PER UNIT CHARGE SQ SCH ×2 (21:00)
[2025-09-26] MEDS: INSULIN ASPART PER UNIT CHARGE SC SCH (21:02)
[2025-09-26] MEDS: DAPTOmycin 500 MG in SYRINGE 0 ML IV SCH (21:08)
[2025-09-27] MEDS: CEFEPIME 2000MG 2,000 MG/20 ML SYR IV SCH (03:22)
[2025-09-27] MEDS: LEVOTHYROXINE SODIUM 50 MCG TABLET PO SCH (05:46)
[2025-09-27] MEDS: MULTIVITAMIN CHEWABLE TAB PO SCH (08:06)
[2025-09-27] MEDS: ATORVASTATIN 40 MG TAB PO SCH (08:07)
[2025-09-27] MEDS: FUROSEMIDE 20 MG TAB PO SCH (08:08)
[2025-09-27] MEDS: SPIRONOLACTONE 25 MG TAB PO SCH (08:08)
[2025-09-27] MEDS: TAMSULOSIN HCL 0.4 MG CAP PO SCH (08:08)
[2025-09-27] MEDS: LANTUS PER UNIT CHARGE SQ SCH (08:09)
[2025-09-27 08:26] LABS: Anion Gap 7.0 (3-11); Blood Urea Nitrogen 22.0 mg/dl (6-23); Calcium 8.8 mg/dl (8.6-10.3); Carbon Dioxide 25.0 mmol/L (21-32); Chloride 108.0 mmol/L (98-107); Creatinine Clr Calc Pharmacy 30.7 ml/min; Glucose 180.0 mg/dl (70-99(Fasting)); Potassium 3.9 mmol/L (3.5-5.1); Sodium 140.0 mmol/L (136-145)
[2025-09-27 08:31] LABS: Hematocrit (blood only) 37.1 % (37.0-47.0); Hemoglobin 12.4 g/dL (12.0-16.0); Mean Corpuscular Hemoglobin 30.7 pg (25.0-34.0); Mean Corpuscular Volume 91.8 fL (80.0-100.0); Platelet Count 115 K/uL (130-400); RDW Standard Deviation 46.6 fL (36.4-46.3); Red Blood Count 4.04 M/uL (4.20-5.40); White Blood Count 10.30 K/ul (4.8-10.8)
[2025-09-27] MEDS ORDERED: LANTUS PER UNIT CHARGE SQ SCH (09:00)
--- NOTE | 2025-09-27 09:41 | Electrocardiogram Report ---
Test Reason : Blood Pressure : */* mmHG Vent. Rate : 100 BPM Atrial Rate : 100 BPM P-R Int : 164 ms QRS Dur : 76 ms QT Int : 340 ms P-R-T Axes : 13 -53 52 degrees QTcB Int : 438 ms Normal sinus rhythm Possible Left atrial enlargement Left anterior fascicular block Poor R wave progression, consider anterior MN vs. lead placement vs. LVH Abnormal ECG When compared with ECG of 02-Dec-2024 13:18, Criteria for Septal infarct are no longer Present Confirmed by Niraj Huynh ([id number]) on 09/27/2025 9:40:56 AM Referred By: Confirmed By: Niraj Huynh
--- NOTE | 2025-09-27 11:43 | Hospitalist Progress Note ---
Date of Service September 27, 2025 Assessment & Plan (1) Sepsis secondary to UTI: (2) Acute UTI (urinary tract infection): (3) Acute right flank pain: Plan Renata is a pleasant 70-year-old woman with past medical history of hypertension, hyperlipidemia, type II DM, BRYAN, hypothyroidism, CKD stage IV, asthma, GERD, gout, recurrent UTIs, nephrolithiasis, migraines with aura, OA s/p bilateral TKA, MASLD, obesity. She presented from home with right flank pain and dysuria x 1 week and was concerned for sepsis, as she has become septic from UTIs previously. She was admitted for further management of urosepsis. #Urosepsis | UTI - with tachycardia, fever, leukocytosis, and source UTI. Lactate WNL at 1.6. Procalcitonin WNL at 0.42. 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 She reports fever and chills at home overnight prior to admission. - Outpatient urine culture was sent by urology to a lab in [place] - notes presence of Citrobacter/proteus/enterococcus on PCR based urine testing done earlier this week - UA on arrival could represent partially treated infection with 3+ protein, 1+ ketone, trace leukocyte esterase, 610 WBC, 35 epithelial cells - Significant leukocytosis of 20.51 with neutrophil predominance on arrival, now resolved with WBC 10.30 - CT A/P with some prominence of the right renal pelvis, similar to prior, no obstructing calculi appreciated. No signs of pyelonephritis noted - Continue IV cefepime for gram negatives and IV daptomycin for enterococcus - Urine culture - pinpoint growth, reincubating - Blood cultures negative - Pain regimen: Tylenol PRN, oxycodone 5-10 mg Q4H PRN mod-severe pain #Hypertensioncontinue amlodipine 10 mg daily, olmesartan 40 mg daily, spironolactone 20 mg daily, furosemide 20 mg daily #Hyperlipidemiacontinue atorvastatin 40 mg daily #[id number] 6.7%. Home regimen includes insulin degludec qAM + insulin aspart TIDAC SSI and Ozempic 0.25 mg SQ weekly - Hold home regimen - Lantus + SSI while admitted #CKD stage IVfollows with Dr. Edwards in nephrology. Baseline creatinine 1.82.0. Avoid nephrotoxins #Hypothyroidismcontinue levothyroxine 50 mcg daily #GERDcontinue pantoprazole, Carafate #Goutcontinue allopurinol 300 mg daily #Mild intermittent asthmacontinue home inhalers #Chronic edemahigh dose amlodipine likely contributing. Apply ANDREA stockings bilaterally, elevate legs, heart healthy diet for sodium restriction #S/p esophageal dilation - with GI earlier in 2024. Since then, patient reports voice changes and dyspnea - CXR on arrival with no acute processes - Recommended ENT evaluation as outpatient VTE PPx: Low risk. Encourage ambulation. Add chemoprophylaxis if prolonged stay. Dispo: Continue inpatient stay for IV antibiotics while awaiting urine culture results. Anticipate discharge home in next 24-48 hours. Admission and Anticipated Discharge Date Admission Date: September 26, 2025 Supervising Physician Co-Signing Physician Notes Attending Attestation - Chart reviewed, care plan d/w ZBIGNIEW Ricci. I agree w/ the veliz components of her documentation. Jaime Corey MD Subjective Patient seen and evaluated at bedside. She reports "I feel much better today." She denies any dysuria or flank pain today. She denies any nausea. She reports her headache is much better today than yesterday. We discussed her antibiotic regimen and pending urine culture. No additional complaints or concerns at this time. Telemetry reviewed: NSR 60-70s. Physical Exam Physical Exam: General: No acute distress, nondiaphoretic, well-developed, well-nourished. Appears ill. Skin: Warm, dry. No rashes or pitting peripheral edema noted. Cardiac: Regular rate and rhythm without murmurs gallops or rubs. Pulm: Clear to auscultation bilaterally without wheezes, rales or rhonchi. Normal respiratory effort. 91% on room air. Abdominal: Soft, nontender, nondistended. Bowel sounds present. : No flank pain with palpation noted. Neuro: A&O x3. No focal neurological deficits. Results & Data Results & Data Vital Signs (Past 12 Hours) Vital Signs Temp Pulse Pulse Resp BP BP Pulse Ox 09/27/25 08:43 98.2 F 67 18 122/74 91 09/27/25 06:52 70 09/27/25 03:32 98.4 F 69 16 121/76 92 O2 Del Method 09/27/25 08:43 Room Air 09/27/25 06:52 09/27/25 03:32 Room Air Laboratory Results Reviewed CBC, BMP PG Care Time/CCT Total # of Minutes Spent Total Time Spent with Patient: Total time spent is greater than 50% in coordination of care (as documented) at patient's floor/unit and/or counseling patient: Coding Level of Care Code 83451 SUB INP/OBS CARE 2/35MIN Diagnoses Sepsis secondary to UTI A41.9; N39.0 Acute UTI (urinary tract infection) N39.0 Acute right flank pain R10.A1
[2025-09-27] MEDS: ACETAMINOPHEN 325 MG TAB PO PRN (13:45)
[2025-09-27] MEDS: POLYETHYLENE (MIRALAX) 17 GM PACK PO PRN (22:57)
[2025-09-28 09:05] LABS: Hematocrit (blood only) 39.7 % (37.0-47.0); Hemoglobin 13.0 g/dL (12.0-16.0); Mean Corpuscular Hemoglobin 29.9 pg (25.0-34.0); Mean Corpuscular Volume 91.3 fL (80.0-100.0); Platelet Count 120 K/uL (130-400); RDW Standard Deviation 46.4 fL (36.4-46.3); Red Blood Count 4.35 M/uL (4.20-5.40); White Blood Count 5.94 K/ul (4.8-10.8)
[2025-09-28 09:31] LABS: Anion Gap 8 (3-11); Blood Urea Nitrogen 27 mg/dl (6-23); Calcium 9.1 mg/dl (8.6-10.3); Carbon Dioxide 27 mmol/L (21-32); Chloride 104 mmol/L (98-107); Creatinine Clr Calc Pharmacy 27.7 ml/min; Glucose 173 mg/dl (70-99(Fasting)); Sodium 139 mmol/L (136-145)
[2025-09-28] MEDS: SODIUM CHLORIDE 0.9% 500 ML IV ONE (10:47)
[2025-09-28] MEDS: NovoLIN-R INSULIN PER UNIT CHARGE SC ONE (12:53)
--- NOTE | 2025-09-28 15:38 | Hospitalist Progress Note ---
"Date of Service September 28, 2025 Assessment & Plan (1) Sepsis secondary to UTI: (2) Acute UTI (urinary tract infection): (3) Acute right flank pain: Plan Renata is a pleasant 70-year-old woman with past medical history of hypertension, hyperlipidemia, type II DM, BRYAN, hypothyroidism, CKD stage IV, asthma, GERD, gout, recurrent UTIs, nephrolithiasis, migraines with aura, OA s/p bilateral TKA, MASLD, obesity. She presented from home with right flank pain and dysuria x 1 week and was concerned for sepsis, as she has become septic from UTIs previously. She was admitted for further management of urosepsis. #Urosepsis | UTI - with tachycardia, fever, leukocytosis, and source UTI. Lactate WNL at 1.6. Procalcitonin WNL at 0.42. Patient was seen by her PCP the day prior to admission and UA was indicative of infection, she was started on Macrobid and had 3 doses [employer]. She reports fever and chills at home overnight prior to admission. she had significant leukocytosis to 20 that is now resolved with antibiotics. CT A/P with some prominence of the right renal pelvis, similar to prior, no obstructing calculi appreciated. No signs of pyelonephritis noted Received UC report from [facility] 7 different bacteria DNA present, reviewed with pharmacist does not give colony count to know actual infection. Urine culture here has less than 5000 colonies given her recent antibiotics this is unsurprising. Recommend Levoquin/Augmentin on discharge Continue IV cefepime for gram negatives and IV daptomycin for enterococcus Blood cultures negative at 24hr - Pain regimen: Tylenol PRN, oxycodone 5-10 mg Q4H PRN mod-severe pain #Migraine - patient reports this happens with short acting insulin reports taking insulin -N at meal time (however do not see this prescribed) D/C aspart Home anti-migraine medicine #Hypertensioncontinue amlodipine 10 mg daily, olmesartan 40 mg daily, spironolactone 20 mg daily, furosemide 20 mg daily #Hyperlipidemiacontinue atorvastatin 40 mg daily #[id number] 6.7%. Home regimen includes insulin degludec qAM + insulin aspart TIDAC SSI and Ozempic 0.25 mg SQ weekly - Hold home regimen - Lantus continued SSI discontinued as above #CKD stage IVfollows with Dr. Edwards in nephrology. Baseline creatinine ~1.8. Avoid nephrotoxins Slight increase today to 2.09, Lasix held, 500 cc NSS bolus given #Hypothyroidismcontinue levothyroxine 50 mcg daily #GERDcontinue pantoprazole, Carafate #Goutcontinue allopurinol 300 mg daily #Mild intermittent asthmacontinue home inhalers #Chronic edemahigh dose amlodipine likely contributing. Apply ANDREA stockings bilaterally, elevate legs, heart healthy diet for sodium restriction #S/p esophageal dilation - with GI earlier in 2024. Since then, patient reports voice changes and dyspnea - CXR on arrival with no acute processes - Recommended ENT evaluation as outpatient VTE PPx: Low risk. Encourage ambulation. Add chemoprophylaxis if prolonged stay. Dispo: Continue inpatient stay for IV antibiotics and migraine symptoms control, hopeful d/c tomorrow. stable to downgrade to medical Admission and Anticipated Discharge Date Admission Date: September 26, 2025 Subjective Patient seen lying in bed reports that her flank pain and rigors that she presented with are much better. She is still having a migraine headache and some sinus congestion. States that she does not feel comfortable going home with the current state of her migraine Lasix held with elevated creatinine Telemetry sinus rhythm 60s and 90s Review of Systems Review of Systems: All systems reviewed & are unremarkable except as noted in Subjective Physical Exam Physical Exam: General: NAD, VS as above Resp: normal respiratory effort, lungs clear to auscultation CV: RRR, no murmur, Abd: normal bowel sounds, non tender, soft Extremities: Moves all extremities, no edema Neuro: A&O x3, Skin: intact Results & Data Results & Data Vital Signs (Past 12 Hours) Vital Signs Temp Pulse Pulse Resp BP BP Pulse Ox 09/28/25 11:39 98.4 F 76 16 163/79 H 94 09/28/25 08:00 72 09/28/25 07:54 98.2 F 73 12 168/95 H 94 09/28/25 04:14 98.8 F 71 20 143/85 H 93 O2 Del Method 09/28/25 11:39 Room Air 09/28/25 08:00 09/28/25 07:54 Room Air 09/28/25 04:14 Room Air Laboratory Results CBC and chemistry reviewed PG Care Time/CCT Total # of Minutes Spent Total Time Spent with Patient: Total time spent is greater than 50% in coordination of care (as documented) at patient's floor/unit and/or counseling patient: Coding Level of Care Code 35102 SUB INP/OBS CARE 3/50MIN Diagnoses Sepsis secondary to UTI A41.9; N39.0 Acute UTI (urinary tract infection) N39.0 Acute right flank pain R10.A1"
[2025-09-28] MEDS: RIZATRIPTAN BENZOATE 10 MG TAB PO PRN (17:21)
[2025-09-28] MEDS: CEFEPIME 1000MG 1,000 MG/10 ML SYR IV SCH (17:21)
[2025-09-28 23:09] VITALS: RESP 18
[2025-09-29 07:08] LABS: Anion Gap 9.0 (3-11); Blood Urea Nitrogen 28.0 mg/dl (6-23); Calcium 9.2 mg/dl (8.6-10.3); Carbon Dioxide 25.0 mmol/L (21-32); Chloride 105.0 mmol/L (98-107); Creatinine Clr Calc Pharmacy 29.3 ml/min; Glucose 130.0 mg/dl (70-99(Fasting)); Potassium 4.0 mmol/L (3.5-5.1); Sodium 139.0 mmol/L (136-145)
[2025-09-29 08:40] VITALS: PULSE 77; TEMP 97.9; O2SAT 93
--- NOTE | 2025-09-29 09:55 | Discharge Summary ---
"Discharge Summary Date of Service September 29, 2025 Principal Dx & Hospital Course #1 = Principal Diagnosis (1) Sepsis secondary to UTI: (2) Acute UTI (urinary tract infection): (3) Acute right flank pain: Plan #Urosepsis | UTI Renata is a pleasant 70-year-old woman with past medical history of hypertension, hyperlipidemia, type II DM, BRYAN, hypothyroidism, CKD stage IV, asthma, GERD, gout, recurrent UTIs, nephrolithiasis, migraines with aura, OA s/p bilateral TKA, MASLD, obesity. She presented from home with right flank pain and dysuria x 1 week, fevers/chills x 1 day and was concerned for sepsis, and she was septic with tachycardia, fever, leukocytosis, and source UTI. Lactate WNL at 1.6. Procalcitonin WNL at 0.42. Patient was seen by urology [facility] [employer]ATOR and UA was indicative of infection, she was started on Macrobid and had 3 doses [employer] OPERATOR. She had significant leukocytosis to 20 that is now resolved with antibiotics. CT A/P with some prominence of the right renal pelvis, similar to prior, no obstructing calculi appreciated. No signs of pyelonephritis noted. Received UC report from [facility] 7 different bacteria DNA present, reviewed with pharmacist does not give colony count to know actual infection. Urine culture here has less than 5000 colonies given her recent antibiotics this is unsurprising. Recommend Levaquin/Augmentin on discharge for additional days (received cefepime and dapto while inpatient). Blood cultures negative at 48h #Migraine - patient reports this happens with short acting insulin, reports taking insulin -N at meal time (however do not see this prescribed). Aspart discontinued, mirgaine resolved with home anti-migraine medicine #Hypertensioncontinue amlodipine 10 mg daily, olmesartan 40 mg daily, spironolactone 20 mg daily. Hold lasix until 10/02 #Hyperlipidemiacontinue atorvastatin 40 mg daily #[id number] 6.7%. Home regimen includes insulin degludec qAM + insulin aspart TIDAC SSI and Ozempic 0.25 mg SQ weekly - continue at discharge #CKD stage IVfollows with Dr. Edwards in nephrology. Baseline creatinine ~1.8. Avoid nephrotoxins. Improving to 1.98 today, pt concerned given her family hx, will give additional 500 NSS bolus prior to discharge, hold lasix until 10/02 #Hypothyroidismcontinue levothyroxine 50 mcg daily #GERDcontinue pantoprazole, Carafate #Goutcontinue allopurinol 300 mg daily #Mild intermittent asthmacontinue home inhalers #Chronic edemahigh dose amlodipine likely contributing. Apply ANDREA stockings bilaterally, elevate legs, heart healthy diet for sodium restriction #S/p esophageal dilation - with GI earlier in 2024. Since then, patient reports voice changes and dyspnea. Recommended ENT evaluation as outpatient Dispo: discharge to home today Notes For Next Care Provider blood cultures pending Medication Changes From Visit lasix held til 10/02 Admission HPI Per Admitting Provider Renata is a pleasant 70-year-old woman with past medical history of hypertension, hyperlipidemia, type II DM, BRYAN, hypothyroidism, CKD stage IV, asthma, GERD, gout, recurrent UTIs, nephrolithiasis, migraines with aura, OA s/p bilateral TKA, MASLD, obesity. She presented from home with right flank pain and dysuria. At the time of my exam, the patient was lying in bed in no acute distress with her present at bedside. She states she has had dysuria and right-sided flank pain that is progressed x 1 week. She saw her PCP yesterday who checked a UA which was positive for UTI. She was started on Macrobid and had 2 doses yesterday and 1 dose this morning prior to coming to the ED. She had rigors overnight and subjectively felt febrile. She also had some nausea earlier, which has since resolved after receiving Zofran. Currently, she reports her biggest complaint is a migraine headache. She reports this headache is similar to her previous migraines. She denies chest pain, shortness of breath, abdominal pain. Patient reports that she took all of her regular morning medications today; no recent change in home medications (aside from recent Macrobid prescription). She does not use supplemental oxygen at baseline. No CPAP at night. Vitals on admission significant for elevated BP at 159/98 and elevated temp at 99.7 F; vitals otherwise stable. Labs on admission are significant for leukocytosis with WBC 20.51 with neutrophil predominance. H&H and platelets WNL. Electrolytes WNL. Renal function at baseline. Liver enzymes WNL. Lactate WNL at 1.6. Procalcitonin WNL at 0.42. Troponin negative at 8.5. UA with 3+ protein, 1+ ketones, trace leukocyte esterase, 610 WBC, 35 epithelial cells. CXR on admission reveals a normal chest radiograph. CT A/P notes some prominence of the right renal pelvis, similar to prior, lobar contour of the kidneys with renal cortical scarring changes with parenchymal calcifications. No pyelonephritis noted. We discussed code status, patient wishes to be a full code. Discharge Exam General: NAD, VS as above Resp: normal respiratory effort, lungs clear to auscultation CV: RRR, no murmur, Abd: normal bowel sounds, non tender, soft Extremities: Moves all extremities, no edema Neuro: A&O x3, Skin: intact Discharge Plan Discharge Items Patient Disposition: Home - Self-Care Reason For Visit: UROSEPSIS Discharge Diagnosis: UTI - Sepsis Condition on Discharge: Fair Activity: Resume your previous activity Weightbearing: Full weightbearing Non-emergency contact: Primary Care Provider Call non-emergency contact if: you have any medication questions and your symptoms worsen Follow-up/Referrals: Angie Julien MD [Primary Care Provider] - 10/06/25 10:30 am () Diet: Carb Consistent or DM2 Addtl Attending Provider Instructions: Ms. Hernandes, You were hospitalized after having urinary symptoms found to have sepsis from a UTI. You were treated with IV antibiotics and improved. You will be continued on Levofloxacin and Augmentin for the next 4 days. -Take Augmentin twice a day with food - first dose PM 09/29 -Take Levofloxacin once a day - first dose AM 09/30 There was a slight increase in your kidney function and you were given IV fluids. Please hold your lasix until 10/02 and you can resume. Make sure you are staying hydrated over the next few days. No other changes to your home meds. Activity: You can do normal everyday activities as your body allows. Take rest breaks if you feel tired. Do not overexert. Stop activity if you have pain, shortness of breath or feel dizzy. Follow-up appointments: Make an appointment with your primary care physician within one week of discharge. A copy of this summary will be sent to them. Every time you see your primary care physician, or any other doctor, bring your medication list, and a list of questions. CONTACT YOUR PRIMARY CARE PROVIDER if you experience any of the following: Shortness of breath or difficulty breathing Fevers or chills Feeling tired with normal activity or experiencing dizziness or fainting Difficulty following your treatment plan, or difficulty taking medications CALL 911 OR GO TO THE EMERGENCY DEPARTMENT if you experience any of the following: Severe abdominal pain or nausea/vomiting Severe chest pain, or chest pain that radiates (moves) to your jaw or arm Sudden, severe shortness of breath or difficulty breathing Thank you for allowing us to participate in your care. Pending Studies at Discharge: No Stand-Alone Forms: My [facility], Smoking Cessation Medications and DC Order Prescriptions: New levofloxacin 250 mg tablet 250 mg PO DAILY Qty: 4 0RF amoxicillin-pot clavulanate [Augmentin] 500-125 mg tablet 1 tab PO BID Qty: 8 0RF Continued rizatriptan 10 mg tablet,disintegrating See Rx Instructions PO .COMPLEX PRN (Reason: migraines) 90 Days Qty: 27 3RF Rx Instructions: take 1 tab at onset of headache; if no relief may repeat 1 tab after at least 2 hrs; max = 3 tabs/24 hr orally PRN; sumatriptan succinate [Imitrex] 50 mg tablet 50 mg PO Q2H PRN (Reason: Migraine Headache) 90 Days Qty: 27 3RF insulin aspart U-100 [Novolog FlexPen U-100 Insulin] 100 unit/mL (3 mL) insulin pen 3 unit subcut .COMPLEX 90 Days Qty: 15 2RF Patient Comments: 3 units Rx Instructions: 3 units subcutaneously with high carbohydrate meals; max 9 u daily; amlodipine 10 mg tablet 10 mg PO QAM Qty: 90 3RF albuterol sulfate [Ventolin HFA] 90 mcg/actuation HFA aerosol inhaler 2 puff inhalation Q6H PRN (Reason: shortness of breath or wheezing) Qty: 8.5 5RF levothyroxine 50 mcg tablet 50 mcg PO QAM Qty: 90 3RF olmesartan 40 mg tablet 40 mg PO QAM Qty: 90 3RF Ozempic 0.25 mg or 0.5 mg (2 mg/3 mL) pen injector 0.25 mg subcut Q7D Qty: 3 0RF Rx Instructions: Patient gets medication from [employer]. estradiol 0.01 % (0.1 mg/gram) cream 1 g vaginal 2XWK pantoprazole 40 mg tablet,delayed release (DR/EC) 40 mg PO BID Qty: 60 5RF atorvastatin 40 mg tablet 40 mg PO QAM Qty: 90 3RF allopurinol 300 mg tablet 300 mg PO QAM Qty: 90 3RF tamsulosin 0.4 mg capsule 0.4 mg PO DAILY Qty: 90 2RF spironolactone 25 mg tablet 25 mg PO DAILY Qty: 30 2RF insulin degludec [Tresiba FlexTouch U-100] 100 unit/mL (3 mL) insulin pen 8 unit SUBCUT QAM Patient Comments: 8 units- 12 units Emgality Pen 120 mg/mL pen injector 120 mg subcut MONTHLY Patient Comments: not currently taking 01/27/25 multivitamin Tablet 1 tab PO QAM Held furosemide 20 mg tablet 20 mg PO DAILY Qty: 90 3RF Hold Instructions: Resume on 10/02/25. Discharge Orders: Discharge Order (Routine); Ordered 09/29/25 Ordered By: Betsy Méndez Admission Data Admit Date/Time: 09/26/25 18:18 Attending Provider: Jaime Corey Admit Provider: Jaime Corey Primary Care Provider: Angie Julien Other Providers: Vidal Ricardo Other Interventions: Discharge Summary Assessment (RN) Last Done: 09/29/25 09:58 Hospital Stay Data Consultations 09/26/25 16:59 ED Decision to Admit Stat Diagnostic Imagining Performed Chest X-Ray 09/26/25 14:43 Chest radiograph, one view History: Sepsis Comparison: None Findings: Single AP view of the chest performed. No focal consolidation or pleural effusion. No pneumothorax. The cardiomediastinal silhouette is within normal limits. Normal pulmonary vascularity. No evidence for lymphadenopathy. No visualized bony or soft tissue abnormality. Impression: Normal chest radiograph Electronically signed by Hector Mckoy 09-26-2025 5:34 PM Abdomen/Pelvis CT 09/26/25 15:54 INDICATION: Right-sided flank pain COMPARISON: 09/17/2024 TECHNIQUE: Contiguous axial CT images were obtained through the abdomen and pelvis. Dose reduction according to patient size and/or automated exposure control techniques have been utilized for this exam. FINDINGS: CT ABDOMEN: LUNG BASES: Minor bilateral lower lobe atelectasis or scarring. Bilateral breast implants. LIVER: No worrisome hepatic lesions. Hepatic steatosis. SPLEEN: Unremarkable. GALLBLADDER: Unremarkable. KIDNEYS: There is some prominence of the right renal pelvis but no obstructing calculi are appreciated. The left kidney is smaller than the right. Bilateral renal cortical scarring changes. Bilateral renal cortical calcifications. PANCREAS: Unremarkable. ADRENAL GLANDS: Unremarkable. PROXIMAL BOWEL: No small bowel obstruction. RETROPERITONEUM: No AAA. No significant lymphadenopathy. OTHER: No abscess. Small fat-containing umbilical hernia. CT PELVIS: URINARY BLADDER: Unremarkable. PELVIC ORGANS: Uterus not visualized. DISTAL BOWEL: [id number] stool in the colon. Normal appendix. OTHER: No significant lymphadenopathy. There is no free pelvic fluid. IMPRESSION: There is some prominence of the right renal pelvis, similar to prior. Lobular contour of the kidneys. Renal cortical scarring changes with parenchymal calcifications. Hepatic steatosis. Electronically signed by Suki Collins 09-26-2025 5:55 PM Pending Results Patient Have Any Pending Studies at Discharge: No Discharge Instructions Given to Patient (Per Discharging Provider) Ms. Hernandes, Aiden were hospitalized after having urinary symptoms found to have sepsis from a UTI. You were treated with IV antibiotics and improved. You will be continued on Levofloxacin and Augmentin for the next 4 days. -Take Augmentin twice a day with food - first dose PM 09/29 -Take Levofloxacin once a day - first dose AM 09/30 There was a slight increase in your kidney function and you were given IV fluids. Please hold your lasix until 10/02 and you can resume. Make sure you are staying hydrated over the next few days. No other changes to your home meds. Activity: You can do normal everyday activities as your body allows. Take rest breaks if you feel tired. Do not overexert. Stop activity if you have pain, shortness of breath or feel dizzy. Follow-up appointments: Make an appointment with your primary care physician within one week of discharge. A copy of this summary will be sent to them. Every time you see your primary care physician, or any other doctor, bring your medication list, and a list of questions. CONTACT YOUR PRIMARY CARE PROVIDER if you experience any of the following: Shortness of breath or difficulty breathing Fevers or chills Feeling tired with normal activity or experiencing dizziness or fainting Difficulty following your treatment plan, or difficulty taking medications CALL 911 OR GO TO THE EMERGENCY DEPARTMENT if you experience any of the following: Severe abdominal pain or nausea/vomiting Severe chest pain, or chest pain that radiates (moves) to your jaw or arm Sudden, severe shortness of breath or difficulty breathing Thank you for allowing us to participate in your care. Total Time Total Time Spent Total Time Spent (In Minutes): Time spent day of discharge 35 minutes including direct patient care, medication reconciliation, documentation, review of labs and images, and coordination of care. Coding Level of Care Code 30249 INP/OBS DISCH >30 MIN Diagnoses Sepsis secondary to UTI A41.9; N39.0 Acute UTI (urinary tract infection) N39.0 Acute right flank pain R10.A1"
[2025-09-29 09:59] VITALS: BP 145/86
[2025-09-29] MEDS: SODIUM CHLORIDE 0.9% 500 ML IV ONE (10:19)
[2025-09-29] MEDS ORDERED: DAPTOmycin 500 MG in SYRINGE 0 ML IV SCH (20:00)
== END 2025-09-29 13:58 | disposition home or self-care (01) | DRG 872 ==
LOC: ED 14:36 → 2N 18:18